=== PATIENT | female | born 1955 | race Caucasian/White ===

== ENCOUNTER 2017-04-25 19:20 | Inpatient (IN) | payer OTHER ==
[~2017-04-25] VITALS: Ht 167.6 cm; Wt 112.0 kg
[2017-04-25 19:22] VITALS: BP 136/95; PULSE 80; RESP 18; TEMP 98.3; O2SAT 100
[2017-04-25] MEDS ORDERED: TOPI1TAB36 PO (20:27)
[2017-04-25] MEDS ORDERED: SODIUM CHLOR 0.9% 1000 ML INJ 1,000 ML IV SCH (20:27)
[2017-04-25] MEDS ORDERED: ONDANSETRON HCL 4 MG/2 ML VIAL IVP ONE (20:30)
[2017-04-25] MEDS ORDERED: MORPHINE SULFATE 4 MG/ML INJ IV PUSH ONE ×2 (20:30→22:30)
[2017-04-25] MEDS ORDERED: SODIUM CHLORIDE 0.9% FLUSH 10 ML FLUSH IV FLUSH PRN ×2 (20:30→23:30)
--- NOTE | 2017-04-25 20:33 | PD ---
HPI Chief Complaint: Abdominal Pain Time Seen by Provider: 20:31 Travel History International Travel<30 days: No Contact w/Intl Traveler<30days: No Traveled to known affect area: No History of Present Illness HPI Patient comes emergency Department complaining of left lower quadrant abdominal pain that began suddenly proximally 3 hours ago. Patient describes pain as sharp stabbing like in nature. Pain is worse with certain movement. Patient denies anything making it better. Patient has tried just resting for this with no improvement of symptoms. Patient denies any loss or change in bowel or bladder. Patient reports associated nausea but denies any vomiting. Denies any chest pain, shortness of breath, fevers, previous episodes like this, or back pain. Patient states she is allergic to codeine but is able take morphine. PFSH Past Medical History COPD: Yes Respiratory: Yes Past Surgical History Abdominal Surgery: Yes (LAP BAND-REMOVED) Appendectomy: Yes Hysterectomy: Yes Tonsillectomy: Yes Social History Alcohol Use: No Tobacco Use: No Substance Use: No Allergies-Medications (Allergen,Severity, Reaction): Coded Allergies: acetaminophen (Verified Allergy, Severe, 04/26/17) amoxicillin (Verified Allergy, Severe, Rash, 04/25/17) azithromycin (Verified Allergy, Severe, 04/26/17) ciprofloxacin (Verified Allergy, Severe, Rash, 04/25/17) clavulanic acid (Verified Allergy, Severe, Rash, 04/25/17) levofloxacin (Verified Allergy, Severe, Rash, 04/25/17) tramadol (Verified Allergy, Severe, 04/26/17) valdecoxib (Verified Allergy, Severe, 04/26/17) cefadroxil (Verified Allergy, Unknown, 04/26/17) codeine (Verified Allergy, Unknown, 04/25/17) Reported Meds & Prescriptions Reported Meds & Active Scripts Active Reported Topiramate 50 Mg Tab 150 Mg PO DAILY NEB Review of Systems Except as stated in HPI: all other systems reviewed are Neg Physical Exam Narrative GENERAL: Well-developed, overly nourished, appears uncomfortable, and non-ill appearing. SKIN: Focused skin assessment warm and dry. HEAD: Atraumatic. Normocephalic. EYES: Pupils equal and round. EOMI. No scleral icterus. No injection or drainage. ENT: No nasal bleeding or discharge. Mucous membranes pink and moist. NECK: Trachea midline. Supple. No nuclear rigidity. CARDIOVASCULAR: Regular rate and rhythm. No murmur appreciated. RESPIRATORY: No accessory muscle use. No respiratory distress. Clear to auscultation. Breath sounds equal bilaterally. GASTROINTESTINAL: Abdomen soft, nondistended, and no guarding. Hepatic and splenic margins not palpable. Normal bowel sounds 4. No pulsatile mass. Tenderness left lower quadrant. No CVA tenderness. MUSCULOSKELETAL: No obvious deformities. No clubbing. No cyanosis. No edema. Full range of motion. NEUROLOGICAL: Awake and alert. No obvious cranial nerve deficits. Motor grossly within normal limits. Normal speech. PSYCHIATRIC: Appropriate mood and affect; insight and judgment normal. Data Data Last Documented VS Vital Signs Date Time Temp Pulse Resp B/P (MAP) Pulse Ox O2 Delivery O2 Flow Rate FiO2 04/25/17 20:47 18 04/25/17 19:22 98.3 80 136/95 (109) 100 Room Air Orders Orders Complete Blood Count With Diff (04/25/17 20:27) Comprehensive Metabolic Panel (04/25/17 20:27) Lipase (04/25/17 20:27) Prothrombin Time / Inr (Pt) (04/25/17 20:27) Act Partial Throm Time (Ptt) (04/25/17 20:27) Urinalysis - C+S If Indicated (04/25/17 20:27) Ct Abd/Pel W/O Iv Contrast (04/25/17 20:27) Iv Access Insert/Monitor (04/25/17 20:27) Ecg Monitoring (04/25/17 20:27) Oximetry (04/25/17 20:27) Morphine Inj (Morphine Inj) (04/25/17 20:30) Ondansetron Inj (Zofran Inj) (04/25/17 20:30) Sodium Chlor 0.9% 1000 Ml Inj (Ns 1000 M (04/25/17 20:27) Sodium Chloride 0.9% Flush (Ns Flush) (04/25/17 20:30) Metronidazole 500 Mg Inj (Flagyl 500 Mg (04/25/17 22:15) Aztreonam Inj (Azactam Inj) (04/25/17 22:15) Morphine Inj (Morphine Inj) (04/25/17 22:30) Hydromorphone Pf Inj (Dilaudid Pf Inj) (04/25/17 23:15) Admit Order (Ed Use Only) (04/25/17 23:15) Labs Laboratory Tests Test 04/25/17 20:35 White Blood Count 12.4 TH/MM3 Red Blood Count 4.71 MIL/MM3 Hemoglobin 13.2 GM/DL Hematocrit 41.1 % Mean Corpuscular Volume 87.4 FL Mean Corpuscular Hemoglobin 28.1 PG Mean Corpuscular Hemoglobin Concent 32.2 % Red Cell Distribution Width 15.4 % Platelet Count 281 TH/MM3 Mean Platelet Volume 10.3 FL Neutrophils (%) (Auto) 84.1 % Lymphocytes (%) (Auto) 11.7 % Monocytes (%) (Auto) 2.7 % Eosinophils (%) (Auto) 1.3 % Basophils (%) (Auto) 0.2 % Neutrophils # (Auto) 10.4 TH/MM3 Lymphocytes # (Auto) 1.5 TH/MM3 Monocytes # (Auto) 0.3 TH/MM3 Eosinophils # (Auto) 0.2 TH/MM3 Basophils # (Auto) 0.0 TH/MM3 CBC Comment DIFF FINAL Differential Comment Prothrombin Time 10.1 SEC Prothromb Time International Ratio 0.9 RATIO Activated Partial Thromboplast Time 26.8 SEC Blood Urea Nitrogen 20 MG/DL Creatinine 1.20 MG/DL Random Glucose 140 MG/DL Total Protein 6.8 GM/DL Albumin 3.5 GM/DL Calcium Level 8.7 MG/DL Alkaline Phosphatase 82 U/L Aspartate Amino Transf (AST/SGOT) 16 U/L Alanine Aminotransferase (ALT/SGPT) 19 U/L Total Bilirubin 0.3 MG/DL Sodium Level 139 MEQ/L Potassium Level 3.7 MEQ/L Chloride Level 108 MEQ/L Carbon Dioxide Level 20.9 MEQ/L Anion Gap 10 MEQ/L Estimat Glomerular Filtration Rate 46 ML/MIN Lipase 129 U/L MDM Medical Decision Making Medical Screen Exam Complete: Yes Emergency Medical Condition: Yes Interpretation(s) CT abdomen read by the radiologist shows: 1. Diverticula throughout the descending and sigmoid colon with suspected inflammatory change/diverticulitis at the descending colon. There is a small amount of extraluminal retroperitoneal air seen adjacent to the descending colon. 2. Small hernia just to the left of midline at the upper abdomen. This only contains mesenteric fat. Differential Diagnosis Diverticulitis, UTI, kidney stone, constipation, ileus, small bowel obstruction , electrolyte abnormality, other Narrative Course Patient was seen and examined. IV was established. Patient was placed on continuous cardiac monitoring. Initial laboratory radiological studies were ordered. Patient was given morphine for pain and Zofran for nausea. After reviewing CT scan patient was started on Azactam and Flagyl secondary to her list of antibiotic allergies. Discussed all findings and plan care of patient is agreeable for admission. All questions were answered. Call was placed to hospitalist for admission. Dr. Hernandez spoke with the hospitalist who is agreeable to admit the patient. Diagnosis Primary Impression: Diverticulitis Qualified Codes: K57.92 - Diverticulitis of intestine, part unspecified, without perforation or abscess without bleeding Admitting Information Admitting Physician Requests: Admit Condition: Stable Ady Oliva Apr 25, 2017 20:33
[2017-04-25 21:31] LABS: APTT (PATIENT) 26.8 SEC (24.3-30.1); INTERNATIONAL NORMALIZED RATIO 0.9 RATIO; PROTHROMBIN TIME - PATIENT 10.1 SEC (9.8-11.6)
[2017-04-25 21:32] LABS: ANION GAP 10 MEQ/L (5-15); AST (GOT) 16 U/L (15-37); AUTOMATED NEUTROPHIL # 10.4 TH/MM3 (1.8-7.7); BASOPHIL % 0.2 % (0.0-2.0); BICARBONATE 20.9 MEQ/L (21.0-32.0); BLOOD UREA NITROGEN 20 MG/DL (7-18); CHLORIDE 108 MEQ/L (98-107); EOSINOPHIL # 0.2 TH/MM3 (0-0.4); EOSINOPHIL % 1.3 % (0.0-4.0); GLOMERULAR FILTRATION RATE 46 ML/MIN (>89); HEMATOCRIT 41.1 % (35.0-46.0); HEMO FLAGS DIFF FINAL; LYMPH % 11.7 % (9.0-44.0); LYMPHOCYTE # 1.5 TH/MM3 (1.0-4.8); MEAN CELL VOLUME 87.4 FL (80.0-100.0); MEAN CORPUSCULAR HEMOGLOBIN 28.1 PG (27.0-34.0); MEAN CORPUSCULAR HGB CONC 32.2 % (32.0-36.0); MONO % 2.7 % (0.0-8.0); NEUT % 84.1 % (16.0-70.0); PLATELET COUNT 281 TH/MM3 (150-450); POTASSIUM 3.7 MEQ/L (3.5-5.1); RED BLOOD COUNT 4.71 MIL/MM3 (4.00-5.30); RED CELL DISTRIBUTION WIDTH 15.4 % (11.6-17.2); SODIUM (NA) 139 MEQ/L (136-145); WHITE BLOOD COUNT 12.4 TH/MM3 (4.0-11.0)
[2017-04-25 21:33] LABS: ALT (GPT) 19 U/L (10-53)
[2017-04-25 21:35] LABS: ALKALINE PHOSPHATASE 82 U/L (45-117); TOTAL BILIRUBIN ADULT 0.3 MG/DL (0.2-1.0)
--- NOTE | 2017-04-25 22:06 | RADRPT ---
EXAM DATE/TIME: 04/25/2017 20:39 [facility] COMPARISON: No previous studies available for comparison. INDICATIONS : Left sided abdominal pain. ORAL CONTRAST: No oral contrast ingested. RADIATION DOSE: 27.59 CTDIvol (mGy) ; Patient body habitus MEDICAL HISTORY : None SURGICAL HISTORY : Appendectomy. Hysterectomy.Lap band / removal ENCOUNTER: Initial ACUITY: 1 day PAIN SCALE: 6/10 LOCATION: Left abdomen TECHNIQUE: Volumetric scanning of the abdomen and pelvis was performed. Using automated exposure control and ad justment of the mA and/or kV according to patient size, radiation dose was kept as low as reasonably achievable to obtain optimal diagnostic quality images. DICOM format image data is available electro nically for review and comparison. FINDINGS: LOWER LUNGS: The visualized lower lungs are clear. LIVER: Homogeneous density without lesion. There is no dilation of the biliary tree. No calcified gallston es. SPLEEN: Normal size without lesion. PANCREAS: Within normal limits. KIDNEYS: Normal in size and shape. There is no mass, stone, or hydronephrosis. ADRENAL GLANDS: Within normal limits. VASCULAR: There is no aortic aneurysm. Scattered atherosclerotic calcifications are seen. BOWEL/MESENTERY: Colonic diverticula are seen in the descending and sigmoid portions of the colon. There is induration and inflammatory change along the descending colon. There some extraluminal air seen around this reg ion. The amount of extraluminal air is small and primarily within the retroperitoneum. There is incre ased density seen dependently within the stomach likely related to ingested material. ABDOMINAL WALL: There is a small hernia seen just to the left of midline at the upper abdomen with the defect measuri ng 2.5 cm containing a small amount of mesenteric fat. RETROPERITONEUM: There is no lymphadenopathy. BLADDER: No wall thickening or mass. REPRODUCTIVE: The patient is status post hysterectomy. A pelvic mass is not seen. There is mild free fluid. INGUINAL: There is no lymphadenopathy or hernia. MUSCULOSKELETAL: There is degenerative change in the lumbar spine. CONCLUSION: 1. Diverticula throughout the descending and sigmoid colon with suspected inflammatory change/diverti culitis at the descending colon. There is a small amount of extraluminal retroperitoneal air seen adj acent to the descending colon. 2. Small hernia just to the left of midline at the upper abdomen. This only contains mesenteric fat. Fred Hernandes MD on April 25, 2017 at 21:59 Board Certified Radiologist. This report was verified electronically.
[2017-04-25] MEDS ORDERED: metroNIDAZOLE 500 MG INJ 100 ML IV ONE (22:15)
[2017-04-25] MEDS ORDERED: AZTREONAM INJ 1,000 MG in SODIUM CHLORIDE 0.9% INJ 100 ML IV ONE (22:15)
[2017-04-25] MEDS ORDERED: HYDROmorphone HCL PF 1 MG/ML VIAL IV PUSH ONE (23:15)
[2017-04-25] MEDS ORDERED: MAGNESIUM HYDROXIDE SUSP 30 ML CUP PO PRN (23:30)
[2017-04-25] MEDS ORDERED: SENNOSIDES 8.6 MG TAB PO PRN (23:30)
[2017-04-25] MEDS ORDERED: NALOXONE HCL 0.4 MG/ML AMP IV PRN (23:30)
[2017-04-25] MEDS ORDERED: LACTULOSE SYRUP 20 GM/30 ML CUP PO PRN (23:30)
[2017-04-25] MEDS ORDERED: BISACODYL 10 MG SUPP RECTAL PRN (23:30)
[2017-04-26] VITALS (7 sets, daily range): BP systolic 104–165; BP diastolic 54–88; PULSE 74–90; RESP 18; TEMP 97.1–100.1; O2SAT 96–99
--- NOTE | 2017-04-26 00:06 | PD ---
Data Data Last Documented VS Vital Signs Date Time Temp Pulse Resp B/P (MAP) Pulse Ox O2 Delivery O2 Flow Rate FiO2 04/25/17 20:47 18 04/25/17 19:22 98.3 80 136/95 (109) 100 Room Air Orders Orders Complete Blood Count With Diff (04/25/17 20:27) Comprehensive Metabolic Panel (04/25/17 20:27) Lipase (04/25/17 20:27) Prothrombin Time / Inr (Pt) (04/25/17 20:27) Act Partial Throm Time (Ptt) (04/25/17 20:27) Urinalysis - C+S If Indicated (04/25/17 20:27) Ct Abd/Pel W/O Iv Contrast (04/25/17 20:27) Iv Access Insert/Monitor (04/25/17 20:27) Ecg Monitoring (04/25/17 20:27) Oximetry (04/25/17 20:27) Morphine Inj (Morphine Inj) (04/25/17 20:30) Ondansetron Inj (Zofran Inj) (04/25/17 20:30) Sodium Chlor 0.9% 1000 Ml Inj (Ns 1000 M (04/25/17 20:27) Sodium Chloride 0.9% Flush (Ns Flush) (04/25/17 20:30) Metronidazole 500 Mg Inj (Flagyl 500 Mg (04/25/17 22:15) Aztreonam Inj (Azactam Inj) (04/25/17 22:15) Morphine Inj (Morphine Inj) (04/25/17 22:30) Hydromorphone Pf Inj (Dilaudid Pf Inj) (04/25/17 23:15) Admit Order (Ed Use Only) (04/25/17 23:15) Labs Laboratory Tests Test 04/25/17 20:35 White Blood Count 12.4 TH/MM3 Red Blood Count 4.71 MIL/MM3 Hemoglobin 13.2 GM/DL Hematocrit 41.1 % Mean Corpuscular Volume 87.4 FL Mean Corpuscular Hemoglobin 28.1 PG Mean Corpuscular Hemoglobin Concent 32.2 % Red Cell Distribution Width 15.4 % Platelet Count 281 TH/MM3 Mean Platelet Volume 10.3 FL Neutrophils (%) (Auto) 84.1 % Lymphocytes (%) (Auto) 11.7 % Monocytes (%) (Auto) 2.7 % Eosinophils (%) (Auto) 1.3 % Basophils (%) (Auto) 0.2 % Neutrophils # (Auto) 10.4 TH/MM3 Lymphocytes # (Auto) 1.5 TH/MM3 Monocytes # (Auto) 0.3 TH/MM3 Eosinophils # (Auto) 0.2 TH/MM3 Basophils # (Auto) 0.0 TH/MM3 CBC Comment DIFF FINAL Differential Comment Prothrombin Time 10.1 SEC Prothromb Time International Ratio 0.9 RATIO Activated Partial Thromboplast Time 26.8 SEC Blood Urea Nitrogen 20 MG/DL Creatinine 1.20 MG/DL Random Glucose 140 MG/DL Total Protein 6.8 GM/DL Albumin 3.5 GM/DL Calcium Level 8.7 MG/DL Alkaline Phosphatase 82 U/L Aspartate Amino Transf (AST/SGOT) 16 U/L Alanine Aminotransferase (ALT/SGPT) 19 U/L Total Bilirubin 0.3 MG/DL Sodium Level 139 MEQ/L Potassium Level 3.7 MEQ/L Chloride Level 108 MEQ/L Carbon Dioxide Level 20.9 MEQ/L Anion Gap 10 MEQ/L Estimat Glomerular Filtration Rate 46 ML/MIN Lipase 129 U/L [facility] Medical Record Reviewed: Yes Supervised Visit with GOLDEN: Yes Narrative Course CBC & BMP Diagram 04/25/17 20:35 Total Protein 6.8, Albumin 3.5, Calcium Level 8.7, Alkaline Phosphatase 82, Aspartate Amino Transf (AST/SGOT) 16, Alanine Aminotransferase (ALT/SGPT) 19, Total Bilirubin 0.3 Lipase 129 INR 0.9 Last 24 hours Impressions Abdomen/Pelvis CT 04/25/172026 Signed Impressions: Service Date/Time: Tuesday, April 25, 2017 20:39 - CONCLUSION: 1. Diverticula throughout the descending and sigmoid colon with suspected inflammatory change/diverticulitis at the descending colon. There is a small amount of extraluminal retroperitoneal air seen adjacent to the descending colon. 2. Small hernia just to the left of midline at the upper abdomen. This only contains mesenteric fat. Fred Hernandes MD Pt to be due to diverticulitis. Flagyl and aztreonam started due to multiple allergies. Bactrim and Flagyl may be appropriate. Case d/w Jamar Nevarez [facility]. Diagnosis Primary Impression: Diverticulitis Qualified Codes: K57.92 - Diverticulitis of intestine, part unspecified, without perforation or abscess without bleeding Admitting Information Admitting Physician Requests: Admit Priyank Hernandez MD Apr 26, 2017 00:06
[2017-04-26] MEDS: HYDROmorphone HCL PF 1 MG/ML VIAL IV PRN ×7 (00:22→22:33)
[2017-04-26] MEDS: SODIUM CHLOR 0.9% 1000 ML INJ 1,000 ML IV SCH ×3 (00:28→21:11)
[2017-04-26] MEDS: HEPARIN SODIUM - SQ 10,000 UNITS/ML VIAL SQ SCH ×2 (00:29→12:26)
[2017-04-26] MEDS: FAMOTIDINE 20 MG/2 ML VIAL IV PUSH SCH ×2 (00:29→12:25)
[2017-04-26 00:42] LABS: BLOOD, URINE NEG (NEG); GLUCOSE,URINE NEG (NEG); KETONE, URINE NEG (NEG); NITRITE,URINE NEG (NEG); PH, URINE 6.5 (5.0-8.5); SQUAMOUS EPITHELIAL CELL URINE 2 /hpf (0-5); URINE COLOR YELLOW (YELLW/STRAW)
[2017-04-26 00:55] LABS: COMMENT (UR) CULT NOT INDICATED; CULTURE IF INDICATED CULT NOT INDICATED
[2017-04-26] MEDS ORDERED: TRIMETHOPRIM IV SCH ×2 (02:00)
[2017-04-26] MEDS ORDERED: WATE IV SCH ×2 (02:00)
[2017-04-26] MEDS ORDERED: DEXTROSE 5% IV SCH ×2 (02:00)
[2017-04-26] MEDS ORDERED: SULFAMETHOX IV SCH ×2 (02:00)
[2017-04-26 04:26] LABS: AUTOMATED NEUTROPHIL # 15.8 TH/MM3 (1.8-7.7); BASOPHIL % 0.1 % (0.0-2.0); HEMATOCRIT 36.8 % (35.0-46.0); HEMO FLAGS DIFF FINAL; LYMPHOCYTE # 0.3 TH/MM3 (1.0-4.8); MEAN CELL VOLUME 87.6 FL (80.0-100.0); MEAN CORPUSCULAR HEMOGLOBIN 27.8 PG (27.0-34.0); MEAN CORPUSCULAR HGB CONC 31.7 % (32.0-36.0); NEUT % 93.9 % (16.0-70.0); PLATELET COUNT 247 TH/MM3 (150-450); RED CELL DISTRIBUTION WIDTH 15.4 % (11.6-17.2); WHITE BLOOD COUNT 16.8 TH/MM3 (4.0-11.0)
[2017-04-26 04:48] LABS: BICARBONATE 23.1 MEQ/L (21.0-32.0); POTASSIUM 4.1 MEQ/L (3.5-5.1)
[2017-04-26] MEDS: metroNIDAZOLE 500 MG INJ 100 ML IV SCH ×3 (05:00→18:18)
[2017-04-26] MEDS: SODIUM CHLORIDE 0.9% FLUSH 10 ML FLUSH IV FLUSH SCH ×2 (09:00→21:11)
[2017-04-26] MEDS: DOCUSATE SODIUM 50 MG/SENNA 8.6 MG TAB PO SCH ×2 (09:10→21:09)
--- NOTE | 2017-04-26 11:34 | HHI.HP ---
[facility] Kali Harrington, DO Admission Diagnosis Diverticulitis Diagnoses: Chief Complaint: abd. pain Travel History International Travel<30 Days: No Contact w/Intl Traveler <30 Da: No Traveled to Known Affected Are: No History of Present Illness This is a pleasant 61 y.o. WF, generally in good health, PMHx of essential tremors, obesity, COPD. Presented to the ED complaining of left lower quadrant abdominal pain that began suddenly last night. States pain is sharp stabbing, worst with movement, located to LLQ. Nothing makes the pain better or worst. She had eaten pizza prior. Had associated nausea and dry heaves, chills, no fever. Bowel movements regular, no urinary symptoms. Pt. was evaluated in the ED, labs were completed. BMP remarkable for acute renal injury, CBC remarkable for leukocytosis. CT of abd and pelvis showed 1. Diverticula throughout the descending and sigmoid colon with suspected inflammatory change/diverticulitis at the descending colon. There is a small amount of extraluminal retroperitoneal air seen adjacent to the descending colon. 2. Small hernia just to the left of midline at the upper abdomen. This only contains mesenteric fat. Pt. was started on Bactrim IV and Flagyl due to multiple allergies. GI consult is pending. She remains extremely painful with minimal touch. Denies prior history of diverticulitis. Has had previous GI work up that have been normal. She is having nausea, and wants something to drink. Pt. is admitted for further evaluation and treatment. Review of Systems Constitutional: COMPLAINS OF: Chills, Change in appetite, DENIES: Diaphoretic episodes, Fatigue, Fever, Weight gain, Weight loss, Dizziness, Night Sweats Endocrine: DENIES: Abnorml menstrual pattern, Heat/cold intolerance, Polydipsia , Polyuria, Polyphagia Eyes: DENIES: Blurred vision, Diplopia, Eye inflammation, Eye pain, Vision loss , Photosensitivity, Double Vision Ears, nose, mouth, throat: DENIES: Tinnitus, Hearing loss, Vertigo, Nasal discharge, Oral lesions, Throat pain, Hoarseness, Ear Pain, Running Nose, Epistaxis, Sinus Pain, Toothache, Odynophagia Respiratory: DENIES: Apneas, Cough, Snoring, Wheezing, Hemoptysis, Sputum production, Shortness of breath Cardiovascular: DENIES: Chest pain, Palpitations, Syncope, Dyspnea on Exertion , PND, Lower Extremity Edema, Orthopnea, Claudication Gastrointestinal: COMPLAINS OF: Abdominal pain, Nausea, DENIES: Black stools, Bloody stools, Constipation, Diarrhea, Vomiting, Difficulty Swallowing, Anorexia Genitourinary: DENIES: Abnormal vaginal bleeding, Dysmenorrhea, Dyspareunia, Sexual dysfunction, Urinary frequency, Urinary incontinence, Urgency, Hematuria , Dysuria, Nocturia, Vaginal discharge Musculoskeletal: DENIES: Joint pain, Muscle aches, Stiffness, Joint Swelling, Back pain, Neck pain Integumentary: DENIES: Abnormal pigmentation, Pruritus, Rash, Nail changes, Breast masses, Breast skin changes, Nipple discharge Hematologic/lymphatic: DENIES: Bruising, Lymphadenopathy Immunologic/allergic: DENIES: Eczema, Urticaria Neurologic: DENIES: Abnormal gait, Headache, Localized weakness, Paresthesias, Seizures, Speech Problems, Tremor, Poor Balance Psychiatric: DENIES: Anxiety, Confusion, Mood changes, Depression, Hallucinations, Agitation, Suicidal Ideation, Homicidal Ideation, Delusions Past Family Social History Past Medical History obesity sepsis sec. to lap band complications essential tremors copd, stable. No oxygen at home Past Surgical History Left foot surgery lap band surgery and subsequent removal Tonsillectomy Hysterectomy Reported Medications Reported Meds & Active Scripts Active Reported Topiramate 50 Mg Tab 150 Mg PO DAILY NEB Allergies: Coded Allergies: acetaminophen (Verified Allergy, Severe, 04/26/17) azithromycin (Verified Allergy, Severe, 04/26/17) ciprofloxacin (Verified Allergy, Severe, Rash, 04/25/17) clavulanic acid (Verified Allergy, Severe, Rash, 04/25/17) levofloxacin (Verified Allergy, Severe, Rash, 04/25/17) tramadol (Verified Allergy, Severe, 04/26/17) valdecoxib (Verified Allergy, Severe, 04/26/17) cefadroxil (Verified Allergy, Unknown, 04/26/17) codeine (Verified Allergy, Unknown, 04/25/17) Active Ordered Medications Inpatient Medications Aztreonam 1000 mg/ Sodium Chloride 100 ml @ 200 mls/hr ONCE ONCE IV Last administered on 04/26/17t 01:41; Start 04/25/17 at 22:15; Stop 04/25/17 at 22:44; Status DC Bisacodyl (Dulcolax Supp) 10 mg DAILY PRN RECTAL SEVERE CONSITIPATION; Start at 23:30 Famotidine (Pepcid Inj) 20 mg Q12H IV PUSH Last administered on 04/26/17 00:29 ; Start 04/26/17 at 00:00 Heparin Sodium (Porcine) (Heparin Inj) 5,000 units Q12H SQ Last administered on 04/26/17 00:29; Start 04/26/17 at 00:00 Hydromorphone HCl (Dilaudid Pf Inj) 1 mg Q4H PRN IV PAIN 6-10 Last administered on 04/26/17 09:10; Start 04/26/17 at 00:15 Lactulose (Lactulose Liq) 30 ml DAILY PRN PO SEVERE CONSITIPATION; Start at 23:30 Magnesium Hydroxide (Milk Of Magnesia Liq) 30 ml Q12H PRN PO MILD - MODERATE CONSTIPATION; Start 04/25/17 at 23:30 Metronidazole 100 ml @ 100 mls/hr Q6H IV Last administered on 04/26/17 05:00; Start 04/26/17 at 06:00 Morphine Sulfate (Morphine Inj) 4 mg ONCE ONCE IV PUSH Last administered on 22:57; Start 04/25/17 at 22:30; Stop 04/25/17 at 22:31; Status DC Naloxone HCl (Narcan Inj) 0.4 mg UNSCH PRN IV SEE LABEL COMMENTS; Start at 23:30 Ondansetron HCl (Zofran Inj) 4 mg Q6H PRN IVP NAUSEA OR VOMITING; Start at 23:30 Senna/Docusate Sodium (Janette-Colace) 1 tab BID PO Last administered on 04/26/17 09:10; Start 04/26/17 at 09:00 Sennosides (Senokot) 17.2 mg Q12H PRN PO MODERATE - SEVERE CONSTIPATION; Start 04/25/17 at 23:30 Sodium Chloride (NS Flush) 2 ml BID IV FLUSH Last administered on 04/26/17 09: 00; Start 04/26/17 at 09:00 Trimethoprim/ Sulfamethoxazole 576 mg/Dextrose 536 ml @ 357.333 mls/hr Q12H IV Last administered on 04/26/17t 01:41; Start 04/26/17 at 02:00 Family History Reviewed, non contributory Social History , lives with . Works making jewelry. No ETOH, quit smoking 15 years ago, no substance abuse. Physical Exam Vital Signs Vital Signs Date Time Temp Pulse Resp B/P (MAP) Pulse Ox O2 Delivery O2 Flow Rate FiO2 04/26/17 09:50 16 04/26/17 08:00 97.9 88 18 116/72 (87) 99 04/26/17 04:09 98.4 77 18 117/65 (82) 98 04/26/17 00:50 85 132/64 (86) 04/26/17 00:47 97.1 90 18 165/88 (113) 96 04/26/17 00:03 04/25/17 20:47 18 04/25/17 19:22 98.3 80 18 136/95 (109) 100 Room Air Physical Exam GENERAL: This is a well-nourished, well-developed patient, in no apparent distress. SKIN: No rashes, ecchymoses or lesions. Cool and dry. HEAD: Atraumatic. Normocephalic. No temporal or scalp tenderness. EYES: Pupils equal round and reactive. Extraocular motions intact. No scleral icterus. No injection or drainage. ENT: Nose without bleeding, purulent drainage or septal hematoma. Throat without erythema, tonsillar hypertrophy or exudate. Uvula midline. Airway patent. NECK: Trachea midline. No JVD or lymphadenopathy. Supple, nontender, no meningeal signs. CARDIOVASCULAR: Regular rate and rhythm without murmurs, gallops, or rubs. RESPIRATORY: Clear to auscultation. Breath sounds equal bilaterally. No wheezes , rales, or rhonchi. GASTROINTESTINAL: Abdomen soft,exquisitely tender to LLQ with minimal palpation. Nondistended. No hepato-splenomegaly, or palpable masses. No guarding. MUSCULOSKELETAL: Extremities without clubbing, cyanosis, or edema. No joint tenderness, effusion, or edema noted. No calf tenderness. Negative Homans sign bilaterally. NEUROLOGICAL: Awake and alert. Cranial nerves II through XII intact. Motor and sensory grossly within normal limits. Five out of 5 muscle strength in all muscle groups. Normal speech. Laboratory Laboratory Tests Test 04/25/17 20:35 04/26/17 00:10 04/26/17 04:01 White Blood Count 12.4 16.8 Red Blood Count 4.71 4.20 Hemoglobin 13.2 11.7 Hematocrit 41.1 36.8 Mean Corpuscular Volume 87.4 87.6 Mean Corpuscular Hemoglobin 28.1 27.8 Mean Corpuscular Hemoglobin Concent 32.2 31.7 Red Cell Distribution Width 15.4 15.4 Platelet Count 281 247 Mean Platelet Volume 10.3 9.6 Neutrophils (%) (Auto) 84.1 93.9 Lymphocytes (%) (Auto) 11.7 2.0 Monocytes (%) (Auto) 2.7 4.0 Eosinophils (%) (Auto) 1.3 0.0 Basophils (%) (Auto) 0.2 0.1 Neutrophils # (Auto) 10.4 15.8 Lymphocytes # (Auto) 1.5 0.3 Monocytes # (Auto) 0.3 0.7 Eosinophils # (Auto) 0.2 0.0 Basophils # (Auto) 0.0 0.0 CBC Comment DIFF FINAL DIFF FINAL Differential Comment Prothrombin Time 10.1 Prothromb Time International Ratio 0.9 Activated Partial Thromboplast Time 26.8 Blood Urea Nitrogen 20 18 Creatinine 1.20 1.05 Random Glucose 140 126 Total Protein 6.8 Albumin 3.5 Calcium Level 8.7 8.0 Alkaline Phosphatase 82 Aspartate Amino Transf (AST/SGOT) 16 Alanine Aminotransferase (ALT/SGPT) 19 Total Bilirubin 0.3 Sodium Level 139 141 Potassium Level 3.7 4.1 Chloride Level 108 111 Carbon Dioxide Level 20.9 23.1 Anion Gap 10 7 Estimat Glomerular Filtration Rate 46 53 Lipase 129 Urine Color YELLOW Urine Turbidity CLEAR Urine pH 6.5 Urine Specific [place] 1.023 Urine Protein NEG Urine Glucose (UA) NEG Urine Ketones NEG Urine Occult Blood NEG Urine Nitrite NEG Urine Bilirubin NEG Urine Urobilinogen LESS THAN 2.0 Urine Leukocyte Esterase NEG Urine RBC 1 Urine WBC 3 Urine Squamous Epithelial Cells 2 Microscopic Urinalysis Comment CULT NOT INDICATED Date/Time Source Procedure Growth Status 04/26/17 04:06 Blood Peripheral Aerobic Blood Culture Pending Received 04/26/17 04:06 Blood Peripheral Anaerobic Blood Culture Pending Received Result Diagram: 04/26/17 0401 04/26/17 0401 Imaging Last Impressions Abdomen/Pelvis CT 04/25/172026 Signed Impressions: Service Date/Time: Tuesday, April 25, 2017 20:39 - CONCLUSION: 1. Diverticula throughout the descending and sigmoid colon with suspected inflammatory change/diverticulitis at the descending colon. There is a small amount of extraluminal retroperitoneal air seen adjacent to the descending colon. 2. Small hernia just to the left of midline at the upper abdomen. This only contains mesenteric fat. Fred Hernandes MD Septic Shock Reassessment Heart: Regular rate and rhythm Lungs: Clear Skin: Warm, Dry Peripheral Pulses: Bounding Right Radial Bounding Left Radial Bounding Right Popliteal Bounding Left Popliteal Bounding Right Dorsalis Pedis Bounding Left Dorsalis Pedis Bounding Right Posterior Tibial Bounding Left Posterior Tibial Caprini VTE Risk Assessment Caprini VTE Risk Assessment: Mod/High Risk (score >= 2) Caprini Risk Assessment Model Point Value = 1 Point Value = 2 Point Value = 3 Point Value = 5 Age 41-60 Minor surgery BMI > 25 kg/m2 Swollen legs Varicose veins or History of unexplained or recurrent spontaneous Oral contraceptives or hormone replacement Sepsis (< 1 month) Serious lung disease, including pneumonia (< 1 month) Abnormal pulmonary function Acute myocardial infarction Congestive heart failure (< 1 month) History of inflammatory bowel disease Medical patient at bed rest Age 61-74 Arthroscopic surgery Major open surgery (> 45 min) Laparoscopic surgery (> 45 min) Malignancy Confined to bed (> 72 hours) Immobilizing plaster cast Central venous access Age >= 75 History of VTE Family history of VTE Factor V Leiden Prothrombin [id number] Lupus anticoagulant Anticardiolipin antibodies Elevated serum homocysteine Heparin-induced thrombocytopenia Other congenital or acquired thrombophilia Stroke (< 1 month) Elective arthroplasty Hip, pelvis, or leg fracture Acute spinal cord injury (< 1 month) Prophylaxis Regimen Total Risk Factor Score Risk Level Prophylaxis Regimen 0-1 Low Early ambulation 2 Moderate Order ONE of the following: *Sequential Compression Device (SCD) *Heparin 5000 units SQ BID 3-4 Higher Order ONE of the following medications: *Heparin 5000 units SQ TID *Enoxaparin/Lovenox 40 mg SQ daily (WT < 150 kg, CrCl > 30 mL/min) *Enoxaparin/Lovenox 30 mg SQ daily (WT < 150 kg, CrCl > 10-29 mL/min) *Enoxaparin/Lovenox 30 mg SQ BID (WT < 150 kg, CrCl > 30 mL/min) AND/OR *Sequential Compression Device (SCD) 5 or more Highest Order ONE of the following medications: *Heparin 5000 units SQ TID (Preferred with Epidurals) *Enoxaparin/Lovenox 40 mg SQ daily (WT < 150 kg, CrCl > 30 mL/min) *Enoxaparin/Lovenox 30 mg SQ daily (WT < 150 kg, CrCl > 10-29 mL/min) *Enoxaparin/Lovenox 30 mg SQ BID (WT < 150 kg, CrCl > 30 mL/min) AND *Sequential Compression Device (SCD) Assessment and Plan Problem List: (1) Diverticulitis ICD Codes: K57.92 - Diverticulitis of intestine, part unspecified, without perforation or abscess without bleeding Status: Acute (2) Abdominal pain ICD Codes: R10.9 - Unspecified abdominal pain (3) possible microperformation from diverticulitis Status: Acute (4) Leukocytosis ICD Codes: D72.829 - Elevated white blood cell count, unspecified Status: Acute (5) COPD (chronic obstructive pulmonary disease) ICD Codes: J44.9 - Chronic obstructive pulmonary disease, unspecified Status: Chronic (6) Essential tremor ICD Codes: G25.0 - Essential tremor Status: Chronic (7) MIGUEL (acute kidney injury) ICD Codes: N17.9 - Acute kidney failure, unspecified Status: Acute Assessment and Plan Admit to Dr. Kulkarni 61 year old female with sudden onset of LLQ pain, CT findings of diverticulitis with possible microperforation. -continue with IVF -continue antibiotics, and follow cultures -continue with IV narcotics to control pain -Strict NPO -GI consult pending -will wait for GI input, may need surgery evaluation if symptoms worsened MIGUEL likely sec. dehydration -continue IVF -BMP in am COPD, stable -Duonebs PRN for wheezing Essential tremors, stable -hold Topamax at this time. Home medications reviewed, initiated as indicated. SCDs for DVT prophylaxis Plan of care discussed with attending, pt and , RN. Further management of the patient will be dependent on the hospital course. Pt. requires inpatient admission for > 2 days for diverticulitis with microperforation. Pt. at risk for sepsis, MOF, poss . Requires admission for IVF, IV antibiotics, GI evaluation, IV narcotic for pain control. Anticipated discharge back to home when stable. This patient was seen by myself and Dr. Kulkarni, this H/P is written on his behalf. Physician Certification 2 Midnight Certification Type: Admission for Inpatient Services Order for Inpatient Services The services are ordered in accordance with Medicare regulations or non- Medicare payer requirements, as applicable. In the case of services not specified as inpatient-only, they are appropriately provided as inpatient services in accordance with the 2-midnight benchmark. Estimated LOS (days): 2 2 days is the estimated time the patient will need to remain in the hospital, assuming treatment plan goals are met and no additional complications. Post-Hospital Plan: Home Problem Qualifiers (1) Diverticulitis: Qualified Codes: K57.92 - Diverticulitis of intestine, part unspecified, without perforation or abscess without bleeding (2) Abdominal pain: Qualified Codes: R10.32 - Left lower quadrant pain (3) Leukocytosis: Qualified Codes: D72.829 - Elevated white blood cell count, unspecified (4) COPD (chronic obstructive pulmonary disease): Qualified Codes: J44.9 - Chronic obstructive pulmonary disease, unspecified Juana David Apr 26, 2017 11:34
--- NOTE | 2017-04-26 12:35 | HHI.PR ---
Objective Objective Results - Vital Signs Date Time Temp Pulse Resp B/P (MAP) Pulse Ox O2 Delivery O2 Flow Rate FiO2 04/26/17 12:10 100.1 86 18 104/54 (71) 97 04/26/17 09:50 16 04/26/17 08:00 97.9 88 18 116/72 (87) 99 04/26/17 04:09 98.4 77 18 117/65 (82) 98 04/26/17 00:50 85 132/64 (86) 04/26/17 00:47 97.1 90 18 165/88 (113) 96 04/26/17 00:03 04/25/17 20:47 18 04/25/17 19:22 98.3 80 18 136/95 (109) 100 Room Air I/O 04/25/17 04/25/17 04/25/17 04/26/17 04/26/17 04/26/17 07:00 15:00 23:00 07:00 15:00 23:00 Intake Total 1000 ml 100 ml Balance 1000 ml 100 ml Intake Oral 0 ml IV Total 1000 ml 100 ml # Voids 4 # Bowel Movements 0 Result Diagram: 04/26/17 0401 04/26/17 0401 Imaging Last Impressions Abdomen/Pelvis CT 04/25/172026 Signed Impressions: Service Date/Time: Tuesday, April 25, 2017 20:39 - CONCLUSION: 1. Diverticula throughout the descending and sigmoid colon with suspected inflammatory change/diverticulitis at the descending colon. There is a small amount of extraluminal retroperitoneal air seen adjacent to the descending colon. 2. Small hernia just to the left of midline at the upper abdomen. This only contains mesenteric fat. Fred Hernandes MD Other Results Laboratory Tests Test 04/25/17 20:35 04/26/17 00:10 04/26/17 04:01 White Blood Count 12.4 16.8 Red Blood Count 4.71 4.20 Hemoglobin 13.2 11.7 Hematocrit 41.1 36.8 Mean Corpuscular Volume 87.4 87.6 Mean Corpuscular Hemoglobin 28.1 27.8 Mean Corpuscular Hemoglobin Concent 32.2 31.7 Red Cell Distribution Width 15.4 15.4 Platelet Count 281 247 Mean Platelet Volume 10.3 9.6 Neutrophils (%) (Auto) 84.1 93.9 Lymphocytes (%) (Auto) 11.7 2.0 Monocytes (%) (Auto) 2.7 4.0 Eosinophils (%) (Auto) 1.3 0.0 Basophils (%) (Auto) 0.2 0.1 Neutrophils # (Auto) 10.4 15.8 Lymphocytes # (Auto) 1.5 0.3 Monocytes # (Auto) 0.3 0.7 Eosinophils # (Auto) 0.2 0.0 Basophils # (Auto) 0.0 0.0 CBC Comment DIFF FINAL DIFF FINAL Differential Comment Prothrombin Time 10.1 Prothromb Time International Ratio 0.9 Activated Partial Thromboplast Time 26.8 Blood Urea Nitrogen 20 18 Creatinine 1.20 1.05 Random Glucose 140 126 Total Protein 6.8 Albumin 3.5 Calcium Level 8.7 8.0 Alkaline Phosphatase 82 Aspartate Amino Transf (AST/SGOT) 16 Alanine Aminotransferase (ALT/SGPT) 19 Total Bilirubin 0.3 Sodium Level 139 141 Potassium Level 3.7 4.1 Chloride Level 108 111 Carbon Dioxide Level 20.9 23.1 Anion Gap 10 7 Estimat Glomerular Filtration Rate 46 53 Lipase 129 Urine Color YELLOW Urine Turbidity CLEAR Urine pH 6.5 Urine Specific [place] 1.023 Urine Protein NEG Urine Glucose (UA) NEG Urine Ketones NEG Urine Occult Blood NEG Urine Nitrite NEG Urine Bilirubin NEG Urine Urobilinogen LESS THAN 2.0 Urine Leukocyte Esterase NEG Urine RBC 1 Urine WBC 3 Urine Squamous Epithelial Cells 2 Microscopic Urinalysis Comment CULT NOT INDICATED Date/Time Source Procedure Growth Status 04/26/17 04:06 Blood Peripheral Aerobic Blood Culture Pending Received 04/26/17 04:06 Blood Peripheral Anaerobic Blood Culture Pending Received Physical Exam Physical Exam pt is seen & Examined d/w PT & her at bedside acute Diverticulitis w possible micro perforation Pt is Not allergic to PCN / amoxicillin or ampicillin. will start IV zosyn IVF NPO IV analgesic/ Antiemetic GI consult cont supportive care Mercedes Kulkarni MD Apr 26, 2017 12:35
[2017-04-26] MEDS ORDERED: RESP: ALBUTEROL 2.5 MG/IPRATROPIUM 0.5 MG NEB (PRN) NEB (13:45)
[2017-04-26] MEDS: PIPERACIL-TAZO 3.375 GM PREMIX 50 ML IV SCH ×2 (14:50→21:10)
--- NOTE | 2017-04-26 17:20 | PD.CONS ---
HPI History of Present Illness This is a 61 year old female patient who had sudden onset of LLQ abdominal pain two - three days ago. She came to ED yesterday and CT showed diverticulitis with small spots of what appears to be retroperitoneal air. She is continuing to have severe constant sharp pain in the left side. Her has been riding her around in a wheelchair thinking it would help her to stay active. She is NPO. she denies vomiting. No bloody stools. ROS: no headache , chest pain, SOB. she has tremors for which she takes medication. Otherwise complete ros is negative. PFSH Past Medical History Diabetes, COPD Past Surgical History Has had negative colonoscopy in the past Had lap band placed and removed Coded Allergies: acetaminophen (Verified Allergy, Severe, 04/26/17) azithromycin (Verified Allergy, Severe, 04/26/17) ciprofloxacin (Verified Allergy, Severe, Rash, 04/25/17) clavulanic acid (Verified Allergy, Severe, Rash, 04/25/17) levofloxacin (Verified Allergy, Severe, Rash, 04/25/17) tramadol (Verified Allergy, Severe, 04/26/17) valdecoxib (Verified Allergy, Severe, 04/26/17) cefadroxil (Verified Allergy, Unknown, 04/26/17) codeine (Verified Allergy, Unknown, 04/25/17) Medications Current Medications Medications (Trade) Dose Ordered Sig/Mya Route Start Time Stop Time Status Last Admin (NS Flush) 2 ml UNSCH PRN IV FLUSH 04/25/17 20:30 Sodium Chloride 1,000 ml @ 100 mls/hr Q10H IV 04/25/17 23:20 04/26/17 00:28 (NS Flush) 2 ml UNSCH PRN IV FLUSH 04/25/17 23:30 (NS Flush) 2 ml BID IV FLUSH 04/26/17 09:00 04/26/17 09:00 (Zofran Inj) 4 mg Q6H PRN IVP 04/25/17 23:30 (Heparin Inj) 5,000 units Q12H SQ 04/26/17 00:00 04/26/17 12:26 (Narcan Inj) 0.4 mg UNSCH PRN IV 04/25/17 23:30 (Janette-Colace) 1 tab BID PO 04/26/17 09:00 04/26/17 09:10 (Milk Of Magnesia Liq) 30 ml Q12H PRN PO 04/25/17 23:30 (Senokot) 17.2 mg Q12H PRN PO 04/25/17 23:30 (Dulcolax Supp) 10 mg DAILY PRN RECTAL 04/25/17 23:30 (Lactulose Liq) 30 ml DAILY PRN PO 04/25/17 23:30 (Pepcid Inj) 20 mg Q12H IV PUSH 04/26/17 00:00 04/26/17 12:25 Metronidazole 100 ml @ 100 mls/hr Q6H IV 04/26/17 06:00 04/26/17 12:31 (Dilaudid Pf Inj) 1 mg Q4H PRN IV 04/26/17 00:15 04/26/17 13:03 Piperacillin Sod/ Tazobactam Sod 50 ml @ 100 mls/hr Q6H IV 04/26/17 13:00 04/26/17 14:50 (Duoneb Neb) 1 ampule Q8HR NEB PRN NEB 04/26/17 13:45 Family History Negative for colon or gastric cancer Social History Denies alcohol or drug abuse. GI Exam Vitals I&O Vital Signs Date Time Temp Pulse Resp B/P (MAP) Pulse Ox O2 Delivery O2 Flow Rate FiO2 04/26/17 13:35 16 04/26/17 12:10 100.1 86 18 104/54 (71) 97 04/26/17 08:00 97.9 88 18 116/72 (87) 99 04/26/17 04:09 98.4 77 18 117/65 (82) 98 04/26/17 00:50 85 132/64 (86) 04/26/17 00:47 97.1 90 18 165/88 (113) 96 04/26/17 00:03 04/25/17 20:47 18 04/25/17 19:22 98.3 80 18 136/95 (109) 100 Room Air I/O 04/25/17 04/25/17 04/25/17 04/26/17 04/26/17 04/26/17 07:00 15:00 23:00 07:00 15:00 23:00 Intake Total 1000 ml 100 ml Balance 1000 ml 100 ml Intake Oral 0 ml IV Total 1000 ml 100 ml # Voids 4 # Bowel Movements 0 Laboratory Test 04/25/17 20:35 04/26/17 00:10 04/26/17 04:01 White Blood Count 12.4 TH/MM3 16.8 TH/MM3 Red Blood Count 4.71 MIL/MM3 4.20 MIL/MM3 Hemoglobin 13.2 GM/DL 11.7 GM/DL Hematocrit 41.1 % 36.8 % Mean Corpuscular Volume 87.4 FL 87.6 FL Mean Corpuscular Hemoglobin 28.1 PG 27.8 PG Mean Corpuscular Hemoglobin Concent 32.2 % 31.7 % Red Cell Distribution Width 15.4 % 15.4 % Platelet Count 281 TH/MM3 247 TH/MM3 Mean Platelet Volume 10.3 FL 9.6 FL Neutrophils (%) (Auto) 84.1 % 93.9 % Lymphocytes (%) (Auto) 11.7 % 2.0 % Monocytes (%) (Auto) 2.7 % 4.0 % Eosinophils (%) (Auto) 1.3 % 0.0 % Basophils (%) (Auto) 0.2 % 0.1 % Neutrophils # (Auto) 10.4 TH/MM3 15.8 TH/MM3 Lymphocytes # (Auto) 1.5 TH/MM3 0.3 TH/MM3 Monocytes # (Auto) 0.3 TH/MM3 0.7 TH/MM3 Eosinophils # (Auto) 0.2 TH/MM3 0.0 TH/MM3 Basophils # (Auto) 0.0 TH/MM3 0.0 TH/MM3 CBC Comment DIFF FINAL DIFF FINAL Differential Comment Prothrombin Time 10.1 SEC Prothromb Time International Ratio 0.9 RATIO Activated Partial Thromboplast Time 26.8 SEC Blood Urea Nitrogen 20 MG/DL 18 MG/DL Creatinine 1.20 MG/DL 1.05 MG/DL Random Glucose 140 MG/DL 126 MG/DL Total Protein 6.8 GM/DL Albumin 3.5 GM/DL Calcium Level 8.7 MG/DL 8.0 MG/DL Alkaline Phosphatase 82 U/L Aspartate Amino Transf (AST/SGOT) 16 U/L Alanine Aminotransferase (ALT/SGPT) 19 U/L Total Bilirubin 0.3 MG/DL Sodium Level 139 MEQ/L 141 MEQ/L Potassium Level 3.7 MEQ/L 4.1 MEQ/L Chloride Level 108 MEQ/L 111 MEQ/L Carbon Dioxide Level 20.9 MEQ/L 23.1 MEQ/L Anion Gap 10 MEQ/L 7 MEQ/L Estimat Glomerular Filtration Rate 46 ML/MIN 53 ML/MIN Lipase 129 U/L Urine Color YELLOW Urine Turbidity CLEAR Urine pH 6.5 Urine Specific [place] 1.023 Urine Protein NEG mg/dL Urine Glucose (UA) NEG mg/dL Urine Ketones NEG mg/dL Urine Occult Blood NEG Urine Nitrite NEG Urine Bilirubin NEG Urine Urobilinogen LESS THAN 2.0 MG/DL Urine Leukocyte Esterase NEG Urine RBC 1 /hpf Urine WBC 3 /hpf Urine Squamous Epithelial Cells 2 /hpf Microscopic Urinalysis Comment CULT NOT INDICATED Date/Time Source Procedure Growth Status 04/26/17 04:06 Blood Peripheral Aerobic Blood Culture Pending Received 04/26/17 04:06 Blood Peripheral Anaerobic Blood Culture Pending Received Physical Examination HEENT: Pupils round and reactive to light; normocephalic; atraumatic; no jaundice. Throat is clear. NECK: Neck is supple, no JVD, no lymphadenopathy. CHEST: Chest is clear to auscultation and percussion. CARDIAC: Regular rate and rhythm with no murmur gallop or rubs. ABDOMEN: Abdomen is tender, bowel sounds very quiet hard to hear. EXTREMITIES: No clubbing, cyanosis, or edema. Marked tremor of left hand SKIN: Normal; no rash; no jaundice. 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 Assessment and Plan Plan Impression: Acute diverticulitis with small amount of retroperitoneal air. Possible contained perforation. Rec: Continue antibiotics. Clear liquid diet. Bedrest with reduced activity will minimize her pain Pain control with medications Additional recommendations as the case progresses. Frankie Edwards MD Apr 26, 2017 17:20
[2017-04-27 00:02] VITALS: BP 102/59; PULSE 74; RESP 18; TEMP 99.7; O2SAT 97
[2017-04-27] MEDS: FAMOTIDINE 20 MG/2 ML VIAL IV PUSH SCH ×3 (00:56→23:50)
[2017-04-27] MEDS: PIPERACIL-TAZO 3.375 GM PREMIX 50 ML IV SCH ×4 (00:56→20:11)
[2017-04-27] MEDS: metroNIDAZOLE 500 MG INJ 100 ML IV SCH ×5 (00:56→23:50)
[2017-04-27] MEDS: SODIUM CHLOR 0.9% 1000 ML INJ 1,000 ML IV SCH ×2 (00:57→15:20)
[2017-04-27] MEDS: HEPARIN SODIUM - SQ 10,000 UNITS/ML VIAL SQ SCH ×3 (00:57→23:49)
[2017-04-27] MEDS: HYDROmorphone HCL PF 1 MG/ML VIAL IV PRN ×6 (02:44→21:44)
[2017-04-27 04:05] VITALS: BP 111/53; PULSE 78; RESP 18; TEMP 98.9; O2SAT 97
[2017-04-27 07:05] LABS: HEMATOCRIT 32.1 % (35.0-46.0); MEAN CELL VOLUME 86.6 FL (80.0-100.0); MEAN CORPUSCULAR HEMOGLOBIN 28.5 PG (27.0-34.0); MEAN CORPUSCULAR HGB CONC 32.9 % (32.0-36.0); PLATELET COUNT 195 TH/MM3 (150-450); RED BLOOD COUNT 3.71 MIL/MM3 (4.00-5.30); RED CELL DISTRIBUTION WIDTH 15.6 % (11.6-17.2); REVIEW FLAG FINAL; WHITE BLOOD COUNT 14.1 TH/MM3 (4.0-11.0)
[2017-04-27 07:13] LABS: BICARBONATE 21.2 MEQ/L (21.0-32.0); POTASSIUM 3.7 MEQ/L (3.5-5.1)
[2017-04-27 08:00] VITALS: BP 114/55; PULSE 82; RESP 18; TEMP 99.5; O2SAT 97
[2017-04-27] MEDS: DOCUSATE SODIUM 50 MG/SENNA 8.6 MG TAB PO SCH ×2 (09:03→20:11)
[2017-04-27] MEDS: SODIUM CHLORIDE 0.9% FLUSH 10 ML FLUSH IV FLUSH SCH ×2 (09:04→20:11)
--- NOTE | 2017-04-27 10:18 | HHI.PR ---
Subjective Subjective Remarks Left lower quadrant pain with slight improvement No nausea Tolerating clear liquid diet well Low-grade fever 99.5 No chest pain Or shortness of breath Has been getting out of bed Review of Systems Constitutional Constitutional Remarks 12 point review of systems completed, negative except as noted above Vitals/Results Vital Signs Vital Signs Date Time Temp Pulse Resp B/P (MAP) Pulse Ox O2 Delivery O2 Flow Rate FiO2 04/27/17 08:00 99.5 82 18 114/55 (74) 97 04/27/17 07:45 16 04/27/17 04:05 98.9 78 18 111/53 (72) 97 04/27/17 00:02 99.7 74 18 102/59 (73) 97 04/26/17 20:05 98.5 74 18 115/60 (78) 97 04/26/17 16:00 99.0 84 18 107/62 (77) 99 04/26/17 12:10 100.1 86 18 104/54 (71) 97 CBC/BMP: 04/27/17 0618 04/27/17 0618 Lab Results Laboratory Tests Test 04/27/17 06:18 White Blood Count 14.1 TH/MM3 Red Blood Count 3.71 MIL/MM3 Hemoglobin 10.6 GM/DL Hematocrit 32.1 % Mean Corpuscular Volume 86.6 FL Mean Corpuscular Hemoglobin 28.5 PG Mean Corpuscular Hemoglobin Concent 32.9 % Red Cell Distribution Width 15.6 % Platelet Count 195 TH/MM3 Mean Platelet Volume 9.7 FL Blood Urea Nitrogen 18 MG/DL Creatinine 1.41 MG/DL Random Glucose 98 MG/DL Calcium Level 8.0 MG/DL Sodium Level 140 MEQ/L Potassium Level 3.7 MEQ/L Chloride Level 111 MEQ/L Carbon Dioxide Level 21.2 MEQ/L Anion Gap 8 MEQ/L Estimat Glomerular Filtration Rate 38 ML/MIN Physical Exam General General Appearance: Well Developed, No Acute Distress, Painful, Obese Eyes Eye Exam: Pupils Equal, Pupils Reactive Ears & Nose Ears & Nose Exam: Nasal Mucosa Spiro Throat Throat Exam: Oral Mucosa Spiro & Moist Neck Neck Exam: Neck Supple, Trachea Midline Pulmonary Resp Exam: Clear Bilaterally, No Distress Cardiology CV Exam: Regular, Good Perfusion Gastrointestinal/Abdomen GI Exam: Soft, Non-Distended, Bowel Sounds Hypoactive GI Remarks Tender to left lower quadrant Musculoskeletal MS Exam: Joints Intact Integumentary Skin Exam: Warm, Dry Extremeties Extremities Exam: Pedal Pulses Palpable, Trace Edema Neurologic Neuro Exam: Alert, Awake, Oriented, Speech Clear, Moving All Extremities, No Focal Deficits Psychiatric Psych Exam: Appropriate Responses VTE Prophylaxis VTE Prophylaxis Meds: Heparin Assessment/Plan Problem List: (1) Diverticulitis ICD Codes: K57.92 - Diverticulitis of intestine, part unspecified, without perforation or abscess without bleeding Status: Acute (2) Leukocytosis ICD Codes: D72.829 - Elevated white blood cell count, unspecified Status: Acute (3) Abdominal pain ICD Codes: R10.9 - Unspecified abdominal pain (4) possible microperformation from diverticulitis Status: Acute (5) COPD (chronic obstructive pulmonary disease) ICD Codes: J44.9 - Chronic obstructive pulmonary disease, unspecified Status: Chronic (6) Essential tremor ICD Codes: G25.0 - Essential tremor Status: Chronic (7) MIGUEL (acute kidney injury) ICD Codes: N17.9 - Acute kidney failure, unspecified Status: Acute Assessment/Plan 61 year old female with sudden onset of LLQ pain, CT findings of diverticulitis with possible microperforation. -continue with IVF -continue antibiotics, and follow cultures -continue with IV narcotics to control pain -Appreciate GI input, advanced to clear liquid diet -Remains very painful, minimal fever. WBC trending down. MIGUEL likely sec. dehydration -Continue to monitor renal function, creatinine same -BMP in the morning -Continue IV fluids COPD, stable -Duonebs PRN for wheezing Essential tremors, stable -Resume Topamax Heparin subcutaneous/SCDs for DVT prophylaxis Repeat labs in the morning Remains painful, continue with pain management and antibiotics IS q 2 Continue with medical management Discussed with RN Discussed with patient and Discussed with Dr. Kulkarni This patient was seen by myself and Dr. Kulkarni, this H/P is written on his behalf. Problem Qualifiers (1) Diverticulitis: Qualified Codes: K57.92 - Diverticulitis of intestine, part unspecified, without perforation or abscess without bleeding (2) Leukocytosis: Qualified Codes: D72.829 - Elevated white blood cell count, unspecified (3) Abdominal pain: Qualified Codes: R10.32 - Left lower quadrant pain (4) COPD (chronic obstructive pulmonary disease): Qualified Codes: J44.9 - Chronic obstructive pulmonary disease, unspecified Juana David Apr 27, 2017 10:18
--- NOTE | 2017-04-27 10:53 | HHI.GIFU ---
Subjective Remarks Patient continues to have severe sharp left sided abdominal pain when she moves. Pain medication relieves it temporarily. Moving around makes it worse. No nausea or vomiting. No flatus. WBC count is improving a little to 14K Objective Vitals I&O Vital Signs Date Time Temp Pulse Resp B/P (MAP) Pulse Ox O2 Delivery O2 Flow Rate FiO2 04/27/17 08:00 99.5 82 18 114/55 (74) 97 04/27/17 07:45 16 04/27/17 04:05 98.9 78 18 111/53 (72) 97 04/27/17 00:02 99.7 74 18 102/59 (73) 97 04/26/17 20:05 98.5 74 18 115/60 (78) 97 04/26/17 16:00 99.0 84 18 107/62 (77) 99 04/26/17 12:10 100.1 86 18 104/54 (71) 97 I/O 04/26/17 04/26/17 04/26/17 04/27/17 04/27/17 04/27/17 07:00 15:00 23:00 07:00 15:00 23:00 Intake Total 100 ml 240 ml 743 ml Balance 100 ml 240 ml 743 ml Intake Oral 0 ml 240 ml 120 ml IV Total 100 ml 623 ml # Voids 4 4 1 1 # Bowel Movements 0 1 0 0 Laboratory Laboratory Tests Test 04/27/17 06:18 White Blood Count 14.1 Red Blood Count 3.71 Hemoglobin 10.6 Hematocrit 32.1 Mean Corpuscular Volume 86.6 Mean Corpuscular Hemoglobin 28.5 Mean Corpuscular Hemoglobin Concent 32.9 Red Cell Distribution Width 15.6 Platelet Count 195 Mean Platelet Volume 9.7 Blood Urea Nitrogen 18 Creatinine 1.41 Random Glucose 98 Calcium Level 8.0 Sodium Level 140 Potassium Level 3.7 Chloride Level 111 Carbon Dioxide Level 21.2 Anion Gap 8 Estimat Glomerular Filtration Rate 38 Date/Time Source Procedure Growth Status 04/26/17 04:06 Blood Peripheral Aerobic Blood Culture Pending Received 04/26/17 04:06 Blood Peripheral Anaerobic Blood Culture Pending Received Physical Exam HEENT: Pupils round and reactive to light; normocephalic; atraumatic; no jaundice. Throat is clear. NECK: Neck is supple, no JVD, no lymphadenopathy. CHEST: Chest is clear to auscultation and percussion. CARDIAC: Regular rate and rhythm with no murmur gallop or rubs. ABDOMEN: Tender left abdomen with guarding. Bowel sounds are normal today. EXTREMITIES: No clubbing, cyanosis, or edema. SKIN: Normal; no rash; no jaundice. 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 Assessment and Plan Plan Impression: Acute diverticulitis with small amount of retroperitoneal air. Possible contained perforation. - improving on antibiotic therapy Rec: Continue antibiotics. Clear liquid diet. Bedrest with reduced activity will minimize her pain Pain control with medications Followup CT scan abdomen and pelvis on Friday Additional recommendations as the case progresses. Frankie Edwards MD Apr 27, 2017 10:53
[2017-04-27 12:00] VITALS: BP 127/73; PULSE 83; RESP 18; TEMP 98.8; O2SAT 97
[2017-04-27 16:00] VITALS: BP 110/65; PULSE 70; RESP 18; TEMP 98; O2SAT 97
[2017-04-27 20:16] VITALS: BP 117/64; PULSE 79; RESP 18; TEMP 96.9; O2SAT 100
[2017-04-28 00:13] VITALS: BP 107/63; PULSE 70; RESP 18; TEMP 97.9; O2SAT 99
[2017-04-28] MEDS: PIPERACIL-TAZO 3.375 GM PREMIX 50 ML IV SCH ×4 (01:11→20:45)
[2017-04-28] MEDS: SODIUM CHLOR 0.9% 1000 ML INJ 1,000 ML IV SCH ×3 (01:12→20:49)
[2017-04-28] MEDS: HYDROmorphone HCL PF 1 MG/ML VIAL IV PRN ×5 (03:34→23:32)
[2017-04-28] MEDS: metroNIDAZOLE 500 MG INJ 100 ML IV SCH ×4 (06:07→23:33)
[2017-04-28 08:00] VITALS: BP 114/49; PULSE 75; RESP 18; TEMP 97.9; O2SAT 100
[2017-04-28 08:07] LABS: BICARBONATE 21.6 MEQ/L (21.0-32.0); POTASSIUM 3.8 MEQ/L (3.5-5.1)
[2017-04-28] MEDS: DOCUSATE SODIUM 50 MG/SENNA 8.6 MG TAB PO SCH ×2 (08:36→20:46)
[2017-04-28] MEDS: SODIUM CHLORIDE 0.9% FLUSH 10 ML FLUSH IV FLUSH SCH ×2 (08:37→20:49)
--- NOTE | 2017-04-28 11:22 | HHI.PR ---
Subjective Subjective Remarks Left lower quadrant pain with slight improvement No nausea Tolerating clear liquid diet well No chest pain Or shortness of breath Has been getting out of bed, took shower Review of Systems Constitutional Constitutional Remarks 12 point review of systems completed, negative except as noted above Vitals/Results Intake & Output 04/28/17 04/28/17 04/29/17 15:00 23:00 07:00 Intake Total 50 ml Balance 50 ml IV Total 50 ml Vital Signs Vital Signs Date Time Temp Pulse Resp B/P (MAP) Pulse Ox O2 Delivery O2 Flow Rate FiO2 04/28/17 08:00 97.9 75 18 114/49 (70) 100 04/28/17 00:13 97.9 70 18 107/63 (78) 99 04/27/17 20:16 96.9 79 18 117/64 (81) 100 04/27/17 16:00 98.0 70 18 110/65 (80) 97 04/27/17 12:34 16 04/27/17 12:00 98.8 83 18 127/73 (91) 97 CBC/BMP: 04/27/17 0618 04/28/17 0728 Lab Results Laboratory Tests Test 04/28/17 07:28 Blood Urea Nitrogen 13 MG/DL Creatinine 1.10 MG/DL Random Glucose 99 MG/DL Calcium Level 8.2 MG/DL Sodium Level 140 MEQ/L Potassium Level 3.8 MEQ/L Chloride Level 110 MEQ/L Carbon Dioxide Level 21.6 MEQ/L Anion Gap 8 MEQ/L Estimat Glomerular Filtration Rate 50 ML/MIN Physical Exam General General Appearance: Well Developed, No Acute Distress, Painful, Obese Eyes Eye Exam: Pupils Equal, Pupils Reactive Ears & Nose Ears & Nose Exam: Nasal Mucosa Rufus Throat Throat Exam: Oral Mucosa Rufus & Moist Neck Neck Exam: Neck Supple, Trachea Midline Pulmonary Resp Exam: Clear Bilaterally, No Distress Cardiology CV Exam: Regular, Good Perfusion Gastrointestinal/Abdomen GI Exam: Soft, Non-Distended, Bowel Sounds Hypoactive GI Remarks Tender to left lower quadrant Musculoskeletal MS Exam: Joints Intact Integumentary Skin Exam: Warm, Dry Extremeties Extremities Exam: Pedal Pulses Palpable, Trace Edema Neurologic Neuro Exam: Alert, Awake, Oriented, Speech Clear, Moving All Extremities, No Focal Deficits Psychiatric Psych Exam: Appropriate Responses VTE Prophylaxis VTE Prophylaxis Meds: Heparin Assessment/Plan Problem List: (1) Diverticulitis ICD Codes: K57.92 - Diverticulitis of intestine, part unspecified, without perforation or abscess without bleeding Status: Acute (2) Leukocytosis ICD Codes: D72.829 - Elevated white blood cell count, unspecified Status: Acute (3) Abdominal pain ICD Codes: R10.9 - Unspecified abdominal pain (4) possible microperformation from diverticulitis Status: Acute (5) COPD (chronic obstructive pulmonary disease) ICD Codes: J44.9 - Chronic obstructive pulmonary disease, unspecified Status: Chronic (6) Essential tremor ICD Codes: G25.0 - Essential tremor Status: Chronic (7) MIGUEL (acute kidney injury) ICD Codes: N17.9 - Acute kidney failure, unspecified Status: Acute Assessment/Plan 61 year old female with sudden onset of LLQ pain, CT findings of diverticulitis with possible microperforation. -continue with IVF -continue antibiotics, and follow cultures -continue with IV narcotics to control pain -Appreciate GI input, advanced to clear liquid diet -Remains very painful, minimal fever. WBC trending down. -GI recommends f/u CT abd tomorrow MIGUEL likely sec. dehydration -Continue to monitor renal function, creatinine same -BMP in the morning -Continue IV fluids COPD, stable -Duonebs PRN for wheezing Essential tremors, stable -continue Topamax Heparin subcutaneous/SCDs for DVT prophylaxis Repeat labs in the morning Remains painful, continue with pain management and antibiotics IS q 2 Continue with medical management Discussed with RN Discussed with patient and Discussed with Dr. Lei This patient was seen by myself and Dr. Lei, this H/P is written on his behalf. Problem Qualifiers (1) Diverticulitis: Qualified Codes: K57.92 - Diverticulitis of intestine, part unspecified, without perforation or abscess without bleeding (2) Leukocytosis: Qualified Codes: D72.829 - Elevated white blood cell count, unspecified (3) Abdominal pain: Qualified Codes: R10.32 - Left lower quadrant pain (4) COPD (chronic obstructive pulmonary disease): Qualified Codes: J44.9 - Chronic obstructive pulmonary disease, unspecified Juana David Apr 28, 2017 11:21
[2017-04-28 12:00] VITALS: BP 103/60; PULSE 70; RESP 18; TEMP 96.4; O2SAT 99
[2017-04-28] MEDS: FAMOTIDINE 20 MG/2 ML VIAL IV PUSH SCH ×2 (12:36→23:33)
[2017-04-28] MEDS: HEPARIN SODIUM - SQ 10,000 UNITS/ML VIAL SQ SCH ×2 (12:37→23:32)
--- NOTE | 2017-04-28 14:54 | HHI.GIFU ---
Subjective Remarks Patient feels a little better today. Pain is still severe but not as bad as yesterday. No vomiting. Objective Vitals I&O Vital Signs Date Time Temp Pulse Resp B/P (MAP) Pulse Ox O2 Delivery O2 Flow Rate FiO2 04/28/17 12:00 96.4 70 18 103/60 (74) 99 04/28/17 08:00 97.9 75 18 114/49 (70) 100 04/28/17 00:13 97.9 70 18 107/63 (78) 99 04/27/17 20:16 96.9 79 18 117/64 (81) 100 04/27/17 16:00 98.0 70 18 110/65 (80) 97 I/O 04/27/17 04/27/17 04/27/17 04/28/17 04/28/17 04/28/17 06:59 14:59 22:59 06:59 14:59 22:59 Intake Total 743 ml 720 ml 777 ml 1217 ml 50 ml Balance 743 ml 720 ml 777 ml 1217 ml 50 ml Intake Oral 120 ml 720 ml 360 ml 120 ml IV Total 623 ml 417 ml 1097 ml 50 ml # Voids 1 1 2 2 # Bowel Movements 0 0 0 0 Laboratory Laboratory Tests Test 04/28/17 07:28 Blood Urea Nitrogen 13 Creatinine 1.10 Random Glucose 99 Calcium Level 8.2 Sodium Level 140 Potassium Level 3.8 Chloride Level 110 Carbon Dioxide Level 21.6 Anion Gap 8 Estimat Glomerular Filtration Rate 50 Date/Time Source Procedure Growth Status 04/26/17 04:06 Blood Peripheral Aerobic Blood Culture - Preliminary NO GROWTH IN 2 DAYS Resulted 04/26/17 04:06 Blood Peripheral Anaerobic Blood Culture - Preliminary NO GROWTH IN 2 DAYS Resulted Physical Exam HEENT: Pupils round and reactive to light; normocephalic; atraumatic; no jaundice. Throat is clear. NECK: Neck is supple, no JVD, no lymphadenopathy. CHEST: Chest is clear to auscultation and percussion. CARDIAC: Regular rate and rhythm with no murmur gallop or rubs. ABDOMEN: Tender left abdomen with guarding. Bowel sounds are present today. EXTREMITIES: No clubbing, cyanosis, or edema. SKIN: Normal; no rash; no jaundice. HAND SEWER SHOES: No focal deficits; alert and oriented times three. Assessment and Plan Plan Impression: Acute diverticulitis with small amount of retroperitoneal air. Possible contained perforation. - improving on antibiotic therapy Rec: Continue antibiotics. Clear liquid diet. Bedrest with reduced activity will minimize her pain Pain control with medications Followup CT scan abdomen and pelvis today with PO contrast Additional recommendations as the case progresses. Frankie Edwards MD Apr 28, 2017 14:54
[2017-04-28] MEDS ORDERED: DIATRIZOATE MEGLUM/DIATRIZOATE SOD 9 ML CUP PO ONE (15:30)
[2017-04-28 16:00] VITALS: BP 130/72; PULSE 70; RESP 18; TEMP 96; O2SAT 100
[2017-04-28] MEDS: ONDANSETRON HCL 4 MG/2 ML VIAL IVP PRN (18:40)
[2017-04-28 19:00] VITALS: BP 135/86; PULSE 77; RESP 16; TEMP 96.8; O2SAT 100
--- NOTE | 2017-04-28 20:27 | RADRPT ---
EXAM DATE/TIME: 04/28/2017 19:36 [facility] COMPARISON: CT ABDOMEN & PELVIS W/O CONTRAST, April 25, 2017, 20:39. INDICATIONS : Left lower quadrant pain. ORAL CONTRAST: Prescribed oral contrast ingested. RADIATION DOSE: 35.84 CTDIvol (mGy) ; Patient body habitus MEDICAL HISTORY : Chronic obstructive pulmonary disease. Hypertension. Diverticulitis. SURGICAL HISTORY : Hysterectomy. Appendectomy. ENCOUNTER: Subsequent ACUITY: 3 days PAIN SCALE: 10/10 LOCATION: Left lower quadrant TECHNIQUE: Volumetric scanning of the abdomen and pelvis was performed. Using automated exposure control and ad justment of the mA and/or kV according to patient size, radiation dose was kept as low as reasonably achievable to obtain optimal diagnostic quality images. DICOM format image data is available electro nically for review and comparison. FINDINGS: LOWER LUNGS: The visualized lower lungs are clear. LIVER: Homogeneous density without lesion. There is no dilation of the biliary tree. No calcified gallston es. SPLEEN: Normal size without lesion. PANCREAS: Within normal limits. KIDNEYS: Normal in size and shape. There is no mass, stone, or hydronephrosis. ADRENAL GLANDS: Within normal limits. VASCULAR: There is no aortic aneurysm. BOWEL/MESENTERY: Mild inflammatory changes again noted involving the descending colon. There are multiple diverticuli in this region. There is a small gas collection adjacent peritoneal cavity measuring 1.9 x 0.6 cm. Th ere is a second small adjacent gas collection which may be extraluminal as well. This measures approx imately 2.4 x 1.9 cm. There is no drainable fluid collection. There is an abnormal bowel gas pattern now noted with multiple loops of borderline dilated air-containing small bowel with multiple air-flui d levels. ABDOMINAL WALL: Within normal limits. RETROPERITONEUM: There is no lymphadenopathy. BLADDER: No wall thickening or mass. REPRODUCTIVE: Within normal limits. INGUINAL: There is no lymphadenopathy or hernia. MUSCULOSKELETAL: Within normal limits for patient age. CONCLUSION: 1. Inflammatory change and multiple diverticuli involving the descending colon most characteristic of acute diverticulitis. There are 2 apparent gas collections which appear extraluminal adjacent to the colon. 2. Abnormal bowel gas pattern with borderline dilated small bowel with air-fluid levels most characte ristic of an ileus. John Bradley MD on April 28, 2017 at 20:16 Board Certified Radiologist. This report was verified electronically.
[2017-04-28 23:32] VITALS: BP 126/65; PULSE 69; RESP 17; TEMP 97.6; O2SAT 99
[2017-04-29] MEDS: PIPERACIL-TAZO 3.375 GM PREMIX 50 ML IV SCH ×5 (01:16→23:27)
[2017-04-29] MEDS: SODIUM CHLOR 0.9% 1000 ML INJ 1,000 ML IV SCH ×3 (05:25→23:28)
[2017-04-29] MEDS: metroNIDAZOLE 500 MG INJ 100 ML IV SCH ×4 (05:26→23:27)
[2017-04-29] MEDS: ONDANSETRON HCL 4 MG/2 ML VIAL IVP PRN ×2 (05:29→13:16)
[2017-04-29 07:27] VITALS: BP 173/85; PULSE 79; RESP 18; TEMP 97.4; O2SAT 99
[2017-04-29] MEDS: SODIUM CHLORIDE 0.9% FLUSH 10 ML FLUSH IV FLUSH SCH ×2 (09:00→20:25)
[2017-04-29] MEDS: DOCUSATE SODIUM 50 MG/SENNA 8.6 MG TAB PO SCH ×2 (09:00→20:27)
[2017-04-29] MEDS: PROMETHAZINE INJ 25 MG/ML VIAL IM PRN ×2 (09:16→17:25)
[2017-04-29 09:41] LABS: HEMATOCRIT 35.1 % (35.0-46.0); MEAN CORPUSCULAR HEMOGLOBIN 27.9 PG (27.0-34.0); MEAN CORPUSCULAR HGB CONC 32.5 % (32.0-36.0); PLATELET COUNT 286 TH/MM3 (150-450); RED BLOOD COUNT 4.08 MIL/MM3 (4.00-5.30); RED CELL DISTRIBUTION WIDTH 15.6 % (11.6-17.2); REVIEW FLAG FINAL; WHITE BLOOD COUNT 12.6 TH/MM3 (4.0-11.0)
[2017-04-29 10:03] LABS: POTASSIUM 3.4 MEQ/L (3.5-5.1)
--- NOTE | 2017-04-29 11:35 | HHI.GIFU ---
Subjective Remarks Resting in bed. C/O nausea, no relief with zofran. Pain improved- states no pain at this time- more nausea. No fevers/chills. Objective Vitals I&O Vital Signs Date Time Temp Pulse Resp B/P (MAP) Pulse Ox O2 Delivery O2 Flow Rate FiO2 04/29/17 07:27 97.4 79 18 173/85 (114) 99 04/29/17 01:40 Room Air 04/29/17 00:05 18 04/28/17 23:32 97.6 69 17 126/65 (85) 99 04/28/17 19:00 96.8 77 16 135/86 (102) 100 04/28/17 16:00 96.0 70 18 130/72 (91) 100 04/28/17 12:00 96.4 70 18 103/60 (74) 99 I/O 04/28/17 04/28/17 04/28/17 04/29/17 04/29/17 04/29/17 06:59 14:59 22:59 06:59 14:59 22:59 Intake Total 1217 ml 770 ml 630 ml 630 ml Balance 1217 ml 770 ml 630 ml 630 ml Intake Oral 120 ml 720 ml 480 ml 480 ml IV Total 1097 ml 50 ml 150 ml 150 ml # Voids 2 2 3 3 # Bowel Movements 0 0 0 0 Laboratory Laboratory Tests Test 04/29/17 09:05 White Blood Count 12.6 Red Blood Count 4.08 Hemoglobin 11.4 Hematocrit 35.1 Mean Corpuscular Volume 86.0 Mean Corpuscular Hemoglobin 27.9 Mean Corpuscular Hemoglobin Concent 32.5 Red Cell Distribution Width 15.6 Platelet Count 286 Mean Platelet Volume 9.1 Blood Urea Nitrogen 9 Creatinine 0.80 Random Glucose 92 Calcium Level 7.7 Sodium Level 137 Potassium Level 3.4 Chloride Level 107 Carbon Dioxide Level 19.0 Anion Gap 11 Estimat Glomerular Filtration Rate 73 Date/Time Source Procedure Growth Status 04/26/17 04:06 Blood Peripheral Aerobic Blood Culture - Preliminary NO GROWTH IN 3 DAYS Resulted 04/26/17 04:06 Blood Peripheral Anaerobic Blood Culture - Preliminary NO GROWTH IN 3 DAYS Resulted Imaging Last Impressions Abdomen/Pelvis CT 04/28/17 0000 Signed Impressions: Service Date/Time: Friday, April 28, 2017 19:36 - CONCLUSION: 1. Inflammatory change and multiple diverticuli involving the descending colon most characteristic of acute diverticulitis. There are 2 apparent gas collections which appear extraluminal adjacent to the colon. 2. Abnormal bowel gas pattern with borderline dilated small bowel with air-fluid levels most characteristic of an ileus. John Bradley MD Physical Exam HEENT: Normocephalic; atraumatic; no jaundice. CHEST: CTA CARDIAC: RRR. ABDOMEN: Abdomen soft, nontender, no hepatomegaly, bowel sounds are present EXTREMITIES: No clubbing, cyanosis, or edema. SKIN: Normal; no rash; no jaundice. RETAIL OFFICE MANAGER: No focal deficits; alert and oriented times three. Assessment and Plan Plan Impression: - Acute diverticulitis with small amount of retroperitoneal air, possible contained perforation. CT Scan abdomen and pelvis without iv contrast (04/25/17)-- --> Diverticula throughout the descending and sigmoid colon with suspected inflammatory change/diverticulitis at the descending colon. There is a small amount of extraluminal retroperitoneal air seen adjacent to the descending colon. Small hiatal hernia just to the left of the midline of the upper abdomen. This only contains mesenteric fat. Rpt CT Scan abdomen and pelvis (04/28/17)-- -> Inflammatory change and multiple diverticuli involving the descending colon most characteristic of acute diverticulitis. there are 2 apparent gas collections which appear extraluminal adjacent to the colon. Abnormal bowel gas pattern with borderline dilated small bowel with air-fluid levels most characteristic of an ileus. WBC improving, 12.6 today. Zosyn, Flagyl. - Leukocytosis. Improving with abx. WBC 12.6. - Ileus. C/O nausea, no relief with zofran. Rec: - Clear liquids diet - Cont. Zosyn, Flagyl - Cont. Pepcid - Cont. Zofran prn - Add Phenergan prn for breakthrough n/v - Monitor labs - Supportive care - Further recommendations to follow based on results of above - Pt seen and examined by Dr. Edwards and myself and this note is written on his behalf Angela Fuentes Apr 29, 2017 11:35
[2017-04-29 11:44] VITALS: BP 163/80; PULSE 74; RESP 17; TEMP 96.1; O2SAT 100
--- NOTE | 2017-04-29 11:46 | HHI.PR ---
Subjective Subjective Remarks Up in chair in room Attempting to eat Jell-O, but states still has nausea and vomiting Encourage patient to be as active as possible (Judith Ojeda) Review of Systems Constitutional Constitutional: Fatigue, Weakness Constitutional Remarks 10 point ROS done positives noted (Judith Ojeda) GI/Abdomen GI/Abdominal Exam: Nausea, Vomiting GI/Abdomen Remarks Left lower quadrant pain, mild resolving (Judith Ojeda) Psychiatric Psychiatric: Normal Mood, Anxiety (Judith Ojeda) Vitals/Results Vital Signs Vital Signs Date Time Temp Pulse Resp B/P (MAP) Pulse Ox O2 Delivery O2 Flow Rate FiO2 04/29/17 07:27 97.4 79 18 173/85 (114) 99 04/29/17 01:40 Room Air 04/29/17 00:05 18 04/28/17 23:32 97.6 69 17 126/65 (85) 99 04/28/17 19:00 96.8 77 16 135/86 (102) 100 04/28/17 16:00 96.0 70 18 130/72 (91) 100 04/28/17 12:00 96.4 70 18 103/60 (74) 99 (Judith Ojeda) CBC/BMP: 04/29/17 0905 04/29/17 0905 Lab Results Laboratory Tests Test 04/29/17 09:05 White Blood Count 12.6 TH/MM3 Red Blood Count 4.08 MIL/MM3 Hemoglobin 11.4 GM/DL Hematocrit 35.1 % Mean Corpuscular Volume 86.0 FL Mean Corpuscular Hemoglobin 27.9 PG Mean Corpuscular Hemoglobin Concent 32.5 % Red Cell Distribution Width 15.6 % Platelet Count 286 TH/MM3 Mean Platelet Volume 9.1 FL Blood Urea Nitrogen 9 MG/DL Creatinine 0.80 MG/DL Random Glucose 92 MG/DL Calcium Level 7.7 MG/DL Sodium Level 137 MEQ/L Potassium Level 3.4 MEQ/L Chloride Level 107 MEQ/L Carbon Dioxide Level 19.0 MEQ/L Anion Gap 11 MEQ/L Estimat Glomerular Filtration Rate 73 ML/MIN Current Medications Administered Medications Medications (Trade) Dose Ordered Sig/Mya Route PRN Reason Start Time Stop Time Status Last Admin Dose Admin Sodium Chloride 1,000 ml @ 100 mls/hr Q10H IV 04/25/17 23:20 04/29/17 05:25 Sodium Chloride (NS Flush) 2 ml BID IV FLUSH 04/26/17 09:00 04/27/17 09:04 Ondansetron HCl (Zofran Inj) 4 mg Q6H PRN IVP NAUSEA OR VOMITING 04/25/17 23:30 04/29/17 05:29 Heparin Sodium (Porcine) (Heparin Inj) 5,000 units Q12H SQ 04/26/17 00:00 04/28/17 23:32 Senna/Docusate Sodium (Janette-Colace) 1 tab BID PO 04/26/17 09:00 04/28/17 20:46 Famotidine (Pepcid Inj) 20 mg Q12H IV PUSH 04/26/17 00:00 04/28/17 23:33 Metronidazole 100 ml @ 100 mls/hr Q6H IV 04/26/17 06:00 04/29/17 05:26 Hydromorphone HCl (Dilaudid Pf Inj) 1 mg Q4H PRN IV PAIN 6-10 04/26/17 00:15 04/28/17 23:32 Piperacillin Sod/ Tazobactam Sod 50 ml @ 100 mls/hr Q6H IV 04/26/17 13:00 04/29/17 06:37 Promethazine HCl (Phenergan Inj) 25 mg Q6H PRN IM N/V IF ZOFRAN NOT EFFECTIVE 04/29/17 09:15 04/29/17 09:16 (Judith Ojeda) Physical Exam General General Appearance: Well Developed, No Acute Distress, Pale, Anxious, Painful, Obese (Judith Ojeda) Eyes Eye Exam: Pupils Equal, Pupils Reactive (Judith Ojeda) Ears & Nose Ears & Nose Exam: Nasal Mucosa [place] (pale) (Judith Ojeda) Throat Throat Exam: Oral Mucosa [place] & Moist (Judith Ojeda) Neck Neck Exam: Neck Supple, Trachea Midline (Judith Ojeda) Pulmonary Resp Exam: Clear Bilaterally, No Distress (Judith Ojeda) Cardiology CV Exam: Regular, Good Perfusion (Judith Ojeda) Gastrointestinal/Abdomen GI Exam: Soft, Bowel Sounds Present (upper quadrants, minimal lower quadrants) , Non-Distended (Judith Ojeda) Musculoskeletal MS Exam: Joints Intact (Judith Ojeda) Integumentary Skin Exam: Warm, Dry (Judith Ojeda) Extremeties Extremities Exam: Pedal Pulses Palpable, Trace Edema (Judith Ojeda) Neurologic Neuro Exam: Alert, Awake, Oriented, Speech Clear, Moving All Extremities, No Focal Deficits (Judith Ojeda) Psychiatric Psych Exam: Appropriate Responses (Judith Ojeda) VTE Prophylaxis VTE Prophylaxis Meds: Heparin (Judith Ojeda) Assessment/Plan Problem List: (1) Diverticulitis ICD Codes: K57.92 - Diverticulitis of intestine, part unspecified, without perforation or abscess without bleeding Status: Acute (2) Leukocytosis ICD Codes: D72.829 - Elevated white blood cell count, unspecified Status: Acute (3) Abdominal pain ICD Codes: R10.9 - Unspecified abdominal pain (4) possible microperformation from diverticulitis Status: Acute (5) COPD (chronic obstructive pulmonary disease) ICD Codes: J44.9 - Chronic obstructive pulmonary disease, unspecified Status: Chronic (6) Essential tremor ICD Codes: G25.0 - Essential tremor Status: Chronic (7) MIGUEL (acute kidney injury) ICD Codes: N17.9 - Acute kidney failure, unspecified Status: Acute Assessment/Plan Vital signs reviewed, afebrile, normal transfer BP, 1 recent elevation we'll continue to monitor Labs reviewed, hypokalemia, IV potassium ordered 2, total 40 mEq, check labs in the morning Acute diverticulitis IVF or hydration, clear liquid diet Appreciate GI consult and plan a care, pain management Left lower quadrant pain resolving Encourage activity patient sitting up in chair, bowel rest, conservative nonsurgical management for now COPD, stable -Duonebs PRN for wheezing Heparin subcutaneous/SCDs for DVT prophylaxis PPI Discussed with RN Discussed with patient and Discussed with Dr. Lei, seen on his behalf (Judith Ojeda) Assessment/Plan pt seen and examined as above dw pt labs and rad data reviewed dw rn scott gi input cont current manamgent advised pt to inc activity (Joi Lei MD) Problem Qualifiers (1) Diverticulitis: Qualified Codes: K57.92 - Diverticulitis of intestine, part unspecified, without perforation or abscess without bleeding (2) Leukocytosis: Qualified Codes: D72.829 - Elevated white blood cell count, unspecified (3) Abdominal pain: Qualified Codes: R10.32 - Left lower quadrant pain (4) COPD (chronic obstructive pulmonary disease): Qualified Codes: J44.9 - Chronic obstructive pulmonary disease, unspecified Judith Ojeda Apr 29, 2017 11:46 Joi Lei MD Apr 29, 2017 13:11
[2017-04-29] MEDS: HEPARIN SODIUM - SQ 10,000 UNITS/ML VIAL SQ SCH ×2 (12:23→23:28)
[2017-04-29] MEDS: FAMOTIDINE 20 MG/2 ML VIAL IV PUSH SCH ×2 (12:23→23:28)
[2017-04-29] MEDS: POTASSIUM CHLOR 20 MEQ PREMIX 100 ML IV SCH ×2 (13:14→17:16)
[2017-04-29 15:48] VITALS: BP 116/76; PULSE 69; RESP 17; TEMP 97.1; O2SAT 100
[2017-04-29] MEDS: HYDROmorphone HCL PF 1 MG/ML VIAL IV PRN (17:18)
[2017-04-29 19:20] VITALS: BP 125/77; PULSE 60; RESP 18; TEMP 98; O2SAT 100
[2017-04-29 23:37] VITALS: BP 142/71; PULSE 65; RESP 17; TEMP 97.5; O2SAT 98
[2017-04-30 04:10] VITALS: BP 131/62; PULSE 65; RESP 18; TEMP 97.6; O2SAT 97
[2017-04-30] MEDS: metroNIDAZOLE 500 MG INJ 100 ML IV SCH ×3 (05:21→18:36)
[2017-04-30] MEDS: PIPERACIL-TAZO 3.375 GM PREMIX 50 ML IV SCH ×3 (05:21→18:36)
[2017-04-30] MEDS: HYDROmorphone HCL PF 1 MG/ML VIAL IV PRN (05:26)
[2017-04-30 07:38] VITALS: BP 116/57; PULSE 63; RESP 19; TEMP 97.7; O2SAT 96
[2017-04-30 08:13] LABS: BICARBONATE 20.7 MEQ/L (21.0-32.0); POTASSIUM 3.3 MEQ/L (3.5-5.1)
[2017-04-30] MEDS: PROMETHAZINE INJ 25 MG/ML VIAL IM PRN (08:42)
[2017-04-30] MEDS: SODIUM CHLORIDE 0.9% FLUSH 10 ML FLUSH IV FLUSH SCH ×2 (08:43→19:30)
[2017-04-30] MEDS: SODIUM CHLOR 0.9% 1000 ML INJ 1,000 ML IV SCH ×2 (08:44→23:20)
[2017-04-30] MEDS: DOCUSATE SODIUM 50 MG/SENNA 8.6 MG TAB PO SCH ×2 (08:44→19:30)
[2017-04-30 11:22] VITALS: BP 138/78; PULSE 60; RESP 19; TEMP 99.1; O2SAT 99
--- NOTE | 2017-04-30 11:33 | HHI.PR ---
Subjective Subjective Remarks Up in chair More alert and awake today States she is up walking in chaves with multiple times a day Temp 99.1 (Judith Ojeda) Review of Systems Constitutional Constitutional: Fatigue, Weakness Constitutional Remarks 10 point ROS done positives noted (Judith Ojeda) GI/Abdomen GI/Abdominal Exam: Nausea, Vomiting GI/Abdomen Remarks Left lower quadrant pain, resolving (Judith Ojeda) Psychiatric Psychiatric: Normal Mood, Anxiety (Judith Ojeda) Vitals/Results Vital Signs Vital Signs Date Time Temp Pulse Resp B/P (MAP) Pulse Ox O2 Delivery O2 Flow Rate FiO2 04/30/17 11:22 99.1 60 19 138/78 (98) 99 04/30/17 07:38 97.7 63 19 116/57 (76) 96 04/30/17 04:10 97.6 65 18 131/62 (85) 97 04/29/17 23:37 97.5 65 17 142/71 (94) 98 04/29/17 19:20 98.0 60 18 125/77 (93) 100 04/29/17 15:48 97.1 69 17 116/76 (89) 100 04/29/17 11:44 96.1 74 17 163/80 (107) 100 (Judith Ojeda) CBC/BMP: 04/29/17 0905 04/30/17 0420 Lab Results Laboratory Tests Test 04/30/17 04:20 Blood Urea Nitrogen 8 MG/DL Creatinine 0.80 MG/DL Random Glucose 99 MG/DL Calcium Level 7.8 MG/DL Sodium Level 143 MEQ/L Potassium Level 3.3 MEQ/L Chloride Level 115 MEQ/L Carbon Dioxide Level 20.7 MEQ/L Anion Gap 7 MEQ/L Estimat Glomerular Filtration Rate 73 ML/MIN Current Medications Administered Medications Medications (Trade) Dose Ordered Sig/Mya Route PRN Reason Start Time Stop Time Status Last Admin Dose Admin Sodium Chloride 1,000 ml @ 100 mls/hr Q10H IV 04/25/17 23:20 04/30/17 08:44 Sodium Chloride (NS Flush) 2 ml BID IV FLUSH 04/26/17 09:00 04/27/17 09:04 Ondansetron HCl (Zofran Inj) 4 mg Q6H PRN IVP NAUSEA OR VOMITING 04/25/17 23:30 04/29/17 13:16 Heparin Sodium (Porcine) (Heparin Inj) 5,000 units Q12H SQ 04/26/17 00:00 04/30/17 11:59 Senna/Docusate Sodium (Janette-Colace) 1 tab BID PO 04/26/17 09:00 04/29/17 20:27 Famotidine (Pepcid Inj) 20 mg Q12H IV PUSH 04/26/17 00:00 04/30/17 11:59 Metronidazole 100 ml @ 100 mls/hr Q6H IV 04/26/17 06:00 04/30/17 11:59 Hydromorphone HCl (Dilaudid Pf Inj) 1 mg Q4H PRN IV PAIN 6-10 04/26/17 00:15 04/30/17 05:26 Piperacillin Sod/ Tazobactam Sod 50 ml @ 100 mls/hr Q6H IV 04/26/17 13:00 04/30/17 12:07 Promethazine HCl (Phenergan Inj) 25 mg Q6H PRN IM N/V IF ZOFRAN NOT EFFECTIVE 04/29/17 09:15 04/30/17 08:42 (Judith Ojeda) Physical Exam General General Appearance: Well Developed, No Acute Distress, Pale, Anxious, Painful, Obese (Judith Ojeda) Eyes Eye Exam: Pupils Equal, Pupils Reactive (Judith Ojeda) Ears & Nose Ears & Nose Exam: Nasal Mucosa [place] (pale) (Judith Ojeda) Throat Throat Exam: Oral Mucosa [place] & Moist (Judith Ojeda) Neck Neck Exam: Neck Supple, Trachea Midline (Judith Ojeda) Pulmonary Resp Exam: Clear Bilaterally, No Distress (Judith Ojeda) Cardiology CV Exam: Regular, Good Perfusion (Judith Ojeda) Gastrointestinal/Abdomen GI Exam: Soft, Bowel Sounds Present (upper quadrants, minimal lower quadrants) , Non-Distended (Judith Ojeda) Musculoskeletal MS Exam: Joints Intact (Judith Ojeda) Integumentary Skin Exam: Warm, Dry (Judith OjedaP) Extremeties Extremities Exam: Pedal Pulses Palpable, Trace Edema (Judith Ojeda INFORMATION SYSTEMS COORDINATOR) Neurologic Neuro Exam: Alert, Awake, Oriented, Speech Clear, Moving All Extremities, No Focal Deficits (Judith Ojeda INFORMATION SYSTEMS COORDINATOR) Psychiatric Psych Exam: Appropriate Responses (Judith Ojeda) VTE Prophylaxis VTE Prophylaxis Meds: Heparin (Judith Ojeda) Assessment/Plan Problem List: (1) Diverticulitis ICD Codes: K57.92 - Diverticulitis of intestine, part unspecified, without perforation or abscess without bleeding Status: Acute (2) Leukocytosis ICD Codes: D72.829 - Elevated white blood cell count, unspecified Status: Acute (3) Abdominal pain ICD Codes: R10.9 - Unspecified abdominal pain (4) possible microperformation from diverticulitis Status: Acute (5) COPD (chronic obstructive pulmonary disease) ICD Codes: J44.9 - Chronic obstructive pulmonary disease, unspecified Status: Chronic (6) Essential tremor ICD Codes: G25.0 - Essential tremor Status: Chronic (7) MIGUEL (acute kidney injury) ICD Codes: N17.9 - Acute kidney failure, unspecified Status: Acute Assessment/Plan Vital signs reviewed, temp 99.1, other trends within normal ranges Labs reviewed, hypokalemia mild 3.3, potassium 40 mEq by mouth given 1 dose, recheck labs in the morning Bowel regimen, she had hard solid stool on 9-5, states 3 watery stools today, less nausea and vomiting symptoms Acute diverticulitis, improved bowel sounds today upper and lower watcher's IVF, clear liquid diet continues bowel rest, continue Zosyn Flagyl and Pepcid Appreciate GI consult and plan a care, pain management Left lower quadrant pain resolved , no acute nausea and vomiting today, Continue to encourage activity ambulating in chaves COPD, stable -Duonebs PRN for wheezing Heparin subcutaneous/SCDs for DVT prophylaxis PPI, Pepcid Discharge planning hopefully within the next day or 2 pending on patient's response to medication management Appreciate GI consultation and input Discussed with RN Discussed with patient, no other family present Discussed with Dr. Lei, seen on his behalf (Judith Ojeda) Assessment/Plan Patient seen and examined as above [id number] time spent with patient Labs reviewed Discussed with patient Plan of care discussed with INFORMATION SYSTEMS COORDINATOR Appreciate consultants help (Joi Lei MD) Problem Qualifiers (1) Diverticulitis: Qualified Codes: K57.92 - Diverticulitis of intestine, part unspecified, without perforation or abscess without bleeding (2) Leukocytosis: Qualified Codes: D72.829 - Elevated white blood cell count, unspecified (3) Abdominal pain: Qualified Codes: R10.32 - Left lower quadrant pain (4) COPD (chronic obstructive pulmonary disease): Qualified Codes: J44.9 - Chronic obstructive pulmonary disease, unspecified Judith Ojeda Apr 30, 2017 11:33 Joi Lei MD Apr 30, 2017 15:43
[2017-04-30] MEDS ORDERED: POTASSIUM CHLORIDE 10 MEQ CONTROLLED RELEASE TAB PO ONE (11:45)
[2017-04-30] MEDS: FAMOTIDINE 20 MG/2 ML VIAL IV PUSH SCH (11:59)
[2017-04-30] MEDS: HEPARIN SODIUM - SQ 10,000 UNITS/ML VIAL SQ SCH (11:59)
[2017-04-30 15:49] VITALS: BP 177/93; PULSE 61; RESP 19; TEMP 95.9; O2SAT 100
[2017-04-30] MEDS ORDERED: ENALAPRILAT 1.25 MG/ML VIAL IV PUSH ONE (19:15)
[2017-04-30 19:21] VITALS: BP 185/81; PULSE 75; RESP 18; TEMP 97.4; O2SAT 97
[2017-04-30 20:21] VITALS: BP 148/71
[2017-05-01] VITALS (7 sets, daily range): BP systolic 117–180; BP diastolic 58–98; PULSE 57–71; RESP 17–18; TEMP 95.4–97.4; O2SAT 92–100
[2017-05-01] MEDS: HEPARIN SODIUM - SQ 10,000 UNITS/ML VIAL SQ SCH ×2 (00:26→11:59)
[2017-05-01] MEDS: metroNIDAZOLE 500 MG INJ 100 ML IV SCH ×4 (00:26→18:05)
[2017-05-01] MEDS: FAMOTIDINE 20 MG/2 ML VIAL IV PUSH SCH ×2 (00:26→11:58)
[2017-05-01] MEDS: PIPERACIL-TAZO 3.375 GM PREMIX 50 ML IV SCH ×4 (00:26→18:43)
[2017-05-01] MEDS: ONDANSETRON HCL 4 MG/2 ML VIAL IVP PRN (00:26)
[2017-05-01] MEDS: HYDROmorphone HCL PF 1 MG/ML VIAL IV PRN (00:27)
[2017-05-01 06:25] LABS: MEAN CELL VOLUME 86.3 FL (80.0-100.0); MEAN CORPUSCULAR HEMOGLOBIN 28.1 PG (27.0-34.0); MEAN CORPUSCULAR HGB CONC 32.6 % (32.0-36.0); PLATELET COUNT 305 TH/MM3 (150-450); RED BLOOD COUNT 3.71 MIL/MM3 (4.00-5.30); RED CELL DISTRIBUTION WIDTH 15.2 % (11.6-17.2); REVIEW FLAG FINAL
[2017-05-01 06:42] LABS: BICARBONATE 20.8 MEQ/L (21.0-32.0); POTASSIUM 3.4 MEQ/L (3.5-5.1)
[2017-05-01] MEDS: SODIUM CHLORIDE 0.9% FLUSH 10 ML FLUSH IV FLUSH SCH ×2 (08:40→19:32)
[2017-05-01] MEDS: DOCUSATE SODIUM 50 MG/SENNA 8.6 MG TAB PO SCH ×2 (08:40→19:32)
[2017-05-01] MEDS: SODIUM CHLOR 0.9% 1000 ML INJ 1,000 ML IV SCH ×3 (08:41→19:31)
[2017-05-01] MEDS ORDERED: POTASSIUM CHLORIDE 25 MEQ EFFERVESCENT TAB PO ONE (11:00)
--- NOTE | 2017-05-01 13:36 | HHI.PR ---
Subjective Subjective Remarks LLQ improved, down to 6 wants to eat liquid stool, every 2 hours no fever no chills no n/v Review of Systems Constitutional Constitutional Remarks 12 point review of systems completed, negative except as noted above Vitals/Results Vital Signs Vital Signs Date Time Temp Pulse Resp B/P (MAP) Pulse Ox O2 Delivery O2 Flow Rate FiO2 05/01/17 12:00 96.5 57 18 151/91 (111) 92 05/01/17 08:00 95.4 61 17 137/69 (91) 100 05/01/17 04:14 97.3 58 18 117/58 (77) 98 05/01/17 00:55 65 18 131/60 (83) 96 05/01/17 00:21 96.8 70 18 180/84 (116) 98 04/30/17 20:21 148/71 (96) 04/30/17 19:21 97.4 75 18 185/81 (115) 97 04/30/17 15:49 95.9 61 19 177/93 (121) 100 CBC/BMP: 05/01/17 0523 05/01/17 0523 Lab Results Laboratory Tests Test 05/01/17 05:23 White Blood Count 9.0 TH/MM3 Red Blood Count 3.71 MIL/MM3 Hemoglobin 10.4 GM/DL Hematocrit 32.0 % Mean Corpuscular Volume 86.3 FL Mean Corpuscular Hemoglobin 28.1 PG Mean Corpuscular Hemoglobin Concent 32.6 % Red Cell Distribution Width 15.2 % Platelet Count 305 TH/MM3 Mean Platelet Volume 8.6 FL Blood Urea Nitrogen 6 MG/DL Creatinine 0.92 MG/DL Random Glucose 94 MG/DL Calcium Level 7.9 MG/DL Sodium Level 144 MEQ/L Potassium Level 3.4 MEQ/L Chloride Level 115 MEQ/L Carbon Dioxide Level 20.8 MEQ/L Anion Gap 8 MEQ/L Estimat Glomerular Filtration Rate 62 ML/MIN Physical Exam General General Appearance: Well Developed, No Acute Distress, Comfortable, Anxious, Obese Eyes Eye Exam: Pupils Equal, Pupils Reactive Ears & Nose Ears & Nose Exam: Nasal Mucosa [place] Throat Throat Exam: Oral Mucosa [place] & Moist Neck Neck Exam: Neck Supple, Trachea Midline Pulmonary Resp Exam: Clear Bilaterally, No Distress Cardiology CV Exam: Regular, Good Perfusion Gastrointestinal/Abdomen GI Exam: Soft, Bowel Sounds Present, Positive Bowel Movement, Non-Distended GI Remarks Tender to left lower quadrant-IIMPROVED Musculoskeletal MS Exam: Joints Intact Integumentary Skin Exam: Warm, Dry Extremeties Extremities Exam: Pedal Pulses Palpable, Trace Edema Neurologic Neuro Exam: Alert, Awake, Oriented, Speech Clear, Moving All Extremities, No Focal Deficits Psychiatric Psych Exam: Appropriate Responses VTE Prophylaxis VTE Prophylaxis Meds: Heparin Assessment/Plan Problem List: (1) Diverticulitis ICD Codes: K57.92 - Diverticulitis of intestine, part unspecified, without perforation or abscess without bleeding Status: Acute (2) Leukocytosis ICD Codes: D72.829 - Elevated white blood cell count, unspecified Status: Acute (3) Abdominal pain ICD Codes: R10.9 - Unspecified abdominal pain (4) possible microperformation from diverticulitis Status: Acute (5) COPD (chronic obstructive pulmonary disease) ICD Codes: J44.9 - Chronic obstructive pulmonary disease, unspecified Status: Chronic (6) Essential tremor ICD Codes: G25.0 - Essential tremor Status: Chronic (7) MIGUEL (acute kidney injury) ICD Codes: N17.9 - Acute kidney failure, unspecified Status: Acute Assessment/Plan 61 year old female with sudden onset of LLQ pain, CT findings of diverticulitis with possible microperforation. -continue with IVF-dec. KVO -continue antibiotics, and follow cultures -continue with IV narcotics to control pain -Appreciate GI input -clear liquid diet -Repeat CT abd. results noted -liquid stools, multiple episodes. Stool cdiff -improving, no fever, tolerating diet. Consider adv. diet, defer to GI MIGUEL likely sec. dehydration -Continue to monitor renal function, creatinine same -Continue IV fluids -renal function improved COPD, stable -Duonebs PRN for wheezing Essential tremors, stable -continue Topamax Elevated BP -continue Vasotec PRN Heparin subcutaneous/SCDs for DVT prophylaxis IS q 2 OOB as tolerated Poss discharge 1-2 days, continues to improve replace K Labs in am Discussed with RN Discussed with patient and Discussed with Dr. Lei This patient was seen by myself and Dr. Lei, this note is written on his behalf. Problem Qualifiers (1) Diverticulitis: Qualified Codes: K57.92 - Diverticulitis of intestine, part unspecified, without perforation or abscess without bleeding (2) Leukocytosis: Qualified Codes: D72.829 - Elevated white blood cell count, unspecified (3) Abdominal pain: Qualified Codes: R10.32 - Left lower quadrant pain (4) COPD (chronic obstructive pulmonary disease): Qualified Codes: J44.9 - Chronic obstructive pulmonary disease, unspecified Juana David May 01, 2017 13:36
--- NOTE | 2017-05-01 14:55 | HHI.GIFU ---
Subjective Remarks Resting in bed. Feeling better. Denies fevers or chills. One loose stool- no bleeding. (Angela Fuentes) Objective Vitals I&O Vital Signs Date Time Temp Pulse Resp B/P (MAP) Pulse Ox O2 Delivery O2 Flow Rate FiO2 05/01/17 12:00 96.5 57 18 151/91 (111) 92 05/01/17 08:00 95.4 61 17 137/69 (91) 100 05/01/17 04:14 97.3 58 18 117/58 (77) 98 05/01/17 00:55 65 18 131/60 (83) 96 05/01/17 00:21 96.8 70 18 180/84 (116) 98 04/30/17 20:21 148/71 (96) 04/30/17 19:21 97.4 75 18 185/81 (115) 97 04/30/17 15:49 95.9 61 19 177/93 (121) 100 I/O 04/30/17 04/30/17 04/30/17 05/01/17 05/01/17 05/01/17 07:00 15:00 23:00 07:00 15:00 23:00 Intake Total 1303 ml 950 ml 1882 ml 584 ml Balance 1303 ml 950 ml 1882 ml 584 ml Intake Oral 480 ml 800 ml 720 ml 120 ml IV Total 823 ml 150 ml 1162 ml 464 ml # Voids 4 2 16 5 # Bowel Movements 1 2 16 5 Laboratory Laboratory Tests Test 05/01/17 05:23 White Blood Count 9.0 Red Blood Count 3.71 Hemoglobin 10.4 Hematocrit 32.0 Mean Corpuscular Volume 86.3 Mean Corpuscular Hemoglobin 28.1 Mean Corpuscular Hemoglobin Concent 32.6 Red Cell Distribution Width 15.2 Platelet Count 305 Mean Platelet Volume 8.6 Blood Urea Nitrogen 6 Creatinine 0.92 Random Glucose 94 Calcium Level 7.9 Sodium Level 144 Potassium Level 3.4 Chloride Level 115 Carbon Dioxide Level 20.8 Anion Gap 8 Estimat Glomerular Filtration Rate 62 Date/Time Source Procedure Growth Status 04/26/17 04:06 Blood Peripheral Aerobic Blood Culture - Final NO GROWTH IN 5 DAYS Complete 04/26/17 04:06 Blood Peripheral Anaerobic Blood Culture - Final NO GROWTH IN 5 DAYS Complete Imaging Last Impressions Abdomen/Pelvis CT 04/28/17 0000 Signed Impressions: Service Date/Time: Friday, April 28, 2017 19:36 - CONCLUSION: 1. Inflammatory change and multiple diverticuli involving the descending colon most characteristic of acute diverticulitis. There are 2 apparent gas collections which appear extraluminal adjacent to the colon. 2. Abnormal bowel gas pattern with borderline dilated small bowel with air-fluid levels most characteristic of an ileus. John Bradley MD Physical Exam HEENT: Normocephalic; atraumatic; no jaundice. CHEST: CTA CARDIAC: RRR. ABDOMEN: Abdomen soft, nontender, no hepatomegaly, bowel sounds are present EXTREMITIES: No clubbing, cyanosis, or edema. SKIN: Normal; no rash; no jaundice. ONSITE CASE MANAGER: No focal deficits; alert and oriented times three. (Angela Fuentes) Assessment and Plan Plan Impression: - Acute diverticulitis with small amount of retroperitoneal air, possible contained perforation. CT Scan abdomen and pelvis without iv contrast (04/25/17)-- --> Diverticula throughout the descending and sigmoid colon with suspected inflammatory change/diverticulitis at the descending colon. There is a small amount of extraluminal retroperitoneal air seen adjacent to the descending colon. Small hiatal hernia just to the left of the midline of the upper abdomen. This only contains mesenteric fat. Rpt CT Scan abdomen and pelvis (04/28/17)-- -> Inflammatory change and multiple diverticuli involving the descending colon most characteristic of acute diverticulitis. there are 2 apparent gas collections which appear extraluminal adjacent to the colon. Abnormal bowel gas pattern with borderline dilated small bowel with air-fluid levels most characteristic of an ileus. Clinically doing well- no pain. Tolerating liquids. WBC improving, 9.0. Zosyn, Flagyl. - Leukocytosis. Improving with abx. WBC 12.6. - Ileus. C/O nausea, no relief with zofran. Rec: - Advance to full liquids - Cont. Zosyn, Flagyl - Cont. Pepcid - Cont. Zofran prn - Monitor labs - Supportive care - Further recommendations to follow based on results of above - Pt seen and examined by Dr. Patel and myself and this note is written on his behalf (Angela Fuentes) Plan Patient was seen and examined, agree with the above note, patient less painful she is still having very loose bowel movement with food. Diverticulitis seems to be better we will continue antibiotics and she will need colonoscopy as an outpatient in 4-5 weeks. If she is doing well and tolerated food and she can be discharged home tomorrow or after tomorrow (Justino Patel MD) Angela Fuentes May 01, 2017 14:55 Justino Patel MD May 01, 2017 22:05
[2017-05-01 16:38] LABS: C. DIFF EPI 027 PRESUMPTIVE NEGATIVE (NEGATIVE)
[2017-05-01] MEDS: ENALAPRILAT 1.25 MG/ML VIAL IV PUSH PRN (19:24)
[2017-05-02] VITALS: BP 133/60; PULSE 66; RESP 18; TEMP 97.8; O2SAT 99
[2017-05-02] MEDS: ONDANSETRON HCL 4 MG/2 ML VIAL IVP PRN (00:21)
[2017-05-02] MEDS: metroNIDAZOLE 500 MG INJ 100 ML IV SCH ×5 (00:21→23:05)
[2017-05-02] MEDS: HEPARIN SODIUM - SQ 10,000 UNITS/ML VIAL SQ SCH ×3 (00:21→23:07)
[2017-05-02] MEDS: FAMOTIDINE 20 MG/2 ML VIAL IV PUSH SCH ×3 (00:21→23:06)
[2017-05-02] MEDS: HYDROmorphone HCL PF 1 MG/ML VIAL IV PRN (00:22)
[2017-05-02] MEDS: PIPERACIL-TAZO 3.375 GM PREMIX 50 ML IV SCH ×4 (02:01→17:52)
[2017-05-02 04:30] VITALS: BP 128/63; PULSE 64; RESP 18; TEMP 98; O2SAT 99
[2017-05-02] MEDS: SODIUM CHLOR 0.9% 1000 ML INJ 1,000 ML IV SCH (05:23)
[2017-05-02 08:00] VITALS: BP 135/80; PULSE 56; RESP 17; TEMP 97.9; O2SAT 98
[2017-05-02] MEDS: SODIUM CHLORIDE 0.9% FLUSH 10 ML FLUSH IV FLUSH SCH ×2 (09:00→23:06)
[2017-05-02] MEDS: DOCUSATE SODIUM 50 MG/SENNA 8.6 MG TAB PO SCH ×2 (09:00→21:00)
--- NOTE | 2017-05-02 10:20 | HHI.PR ---
Subjective Subjective Remarks LLQ improved, down to 6 still with diarrhea, frequent episodes no fever no chills no n/v anxious to go home tomorrow Review of Systems Constitutional Constitutional Remarks 12 point review of systems completed, negative except as noted above Vitals/Results Vital Signs Vital Signs Date Time Temp Pulse Resp B/P (MAP) Pulse Ox O2 Delivery O2 Flow Rate FiO2 05/02/17 08:00 97.9 56 17 135/80 (98) 98 05/02/17 04:30 98.0 64 18 128/63 (84) 99 05/02/17 00:00 97.8 66 18 133/60 (84) 99 05/01/17 20:23 96.8 68 18 164/86 (112) 100 05/01/17 16:30 97.4 71 18 175/98 (123) 99 05/01/17 12:00 96.5 57 18 151/91 (111) 92 CBC/BMP: 05/01/17 0523 05/01/17 0523 Lab Results Laboratory Tests Test 05/01/17 15:18 Stool C. difficile Toxin (PCR) NEGATIVE Stl C. difficile Toxin Epiderm 027 PRESUMPTIVE NEGATIVE Physical Exam General General Appearance: Well Developed, No Acute Distress, Comfortable, Anxious, Obese Eyes Eye Exam: Pupils Equal, Pupils Reactive Ears & Nose Ears & Nose Exam: Nasal Mucosa [place] Throat Throat Exam: Oral Mucosa [place] & Moist Neck Neck Exam: Neck Supple, Trachea Midline Pulmonary Resp Exam: Clear Bilaterally, No Distress Cardiology CV Exam: Regular, Good Perfusion Gastrointestinal/Abdomen GI Exam: Soft, Bowel Sounds Present, Positive Bowel Movement, Non-Distended GI Remarks Tender to left lower quadrant-IIMPROVED Musculoskeletal MS Exam: Joints Intact Integumentary Skin Exam: Warm, Dry Extremeties Extremities Exam: Pedal Pulses Palpable, Trace Edema Neurologic Neuro Exam: Alert, Awake, Oriented, Speech Clear, Moving All Extremities, No Focal Deficits Psychiatric Psych Exam: Appropriate Responses VTE Prophylaxis VTE Prophylaxis Meds: Heparin Assessment/Plan Problem List: (1) Diverticulitis ICD Codes: K57.92 - Diverticulitis of intestine, part unspecified, without perforation or abscess without bleeding Status: Acute (2) Leukocytosis ICD Codes: D72.829 - Elevated white blood cell count, unspecified Status: Acute (3) Abdominal pain ICD Codes: R10.9 - Unspecified abdominal pain (4) possible microperformation from diverticulitis Status: Acute (5) COPD (chronic obstructive pulmonary disease) ICD Codes: J44.9 - Chronic obstructive pulmonary disease, unspecified Status: Chronic (6) Essential tremor ICD Codes: G25.0 - Essential tremor Status: Chronic (7) MIGUEL (acute kidney injury) ICD Codes: N17.9 - Acute kidney failure, unspecified Status: Acute (8) Diarrhea ICD Codes: R19.7 - Diarrhea, unspecified Status: Acute Assessment/Plan 61 year old female with sudden onset of LLQ pain, CT findings of diverticulitis with possible microperforation. -continue with IVF-jul. KVO -continue antibiotics, and follow cultures -continue with IV narcotics to control pain -Appreciate GI input -Repeat CT abd. results noted -tolerating full liquid diet well -still with diarrhea, neg for cdiff, ? Imodium, will d/w GI -if she continues to improve, poss dc am MIGUEL likely sec. dehydration -Continue to monitor renal function, creatinine same -Continue IV fluids -renal function improving COPD, stable -Duonebs PRN for wheezing Essential tremors, stable -continue Topamax Elevated BP -continue Vasotec PRN Heparin subcutaneous/SCDs for DVT prophylaxis IS q 2 OOB as tolerated Poss discharge tomorrow if she continues to improve Labs today pending Labs in am Discussed with RN Discussed with patient and Discussed with Dr. Lei This patient was seen by myself and Dr. Lei, this note is written on his behalf. Problem Qualifiers (1) Diverticulitis: Qualified Codes: K57.92 - Diverticulitis of intestine, part unspecified, without perforation or abscess without bleeding (2) Leukocytosis: Qualified Codes: D72.829 - Elevated white blood cell count, unspecified (3) Abdominal pain: Qualified Codes: R10.32 - Left lower quadrant pain (4) COPD (chronic obstructive pulmonary disease): Qualified Codes: J44.9 - Chronic obstructive pulmonary disease, unspecified (5) Diarrhea: Qualified Codes: R19.7 - Diarrhea, unspecified Juana David May 02, 2017 10:20
[2017-05-02 10:48] LABS: HEMATOCRIT 33.2 % (35.0-46.0); MEAN CELL VOLUME 86.1 FL (80.0-100.0); MEAN CORPUSCULAR HEMOGLOBIN 28.4 PG (27.0-34.0); PLATELET COUNT 314 TH/MM3 (150-450); RED BLOOD COUNT 3.86 MIL/MM3 (4.00-5.30); RED CELL DISTRIBUTION WIDTH 16.1 % (11.6-17.2); REVIEW FLAG FINAL; WHITE BLOOD COUNT 8.6 TH/MM3 (4.0-11.0)
[2017-05-02 10:53] LABS: BICARBONATE 20.2 MEQ/L (21.0-32.0); MAGNESIUM 1.8 MG/DL (1.5-2.5); POTASSIUM 3.6 MEQ/L (3.5-5.1)
--- NOTE | 2017-05-02 11:57 | HHI.GIFU ---
Subjective Remarks C/O nausea and ongoing diarrhea- although slight improved from last night. States last night, she was going to the bathroom with diarrhea every hour and she had > 10 loose stools yesterday. Today, this is down to every 2.5 hours and she has had 3 today. No bleeding. No abdominal pain. (Angela Fuentes) Objective Vitals I&O Vital Signs Date Time Temp Pulse Resp B/P (MAP) Pulse Ox O2 Delivery O2 Flow Rate FiO2 05/02/17 08:00 97.9 56 17 135/80 (98) 98 05/02/17 04:30 98.0 64 18 128/63 (84) 99 05/02/17 00:00 97.8 66 18 133/60 (84) 99 05/01/17 20:23 96.8 68 18 164/86 (112) 100 05/01/17 16:30 97.4 71 18 175/98 (123) 99 05/01/17 12:00 96.5 57 18 151/91 (111) 92 I/O 05/01/17 05/01/17 05/01/17 05/02/17 05/02/17 05/02/17 07:00 15:00 23:00 07:00 15:00 23:00 Intake Total 584 ml 680 ml 1120 ml 1540 ml Balance 584 ml 680 ml 1120 ml 1540 ml Intake Oral 120 ml 680 ml 420 ml 240 ml IV Total 464 ml 700 ml 1300 ml # Voids 5 6 7 4 # Bowel Movements 5 6 7 4 Laboratory Laboratory Tests Test 05/01/17 15:18 05/02/17 09:58 Stool C. difficile Toxin (PCR) NEGATIVE Stl C. difficile Toxin Epiderm 027 PRESUMPTIVE NEGATIVE White Blood Count 8.6 Red Blood Count 3.86 Hemoglobin 11.0 Hematocrit 33.2 Mean Corpuscular Volume 86.1 Mean Corpuscular Hemoglobin 28.4 Mean Corpuscular Hemoglobin Concent 33.0 Red Cell Distribution Width 16.1 Platelet Count 314 Mean Platelet Volume 8.6 Blood Urea Nitrogen 3 Creatinine 1.02 Random Glucose 109 Calcium Level 7.9 Magnesium Level 1.8 Sodium Level 141 Potassium Level 3.6 Chloride Level 111 Carbon Dioxide Level 20.2 Anion Gap 10 Estimat Glomerular Filtration Rate 55 Date/Time Source Procedure Growth Status 04/26/17 04:06 Blood Peripheral Aerobic Blood Culture - Final NO GROWTH IN 5 DAYS Complete 04/26/17 04:06 Blood Peripheral Anaerobic Blood Culture - Final NO GROWTH IN 5 DAYS Complete Imaging Last Impressions Abdomen/Pelvis CT 04/28/17 0000 Signed Impressions: Service Date/Time: Friday, April 28, 2017 19:36 - CONCLUSION: 1. Inflammatory change and multiple diverticuli involving the descending colon most characteristic of acute diverticulitis. There are 2 apparent gas collections which appear extraluminal adjacent to the colon. 2. Abnormal bowel gas pattern with borderline dilated small bowel with air-fluid levels most characteristic of an ileus. John Bradley MD Physical Exam HEENT: Normocephalic; atraumatic; no jaundice. CHEST: CTA CARDIAC: RRR. ABDOMEN: Abdomen soft, nontender, no hepatomegaly, bowel sounds are present EXTREMITIES: No clubbing, cyanosis, or edema. SKIN: Normal; no rash; no jaundice. DEICER KIT ASSEMBLER: No focal deficits; alert and oriented times three. (Angela FuentesP) Assessment and Plan Plan Impression: - Acute diverticulitis with small amount of retroperitoneal air, possible contained perforation. CT Scan abdomen and pelvis without iv contrast (04/25/17)-- --> Diverticula throughout the descending and sigmoid colon with suspected inflammatory change/diverticulitis at the descending colon. There is a small amount of extraluminal retroperitoneal air seen adjacent to the descending colon. Small hiatal hernia just to the left of the midline of the upper abdomen. This only contains mesenteric fat. Rpt CT Scan abdomen and pelvis (04/28/17)-- -> Inflammatory change and multiple diverticuli involving the descending colon most characteristic of acute diverticulitis. there are 2 apparent gas collections which appear extraluminal adjacent to the colon. Abnormal bowel gas pattern with borderline dilated small bowel with air-fluid levels most characteristic of an ileus. Tolerating full liquids. Afebrile. WBC improved, 8.6 today. She is not having abdominal pain, but continues to have nausea and significant diarrhea. - Diarrhea. CDiff negative. She reports that she had a bowel movement every hour last night with > 10 loose stools yesterday. Today, it is slightly improved, but she states she is still having loose stool every 2.5 hours. She has had 3 stools today. Will d/w Dr. Patel. - Leukocytosis. Improving with abx. WBC 8.6. - Ileus. C/O nausea, no relief with zofran. Rec: - Full liquids - Cont. Zosyn, Flagyl - Cont. Pepcid - Cont. Zofran prn - Monitor labs - Supportive care - Will d/w Dr. Patel ongoing diarrhea and further recommendations for this. - Will need colonoscopy in 4-5 weeks as outpatient (Angela Fuentes) Physician Comments Patient was seen and examined, feeling better less pain, diarrhea improved tonight. Continue to do better tomorrow with food to oral antibiotic and may be discharged from GI standpoint (Justino Patel MD) Angela Fuentes May 02, 2017 11:57 Justino Patel MD May 02, 2017 21:30
[2017-05-02 12:00] VITALS: BP 142/80; PULSE 72; RESP 17; TEMP 97.3; O2SAT 98
[2017-05-02] MEDS ORDERED: LOPERAMIDE HCL 2 MG CAP PO ONE (13:00)
[2017-05-02 16:00] VITALS: BP 159/88; PULSE 63; RESP 17; TEMP 96.6; O2SAT 99
[2017-05-02 20:27] VITALS: BP 153/78; PULSE 73; RESP 18; TEMP 97.2; O2SAT 98
[2017-05-03 00:21] VITALS: BP 169/76; PULSE 60; RESP 18; TEMP 97; O2SAT 97
[2017-05-03] MEDS: PIPERACIL-TAZO 3.375 GM PREMIX 50 ML IV SCH ×3 (01:08→12:56)
[2017-05-03 04:31] VITALS: BP 154/84; PULSE 63; RESP 18; TEMP 96.8; O2SAT 99
[2017-05-03] MEDS: metroNIDAZOLE 500 MG INJ 100 ML IV SCH ×2 (07:43→12:56)
[2017-05-03 08:16] VITALS: BP 156/77; PULSE 61; RESP 18; TEMP 96.6; O2SAT 100
[2017-05-03] MEDS: SODIUM CHLORIDE 0.9% FLUSH 10 ML FLUSH IV FLUSH SCH (09:00)
[2017-05-03] MEDS: DOCUSATE SODIUM 50 MG/SENNA 8.6 MG TAB PO SCH (09:00)
[2017-05-03 10:13] LABS: HEMATOCRIT 34.7 % (35.0-46.0); MEAN CELL VOLUME 86.3 FL (80.0-100.0); MEAN CORPUSCULAR HEMOGLOBIN 28.4 PG (27.0-34.0); MEAN CORPUSCULAR HGB CONC 32.9 % (32.0-36.0); PLATELET COUNT 361 TH/MM3 (150-450); RED BLOOD COUNT 4.02 MIL/MM3 (4.00-5.30); RED CELL DISTRIBUTION WIDTH 15.9 % (11.6-17.2); REVIEW FLAG FINAL; WHITE BLOOD COUNT 8.3 TH/MM3 (4.0-11.0)
[2017-05-03 10:39] LABS: BICARBONATE 21.3 MEQ/L (21.0-32.0); MAGNESIUM 1.9 MG/DL (1.5-2.5); POTASSIUM 3.7 MEQ/L (3.5-5.1)
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
[2017-05-03 12:00] VITALS: BP 161/89; PULSE 70; RESP 18; TEMP 97.9; O2SAT 98
[2017-05-03] MEDS: HEPARIN SODIUM - SQ 10,000 UNITS/ML VIAL SQ SCH (12:00)
[2017-05-03] MEDS: ENALAPRILAT 1.25 MG/ML VIAL IV PUSH PRN (12:55)
[2017-05-03] MEDS: FAMOTIDINE 20 MG/2 ML VIAL IV PUSH SCH (12:55)
[2017-05-03] MEDS ORDERED: METR-1 PO (14:30)
[2017-05-03] MEDS ORDERED: MSIR15 PO (14:31)
--- NOTE | 2017-05-03 18:00 | HHI.DS ---
Discharge Summary Admission Date Apr 25, 2017 at 23:17 Discharge Date: May 03, 2017 Admitting Diagnosis Diverticulitis (1) Diverticulitis ICD Codes: K57.92 - Diverticulitis of intestine, part unspecified, without perforation or abscess without bleeding Status: Acute (2) Abdominal pain ICD Codes: R10.9 - Unspecified abdominal pain (3) possible microperformation from diverticulitis Status: Acute (4) Leukocytosis ICD Codes: D72.829 - Elevated white blood cell count, unspecified Status: Acute (5) COPD (chronic obstructive pulmonary disease) ICD Codes: J44.9 - Chronic obstructive pulmonary disease, unspecified Status: Chronic (6) Essential tremor ICD Codes: G25.0 - Essential tremor Status: Chronic (7) MIGUEL (acute kidney injury) ICD Codes: N17.9 - Acute kidney failure, unspecified Status: Acute Brief History Pleasant 61 y.o. WF, generally in good health, PMHx of essential tremors, obesity, COPD. Presented to the ED complaining of left lower quadrant abdominal pain that began suddenly last night. Stated pain was sharp stabbing, worst with movement, located to LLQ. Nothing made the pain better or worst. She had eaten pizza prior. Had associated nausea and dry heaves, chills, no fever. Bowel movements regular, no urinary symptoms. CBC/BMP: 05/03/17 0931 05/03/17 0931 Significant Findings Laboratory Tests Test 05/01/17 05:23 05/01/17 15:18 05/02/17 09:58 05/03/17 09:31 Red Blood Count 3.71 MIL/MM3 (4.00-5.30) 3.86 MIL/MM3 (4.00-5.30) Hemoglobin 10.4 GM/DL (11.6-15.3) 11.0 GM/DL (11.6-15.3) 11.4 GM/DL (11.6-15.3) Hematocrit 32.0 % (35.0-46.0) 33.2 % (35.0-46.0) 34.7 % (35.0-46.0) Blood Urea Nitrogen 6 MG/DL (7-18) 3 MG/DL (7-18) 3 MG/DL (7-18) Calcium Level 7.9 MG/DL (8.5-10.1) 7.9 MG/DL (8.5-10.1) 7.7 MG/DL (8.5-10.1) Potassium Level 3.4 MEQ/L (3.5-5.1) Chloride Level 115 MEQ/L (98-107) 111 MEQ/L (98-107) 113 MEQ/L (98-107) Carbon Dioxide Level 20.8 MEQ/L (21.0-32.0) 20.2 MEQ/L (21.0-32.0) Estimat Glomerular Filtration Rate 62 ML/MIN (>89) 55 ML/MIN (>89) 62 ML/MIN (>89) Creatinine 1.02 MG/DL (0.50-1.00) Random Glucose 109 MG/DL (74-106) 132 MG/DL (74-106) Imaging Last Impressions Abdomen/Pelvis CT 04/28/17 0000 Signed Impressions: Service Date/Time: Friday, April 28, 2017 19:36 - CONCLUSION: 1. Inflammatory change and multiple diverticuli involving the descending colon most characteristic of acute diverticulitis. There are 2 apparent gas collections which appear extraluminal adjacent to the colon. 2. Abnormal bowel gas pattern with borderline dilated small bowel with air-fluid levels most characteristic of an ileus. John Bradley MD PE at Discharge General Appearance: Well Developed, No Acute Distress, Comfortable, Anxious, Obese Eyes Eye Exam: Pupils Equal, Pupils Reactive Ears & Nose Ears & Nose Exam: Nasal Mucosa Frank Throat Throat Exam: Oral Mucosa Frank & Moist Neck Neck Exam: Neck Supple, Trachea Midline Pulmonary Resp Exam: Clear Bilaterally, No Distress Cardiology CV Exam: Regular, Good Perfusion Gastrointestinal/Abdomen GI Exam: Soft, Bowel Sounds Present, Positive Bowel Movement, Non-Distended GI Remarks Tender to left lower quadrant-IIMPROVED Musculoskeletal MS Exam: Joints Intact Integumentary Skin Exam: Warm, Dry Extremeties Extremities Exam: Pedal Pulses Palpable, Trace Edema Neurologic Neuro Exam: Alert, Awake, Oriented, Speech Clear, Moving All Extremities, No Focal Deficits Psychiatric Psych Exam: Appropriate Responses VTE Prophylaxis VTE Prophylaxis Meds: Heparin Hospital Course Pt. was evaluated in the ED, labs were completed. BMP remarkable for acute renal injury, CBC remarkable for leukocytosis. CT of abd and pelvis showed 1. Diverticula throughout the descending and sigmoid colon with suspected inflammatory change/diverticulitis at the descending colon. There was a small amount of extraluminal retroperitoneal air seen adjacent to the descending colon. 2. Small hernia just to the left of midline at the upper abdomen. This only contained mesenteric fat. Pt. was started on Bactrim IV and Flagyl due to multiple allergies. GI consult pending. She remained extremely painful with minimal touch. Denies prior history of diverticulitis. Had previous GI work up that have been normal. She was having nausea, and wants something to drink. Pt. was admitted for further evaluation and treatment. Brief history includes a 61 year old female with sudden onset of LLQ pain, CT findings of diverticulitis with possible microperforation. Listed are the diagnoses that were used to treat this patient for this plan of care during the hospital stay Consultation includes gastroenterology for their expert opinion and plan of care Acute diverticulitis -continue with IVF-during most of hospital stay for hydration -continue antibiotics, and follow cultures -continue with IV narcotics to control pain -Appreciate GI input -Repeat CT abd. for follow-up results and to evaluate with the patient was bonding to treatment regimen -tolerating full liquid diet well -still with diarrhea, checked for C. difficile results negative Imodium, will d /w GI She is generalized symptoms continue to have gradual improvement, if diarrhea is controlled within the next 24 hours we will look at discharge planning MIGUEL likely sec. dehydration -Continue to monitor renal function, creatinine same -Continue IV fluids -renal function improving , labs monitored throughout hospital stay COPD, stable -Duonebs PRN for wheezing, no obvious exacerbation symptoms seen during this hospital stay Essential tremors, stable -continue Topamax Elevated BP -continue Vasotec PRN Heparin subcutaneous/SCDs for DVT prophylaxis IS q 2 OOB as tolerated Multiple vital signs monitored every 4 hours and as warranted, with special attention to any fevers Multiple labs drawn as well as CAT scans to monitor patient's response to aggressive treatment. After patient was stabilized activity was encouraged as well as out of bed and ambulating in room Patient was evaluated per Dr. Lei on 05-03, and felt that she was medically stable for discharge Patient's education and information and prescriptions/ medications were given to her. We'll follow up with GI and her PCP as outpatient Pt Condition on Discharge: Good Discharge Disposition: Discharge Home Discharge Instructions DIET: Follow Instructions for: Heart Healthy Diet Activities you can perform: Weight Bearing as Geoffrey Follow up Referrals: Appointment for Follow Up with Frankie Edwards MD Gastroenterology - 1 Week PCP Follow-up - 1 Week New Medications: Metronidazole (Flagyl) 500 Mg Tab 500 MG PO TID for Infection for 7 Days, TAB 0 Refills Morphine IR (Morphine IR) 15 Mg Tab 7.5 MG PO Q4H PRN for PAIN, #28 TAB 0 Refills Continued Medications: Topiramate (Topiramate) 50 Mg Tab 150 MG PO DAILY NEB for TREMORS, #60 TAB 0 Refills Judith Ojeda May 03, 2017 18:00
== END 2017-05-03 16:00 | disposition home or self-care (01) | DRG 392 ==
LOC: NEPE 19:20 → NEDA 23:17 → N06B 04-26 00:04
PROVIDERS: ADMIT Specialist; ATTEND Specialist
DX: K57.20 Diverticulitis of large intestine with perforation and abscess without bleeding (principal); N17.9 Acute kidney failure, unspecified; K56.7 Ileus, unspecified; G25.0 Essential tremor; E86.0 Dehydration; J44.9 Chronic obstructive pulmonary disease, unspecified; R19.7 Diarrhea, unspecified; E66.9 Obesity, unspecified; Z68.39 Body mass index [BMI] 39.0-39.9, adult; E87.6 Hypokalemia; K44.9 Diaphragmatic hernia without obstruction or gangrene; Z87.891 Personal history of nicotine dependence; Z88.6 Allergy status to analgesic agent; Z88.1 Allergy status to other antibiotic agents; Z88.5 Allergy status to narcotic agent
CPT/HCPCS: 74176; 76937; 80048; 80053; 81001; 83690; 83735; 85025; 85027; 85610; 85730; 87040; 87205; 87493; 94150; 96361; 96374; 96375; 96376; J1170; J1644; J2270; J2405; J2543; J2550; J3480; J7030; J7060; Q9963

== ENCOUNTER 2017-12-01 02:53 | Inpatient (IN) | payer OTHER ==
[2017-12-01] VITALS (7 sets, daily range): BP systolic 119–184; BP diastolic 53–81; PULSE 80–119; RESP 16–20; TEMP 98.7–100.9; O2SAT 96–100
[~2017-12-01] VITALS: Ht 167.6 cm; Wt 132.0 kg
[~2017-12-01 02:53] MED LIST: METR-1 PO; MSIR15 PO; TOPI50TA7 PO
[2017-12-01] MEDS ORDERED: IOHEXOL 350 MG/ML 10 ML VIAL (for RAD DIAG) IVCONTRAST ONE (02:54)
--- NOTE | 2017-12-01 03:12 | PD ---
HPI Chief Complaint: Neuro Symptoms/ Deficits Time Seen by Provider: 03:03 Travel History International Travel<30 days: No Contact w/Intl Traveler<30days: No Traveled to known affect area: No History of Present Illness HPI The patient is a 62 year old female who presents to the [facility] emergency department with a history of not feeling well since midnight. She reports that her symptoms began with a dry cough, nausea with dry heaving, tremulousness, except sensation that she cannot get warm, however no fever. She denies having any congestion, cough, or sore throat prior to the onset of symptoms at midnight. She reports having a headache without neck pain or neck stiffness. She denies having any diarrhea, abdominal pain, or urinary symptoms. She reports that she last moved her bowels earlier today. She denies having any chest pain or chest pressure, however she does report having some shortness of breath since this began. The patient reports having a history of benign essential tremor, however she reports that it is much worse over the last few hours. Otherwise on review of systems, she denies having any one-sided weakness, slurred speech, facial droop, difficulty with word finding ability, or vertigo. [facility] Past Medical History Narrative Medical The patient's past medical history is significant for essential tremors, obesity , COPD, history of diverticulitis. Depression: Yes (HISTORY) Cardiovascular Problems: No COPD: Yes Diminished Hearing: No Genitourinary: No Hypertension: Yes (HX OF PT STATES IT WENT AWAY) Musculoskeletal: No Neurologic: No Reproductive: No Respiratory: Yes Immunizations Current: Yes Past Surgical History Narrative Surgical The patient's past surgical history is significant for left foot surgery, lap band surgery with subsequent removal, tonsillectomy, hysterectomy. Abdominal Surgery: Yes (LAP BAND-REMOVED) Appendectomy: Yes Gynecologic Surgery: Yes (HYSTERECTOMY) Hysterectomy: Yes Oral Surgery: Yes (PARTIAL PLATE IN MOUTH, TONSILLECTOMY) Tonsillectomy: Yes Social History Alcohol Use: No Tobacco Use: No Substance Use: No Allergies-Medications (Allergen,Severity, Reaction): Coded Allergies: acetaminophen (Verified Allergy, Severe, 12/01/17) azithromycin (Verified Allergy, Severe, 12/01/17) ciprofloxacin (Verified Allergy, Severe, Rash, 12/01/17) clavulanic acid (Verified Allergy, Severe, Rash, 12/01/17) levofloxacin (Verified Allergy, Severe, Rash, 12/01/17) tramadol (Verified Allergy, Severe, 12/01/17) valdecoxib (Verified Allergy, Severe, 12/01/17) cefadroxil (Verified Allergy, Unknown, 12/01/17) codeine (Verified Allergy, Unknown, 12/01/17) monosodium glutamate (Verified Adverse Reaction, Severe, 12/01/17) Reported Meds & Prescriptions Reported Meds & Active Scripts Active Reported Topiramate 50 Mg Tab 125 Mg PO BID Review of Systems Except as stated in HPI: all other systems reviewed are Neg General / Constitutional: No: Fever Eyes: No: Visual changes HENT: No: Headaches Cardiovascular: No: Chest Pain or Discomfort Respiratory: No: Shortness of Breath Gastrointestinal: No: Abdominal Pain Genitourinary: No: Dysuria Musculoskeletal: No: Pain Skin: No Rash Neurologic: No: Weakness Psychiatric: No: Depression Endocrine: No: Polydipsia Hematologic/Lymphatic: No: Easy Bruising Physical Exam Narrative General: The patient is a well developed well-nourished female, tremulous on arrival, otherwise in no acute distress Head and Neck exam: Head is normocephalic atraumatic. Eyes: EOMI, pupils are equal round and reactive to light. Nose: Midline septum with pink mucous membranes Mouth: Dentition unremarkable. Moist mucus membranes. Posterior oropharynx is not erythematous. No tonsillar hypertrophy. Uvula midline. Airway patent. Neck: No palpable lymphadenopathy. No nuchal rigidity. No thyromegaly. Cardiovascular: Sinus tachycardia in the 1 teens without murmurs, gallops, or rubs. No pulse deficit to the extremities on simultaneous auscultation and palpation of her radial artery. Lungs: Clear to auscultation bilaterally. No wheezes, rhonchi, or rales. Abdomen: Soft, without tenderness to palpation in all 4 quadrants of the abdomen. No guarding, rebound, or rigidity. Normal bowel sounds are audible. No tenderness on palpation of McBurney's point. Negative Melendez sign. Extremities: No clubbing or cyanosis. The patient has trace pedal edema. 2+ pulses in all 4 extremities. No calf tenderness on palpation. Back: No spinous process tenderness to palpation. No costovertebral angle tenderness to palpation. Neurologic Exam: Grossly nonfocal. The patient has tremulousness noted bilateral upper extremities. No asterixis. Skin Exam: No rash noted. Intact skin that is warm and dry. Data Data Last Documented VS Vital Signs Date Time Temp Pulse Resp B/P (MAP) Pulse Ox O2 Delivery O2 Flow Rate FiO2 12/01/17 02:54 98.7 119 18 184/81 (115) 97 Orders Orders Electrocardiogram (12/01/17 03:18) Complete Blood Count With Diff (12/01/17 03:18) Comprehensive Metabolic Panel (12/01/17 03:18) Creatine Kinase (Cpk) (12/01/17 03:18) Ckmb (Isoenzyme) Profile (12/01/17 03:18) Troponin I (12/01/17 03:18) B-Type Natriuretic Peptide (12/01/17 03:18) Prothrombin Time / Inr (Pt) (12/01/17 03:18) Act Partial Throm Time (Ptt) (12/01/17 03:18) Lipase (12/01/17 03:18) Urinalysis - C+S If Indicated (12/01/17 03:18) Magnesium (Mg) (12/01/17 03:18) Thyroid Stimulating Hormone (12/01/17 03:18) Chest, Single Ap (12/01/17 03:18) Iv Access Insert/Monitor (12/01/17 03:18) Ecg Monitoring (12/01/17 03:18) Oximetry (12/01/17 03:18) Lactic Acid Sepsis Protocol (12/01/17 03:18) Blood Culture (12/01/17 03:18) Influenzae A/B Antigen (12/01/17 03:18) Ct Brain W/O Iv Contrast(Rout) (12/01/17 03:21) Ct Abd/Pel W Iv Contrast(Rout) (12/01/17 04:28) Sodium Chlor 0.9% 1000 Ml Inj (Ns 1000 M (12/01/17 04:30) Ondansetron Inj (Zofran Inj) (12/01/17 04:30) Virus Culture Respiratory (12/01/17 04:57) Oseltamivir (Tamiflu) (12/01/17 05:45) Aztreonam Inj (Azactam Inj) (12/01/17 05:35) Metronidazole 500 Mg Inj (Flagyl 500 Mg (12/01/17 05:35) Iohexol 350 Inj (Omnipaque 350 Inj) (12/01/17 02:54) Admit Order (Ed Use Only) (12/01/17 05:51) Labs Laboratory Tests Test 12/01/17 03:23 12/01/17 03:24 12/01/17 05:45 Urine Color LIGHT-YELLOW Urine Turbidity CLEAR Urine pH 5.5 Urine Specific [place] 1.016 Urine Protein NEG mg/dL Urine Glucose (UA) NEG mg/dL Urine Ketones NEG mg/dL Urine Occult Blood NEG Urine Nitrite NEG Urine Bilirubin NEG Urine Urobilinogen LESS THAN 2.0 MG/DL Urine Leukocyte Esterase NEG Urine RBC LESS THAN 1 /hpf Urine WBC 1 /hpf Urine Squamous Epithelial Cells 1 /hpf Urine Hyaline Casts 2 /lpf Urine Mucus FEW /lpf Microscopic Urinalysis Comment CULT NOT INDICATED White Blood Count 17.4 TH/MM3 Red Blood Count 4.59 MIL/MM3 Hemoglobin 12.9 GM/DL Hematocrit 39.1 % Mean Corpuscular Volume 85.3 FL Mean Corpuscular Hemoglobin 28.1 PG Mean Corpuscular Hemoglobin Concent 33.0 % Red Cell Distribution Width 14.3 % Platelet Count 270 TH/MM3 Mean Platelet Volume 9.0 FL Neutrophils (%) (Auto) 88.0 % Lymphocytes (%) (Auto) 6.0 % Monocytes (%) (Auto) 4.3 % Eosinophils (%) (Auto) 1.3 % Basophils (%) (Auto) 0.4 % Neutrophils # (Auto) 15.3 TH/MM3 Lymphocytes # (Auto) 1.0 TH/MM3 Monocytes # (Auto) 0.8 TH/MM3 Eosinophils # (Auto) 0.2 TH/MM3 Basophils # (Auto) 0.1 TH/MM3 CBC Comment DIFF FINAL Differential Comment Prothrombin Time 9.8 SEC Prothromb Time International Ratio 1.0 RATIO Activated Partial Thromboplast Time 23.7 SEC Blood Urea Nitrogen 20 MG/DL Creatinine 0.94 MG/DL Random Glucose 113 MG/DL Total Protein 6.9 GM/DL Albumin 3.5 GM/DL Calcium Level 8.7 MG/DL Magnesium Level 1.7 MG/DL Alkaline Phosphatase 84 U/L Aspartate Amino Transf (AST/SGOT) 9 U/L Alanine Aminotransferase (ALT/SGPT) 16 U/L Total Bilirubin 0.3 MG/DL Sodium Level 143 MEQ/L Potassium Level 4.3 MEQ/L Chloride Level 110 MEQ/L Carbon Dioxide Level 21.8 MEQ/L Anion Gap 11 MEQ/L Estimat Glomerular Filtration Rate 60 ML/MIN Lactic Acid Level 2.1 mmol/L 1.9 mmol/L Total Creatine Kinase 67 U/L Troponin I LESS THAN 0.02 NG/ML B-Type Natriuretic Peptide 21 PG/ML Lipase 135 U/L Thyroid Stimulating Hormone 3rd Gen 5.390 uIU/ML MDM Medical Decision Making Medical Screen Exam Complete: Yes Emergency Medical Condition: Yes Medical Record Reviewed: Yes Interpretation(s) Last Impressions Abdomen/Pelvis CT 12/01/17427 Signed Impressions: Service Date/Time: Friday, December 01, 2017 05:25 - CONCLUSION: 1. Diverticulosis without diverticulitis. 2. Small hiatal hernia. 3. Stable mildly dilated gallbladder. Helder Rodriguez MD Head CT 12/01/17 0321 Signed Impressions: Service Date/Time: Friday, December 01, 2017 04:23 - CONCLUSION: No acute disease. Helder Rodriguez MD Chest X-Ray 12/01/178 Signed Impressions: Service Date/Time: Friday, December 01, 2017 03:41 - CONCLUSION: No acute disease. Helder Rodriguez MD Differential Diagnosis Influenza, versus pneumonia, versus diverticulitis, versus other viral syndrome Narrative Course During the course of the patient's emergency department visit, the patient's history, examination, and differential diagnosis were reviewed with the patient. The patient was placed on a personnel monitor with oximetry and frequent blood pressure monitoring. The patient had IV access obtained and blood work sent for analysis. The patient had an EKG done on arrival. The patient's EKG shows a sinus tachycardia rate of 109, no acute ST segment elevation. Left anterior fascicular block is noted. QRS duration is 88 ms, QTC 362 ms. This is a tremulous baseline which could be affecting interpretation of the EKG. The patient was initially provided normal saline 1 L IV fluid bolus, Zofran 4 mg IV. Influenza testing was ordered in the patient. The sample was sent to lab. The laboratory animal facility supervisor called me regarding the patient's results stating that all of the panel was positive including A, B, and another line was showing up in the result which does not correlate with the type of flu, therefore they recommended repeat testing. A repeat test came back with the same abnormality. Viral cultures were ordered. The patient was started on Tamiflu. The patient's laboratory studies were reviewed and remarkable for a white count of 17.4, hemoglobin 12.9, platelets 270 with 88 neutrophils, CMP is remarkable for chloride of 110, BUN 20, glucose 113, AST 9, cardiac enzymes within normal limits, lipase 135, TSH elevated at 5.39, BNP 21, lactic acid 2.1. PT 9.8, PTT 23.7, urinalysis is unremarkable. Given the patient's leukocytosis, tachycardia, elevated lactic acid, sepsis of undetermined origin is in the differential. The patient was started on broad- spectrum antibiotic. CT scan of the abdomen and pelvis was also ordered to further evaluate for underlying occult intra-abdominal cause. The patient was given another dose of Zofran for nausea. Radiology studies were reviewed and remarkable for a chest x-ray that shows no acute abnormality. CT scan of the brain shows no acute abnormality. CT scan of the abdomen and pelvis shows diverticulosis without diverticulitis, small hiatal hernia, stable mildly dilated gallbladder. The patient's results were discussed with the patient, including the plan of care. I explained that further testing and/ or monitoring is indicated based on the patient's history, examination, and/ or laboratory findings. Therefore, I recommended admission for additional evaluation. The patient expressed understanding and was agreeable with this plan. The patient was admitted to the hospital in stable condition and sent to a bed under the care of the [facility] service. Sepsis Criteria SIRS Criteria (2 or more): Heart rate over 90, WBC > 00771, < 4000 or > 10% bands Severe Sepsis (+one): Lactate >2 Physician Communication Physician Communication The patient's case including history, pertinent physical examination findings, and laboratory studies were discussed with Dr. Villa. It was agreed that the patient would be admitted to the [facility] service. Diagnosis Primary Impression: SIRS (systemic inflammatory response syndrome) Additional Impression: Leukocytosis Qualified Codes: D72.829 - Elevated white blood cell count, unspecified Admitting Information Admitting Physician Requests: Admit Mai Ogden MD Dec 01, 2017 03:12
[2017-12-01] MEDS ORDERED: TOPI50TA7 PO (03:31)
[2017-12-01 03:46] LABS: BILIRUBIN, URINE NEG (NEG); BLOOD, URINE NEG (NEG); GLUCOSE,URINE NEG (NEG); HYALINE CAST, URINE 2 /lpf (RARE); KETONE, URINE NEG (NEG); MUCUS URINE FEW /lpf (OCC); NITRITE,URINE NEG (NEG); PH, URINE 5.5 (5.0-8.5); SQUAMOUS EPITHELIAL CELL URINE 1 /hpf (0-5); URINE COLOR LIGHT-YELLOW (YELLW/STRAW); URINE LEUKOCYTE ESTERASE NEG (NEG)
[2017-12-01 03:48] LABS: AUTOMATED NEUTROPHIL # 15.3 TH/MM3 (1.8-7.7); BASOPHIL # 0.1 TH/MM3 (0-0.2); BASOPHIL % 0.4 % (0.0-2.0); EOSINOPHIL # 0.2 TH/MM3 (0-0.4); EOSINOPHIL % 1.3 % (0.0-4.0); HEMATOCRIT 39.1 % (35.0-46.0); HEMOGLOBIN 12.9 GM/DL (11.6-15.3); MEAN CELL VOLUME 85.3 FL (80.0-100.0); MEAN CORPUSCULAR HEMOGLOBIN 28.1 PG (27.0-34.0); MONO % 4.3 % (0.0-8.0); MONOCYTE # 0.8 TH/MM3 (0-0.9); PLATELET COUNT 270 TH/MM3 (150-450); RED BLOOD COUNT 4.59 MIL/MM3 (4.00-5.30); RED CELL DISTRIBUTION WIDTH 14.3 % (11.6-17.2); WHITE BLOOD COUNT 17.4 TH/MM3 (4.0-11.0)
[2017-12-01 03:56] LABS: PROTHROMBIN TIME - PATIENT 9.8 SEC (9.8-11.6)
[2017-12-01 03:58] LABS: ALBUMIN 3.5 GM/DL (3.4-5.0); ALT (GPT) 16 U/L (10-53); AST (GOT) 9 U/L (15-37); BICARBONATE 21.8 MEQ/L (21.0-32.0); BLOOD UREA NITROGEN 20 MG/DL (7-18); CALCIUM 8.7 MG/DL (8.5-10.1); CHLORIDE 110 MEQ/L (98-107); CREATININE 0.94 MG/DL (0.50-1.00); GLOMERULAR FILTRATION RATE 60 ML/MIN (>89); GLUCOSE,RANDOM 113 MG/DL (74-106); MAGNESIUM 1.7 MG/DL (1.5-2.5); SODIUM (NA) 143 MEQ/L (136-145)
[2017-12-01 04:02] LABS: LACTIC ACID SEPSIS PROTOCOL 2.1 mmol/L (0.4-2.0)
--- NOTE | 2017-12-01 04:06 | RADRPT ---
EXAM DATE/TIME: 12/01/2017 03:41 [facility] COMPARISON: No previous studies available for comparison. INDICATIONS : Short of breath. MEDICAL HISTORY : None. SURGICAL HISTORY : None. ENCOUNTER: Initial ACUITY: 1 day PAIN SCORE: 0/10 LOCATION: Bilateral chest FINDINGS: A single view of the chest demonstrates the lungs to be symmetrically aerated without evidence of mas s, infiltrate or effusion. The cardiomediastinal contours are unremarkable. Osseous structures are intact. CONCLUSION: No acute disease. Helder Rodriguez MD on December 01, 2017 at 4:05 Board Certified Radiologist. This report was verified electronically.
[2017-12-01 04:08] LABS: ALKALINE PHOSPHATASE 84 U/L (45-117); TOTAL BILIRUBIN ADULT 0.3 MG/DL (0.2-1.0); TOTAL PROTEIN 6.9 GM/DL (6.4-8.2); TROPONIN I LESS THAN 0.02 NG/ML (0.02-0.05)
[2017-12-01] MEDS ORDERED: SODIUM CHLOR 0.9% 1000 ML INJ 1,000 ML IV ONE (04:30)
[2017-12-01] MEDS ORDERED: ONDANSETRON HCL 4 MG/2 ML VIAL IV ONE ×2 (04:30→06:00)
--- NOTE | 2017-12-01 04:34 | RADRPT ---
EXAM DATE/TIME: 12/01/2017 04:23 [facility] COMPARISON: No previous studies available for comparison. INDICATIONS : Cephalgia and tremors. RADIATION DOSE: 48.40 CTDIvol (mGy) MEDICAL HISTORY : Hypertension. Chronic obstructive pulmonary disease. SURGICAL HISTORY : Appendectomy. Hysterectomy. ENCOUNTER: Initial ACUITY: 1 day PAIN SCALE: 5/10 LOCATION: cranial TECHNIQUE: Multiple contiguous axial images were obtained of the head. Using automated exposure control and adj ustment of the mA and/or kV according to patient size, radiation dose was kept as low as reasonably a chievable to obtain optimal diagnostic quality images. DICOM format image data is available electro nically for review and comparison. FINDINGS: CEREBRUM: The ventricles are normal for age. No evidence of midline shift, mass lesion, hemorrhage or acute in farction. No extra-axial fluid collections are seen. POSTERIOR FOSSA: The cerebellum and brainstem are intact. The 4th ventricle is midline. The cerebellopontine angle i s unremarkable. EXTRACRANIAL: The visualized portion of the orbits is intact. SKULL: The calvaria is intact. No evidence of skull fracture. CONCLUSION: No acute disease. Helder Rodriguez MD on December 01, 2017 at 4:32 Board Certified Radiologist. This report was verified electronically.
[2017-12-01] MEDS ORDERED: metroNIDAZOLE 500 MG INJ 100 ML IV STA (05:35)
[2017-12-01] MEDS ORDERED: AZTREONAM INJ 2,000 MG in SODIUM CHLORIDE 0.9% INJ 100 ML IV STA (05:35)
[2017-12-01] MEDS ORDERED: VANCOMYCIN INJ 1,000 MG in SODIUM CHLOR 0.9% 250 ML INJ 250 ML IV STA (05:35)
[2017-12-01] MEDS ORDERED: OSELTAMIVIR PHOSPHATE 75 MG CAP PO ONE (05:45)
--- NOTE | 2017-12-01 05:47 | RADRPT ---
EXAM DATE/TIME: 12/01/2017 05:25 [facility] COMPARISON: CT ABDOMEN & PELVIS W/O CONTRAST, April 28, 2017, 19:36. INDICATIONS : Fever. IV CONTRAST: 95 cc Omnipaque 350 (iohexol) IV ORAL CONTRAST: No oral contrast ingested. RADIATION DOSE: 24.78 CTDIvol (mGy) ; Patient body habitus MEDICAL HISTORY : Hypertension. Chronic obstructive pulmonary disease. Diverticulitis. SURGICAL HISTORY : Appendectomy. Hysterectomy. ENCOUNTER: Initial ACUITY: 1 day PAIN SCALE: 0/10 LOCATION: abdomen TECHNIQUE: Volumetric scanning of the abdomen and pelvis was performed. Using automated exposure control and ad justment of the mA and/or kV according to patient size, radiation dose was kept as low as reasonably achievable to obtain optimal diagnostic quality images. DICOM format image data is available electro nically for review and comparison. FINDINGS: LOWER LUNGS: The visualized lower lungs are clear. LIVER: Homogeneous density without lesion. There is no dilation of the biliary tree. No calcified gallston es. Gallbladder mildly dilated . SPLEEN: Normal size without lesion. PANCREAS: Within normal limits. KIDNEYS: Normal in size and shape. There is no mass, stone or hydronephrosis. ADRENAL GLANDS: Within normal limits. VASCULAR: There is no aortic aneurysm. BOWEL/MESENTERY: Diverticulosis of the descending and sigmoid colon without diverticulitis. Small hiatal hernia. Ther e is no free intraperitoneal air or fluid. ABDOMINAL WALL: Small fat containing abdominal wall hernia along the upper abdomen. RETROPERITONEUM: There is no lymphadenopathy. BLADDER: No wall thickening or mass. REPRODUCTIVE: Uterus is absent. INGUINAL: There is no lymphadenopathy or hernia. MUSCULOSKELETAL: Degenerative changes thoracolumbar spine. CONCLUSION: 1. Diverticulosis without diverticulitis. 2. Small hiatal hernia. 3. Stable mildly dilated gallbladder. Helder Rodriguez MD on December 01, 2017 at 5:42 Board Certified Radiologist. This report was verified electronically.
[2017-12-01] MEDS ORDERED: SODIUM CHLORIDE 0.9% FLUSH 10 ML FLUSH IV FLUSH PRN (06:00)
[2017-12-01] MEDS ORDERED: BISACODYL 10 MG SUPP RECTAL PRN (06:00)
[2017-12-01] MEDS ORDERED: MAGNESIUM HYDROXIDE SUSP 30 ML CUP PO PRN (06:00)
[2017-12-01] MEDS ORDERED: SENNOSIDES 8.6 MG TAB PO PRN (06:00)
[2017-12-01] MEDS ORDERED: LACTULOSE SYRUP 20 GM/30 ML CUP PO PRN (06:00)
[2017-12-01] MEDS ORDERED: Vancomycin Consult Pharmacy 1 EA OTHER SCH (06:00)
[2017-12-01] MEDS ORDERED: VANCOMYCIN INJ 2,000 MG in SODIUM CHLORID 0.9% 500 ML INJ 500 ML IV ONE (07:00)
[2017-12-01] MEDS: AZTREONAM INJ 2,000 MG in SODIUM CHLORIDE 0.9% INJ 100 ML IV SCH ×3 (08:14→22:11)
[2017-12-01] MEDS: SODIUM CHLORIDE 0.9% FLUSH 10 ML FLUSH IV FLUSH SCH ×2 (09:00→20:29)
[2017-12-01] MEDS: DOCUSATE SODIUM 50 MG/SENNA 8.6 MG TAB PO SCH ×2 (09:24→20:30)
[2017-12-01] MEDS: ONDANSETRON HCL 4 MG/2 ML VIAL IVP PRN ×2 (09:30→17:39)
[2017-12-01] MEDS: SODIUM CHLOR 0.9% 1000 ML INJ 1,000 ML IV SCH (11:37)
--- NOTE | 2017-12-01 12:40 | MB ---
cc: Jeyson Torres MD DATE: 12/01/2017 REQUESTING PHYSICIAN: Hortensia Villa MD REASON FOR VISIT: SIRS, abnormal flu test. HISTORY OF PRESENT ILLNESS: This is a 62-year-old white female who presented to the emergency department after experiencing chills and general ill feeling with dry heaving and tremulousness and also dry cough. The patient states that these symptoms began suddenly late last night. She states that she was well yesterday. She was brought to the emergency department by her and upon initial evaluation was found to have heart rate of 119 and white blood cell count elevation of 17.4 and elevated lactic acid level of 2.1. Temperature was normal initially and then the temperatures increased slightly to 99.7 this morning. The patient is continuing to have spells of coughing. She now has a headache and nausea and continues to have dry heaving. She is not producing any sputum. An influenza test was taken early this morning and came back indeterminate. The repeated influenza test is negative. Blood cultures have been taken. The patient has received antibiotics in the form of vancomycin and aztreonam. She now feels distressed by the coughing and headache. Chest x-ray showed no acute infiltrates. Urinalysis was unremarkable. CT scan of the abdomen showed diverticulosis without evidence of diverticulitis. CT scan of the head shows no acute disease. The patient denies dysuria. PAST MEDICAL HISTORY: Essential tremor, COPD, history of diverticulitis. History of abdominal surgery in the form of lap band. This was removed 5 years ago because of episode of sepsis. PAST SURGICAL HISTORY: Appendectomy, hysterectomy, tonsillectomy. The patient has a partial plate in the mouth. ALLERGIES: CIPROFLOXACIN, LEVAQUIN, CEFADROXIL, AZITHROMYCIN, ACETAMINOPHEN, CLAVULANIC ACID, CODEINE, MONOSODIUM GLUTAMATE, TRAMADOL. MEDICATIONS: 1. Vancomycin. 2. Aztreonam. 3. Tamiflu. 4. Janette-Colace. 5. Zofran. SOCIAL HISTORY: The patient is . She moved to [place] from [place] approximately 1 year ago. No tobacco. No alcohol. No illicit drugs. FAMILY HISTORY: Noncontributory. REVIEW OF SYSTEMS: CONSTITUTIONAL: Significant for chills. HEAD, EARS, EYES, NOSE, AND THROAT: No visual blurring or diplopia. No nasal bleeding. No difficulty swallowing or soreness of the throat. RESPIRATORY: Significant for cough. CARDIOVASCULAR: Denies chest pain or palpitation. GASTROINTESTINAL: Positive for nausea. Denies abdominal pain. Denies diarrhea. Denies constipation. GENITOURINARY: Denies urgency, frequency, or dysuria. HEMATOPOIETIC: Denies easy bruising or bleeding. INTEGUMENTARY: Denies skin rash or itching. MUSCULOSKELETAL: Denies muscle aches or pains. ENDOCRINE: Denies polyuria or polydipsia. NEUROLOGIC: Significant for headache. Positive tremors. Denies mood changes. PHYSICAL EXAMINATION: GENERAL: She is a moderately obese female who is in moderate distress because of headache and coughing. She is awake and alert and oriented. VITAL SIGNS: Include temperature 99.7, BP 119/53, respirations 16, heart rate 95. HEENT: Her head is atraumatic. Extraocular movements grossly intact. Pupils reactive to light. No icterus. No conjunctival erythema. Oropharynx, moist mucosa. No thrush. No lesions. NECK: Supple. Tender adenopathy at the left anterior cervical area. No visible neck swelling. LUNGS: Clear to auscultation. HEART: Regular S1 and S2 without audible murmurs, rubs, or gallops. ABDOMEN: Bowel sounds present. Soft, obese, nontender. No palpable masses. RECTAL: Not performed. EXTREMITIES: Mild erythema at the left tibia and both lower extremities are very warm to touch. Distal pulses are intact. Surgical scars from surgery located at the dorsum of left toes 2 and 3. No edema. No clubbing or cyanosis. SKIN: No diffuse rash. NEUROLOGIC: No gross focal findings. PSYCHIATRIC: Patient is calm and cooperative. LABORATORY DATA: WBC 17.4, platelets 270, 88% neutrophils. Creatinine 0.94, BUN 20. Estimated GFR 60. Liver function tests normal. ASSESSMENT AND PLAN: 1. Systemic inflammatory response syndrome. The patient probably has sepsis. Presented with tachycardia along with leukocytosis, elevated lactic acid level, and also noted symptoms of chills. Questionable source. 2. Leukocytosis, likely secondary to sepsis. 3. Erythema of the left lower extremity which may be early cellulitis and potentially could be the origin of the sepsis. 4. Cough, which is nonproductive. Negative influenza test. Unlikely this is due to influenza. The patient has no joint or muscle aches or pains and flu is probably low on the differential. 5. Multiple antibiotic allergies. RECOMMENDATIONS: 1. Continue vancomycin. 2. Continue aztreonam. 3. Monitor blood cultures. 4. Follow the left leg erythema. 5. Discontinue Tamiflu since she has negative influenza test. Thank you for this consultation. I will follow the patient's progress with you and make further recommendations upon followup. Jeyson Torres MD FFD/TI , 11:49 AM , 12:40 PM IDANIA
--- NOTE | 2017-12-01 14:55 | HHI.HP ---
[facility] Primary Care Physician Kali Harrington, DO Admission Diagnosis Sepsis of undetermined origin Diagnoses: (1) Sepsis (2) Cellulitis (3) Essential tremor Chief Complaint: I am not feeling well Travel History International Travel<30 Days: No Contact w/Intl Traveler <30 Da: No Traveled to Known Affected Are: No Sepsis Criteria SIRS Criteria (2 or more): Heart rate over 90, WBC > 87724, < 4000 or > 10% bands Sepsis Criteria (SIRS+source): Infect source susp/known History of Present Illness 62-year-old female with a history of essential trouble came to the hospital yesterday for evaluation with acute onset of not feeling well including chills as well as a dry cough. Patient also reported nausea with dry heaving. She noted a left lower extremity erythema however denies any trauma. WBC was initially elevated. She denies any bladder or bowel dysfunction. She will reported decreased appetite since admission. When patient was seen she has consistently elevated temperatures Review of Systems Except as stated in HPI: all other systems reviewed are Neg Past Family Social History Past Medical History Depression: Yes (HISTORY) COPD: Yes Hypertension: Yes (HX OF PT STATES IT WENT AWAY) Past Surgical History Abdominal Surgery: Yes (LAP BAND-REMOVED) Appendectomy: Yes Gynecologic Surgery: Yes (HYSTERECTOMY) Hysterectomy: Yes Oral Surgery: Yes (PARTIAL PLATE IN MOUTH, TONSILLECTOMY) Tonsillectomy: Yes Reported Medications Topiramate 50 Mg Tab 125 Mg PO BID Allergies: Coded Allergies: acetaminophen (Verified Allergy, Severe, 12/01/17) azithromycin (Verified Allergy, Severe, 12/01/17) ciprofloxacin (Verified Allergy, Severe, Rash, 12/01/17) clavulanic acid (Verified Allergy, Severe, Rash, 12/01/17) levofloxacin (Verified Allergy, Severe, Rash, 12/01/17) tramadol (Verified Allergy, Severe, 12/01/17) valdecoxib (Verified Allergy, Severe, 12/01/17) cefadroxil (Verified Allergy, Unknown, 12/01/17) codeine (Verified Allergy, Unknown, 12/01/17) monosodium glutamate (Verified Adverse Reaction, Severe, 12/01/17) Family History Denies any family history of CAD, diabetes or hypertension Social History Alcohol Use: No Tobacco Use: No Substance Use: No Physical Exam Vital Signs Vital Signs Date Time Temp Pulse Resp B/P (MAP) Pulse Ox O2 Delivery O2 Flow Rate FiO2 12/01/17 13:39 100.9 93 17 130/65 (86) 97 Room Air 12/01/17 08:16 99.7 95 16 119/53 (75) 96 Room Air 12/01/17 02:54 98.7 119 18 184/81 (115) 97 Physical Exam GENERAL: This is a well-nourished, well-developed patient, in no apparent distress. SKIN: No rashes, ecchymoses or lesions. Cool and dry. HEAD: Atraumatic. Normocephalic. No temporal or scalp tenderness. EYES: Pupils equal round and reactive. Extraocular motions intact. No scleral icterus. No injection or drainage. ENT: Nose without bleeding, purulent drainage or septal hematoma. Throat without erythema, tonsillar hypertrophy or exudate. Uvula midline. Airway patent. NECK: Trachea midline. No JVD or lymphadenopathy. Supple, nontender, no meningeal signs. CARDIOVASCULAR: Regular rate and rhythm without murmurs, gallops, or rubs. RESPIRATORY: Clear to auscultation. Breath sounds equal bilaterally. No wheezes , rales, or rhonchi. GASTROINTESTINAL: Abdomen soft, non-tender, nondistended. No hepato-splenomegaly , or palpable masses. No guarding. MUSCULOSKELETAL: Extremities without clubbing, cyanosis, or edema. No joint tenderness, effusion, or edema noted. No calf tenderness. Negative Homans sign bilaterally. NEUROLOGICAL: Awake and alert. Cranial nerves II through XII intact. Motor and sensory grossly within normal limits. Five out of 5 muscle strength in all muscle groups. Normal speech. Laboratory Laboratory Tests Test 12/01/17 03:23 12/01/17 03:24 12/01/17 05:45 Urine Color LIGHT-YELLOW Urine Turbidity CLEAR Urine pH 5.5 Urine Specific [place] 1.016 Urine Protein NEG Urine Glucose (UA) NEG Urine Ketones NEG Urine Occult Blood NEG Urine Nitrite NEG Urine Bilirubin NEG Urine Urobilinogen LESS THAN 2.0 Urine Leukocyte Esterase NEG Urine RBC LESS THAN 1 Urine WBC 1 Urine Squamous Epithelial Cells 1 Urine Hyaline Casts 2 Urine Mucus FEW Microscopic Urinalysis Comment CULT NOT INDICATED White Blood Count 17.4 Red Blood Count 4.59 Hemoglobin 12.9 Hematocrit 39.1 Mean Corpuscular Volume 85.3 Mean Corpuscular Hemoglobin 28.1 Mean Corpuscular Hemoglobin Concent 33.0 Red Cell Distribution Width 14.3 Platelet Count 270 Mean Platelet Volume 9.0 Neutrophils (%) (Auto) 88.0 Lymphocytes (%) (Auto) 6.0 Monocytes (%) (Auto) 4.3 Eosinophils (%) (Auto) 1.3 Basophils (%) (Auto) 0.4 Neutrophils # (Auto) 15.3 Lymphocytes # (Auto) 1.0 Monocytes # (Auto) 0.8 Eosinophils # (Auto) 0.2 Basophils # (Auto) 0.1 CBC Comment DIFF FINAL Differential Comment Prothrombin Time 9.8 Prothromb Time International Ratio 1.0 Activated Partial Thromboplast Time 23.7 Blood Urea Nitrogen 20 Creatinine 0.94 Random Glucose 113 Total Protein 6.9 Albumin 3.5 Calcium Level 8.7 Magnesium Level 1.7 Alkaline Phosphatase 84 Aspartate Amino Transf (AST/SGOT) 9 Alanine Aminotransferase (ALT/SGPT) 16 Total Bilirubin 0.3 Sodium Level 143 Potassium Level 4.3 Chloride Level 110 Carbon Dioxide Level 21.8 Anion Gap 11 Estimat Glomerular Filtration Rate 60 Lactic Acid Level 2.1 1.9 Total Creatine Kinase 67 Troponin I LESS THAN 0.02 B-Type Natriuretic Peptide 21 Lipase 135 Thyroid Stimulating Hormone 3rd Gen 5.390 Date/Time Source Procedure Growth Status 12/01/17 03:30 Blood Peripheral Aerobic Blood Culture Pending Received 12/01/17 03:30 Blood Peripheral Anaerobic Blood Culture Pending Received 12/01/17 08:15 Nasal Washing Influenza Types A,B Antigen (CRISTI) - Final NEGATIVE FOR FLU A AND B ANTIGEN.... Complete Result Diagram: 12/01/174 12/01/17323 Septic Shock Reassessment Septic shock perfusion: reassessment completed Caprini VTE Risk Assessment Caprini VTE Risk Assessment: Mod/High Risk (score >= 2) Caprini Risk Assessment Model Point Value = 1 Point Value = 2 Point Value = 3 Point Value = 5 Age 41-60 Minor surgery BMI > 25 kg/m2 Swollen legs Varicose veins or History of unexplained or recurrent spontaneous Oral contraceptives or hormone replacement Sepsis (< 1 month) Serious lung disease, including pneumonia (< 1 month) Abnormal pulmonary function Acute myocardial infarction Congestive heart failure (< 1 month) History of inflammatory bowel disease Medical patient at bed rest Age 61-74 Arthroscopic surgery Major open surgery (> 45 min) Laparoscopic surgery (> 45 min) Malignancy Confined to bed (> 72 hours) Immobilizing plaster cast Central venous access Age >= 75 History of VTE Family history of VTE Factor V Leiden Prothrombin 02400L Lupus anticoagulant Anticardiolipin antibodies Elevated serum homocysteine Heparin-induced thrombocytopenia Other congenital or acquired thrombophilia Stroke (< 1 month) Elective arthroplasty Hip, pelvis, or leg fracture Acute spinal cord injury (< 1 month) Prophylaxis Regimen Total Risk Factor Score Risk Level Prophylaxis Regimen 0-1 Low Early ambulation 2 Moderate Order ONE of the following: *Sequential Compression Device (SCD) *Heparin 5000 units SQ BID 3-4 Higher Order ONE of the following medications: *Heparin 5000 units SQ TID *Enoxaparin/Lovenox 40 mg SQ daily (WT < 150 kg, CrCl > 30 mL/min) *Enoxaparin/Lovenox 30 mg SQ daily (WT < 150 kg, CrCl > 10-29 mL/min) *Enoxaparin/Lovenox 30 mg SQ BID (WT < 150 kg, CrCl > 30 mL/min) AND/OR *Sequential Compression Device (SCD) 5 or more Highest Order ONE of the following medications: *Heparin 5000 units SQ TID (Preferred with Epidurals) *Enoxaparin/Lovenox 40 mg SQ daily (WT < 150 kg, CrCl > 30 mL/min) *Enoxaparin/Lovenox 30 mg SQ daily (WT < 150 kg, CrCl > 10-29 mL/min) *Enoxaparin/Lovenox 30 mg SQ BID (WT < 150 kg, CrCl > 30 mL/min) AND *Sequential Compression Device (SCD) Assessment and Plan Problem List: (1) Cellulitis ICD Code: L03.90 - Cellulitis, unspecified (2) SIRS (systemic inflammatory response syndrome) ICD Code: R65.10 - Systemic inflammatory response syndrome (SIRS) of non- infectious origin without acute organ dysfunction Status: Acute Assessment and Plan 62-year-old female with SIRS Possible early sepsis: Heart rate over 90, WBC > 94348, < 4000 or > 10% bands; Infect source susp/known Early cellulitis left lower extremity Currently on vancomycin, aztreonam and monitor culture report Appreciate input from infectious disease specialist Essential tremor Resume outpatient medication DVT prophylaxis: Heparin Code Status Full code Discussed Condition With Patient Physician Certification 2 Midnight Certification Type: Admission for Inpatient Services Order for Inpatient Services The services are ordered in accordance with Medicare regulations or non- Medicare payer requirements, as applicable. In the case of services not specified as inpatient-only, they are appropriately provided as inpatient services in accordance with the 2-midnight benchmark. Estimated LOS (days): 2 days is the estimated time the patient will need to remain in the hospital, assuming treatment plan goals are met and no additional complications. Post-Hospital Plan: Not yet determined Helder Rogers MD Dec 01, 2017 14:54
--- NOTE | 2017-12-01 15:14 | EKG ---
Date Performed: 12/01/2017 Time Performed: 03:34:31 PTAGE: 62 years EKG: SINUS TACHYCARDIA PATTERN CONSISTENT WITH PULMONARY DISEASE POSSIBLE RIGHT VENTRICULAR COND UCTION DELAY LEFT ANTERIOR FASCICULAR BLOCK ABNORMAL ECG NO PREVIOUS TRACING DOCTOR: Sandra Sterling Interpretating Date/Time 12/01/2017 15:10:57
[2017-12-01] MEDS: TOPIRAMATE 25 MG TAB PO SCH (20:30)
[2017-12-01] MEDS ORDERED: OSELTAMIVIR PHOSPHATE 75 MG CAP PO SCH (21:00)
[2017-12-02] VITALS (8 sets, daily range): BP systolic 104–137; BP diastolic 53–80; PULSE 76–94; RESP 14–20; TEMP 98.1–102.8; O2SAT 96–99
[2017-12-02] MEDS ORDERED: IBUPROFEN 400 MG TAB PO ONE (00:45)
[2017-12-02] MEDS: AZTREONAM INJ 2,000 MG in SODIUM CHLORIDE 0.9% INJ 100 ML IV SCH ×2 (05:02→13:38)
[2017-12-02] MEDS: SODIUM CHLOR 0.9% 1000 ML INJ 1,000 ML IV SCH ×2 (05:02→21:05)
[2017-12-02 07:22] LABS: BASOPHIL % 0.3 % (0.0-2.0); HEMATOCRIT 35.4 % (35.0-46.0); HEMOGLOBIN 11.6 GM/DL (11.6-15.3); LYMPH % 7.1 % (9.0-44.0); MEAN CELL VOLUME 87.2 FL (80.0-100.0); MEAN CORPUSCULAR HEMOGLOBIN 28.6 PG (27.0-34.0); MEAN CORPUSCULAR HGB CONC 32.8 % (32.0-36.0); MEAN PLATELET VOLUME 8.8 FL (7.0-11.0); MONO % 2.9 % (0.0-8.0); MONOCYTE # 0.4 TH/MM3 (0-0.9); NEUT % 89.7 % (16.0-70.0); PLATELET COUNT 173 TH/MM3 (150-450); RED BLOOD COUNT 4.06 MIL/MM3 (4.00-5.30); RED CELL DISTRIBUTION WIDTH 15.1 % (11.6-17.2); WHITE BLOOD COUNT 14.5 TH/MM3 (4.0-11.0)
[2017-12-02 07:27] LABS: ALBUMIN 2.2 GM/DL (3.4-5.0); ALKALINE PHOSPHATASE 63 U/L (45-117); ALT (GPT) 20 U/L (10-53); AST (GOT) 19 U/L (15-37); BLOOD UREA NITROGEN 18 MG/DL (7-18); CALCIUM 7.7 MG/DL (8.5-10.1); CHLORIDE 112 MEQ/L (98-107); CREATININE 0.99 MG/DL (0.50-1.00); GLOMERULAR FILTRATION RATE 57 ML/MIN (>89); GLUCOSE,RANDOM 85 MG/DL (74-106); SODIUM (NA) 140 MEQ/L (136-145); TOTAL BILIRUBIN ADULT 0.3 MG/DL (0.2-1.0); TOTAL PROTEIN 5.5 GM/DL (6.4-8.2)
[2017-12-02] MEDS: TOPIRAMATE 25 MG TAB PO SCH ×2 (08:13→21:00)
[2017-12-02] MEDS: VANCOMYCIN INJ 2,000 MG in SODIUM CHLORID 0.9% 500 ML INJ 500 ML IV SCH (08:13)
[2017-12-02] MEDS: SODIUM CHLORIDE 0.9% FLUSH 10 ML FLUSH IV FLUSH SCH ×2 (08:13→21:00)
[2017-12-02] MEDS: DOCUSATE SODIUM 50 MG/SENNA 8.6 MG TAB PO SCH ×2 (08:13→21:00)
[2017-12-02] MEDS: ONDANSETRON HCL 4 MG/2 ML VIAL IVP PRN ×2 (08:14→15:32)
[2017-12-02] MEDS: POTASSIUM CHLORIDE 10 MEQ CONTROLLED RELEASE TAB PO SCH ×2 (11:33→13:38)
[2017-12-02] MEDS: ACETAMINOPHEN 325 MG TAB PO PRN ×2 (15:33→22:40)
--- NOTE | 2017-12-02 15:49 | HHI.PR ---
Subjective Remarks Resting on the chair, feeling heaviness in her left leg No chills or fever She is on antibiotics Zosyn and Vanco Objective Vitals Vital Signs Date Time Temp Pulse Resp B/P (MAP) Pulse Ox O2 Delivery O2 Flow Rate FiO2 12/02/17 12:00 98.3 91 20 137/76 (96) 97 12/02/17 12:00 88 12/02/17 08:00 81 12/02/17 08:00 Room Air 12/02/17 08:00 98.6 76 20 104/53 (70) 97 12/02/17 04:40 98.8 77 16 107/57 (74) 97 12/02/17 03:45 76 12/02/17 00:39 102.8 89 16 110/69 (83) 98 12/01/17 23:46 90 12/01/17 21:32 98.8 87 19 146/70 (95) 97 12/01/17 20:09 90 12/01/17 20:00 Room Air 12/01/17 18:00 98.8 80 20 130/60 (83) 100 12/01/17 17:13 I/O 12/01/17 12/01/17 12/01/17 12/02/17 12/02/17 12/02/17 07:00 15:00 23:00 07:00 15:00 23:00 Intake Total 1000 ml 720 ml 100 ml Balance 1000 ml 720 ml 100 ml Intake IV Total 1000 ml 720 ml 100 ml # Voids 1 4 Result Diagram: 12/02/17 0600 12/02/17 0600 Objective Remarks GENERAL: This is a well-nourished, well-developed patient, in no apparent distress. SKIN: No rashes, warm and dry HEAD: Atraumatic. Normocephalic. EYES: Pupils equal round and reactive. Extraocular motions intact. No scleral icterus. ENT: Nose without bleeding, or drainage, Airway patent. NECK: Trachea midline. Supple CARDIOVASCULAR: Regular rate and rhythm without murmurs, gallops, or rubs. RESPIRATORY: Fair air entry bilaterally. No wheezes, rales, or rhonchi. GASTROINTESTINAL: Abdomen soft, non-tender, nondistended. Positive bowel sounds MUSCULOSKELETAL: Left lower leg swelling warmth and tenderness NEUROLOGICAL: Awake and alert. Moves all extremity. Normal speech.no focal neurological deficit A/P Problem List: (1) Sepsis ICD Code: A41.9 - Sepsis, unspecified organism (2) Cellulitis ICD Code: L03.90 - Cellulitis, unspecified (3) Essential tremor ICD Code: G25.0 - Essential tremor Status: Chronic Assessment and Plan 62-year-old female with SIRS Possible early sepsis: Heart rate over 90, WBC > 94015, < 4000 or > 10% bands; Infect source susp/known Early cellulitis left lower extremity Continue on vancomycin, aztreonam and monitor culture report ID consultation [place] ptosis WBC dropped to 14 K, monitor CBC Essential tremor Resume outpatient medication DVT prophylaxis: Heparin Cameron Benedict MD Dec 02, 2017 15:49
--- NOTE | 2017-12-02 20:15 | HHI.IDPN ---
Note Infectious Disease Note Patient notes that she is a little better. She notes watery stools. No fevers. Denies chills. Denies denies new symptoms. No fever. White blood cell count is lower. Presented to the emergency department after experiencing chills and general ill feeling with dry heaving and tremulousness and also dry cough. The patient states that the symptoms began suddenly late last night. She states that she was well the previous day. She was brought to the emergency department by her and upon initial evaluation was found to have heart rate of 119 and white blood cell count elevation of 17.4 and elevated lactic acid level of 2.1. Temperature was normal initially and then the temperatures increased slightly to 99.7 this morning. An influenza test was taken early this morning and came back indeterminate. The repeated influenza test is negative. Blood cultures have been taken. The patient has received antibiotics in the form of vancomycin and aztreonam. PAST MEDICAL HISTORY: Essential tremor, COPD, history of diverticulitis. History of abdominal surgery in the form of lap band. This was removed 5 years ago because of episode of sepsis. PAST SURGICAL HISTORY: Appendectomy, hysterectomy, tonsillectomy. Partial plate in the mouth. ALLERGIES: CIPROFLOXACIN, LEVAQUIN, CEFADROXIL, AZITHROMYCIN, ACETAMINOPHEN, CLAVULANIC ACID, CODEINE, MONOSODIUM GLUTAMATE, TRAMADOL, VALDECOXIB. MEDICATIONS: Current Medications Medications (Trade) Dose Ordered Sig/Mya Route PRN Reason Start Time Stop Time Status Last Admin Dose Admin Pharmacy Profile Note 0 ml @ 0 mls/hr UNSCH OTHER 12/01/17 06:00 Aztreonam 2000 mg/ Sodium Chloride 100 ml @ 200 mls/hr Q8H IV 12/01/17 14:00 12/02/17 13:38 Sodium Chloride 1,000 ml @ 70 mls/hr [id number] IV 12/01/17 05:54 12/02/17 05:02 Sodium Chloride (NS Flush) 2 ml UNSCH PRN IV FLUSH FLUSH AFTER USING IV ACCESS 12/01/17 06:00 Sodium Chloride (NS Flush) 2 ml BID IV FLUSH 12/01/17 09:00 Ondansetron HCl (Zofran Inj) 4 mg Q6H PRN IVP NAUSEA OR VOMITING 12/01/17 06:00 12/02/17 15:32 Senna/Docusate Sodium (Janette-Colace) 1 tab BID PO 12/01/17 09:00 12/01/17 09:24 Magnesium Hydroxide (Milk Of Magnesia Liq) 30 ml Q12H PRN PO Mild constipation 12/01/17 06:00 Sennosides (Senokot) 17.2 mg Q12H PRN PO Moderate constipation 12/01/17 06:00 Bisacodyl (Dulcolax Supp) 10 mg DAILY PRN RECTAL SEVERE CONSITIPATION 12/01/17 06:00 Lactulose (Lactulose Liq) 30 ml DAILY PRN PO SEVERE CONSITIPATION 12/01/17 06:00 Vancomycin HCl 2000 mg/Sodium Chloride 520 ml @ 260 mls/hr Q24H IV 12/02/17 09:00 12/02/17 08:13 Miscellaneous Information SPECIFIC LAB TO BE EMILIA... ONCE ONCE .XX 12/04/17 08:45 12/04/17 08:46 Topiramate (Topamax) 125 mg BID PO 12/01/17 21:00 12/02/17 08:13 Acetaminophen (Tylenol) 650 mg Q6H PRN PO HEADACHE/FEVER 12/02/17 15:00 12/02/17 15:33 PHYSICAL EXAMINATION: GENERAL: Patient is in no acute distress. She appears mildly short of breath. HEENT: Her head is atraumatic. Extraocular movements grossly intact. Pupils reactive to light. No icterus. No conjunctival erythema. Oropharynx, moist mucosa. No thrush. No lesions. NECK: Supple. Tender adenopathy at the left anterior cervical area. No visible neck swelling. LUNGS: Clear to auscultation. HEART: Regular S1 and S2 without audible murmurs, rubs, or gallops. ABDOMEN: Bowel sounds present. Soft, obese, nontender. No palpable masses. EXTREMITIES: Mild erythema at the left tibia and both lower extremities are very warm to touch. Distal pulses are intact. Surgical scars from surgery located at the dorsum of left toes 2 and 3. No edema. No clubbing or cyanosis. SKIN: No diffuse rash. NEUROLOGIC: No gross focal findings. PSYCHIATRIC: Patient is calm and cooperative. ASSESSMENT AND PLAN: 1. SIRS. The patient probably has sepsis. Presented with tachycardia along with leukocytosis, elevated lactic acid level, and also noted symptoms of chills. Questionable source. 2. Leukocytosis, likely secondary to sepsis. 3. Erythema of the left lower extremity which may be early cellulitis and potentially could be the origin of the sepsis. 4. Cough, which is nonproductive. Negative influenza test. 5. Multiple antibiotic allergies. RECOMMENDATIONS: 1. Continue vancomycin. 2. Stop Aztreonam. 3. Send stools for C. difficile toxin. 4. Monitor blood cultures. 5. Follow the left leg erythema. 6. Monitor clinical status. Jeyson Torres MD Dec 02, 2017 20:15
[2017-12-03] VITALS (9 sets, daily range): BP systolic 109–133; BP diastolic 60–86; PULSE 70–93; RESP 14–20; TEMP 97–98.5; O2SAT 97–100
[2017-12-03] MEDS: LOPERAMIDE HCL 2 MG CAP PO PRN ×4 (03:38→13:50)
[2017-12-03] MEDS ORDERED: ACETAMIN 325 MG/BUTALBITAL 50 MG/CAFFEINE 40 MG TAB PO ONE (05:15)
[2017-12-03] MEDS: DOCUSATE SODIUM 50 MG/SENNA 8.6 MG TAB PO SCH ×2 (08:12→21:00)
[2017-12-03] MEDS: TOPIRAMATE 25 MG TAB PO SCH ×2 (08:12→21:00)
[2017-12-03] MEDS: SODIUM CHLORIDE 0.9% FLUSH 10 ML FLUSH IV FLUSH SCH ×2 (08:13→21:22)
[2017-12-03] MEDS: VANCOMYCIN INJ 2,000 MG in SODIUM CHLORID 0.9% 500 ML INJ 500 ML IV SCH (08:13)
[2017-12-03] MEDS: SODIUM CHLOR 0.9% 1000 ML INJ 1,000 ML IV SCH (11:30)
--- NOTE | 2017-12-03 12:29 | HHI.IDPN ---
Note Infectious Disease Note Patient notes that she is a little better. Sitting up in a chair. Denies shortness of breath. No fevers. Denies chills. Stool C. difficile toxin PCR negative. Presented to the emergency department after experiencing chills and general ill feeling with dry heaving and tremulousness and also dry cough. The patient states that the symptoms began suddenly late last night. She states that she was well the previous day. She was brought to the emergency department by her and upon initial evaluation was found to have heart rate of 119 and white blood cell count elevation of 17.4 and elevated lactic acid level of 2.1. Temperature was normal initially and then the temperatures increased slightly to 99.7 this morning. An influenza test was taken early this morning and came back indeterminate. The repeated influenza test is negative. Blood cultures have been taken. The patient has received antibiotics in the form of vancomycin and aztreonam. PAST MEDICAL HISTORY: Essential tremor, COPD, history of diverticulitis. History of abdominal surgery in the form of lap band. This was removed 5 years ago because of episode of sepsis. PAST SURGICAL HISTORY: Appendectomy, hysterectomy, tonsillectomy. Partial plate in the mouth. ALLERGIES: CIPROFLOXACIN, LEVAQUIN, CEFADROXIL, AZITHROMYCIN, ACETAMINOPHEN, CLAVULANIC ACID, CODEINE, MONOSODIUM GLUTAMATE, TRAMADOL, VALDECOXIB. MEDICATIONS: Current Medications Medications (Trade) Dose Ordered Sig/Mya Route PRN Reason Start Time Stop Time Status Last Admin Dose Admin Pharmacy Profile Note 0 ml @ 0 mls/hr UNSCH OTHER 12/01/17 06:00 Sodium Chloride 1,000 ml @ 70 mls/hr [id number] IV 12/01/17 05:54 12/03/17 11:30 Sodium Chloride (NS Flush) 2 ml UNSCH PRN IV FLUSH FLUSH AFTER USING IV ACCESS 12/01/17 06:00 Sodium Chloride (NS Flush) 2 ml BID IV FLUSH 12/01/17 09:00 Ondansetron HCl (Zofran Inj) 4 mg Q6H PRN IVP NAUSEA OR VOMITING 12/01/17 06:00 12/02/17 15:32 Senna/Docusate Sodium (Janette-Colace) 1 tab BID PO 12/01/17 09:00 12/01/17 09:24 Magnesium Hydroxide (Milk Of Magnesia Liq) 30 ml Q12H PRN PO Mild constipation 12/01/17 06:00 Sennosides (Senokot) 17.2 mg Q12H PRN PO Moderate constipation 12/01/17 06:00 Bisacodyl (Dulcolax Supp) 10 mg DAILY PRN RECTAL SEVERE CONSITIPATION 12/01/17 06:00 Lactulose (Lactulose Liq) 30 ml DAILY PRN PO SEVERE CONSITIPATION 12/01/17 06:00 Vancomycin HCl 2000 mg/Sodium Chloride 520 ml @ 260 mls/hr Q24H IV 12/02/17 09:00 12/03/17 08:13 Miscellaneous Information SPECIFIC LAB TO BE EMILIA... ONCE ONCE .XX 12/04/17 08:45 12/04/17 08:46 Topiramate (Topamax) 125 mg BID PO 12/01/17 21:00 12/03/17 08:12 Acetaminophen (Tylenol) 650 mg Q6H PRN PO HEADACHE/FEVER 12/02/17 15:00 12/02/17 22:40 Loperamide HCl (Imodium) 2 mg UNSCH PRN PO DIARRHEA 12/03/17 02:45 12/03/17 08:12 PHYSICAL EXAMINATION: GENERAL: No acute distress. She appears mildly short of breath. HEENT: Extraocular movements grossly intact. Pupils reactive to light. No icterus. No conjunctival erythema. Oropharynx, moist mucosa. No thrush. No lesions. NECK: Supple. Tender adenopathy at the left anterior cervical area. No visible neck swelling. LUNGS: Clear to auscultation. HEART: Regular S1 and S2 without audible murmurs, rubs, or gallops. ABDOMEN: Bowel sounds present. Soft, obese, nontender. No palpable masses. EXTREMITIES: Less erythema and warmth at the left tibia. Distal pulses are intact. Surgical scars from surgery located at the dorsum of left toes 2 and 3. 1+ edema at the left tibia. No clubbing or cyanosis. SKIN: No diffuse rash. NEUROLOGIC: No gross focal findings. PSYCHIATRIC: Patient is calm and cooperative. ASSESSMENT AND PLAN: 1. SIRS. The patient probably has sepsis. Presented with tachycardia along with leukocytosis, elevated lactic acid level, and also noted symptoms of chills. Questionable source. 2. Leukocytosis, likely secondary to sepsis. 3. Erythema of the left lower extremity which may be early cellulitis and potentially could be the origin of the sepsis. 4. Cough, which is nonproductive. Negative influenza test. Probable viral upper respiratory infection 5. Multiple antibiotic allergies. RECOMMENDATIONS: 1. Continue vancomycin. 2. Monitor blood cultures. 3. Follow the left leg erythema. 4. Monitor clinical status. 5. Follow the white blood cell count. I anticipate she will need another couple of days of IV antibiotics and after that a decision can be made about switching to oral if continued improvement. Jeyson Torres MD Dec 03, 2017 12:29
--- NOTE | 2017-12-03 16:31 | HHI.PR ---
Subjective Remarks Follow-up on sepsis cellulitis Patient sitting on the chair stated she is feeling okay, CT abdomen showed diverticulosis without diverticulitis Her leg swelling and erythema looks slightly better than yesterday continue IV antibiotic Objective Vitals Vital Signs Date Time Temp Pulse Resp B/P (MAP) Pulse Ox O2 Delivery O2 Flow Rate FiO2 12/03/17 12:00 98.5 73 18 133/77 (95) 100 12/03/17 12:00 87 12/03/17 08:00 Room Air 12/03/17 08:00 73 12/03/17 08:00 97.8 71 18 118/72 (87) 97 12/03/17 04:07 93 12/03/17 03:40 97.8 72 16 118/79 (92) 99 12/03/17 00:20 77 12/03/17 00:10 97.8 83 14 123/60 (81) 97 12/02/17 21:00 98.1 82 14 124/80 (95) 99 12/02/17 20:16 93 12/02/17 20:00 Room Air I/O 12/02/17 12/02/17 12/02/17 12/03/17 12/03/17 12/03/17 06:59 14:59 22:59 06:59 14:59 22:59 Intake Total 105 ml 1050 ml 360 ml Balance 105 ml 1050 ml 360 ml Intake Oral 360 ml IV Total 105 ml 1050 ml # Voids 4 6 # Bowel Movements 8 Result Diagram: 12/02/17 0600 12/02/17 0600 Objective Remarks GENERAL: This is a well-nourished, well-developed patient, in no apparent distress. SKIN: No rashes, warm and dry HEAD: Atraumatic. Normocephalic. EYES: Pupils equal round and reactive. Extraocular motions intact. No scleral icterus. ENT: Nose without bleeding, or drainage, Airway patent. NECK: Trachea midline. Supple CARDIOVASCULAR: Regular rate and rhythm without murmurs, gallops, or rubs. RESPIRATORY: Fair air entry bilaterally. No wheezes, rales, or rhonchi. GASTROINTESTINAL: Abdomen soft, non-tender, nondistended. Positive bowel sounds MUSCULOSKELETAL: Left lower leg swelling warmth and tenderness looks less than yesterday NEUROLOGICAL: Awake and alert. Moves all extremity. Normal speech.no focal neurological deficit A/P Problem List: (1) Sepsis ICD Code: A41.9 - Sepsis, unspecified organism (2) Cellulitis ICD Code: L03.90 - Cellulitis, unspecified (3) Essential tremor ICD Code: G25.0 - Essential tremor Status: Chronic Assessment and Plan 62-year-old female with SIRS Possible early sepsis: Heart rate over 90, WBC > 79606, < 4000 or > 10% bands; Infect source susp/known Early cellulitis left lower extremity Continue on vancomycin, aztreonam stopped by ID, monitor culture report Appreciate ID consultation Kasai ptosis WBC dropped to 14 K, monitor CBC Essential tremor Resume outpatient medication DVT prophylaxis: Heparin Cameron Benedict MD Dec 03, 2017 16:31
[2017-12-03] MEDS ORDERED: MORPHINE SULFATE 4 MG/ML INJ IV ONE (18:45)
[2017-12-04] VITALS (9 sets, daily range): BP systolic 109–149; BP diastolic 55–82; PULSE 77–91; RESP 17–20; TEMP 97.7–99.4; O2SAT 97–100
--- NOTE | 2017-12-04 08:23 | HHI.PR ---
Subjective Remarks The patient is in the chair she complains of more pain in her left leg. Erythema and edema is worsening today. No fever or chills. No nausea or vomiting no diarrhea or constipation. Patient feels sad is crying at times however refusing any medications for anxiety or to see her psychiatrist. Objective Vitals Vital Signs Date Time Temp Pulse Resp B/P (MAP) Pulse Ox O2 Delivery O2 Flow Rate FiO2 12/04/17 08:00 97.7 88 17 149/82 (104) 100 12/04/17 04:00 98.7 88 20 125/56 (79) 99 12/04/17 03:54 77 12/04/17 00:00 Room Air 12/04/17 00:00 99.4 79 18 121/60 (80) 97 12/03/17 23:48 70 12/03/17 20:00 Room Air 12/03/17 20:00 82 12/03/17 20:00 97.0 91 20 126/73 (90) 98 12/03/17 16:00 97.8 77 18 109/86 (94) 100 12/03/17 16:00 77 12/03/17 12:00 98.5 73 18 133/77 (95) 100 12/03/17 12:00 87 I/O 12/03/17 12/03/17 12/03/17 12/04/17 12/04/17 12/04/17 07:00 15:00 23:00 07:00 15:00 23:00 Intake Total 360 ml 1520 ml 0 ml Output Total 0 ml Balance 360 ml 1520 ml 0 ml Intake Oral 360 ml 0 ml IV Total 1520 ml Output Urine Total 0 ml # Voids 6 3 # Bowel Movements 8 4 0 Result Diagram: 12/02/17 0600 12/02/17 0600 Imaging Last Impressions Abdomen/Pelvis CT 12/01/17 3798 Signed Impressions: Service Date/Time: Friday, December 01, 2017 05:25 - CONCLUSION: 1. Diverticulosis without diverticulitis. 2. Small hiatal hernia. 3. Stable mildly dilated gallbladder. Helder Rodriguez MD Head CT 12/01/17 0321 Signed Impressions: Service Date/Time: Friday, December 01, 2017 04:23 - CONCLUSION: No acute disease. Helder Rodriguez MD Chest X-Ray 12/01/17 0318 Signed Impressions: Service Date/Time: Friday, December 01, 2017 03:41 - CONCLUSION: No acute disease. Helder Rodriguez MD Objective Remarks GENERAL: This is a well-nourished, well-developed patient, in no apparent distress. CARDIOVASCULAR: Regular rate and rhythm without murmurs, gallops, or rubs. RESPIRATORY: Fair air entry bilaterally. No wheezes, rales, or rhonchi. GASTROINTESTINAL: Abdomen soft, non-tender, nondistended. Positive bowel sounds MUSCULOSKELETAL: Left lower leg swelling warmth and tenderness getting worse NEUROLOGICAL: Awake and alert. Moves all extremity. Normal speech.no focal neurological deficit A/P Problem List: (1) Sepsis ICD Code: A41.9 - Sepsis, unspecified organism (2) Cellulitis ICD Code: L03.90 - Cellulitis, unspecified (3) Essential tremor ICD Code: G25.0 - Essential tremor Status: Chronic Assessment and Plan 62-year-old female with Sepsis: Heart rate over 90, WBC > 28188, < 4000 or > 10% bands Cellulitis left lower extremity, worsening Continue on vancomycin, aztreonam stopped by ID, monitor culture report. Patient erythema and edema is worsening , ID will reeval ID consultation appreciate recommendations Monitor CBC Essential tremor. Resume outpatient medication DVT prophylaxis: Heparin Discussed with the patient, nurse Della Zheng MD Dec 04, 2017 08:23
[2017-12-04] MEDS ORDERED: PHARMACY ORDERED LAB ONE (08:45)
[2017-12-04] MEDS: TOPIRAMATE 25 MG TAB PO SCH ×2 (08:59→21:00)
[2017-12-04] MEDS: VANCOMYCIN INJ 2,000 MG in SODIUM CHLORID 0.9% 500 ML INJ 500 ML IV SCH (08:59)
[2017-12-04] MEDS: SODIUM CHLORIDE 0.9% FLUSH 10 ML FLUSH IV FLUSH SCH ×2 (09:00→21:00)
[2017-12-04] MEDS: DOCUSATE SODIUM 50 MG/SENNA 8.6 MG TAB PO SCH ×2 (09:00→21:00)
[2017-12-04] MEDS: SODIUM CHLOR 0.9% 1000 ML INJ 1,000 ML IV SCH ×2 (09:05→15:23)
[2017-12-04 09:53] LABS: CREATININE 0.87 MG/DL (0.50-1.00)
[2017-12-04] MEDS: ACETAMINOPHEN/HYDROcodone 325 MG/5 MG TAB PO PRN ×4 (13:17→23:13)
[2017-12-04] MEDS: MORPHINE SULFATE 2 MG/ML SYRINGE IV PUSH PRN (21:48)
[2017-12-05] VITALS (9 sets, daily range): BP systolic 97–138; BP diastolic 52–87; PULSE 62–100; RESP 14–20; TEMP 97.1–99.5; O2SAT 97–100
[2017-12-05] MEDS: MORPHINE SULFATE 2 MG/ML SYRINGE IV PUSH PRN (01:30)
[2017-12-05] MEDS ORDERED: VANCOMYCIN INJ 2,000 MG in SODIUM CHLORID 0.9% 500 ML INJ 500 ML IV SCH (03:00)
[2017-12-05] MEDS: ACETAMINOPHEN/HYDROcodone 325 MG/5 MG TAB PO PRN ×4 (03:19→20:09)
[2017-12-05] MEDS: TOPIRAMATE 25 MG TAB PO SCH (08:49)
[2017-12-05] MEDS: SODIUM CHLORIDE 0.9% FLUSH 10 ML FLUSH IV FLUSH SCH ×2 (08:50→20:10)
[2017-12-05] MEDS: SODIUM CHLOR 0.9% 1000 ML INJ 1,000 ML IV SCH (08:50)
[2017-12-05] MEDS: DOCUSATE SODIUM 50 MG/SENNA 8.6 MG TAB PO SCH ×2 (08:50→20:10)
--- NOTE | 2017-12-05 10:25 | HHI.PR ---
Subjective Remarks In the chair. Says he was able to ambulate with help today. Pain in her left leg is controlled by meds. Erythema and edema without much improvement. No fever or chills overnight. No n/v/d/c. Appetite is coming back. Objective Vitals Vital Signs Date Time Temp Pulse Resp B/P (MAP) Pulse Ox O2 Delivery O2 Flow Rate FiO2 12/05/17 08:00 97.6 68 14 123/87 (99) 98 12/05/17 04:03 67 12/05/17 04:00 Room Air 12/05/17 04:00 97.5 67 17 97/54 (68) 97 12/05/17 00:00 Room Air 12/05/17 00:00 99.5 84 18 116/52 (73) 100 12/04/17 23:46 82 12/04/17 21:53 Room Air 12/04/17 20:00 98.5 81 18 109/55 (73) 99 12/04/17 20:00 Room Air 12/04/17 19:42 91 12/04/17 16:00 81 12/04/17 16:00 98.2 86 18 125/69 (87) 100 12/04/17 12:00 98.5 81 18 141/70 (93) 97 12/04/17 12:00 85 I/O 12/04/17 12/04/17 12/04/17 12/05/17 12/05/17 12/05/17 07:00 15:00 23:00 07:00 15:00 23:00 Intake Total 0 ml 1520 ml 0 ml Output Total 0 ml 0 ml Balance 0 ml 1520 ml 0 ml Intake Oral 0 ml 0 ml IV Total 1520 ml Output Urine Total 0 ml 0 ml # Bowel Movements 0 0 Result Diagram: 12/02/17 0600 12/04/17 0616 Imaging Last Impressions Abdomen/Pelvis CT 12/01/17 2802 Signed Impressions: Service Date/Time: Friday, December 01, 2017 05:25 - CONCLUSION: 1. Diverticulosis without diverticulitis. 2. Small hiatal hernia. 3. Stable mildly dilated gallbladder. Helder Rodriguez MD Head CT 12/01/17 0321 Signed Impressions: Service Date/Time: Friday, December 01, 2017 04:23 - CONCLUSION: No acute disease. Helder Rodriguez MD Chest X-Ray 12/01/17 0318 Signed Impressions: Service Date/Time: Friday, December 01, 2017 03:41 - CONCLUSION: No acute disease. Helder Rodriguez MD Objective Remarks GENERAL: This is a well-nourished, well-developed patient, in no apparent distress. CARDIOVASCULAR: Regular rate and rhythm without murmurs, gallops, or rubs. RESPIRATORY: Fair air entry bilaterally. No wheezes, rales, or rhonchi. GASTROINTESTINAL: Abdomen soft, non-tender, nondistended. Positive bowel sounds MUSCULOSKELETAL: Left lower leg swelling warmth and tenderness some improvement NEUROLOGICAL: Awake and alert. Moves all extremity. Normal speech.no focal neurological deficit A/P Problem List: (1) Sepsis ICD Code: A41.9 - Sepsis, unspecified organism (2) Cellulitis ICD Code: L03.90 - Cellulitis, unspecified (3) Essential tremor ICD Code: G25.0 - Essential tremor Status: Chronic Assessment and Plan 62-year-old female with Sepsis: Heart rate over 90, WBC > 82184, < 4000 or > 10% bands on admission. Improving Cellulitis left lower extremity Pain in left leg Wound cx Blood cultures NTD , monitor Continue on vancomycin, aztreonam stopped by ID, monitor culture report. ID consultation appreciate recommendations Pain meds norco PO prn and morphyne IV for breakthrough pain .Monitor VS Monitor kidney function while on abx Monitor CBC Consult PT Essential tremor. Resume outpatient medication DVT prophylaxis: Heparin Discussed with the patient, nurse, family at bedside Della Zheng MD Dec 05, 2017 10:25
[2017-12-05 12:17] LABS: AUTOMATED NEUTROPHIL # 6.6 TH/MM3 (1.8-7.7); BASOPHIL % 0.4 % (0.0-2.0); EOSINOPHIL # 0.1 TH/MM3 (0-0.4); EOSINOPHIL % 1.5 % (0.0-4.0); HEMOGLOBIN 10.8 GM/DL (11.6-15.3); LYMPH % 16.2 % (9.0-44.0); LYMPHOCYTE # 1.5 TH/MM3 (1.0-4.8); MEAN CELL VOLUME 84.1 FL (80.0-100.0); MEAN CORPUSCULAR HEMOGLOBIN 28.4 PG (27.0-34.0); MEAN CORPUSCULAR HGB CONC 33.8 % (32.0-36.0); MEAN PLATELET VOLUME 8.6 FL (7.0-11.0); MONO % 10.8 % (0.0-8.0); NEUT % 71.1 % (16.0-70.0); PLATELET COUNT 217 TH/MM3 (150-450); RED CELL DISTRIBUTION WIDTH 15.2 % (11.6-17.2); WHITE BLOOD COUNT 9.3 TH/MM3 (4.0-11.0)
[2017-12-05 12:41] LABS: BICARBONATE 20.6 MEQ/L (21.0-32.0); CALCIUM 7.9 MG/DL (8.5-10.1); CREATININE 0.8 MG/DL (0.50-1.00)
[2017-12-05] MEDS ORDERED: HYDR-3516 PO (14:12)
[2017-12-05] MEDS ORDERED: PERI PO (14:12)
[2017-12-05] MEDS ORDERED: LACT PO (14:12)
--- NOTE | 2017-12-05 14:12 | HHI.DS ---
Discharge Summary Admission Date Dec 01, 2017 at 05:55 Discharge Date: Dec 13, 2017 Admitting Diagnosis Sepsis of undetermined origin (1) Sepsis ICD Code: A41.9 - Sepsis, unspecified organism (2) Cellulitis ICD Code: L03.90 - Cellulitis, unspecified (3) Essential tremor ICD Code: G25.0 - Essential tremor Status: Chronic Procedures none Brief History - From Admission 62-year-old female with a history of essential trouble came to the hospital yesterday for evaluation with acute onset of not feeling well including chills as well as a dry cough. Patient also reported nausea with dry heaving. She noted a left lower extremity erythema however denies any trauma. WBC was initially elevated. She denies any bladder or bowel dysfunction. She will reported decreased appetite since admission. When patient was seen she has consistently elevated temperatures CBC/BMP: 12/05/17 1131 12/05/17 1131 Significant Findings Laboratory Tests Test 12/02/17 22:42 12/04/17 06:16 12/04/17 07:50 12/05/17 11:31 Estimat Glomerular Filtration Rate 66 ML/MIN (>89) 72 ML/MIN (>89) Vancomycin Level Trough 11.4 MCG/ML (5.0-10.0) Red Blood Count 3.80 MIL/MM3 (4.00-5.30) Hemoglobin 10.8 GM/DL (11.6-15.3) Hematocrit 32.0 % (35.0-46.0) Neutrophils (%) (Auto) 71.1 % (16.0-70.0) Monocytes (%) (Auto) 10.8 % (0.0-8.0) Monocytes # (Auto) 1.0 TH/MM3 (0-0.9) Random Glucose 112 MG/DL (74-106) Calcium Level 7.9 MG/DL (8.5-10.1) Chloride Level 114 MEQ/L (98-107) Carbon Dioxide Level 20.6 MEQ/L (21.0-32.0) Imaging Last Impressions Abdomen/Pelvis CT 12/01/17 5831 Signed Impressions: Service Date/Time: Friday, December 01, 2017 05:25 - CONCLUSION: 1. Diverticulosis without diverticulitis. 2. Small hiatal hernia. 3. Stable mildly dilated gallbladder. Helder Rodriguez MD Head CT 12/01/17 0321 Signed Impressions: Service Date/Time: Friday, December 01, 2017 04:23 - CONCLUSION: No acute disease. Helder Rodriguez MD Chest X-Ray 12/01/17 0318 Signed Impressions: Service Date/Time: Friday, December 01, 2017 03:41 - CONCLUSION: No acute disease. Helder Rodriguez MD PE at Discharge GENERAL: This is a well-nourished, well-developed patient, in no apparent distress. CARDIOVASCULAR: Regular rate and rhythm without murmurs, gallops, or rubs. RESPIRATORY: Fair air entry bilaterally. No wheezes, rales, or rhonchi. GASTROINTESTINAL: Abdomen soft, non-tender, nondistended. Positive bowel sounds MUSCULOSKELETAL: Left lower leg swelling warmth and tenderness some improvement NEUROLOGICAL: Awake and alert. Moves all extremity. Normal speech.no focal neurological deficit Hospital Course 62-year-old female with Sepsis: Heart rate over 90, WBC > 66760, < 4000 or > 10% bands on admission. Improving Cellulitis left lower extremity worsening Pain in left leg Wound cx negative however were obtained days after she received abx Blood cultures NTD , monitor DC vancomycin and start zosyn IV discussed with Dr Torres ID, continue abx for a few days and monitor response, monitor culture report. Keep leg elevated. ID consultation appreciate recommendations Pain meds norco PO prn and morphine IV for breakthrough pain. Monitor VS Monitor kidney function while on abx Monitor CBC Consult PT Consult wound care Anxiety/depression. Start ativan 0.5 mg po q8hrs prn anxiety. Psych consult Essential tremor. Resume outpatient medication DVT prophylaxis: Heparin Discussed with the patient, nurse DC plan: Discussed with ID specialist Dr Torres plan to DC patient with IV abx infusion penicillin. The patient is refusing PICC line or midline. Since she does not want to go home with any IVs. Discussed with infectious disease specialist. Discussed with Dr Torres switched to by mouth antibiotics tomorrow patient to have IV abx. However very challenging case because patient with multiple antibiotic allergies. Discussed with the patient plan. Switch to penicillin VK 500 mg 4 times at DC . Continue the treatment for 10 days. Arrange follow-up with infectious disease outpatient in 1 week. Patient cautioned to avoid any abrasion of the skin. She has pet birds at home which her mentioned. He states that the birds like to fly onto them. Patient should make every effort to avoid the birds getting onto her infected leg. Pt Condition on Discharge: Stable Discharge Disposition: Disch w/ Home Health Serv Discharge Time: > 30 minutes Discharge Instructions DIET: Follow Instructions for: Heart Healthy Diet Activities you can perform: Regular-No Restrictions Follow up Referrals: Appointment for Follow Up - [address] Deborah Meyers PCP Follow-up - 2-3 Days New Medications: Penicillin V Potassium (Penicillin V Potassium) 500 Mg Tab 500 MG PO Q6H for Infection for 10 Days, #40 TAB 0 Refills Hydrocodone/Acetaminophen (Hydrocodone-Acetamin 5-325 mg) 5 Mg-325 Mg Tablet 1 TAB PO Q4H PRN for PAIN 2-10 for 20 Days, MG Lactobacillus Acidophilus (Acidophilus/l-Sporogenes) 35 Million Cell-25 Million Cell Tab 1 TAB PO Q12HR for probiotic , #60 TAB Sennosides-Docusate Sodium (Gnp Senna Plus 8.6-50 mg) 8.6 Mg-50 Mg Tab 1 TAB PO BID for Constipation, #60 TAB Continued Medications: Topiramate (Topiramate) 50 Mg Tab 125 MG PO DAILY for Control Seizures, #60 TAB 0 Refills Della Zheng MD Dec 05, 2017 14:12
--- NOTE | 2017-12-05 14:14 | HHI.FF ---
Face to Face Verification Diagnosis: (1) Cellulitis (2) Diarrhea (3) Sepsis (4) MIGUEL (acute kidney injury) Physical Therapy Order: Evaluate and Treat Home Health Nursing Order: Medical education Signs/symptoms of disease process Medication education-adverse effect Nursing assessment with vital signs I have seen patient Arelis Sanders on 12/05/17. My clinical findings support the need for the requested home health care services because: Ltd mobility - disease progression Patient has SOB I certify that my clinical findings support that this patient is homebound because: Post-op weakness Della Zheng MD Dec 05, 2017 14:14
--- NOTE | 2017-12-05 14:31 | HHI.IDPN ---
Note Infectious Disease Note Patient notes pain in the left leg. Sitting up in a chair. The erythema of the left leg is increased. Denies shortness of breath. No fevers. States she gets occasional chills. Presented to the emergency department after experiencing chills and general ill feeling with dry heaving and tremulousness and also dry cough. The patient states that the symptoms began suddenly late last night. She states that she was well the previous day. She was brought to the emergency department by her and upon initial evaluation was found to have heart rate of 119 and white blood cell count elevation of 17.4 and elevated lactic acid level of 2.1. Temperature was normal initially and then the temperatures increased slightly to 99.7 this morning. An influenza test was taken early this morning and came back indeterminate. The repeated influenza test is negative. Blood cultures have been taken. The patient has received antibiotics in the form of vancomycin and aztreonam. PAST MEDICAL HISTORY: Essential tremor, COPD, history of diverticulitis. History of abdominal surgery in the form of lap band. This was removed 5 years ago because of episode of sepsis. PAST SURGICAL HISTORY: Appendectomy, hysterectomy, tonsillectomy. Partial plate in the mouth. ALLERGIES: CIPROFLOXACIN, LEVAQUIN, CEFADROXIL, AZITHROMYCIN, ACETAMINOPHEN, CLAVULANIC ACID, CODEINE, MONOSODIUM GLUTAMATE, TRAMADOL, VALDECOXIB. MEDICATIONS: Current Medications Medications (Trade) Dose Ordered Sig/Mya Route PRN Reason Start Time Stop Time Status Last Admin Dose Admin Sodium Chloride 1,000 ml @ 70 mls/hr [id number] IV 12/01/17 05:54 12/05/17 08:50 Sodium Chloride (NS Flush) 2 ml UNSCH PRN IV FLUSH FLUSH AFTER USING IV ACCESS 12/01/17 06:00 12/05/17 01:30 Sodium Chloride (NS Flush) 2 ml BID IV FLUSH 12/01/17 09:00 12/04/17 21:00 Ondansetron HCl (Zofran Inj) 4 mg Q6H PRN IVP NAUSEA OR VOMITING 12/01/17 06:00 12/02/17 15:32 Senna/Docusate Sodium (Janette-Colace) 1 tab BID PO 12/01/17 09:00 12/01/17 09:24 Magnesium Hydroxide (Milk Of Magnesia Liq) 30 ml Q12H PRN PO Mild constipation 12/01/17 06:00 Sennosides (Senokot) 17.2 mg Q12H PRN PO Moderate constipation 12/01/17 06:00 Bisacodyl (Dulcolax Supp) 10 mg DAILY PRN RECTAL SEVERE CONSITIPATION 12/01/17 06:00 Lactulose (Lactulose Liq) 30 ml DAILY PRN PO SEVERE CONSITIPATION 12/01/17 06:00 Acetaminophen (Tylenol) 650 mg Q6H PRN PO HEADACHE/FEVER 12/02/17 15:00 12/02/17 22:40 Loperamide HCl (Imodium) 2 mg UNSCH PRN PO DIARRHEA 12/03/17 02:45 12/03/17 13:50 Acetaminophen/ Hydrocodone Bitart ([place] 5-325 Mg) 1 tab Q4H PRN PO PAIN 2-10 12/04/17 13:00 12/05/17 08:50 Morphine Sulfate (Morphine Inj) 2 mg Q4H PRN IV PUSH BREAKTHROUGH PAIN 12/04/17 19:45 12/05/17 01:30 Topiramate (Topamax) 125 mg DAILY PO 12/06/17 09:00 Lactobacillus Acidophilus (Lactinex) 1 tab Q12HR PO 12/05/17 11:00 Piperacillin Sod/ Tazobactam Sod 50 ml @ 100 mls/hr Q6H IV 12/05/17 14:15 UNV Objective: Vital Signs Date Time Temp Pulse Resp B/P (MAP) Pulse Ox O2 Delivery O2 Flow Rate FiO2 12/05/17 10:57 98 Room Air 12/05/17 10:53 18 12/05/17 08:00 98.6 68 14 123/87 (99) 98 12/05/17 08:00 97.6 68 14 123/87 (99) 98 12/05/17 04:03 67 12/05/17 04:00 Room Air 12/05/17 04:00 97.5 67 17 97/54 (68) 97 12/05/17 00:00 Room Air 12/05/17 00:00 99.5 84 18 116/52 (73) 100 12/04/17 23:46 82 12/04/17 21:53 Room Air 12/04/17 20:00 98.5 81 18 109/55 (73) 99 4/12/18 20:00 Room Air 12/04/17 19:42 91 12/04/17 16:00 81 12/04/17 16:00 98.2 86 18 125/69 (87) 100 Laboratory Tests Test 12/05/17 11:31 White Blood Count 9.3 TH/MM3 Red Blood Count 3.80 MIL/MM3 Hemoglobin 10.8 GM/DL Hematocrit 32.0 % Mean Corpuscular Volume 84.1 FL Mean Corpuscular Hemoglobin 28.4 PG Mean Corpuscular Hemoglobin Concent 33.8 % Red Cell Distribution Width 15.2 % Platelet Count 217 TH/MM3 Mean Platelet Volume 8.6 FL Neutrophils (%) (Auto) 71.1 % Lymphocytes (%) (Auto) 16.2 % Monocytes (%) (Auto) 10.8 % Eosinophils (%) (Auto) 1.5 % Basophils (%) (Auto) 0.4 % Neutrophils # (Auto) 6.6 TH/MM3 Lymphocytes # (Auto) 1.5 TH/MM3 Monocytes # (Auto) 1.0 TH/MM3 Eosinophils # (Auto) 0.1 TH/MM3 Basophils # (Auto) 0.0 TH/MM3 CBC Comment DIFF FINAL Differential Comment Laboratory Tests Test 12/04/17 06:16 12/05/17 11:31 Creatinine 0.87 MG/DL 0.80 MG/DL Estimat Glomerular Filtration Rate 66 ML/MIN 72 ML/MIN Blood Urea Nitrogen 11 MG/DL Random Glucose 112 MG/DL Calcium Level 7.9 MG/DL Sodium Level 141 MEQ/L Potassium Level 3.8 MEQ/L Chloride Level 114 MEQ/L Carbon Dioxide Level 20.6 MEQ/L Anion Gap 6 MEQ/L Imaging: Abdomen/Pelvis CT 12/01/17 0428 Signed Impressions: Service Date/Time: Friday, December 01, 2017 05:25 - CONCLUSION: 1. Diverticulosis without diverticulitis. 2. Small hiatal hernia. 3. Stable mildly dilated gallbladder. Helder Rodriguez MD Head CT 12/01/17 0321 Signed Impressions: Service Date/Time: Friday, December 01, 2017 04:23 - CONCLUSION: No acute disease. Helder Rodriguez MD Chest X-Ray 12/01/17 6335 Signed Impressions: Service Date/Time: Friday, December 01, 2017 03:41 - CONCLUSION: No acute disease. Helder Rodriguez MD PHYSICAL EXAMINATION: GENERAL: No acute distress. No icterus. No conjunctival erythema. Oropharynx, moist mucosa. No thrush. No lesions. NECK: Supple. LUNGS: Clear to auscultation. HEART: Regular S1 and S2 without audible murmurs, rubs, or gallops. ABDOMEN: Bowel sounds present. Soft, obese, nontender. No palpable masses. EXTREMITIES: Erythema at the left leg is pronounced. Patient has bright beefy red erythema at the posterior aspect of the left leg. The erythema at the anterior aspect of the tibia is slightly increased. Entire left leg below the knee is warm to touch. Left leg has 2+ edema. Tenderness on palpation of the left leg over the erythema. SKIN: No diffuse rash. NEUROLOGIC: No gross focal findings. PSYCHIATRIC: Patient is calm and cooperative. ASSESSMENT AND PLAN: 1. SIRS. The patient probably has sepsis. Presented with tachycardia along with leukocytosis, elevated lactic acid level, and also noted symptoms of chills. Source is most likely Cellulitis of the left leg. 2. Leukocytosis, likely secondary to sepsis. White blood cell count has improved. 3. Cellulitis of the left lower extremity now appears worse. 4. Cough, which is nonproductive. Negative influenza test. Probable viral upper respiratory infection 5. Multiple antibiotic allergies. Patient reports that she can tolerate penicillins. RECOMMENDATIONS: 1. Stop vancomycin. 2. Begin piperacillin/tazobactam. 3. Follow the left leg erythema. 4. Monitor clinical status. 5. Elevate the legs on 2 pillows. Continue IV antibiotics over the next couple of days and monitor response. Jeyson Torres MD Dec 05, 2017 14:31
[2017-12-05] MEDS: LACTOBACILLUS ACIDOPHILUS TAB PO SCH ×2 (15:57→20:09)
[2017-12-05 16:01] LABS: HEMOGLOBIN A1C 5.4 % (4.3-6.0)
[2017-12-05] MEDS: PIPERACIL-TAZO 3.375 GM PREMIX 50 ML IV SCH ×2 (16:27→22:49)
[2017-12-06] VITALS (8 sets, daily range): BP systolic 103–189; BP diastolic 52–105; PULSE 66–80; RESP 18–20; TEMP 97.4–98.1; O2SAT 94–100
[2017-12-06] MEDS: ACETAMINOPHEN/HYDROcodone 325 MG/5 MG TAB PO PRN ×5 (01:56→20:15)
[2017-12-06] MEDS: SODIUM CHLOR 0.9% 1000 ML INJ 1,000 ML IV SCH (04:55)
[2017-12-06] MEDS: PIPERACIL-TAZO 3.375 GM PREMIX 50 ML IV SCH ×4 (04:56→22:14)
[2017-12-06 06:45] LABS: AUTOMATED NEUTROPHIL # 6.5 TH/MM3 (1.8-7.7); BASOPHIL # 0.1 TH/MM3 (0-0.2); BASOPHIL % 0.7 % (0.0-2.0); EOSINOPHIL # 0.3 TH/MM3 (0-0.4); EOSINOPHIL % 3.3 % (0.0-4.0); HEMATOCRIT 27.9 % (35.0-46.0); HEMOGLOBIN 9.5 GM/DL (11.6-15.3); LYMPH % 19.7 % (9.0-44.0); MEAN CELL VOLUME 84.6 FL (80.0-100.0); MEAN CORPUSCULAR HEMOGLOBIN 28.8 PG (27.0-34.0); MONO % 10.8 % (0.0-8.0); MONOCYTE # 1.1 TH/MM3 (0-0.9); NEUT % 65.5 % (16.0-70.0); PLATELET COUNT 217 TH/MM3 (150-450); RED BLOOD COUNT 3.29 MIL/MM3 (4.00-5.30); RED CELL DISTRIBUTION WIDTH 14.9 % (11.6-17.2); WHITE BLOOD COUNT 9.9 TH/MM3 (4.0-11.0)
[2017-12-06 06:55] LABS: BICARBONATE 17.9 MEQ/L (21.0-32.0); CALCIUM 7.7 MG/DL (8.5-10.1); CREATININE 0.87 MG/DL (0.50-1.00)
[2017-12-06] MEDS: SODIUM CHLORIDE 0.9% FLUSH 10 ML FLUSH IV FLUSH SCH ×2 (07:55→20:16)
[2017-12-06 08:49] LABS: ACANTHOCYTES OCC (NORMAL); BURR CELLS 1+ (NORMAL)
--- NOTE | 2017-12-06 09:13 | HHI.PR ---
Subjective Remarks In the chair she appears anxious and she is crying at times. Appears depressed. Says she still has pain in her leg fairly controlled by medications. No fever or chills. No nausea or vomiting no diarrhea or constipation. Erythema is more pronounced however not extending more. There are also blisters developing. No fever or chills. Objective Vitals Vital Signs Date Time Temp Pulse Resp B/P (MAP) Pulse Ox O2 Delivery O2 Flow Rate FiO2 12/06/17 04:00 98.1 66 18 103/52 (69) 97 12/06/17 03:58 71 12/06/17 00:00 97.8 80 18 189/105 (133) 97 12/05/17 23:39 75 12/05/17 20:00 Room Air 12/05/17 20:00 97.6 80 20 116/66 (83) 98 12/05/17 19:44 100 12/05/17 17:27 18 12/05/17 16:00 80 12/05/17 16:00 98.0 79 17 138/64 (88) 100 12/05/17 12:00 71 12/05/17 12:00 97.1 72 18 128/60 (82) 100 12/05/17 10:57 98 Room Air I/O 12/05/17 12/05/17 12/05/17 12/06/17 12/06/17 12/06/17 07:00 15:00 23:00 07:00 15:00 23:00 Intake Total 0 ml 1270 ml 1780 ml Output Total 0 ml Balance 0 ml 1270 ml 1780 ml Intake Oral 0 ml 720 ml 680 ml IV Total 550 ml 1100 ml Output Urine Total 0 ml # Voids 5 2 # Bowel Movements 0 Result Diagram: 12/06/17 0430 12/06/17 0430 Imaging Last Impressions Abdomen/Pelvis CT 12/01/17 0428 Signed Impressions: Service Date/Time: Friday, December 01, 2017 05:25 - CONCLUSION: 1. Diverticulosis without diverticulitis. 2. Small hiatal hernia. 3. Stable mildly dilated gallbladder. Helder Rodriguez MD Head CT 12/01/17 0321 Signed Impressions: Service Date/Time: Friday, December 01, 2017 04:23 - CONCLUSION: No acute disease. Helder Rodriguez MD Chest X-Ray 12/01/17 0318 Signed Impressions: Service Date/Time: Friday, December 01, 2017 03:41 - CONCLUSION: No acute disease. Helder Rodriguez MD Objective Remarks GENERAL: This is a well-nourished, well-developed patient, anxious, crying at times. CARDIOVASCULAR: Regular rate and rhythm without murmurs, gallops, or rubs. RESPIRATORY: Fair air entry bilaterally. No wheezes, rales, or rhonchi. GASTROINTESTINAL: Abdomen soft, non-tender, nondistended. Positive bowel sounds MUSCULOSKELETAL: Left lower leg swelling warmth and tenderness. Erythema worsening but not extending, blisters noted developing as well. NEUROLOGICAL: Awake and alert. Moves all extremity. Normal speech.no focal neurological deficit PSYCHIATRIC: Appears anxious and depressed. A/P Problem List: (1) Sepsis ICD Code: A41.9 - Sepsis, unspecified organism (2) Cellulitis ICD Code: L03.90 - Cellulitis, unspecified (3) Essential tremor ICD Code: G25.0 - Essential tremor Status: Chronic Assessment and Plan 62-year-old female with Sepsis: Heart rate over 90, WBC > 03495, < 4000 or > 10% bands on admission. Improving Cellulitis left lower extremity Pain in left leg Wound cx Blood cultures NTD , monitor DC vancomycin and start zosyn IV discussed with Dr Torres ID, continue abx for a few days and monitor response, monitor culture report. Keep leg elevated. ID consultation appreciate recommendations Pain meds norco PO prn and morphine IV for breakthrough pain .Monitor VS Monitor kidney function while on abx Monitor CBC Consult PT Anxiety/depression. Start ativan 0.5 mg po q8hrs prn anxiety. Might consider psych consult Essential tremor. Resume outpatient medication DVT prophylaxis: Heparin Discussed with the patient, nurse DC plan"worsening cellulitis, IV abx changed to Zosyn monitor clinical response while on Zosyn, monitor blood/wound cx Della Zheng MD Dec 06, 2017 09:13
[2017-12-06] MEDS: DOCUSATE SODIUM 50 MG/SENNA 8.6 MG TAB PO SCH ×2 (09:42→20:17)
[2017-12-06] MEDS: LACTOBACILLUS ACIDOPHILUS TAB PO SCH ×2 (09:42→20:15)
[2017-12-06] MEDS: TOPIRAMATE 25 MG TAB PO SCH (09:43)
[2017-12-06] MEDS ORDERED: PHARMACY ORDERED LAB ONE (14:45)
[2017-12-06] MEDS: LORazepam 0.5 MG TAB PO PRN (22:14)
[2017-12-07] VITALS (10 sets, daily range): BP systolic 115–140; BP diastolic 56–79; PULSE 67–86; RESP 17–20; TEMP 97.4–98; O2SAT 94–100
[2017-12-07] MEDS: ACETAMINOPHEN/HYDROcodone 325 MG/5 MG TAB PO PRN ×6 (00:01→22:44)
[2017-12-07] MEDS: PIPERACIL-TAZO 3.375 GM PREMIX 50 ML IV SCH ×4 (04:03→21:25)
[2017-12-07 05:13] LABS: AUTOMATED NEUTROPHIL # 6.1 TH/MM3 (1.8-7.7); BASOPHIL # 0.1 TH/MM3 (0-0.2); BASOPHIL % 0.7 % (0.0-2.0); EOSINOPHIL # 0.5 TH/MM3 (0-0.4); EOSINOPHIL % 5.2 % (0.0-4.0); HEMOGLOBIN 10.4 GM/DL (11.6-15.3); LYMPH % 23.8 % (9.0-44.0); LYMPHOCYTE # 2.4 TH/MM3 (1.0-4.8); MEAN CELL VOLUME 84.5 FL (80.0-100.0); MEAN CORPUSCULAR HEMOGLOBIN 28.4 PG (27.0-34.0); MEAN CORPUSCULAR HGB CONC 33.6 % (32.0-36.0); MEAN PLATELET VOLUME 8.6 FL (7.0-11.0); MONOCYTE # 0.9 TH/MM3 (0-0.9); NEUT % 61.3 % (16.0-70.0); PLATELET COUNT 293 TH/MM3 (150-450); RED BLOOD COUNT 3.67 MIL/MM3 (4.00-5.30); RED CELL DISTRIBUTION WIDTH 15.3 % (11.6-17.2)
[2017-12-07 05:21] LABS: BICARBONATE 21.4 MEQ/L (21.0-32.0); CALCIUM 8.1 MG/DL (8.5-10.1); CREATININE 0.94 MG/DL (0.50-1.00); MAGNESIUM 2.2 MG/DL (1.5-2.5)
[2017-12-07 07:21] LABS: ACANTHOCYTES OCC (NORMAL); OVALOCYTES 1+ (NORMAL)
[2017-12-07] MEDS: LACTOBACILLUS ACIDOPHILUS TAB PO SCH ×2 (08:05→21:26)
[2017-12-07] MEDS: TOPIRAMATE 25 MG TAB PO SCH (08:06)
[2017-12-07] MEDS: DOCUSATE SODIUM 50 MG/SENNA 8.6 MG TAB PO SCH ×2 (08:08→21:00)
[2017-12-07] MEDS: SODIUM CHLORIDE 0.9% FLUSH 10 ML FLUSH IV FLUSH SCH ×2 (08:08→21:00)
--- NOTE | 2017-12-07 08:21 | HHI.PR ---
Subjective Remarks Denies worsening more blisters and weeping wounds. No fever or chills overnight. Encouraged to keep the leg elevated. She is less anxious today. Received Ativan last night. Decreased appetite however able to eat no nausea or vomiting no diarrhea or constipation. Objective Vitals Vital Signs Date Time Temp Pulse Resp B/P (MAP) Pulse Ox O2 Delivery O2 Flow Rate FiO2 12/07/17 04:06 67 12/07/17 04:00 97.6 75 17 115/56 (75) 98 12/07/17 04:00 Room Air 12/07/17 00:05 76 12/07/17 00:00 Room Air 12/07/17 00:00 97.8 77 18 126/56 (79) 97 12/06/17 20:13 75 12/06/17 20:00 97.4 77 20 123/79 (94) 94 12/06/17 16:00 97.4 74 20 160/82 (108) 98 12/06/17 12:00 98.1 80 20 120/62 (81) 98 I/O 12/06/17 12/06/17 12/06/17 12/07/17 12/07/17 12/07/17 07:00 15:00 23:00 07:00 15:00 23:00 Intake Total 1780 ml 530 ml 290 ml Balance 1780 ml 530 ml 290 ml Intake Oral 680 ml 480 ml 240 ml IV Total 1100 ml 50 ml 50 ml # Voids 2 4 3 Result Diagram: 12/07/17 0330 12/07/17 0335 Imaging Last Impressions Abdomen/Pelvis CT 12/01/17 0428 Signed Impressions: Service Date/Time: Friday, December 01, 2017 05:25 - CONCLUSION: 1. Diverticulosis without diverticulitis. 2. Small hiatal hernia. 3. Stable mildly dilated gallbladder. Helder Rodriguez MD Head CT 12/01/17 0321 Signed Impressions: Service Date/Time: Friday, December 01, 2017 04:23 - CONCLUSION: No acute disease. Helder Rodriguez MD Chest X-Ray 12/01/177 Signed Impressions: Service Date/Time: Friday, December 01, 2017 03:41 - CONCLUSION: No acute disease. Helder Rodriguez MD Objective Remarks GENERAL: This is a well-nourished, well-developed patient, anxious, crying at times. CARDIOVASCULAR: Regular rate and rhythm without murmurs, gallops, or rubs. RESPIRATORY: Fair air entry bilaterally. No wheezes, rales, or rhonchi. GASTROINTESTINAL: Abdomen soft, non-tender, nondistended. Positive bowel sounds MUSCULOSKELETAL: Left lower leg swelling warmth and tenderness. Erythema worsening but not extending, blisters and drainage from wound noted as well. NEUROLOGICAL: Awake and alert. Moves all extremity. Normal speech.no focal neurological deficit PSYCHIATRIC: Appears anxious and depressed. A/P Problem List: (1) Sepsis ICD Code: A41.9 - Sepsis, unspecified organism (2) Cellulitis ICD Code: L03.90 - Cellulitis, unspecified (3) Essential tremor ICD Code: G25.0 - Essential tremor Status: Chronic Assessment and Plan When cleared by them the discharge this week tonight with 62-year-old female with Sepsis: Heart rate over 90, WBC > 84808, < 4000 or > 10% bands on admission. Improving Cellulitis left lower extremity worsening Pain in left leg Wound cx negative however were obtained days after she received abx Blood cultures NTD , monitor DC vancomycin and start zosyn IV discussed with Dr Torres ID, continue abx for a few days and monitor response, monitor culture report. Keep leg elevated. ID consultation appreciate recommendations Pain meds norco PO prn and morphine IV for breakthrough pain. Monitor VS Monitor kidney function while on abx Monitor CBC Consult PT Consult wound care Anxiety/depression. Start ativan 0.5 mg po q8hrs prn anxiety. Psych consult Essential tremor. Resume outpatient medication DVT prophylaxis: Heparin Discussed with the patient, nurse DC plan: worsening cellulitis, IV abx changed to Zosyn monitor clinical response while on Zosyn, monitor blood/wound cx. Della Zheng MD Dec 07, 2017 08:21
--- NOTE | 2017-12-07 11:00 | PD.PSY.CON ---
Provisional Diagnosis Admission Date Dec 01, 2017 at 05:55 History of Present Illness Service Psychiatry Consult Requested By Medical team Reason for Consult Depression Primary Care Physician Kali Harrington, DO Past Family Social History Coded Allergies: azithromycin (Verified Allergy, Severe, 12/01/17) ciprofloxacin (Verified Allergy, Severe, Rash, 12/01/17) clavulanic acid (Verified Allergy, Severe, Rash, 12/01/17) levofloxacin (Verified Allergy, Severe, Rash, 12/01/17) tramadol (Verified Allergy, Severe, 12/01/17) valdecoxib (Verified Allergy, Severe, 12/01/17) cefadroxil (Verified Allergy, Unknown, 12/01/17) codeine (Verified Allergy, Unknown, 12/01/17) monosodium glutamate (Verified Adverse Reaction, Severe, 12/01/17) Active Scripts Lactobacillus Acidophilus (Acidophilus/l-Sporogenes) 35 Million Cell-25 Million Cell Tab, 1 TAB PO Q12HR for probiotic , #60 TAB Prov:Della Zheng MD 12/05/17 Sennosides-Docusate Sodium (Gnp Senna Plus 8.6-50 mg) 8.6 Mg-50 Mg Tab, 1 TAB PO BID for Constipation, #60 TAB Prov:Della Zheng MD 12/05/17 Hydrocodone/Acetaminophen (Hydrocodone-Acetamin 5-325 mg) 5 Mg-325 Mg Tablet, 1 TAB PO Q4H Y for PAIN 2-10 for 20 Days, MG Prov:Della Zheng MD 12/05/17 Reported Medications Topiramate (Topiramate) 50 Mg Tab, 125 MG PO DAILY for Control Seizures, #60 TAB 0 Refills 12/01/17 Discontinued Reported Medications Topiramate (Topiramate) 50 Mg Tab, 150 MG PO DAILY NEB for TREMORS, #60 TAB 0 Refills 04/25/17 Discontinued Scripts Morphine IR (Morphine IR) 15 Mg Tab, 7.5 MG PO Q4H Y for PAIN, #28 TAB 0 Refills Prov:Joi Lei MD 05/03/17 Metronidazole (Flagyl) 500 Mg Tab, 500 MG PO TID for Infection for 7 Days, TAB 0 Refills Prov:Joi Lei MD 05/03/17 Current Medications Medications (Trade) Dose Ordered Sig/Mya Route Start Time Stop Time Status Last Admin Sodium Chloride 1,000 ml @ 70 mls/hr [id number] IV 12/01/17 05:54 12/06/17 04:55 (NS Flush) 2 ml UNSCH PRN IV FLUSH 12/01/17 06:00 12/05/17 01:30 (NS Flush) 2 ml BID IV FLUSH 12/01/17 09:00 12/07/17 08:08 (Zofran Inj) 4 mg Q6H PRN IVP 12/01/17 06:00 12/02/17 15:32 (Janette-Colace) 1 tab BID PO 12/01/17 09:00 12/06/17 09:42 (Milk Of Magnesia Liq) 30 ml Q12H PRN PO 12/01/17 06:00 (Senokot) 17.2 mg Q12H PRN PO 12/01/17 06:00 (Dulcolax Supp) 10 mg DAILY PRN RECTAL 12/01/17 06:00 (Lactulose Liq) 30 ml DAILY PRN PO 12/01/17 06:00 (Tylenol) 650 mg Q6H PRN PO 12/02/17 15:00 12/02/17 22:40 (Imodium) 2 mg UNSCH PRN PO 12/03/17 02:45 12/03/17 13:50 ([place] 5-325 Mg) 1 tab Q4H PRN PO 12/04/17 13:00 12/07/17 08:06 (Morphine Inj) 2 mg Q4H PRN IV PUSH 12/04/17 19:45 12/05/17 01:30 (Topamax) 125 mg DAILY PO 12/06/17 09:00 12/07/17 08:06 (Lactinex) 1 tab Q12HR PO 12/05/17 11:00 12/07/17 08:05 Piperacillin Sod/ Tazobactam Sod 50 ml @ 100 mls/hr Q6H IV 12/05/17 16:00 12/07/17 10:43 (Ativan) 0.5 mg Q8H PRN PO 12/06/17 17:15 12/06/17 22:14 Physical Exam Vital Signs Vital Signs Date Time Temp Pulse Resp B/P (MAP) Pulse Ox O2 Delivery O2 Flow Rate FiO2 12/07/17 08:00 97.5 86 20 126/68 (87) 97 12/07/17 04:00 Room Air I/O 12/07/17 12/07/17 12/08/17 08:00 16:00 00:00 Intake Total 290 ml Balance 290 ml Lab Results Test 12/07/17 03:30 12/07/17 03:35 White Blood Count 10.0 TH/MM3 Red Blood Count 3.67 MIL/MM3 Hemoglobin 10.4 GM/DL Hematocrit 31.0 % Mean Corpuscular Volume 84.5 FL Mean Corpuscular Hemoglobin 28.4 PG Mean Corpuscular Hemoglobin Concent 33.6 % Red Cell Distribution Width 15.3 % Platelet Count 293 TH/MM3 Mean Platelet Volume 8.6 FL Neutrophils (%) (Auto) 61.3 % Lymphocytes (%) (Auto) 23.8 % Monocytes (%) (Auto) 9.0 % Eosinophils (%) (Auto) 5.2 % Basophils (%) (Auto) 0.7 % Neutrophils # (Auto) 6.1 TH/MM3 Lymphocytes # (Auto) 2.4 TH/MM3 Monocytes # (Auto) 0.9 TH/MM3 Eosinophils # (Auto) 0.5 TH/MM3 Basophils # (Auto) 0.1 TH/MM3 CBC Comment AUTO DIFF Differential Comment AUTO DIFF CONFIRMED Platelet Estimate NORMAL Platelet Morphology Comment NORMAL Ovalocytes 1+ Acanthocytes OCC Blood Urea Nitrogen 8 MG/DL Creatinine 0.94 MG/DL Random Glucose 88 MG/DL Calcium Level 8.1 MG/DL Magnesium Level 2.2 MG/DL Sodium Level 143 MEQ/L Potassium Level 3.6 MEQ/L Chloride Level 114 MEQ/L Carbon Dioxide Level 21.4 MEQ/L Anion Gap 8 MEQ/L Estimat Glomerular Filtration Rate 60 ML/MIN Date/Time Source Procedure Growth Status 12/01/17 03:30 Blood Peripheral Aerobic Blood Culture - Final NO GROWTH IN 5 DAYS Complete 12/01/17 03:30 Blood Peripheral Anaerobic Blood Culture - Final NO GROWTH IN 5 DAYS Complete 12/01/17 08:15 Nasal Washing Influenza Types A,B Antigen (CRISTI) - Final NEGATIVE FOR FLU A AND B ANTIGEN.... Complete 12/05/17 14:15 Wound Leg Gram Stain - Final Resulted 12/05/17 14:15 Wound Leg Wound Culture - Preliminary NO GROWTH IN 48 HOURS. Resulted Assessment & Plan Problem List: (1) Abdominal pain ICD Codes: R10.9 - Unspecified abdominal pain Assessment & Plan: When I arrived in the room to perform my psychiatric evaluation, but the patient on her became quite upset stating that they have no ask to see a psychiatrist and the patient does not have any psychiatric problem at this moment. My recommendation will be to address with the patient the need of psychiatric intervention and if psychiatric intervention is really needed please reconsult or contact me by phone and I will be very happy to help. Assessment & Plan Estimated LOS: Isaac Reddy MD Dec 07, 2017 11:00
[2017-12-07] MEDS: SODIUM CHLOR 0.9% 1000 ML INJ 1,000 ML IV SCH (15:12)
[2017-12-07] MEDS: LORazepam 0.5 MG TAB PO PRN (22:43)
[2017-12-08] VITALS (12 sets, daily range): BP systolic 113–160; BP diastolic 55–82; PULSE 67–90; RESP 18–21; TEMP 97.4–98.4; O2SAT 97–100
[2017-12-08] MEDS: SODIUM CHLOR 0.9% 1000 ML INJ 1,000 ML IV SCH ×3 (02:04→19:05)
[2017-12-08] MEDS: PIPERACIL-TAZO 3.375 GM PREMIX 50 ML IV SCH ×4 (03:08→21:03)
[2017-12-08] MEDS: ACETAMINOPHEN/HYDROcodone 325 MG/5 MG TAB PO PRN ×5 (03:09→21:03)
[2017-12-08] MEDS: SODIUM CHLORIDE 0.9% FLUSH 10 ML FLUSH IV FLUSH SCH ×2 (08:26→21:00)
[2017-12-08] MEDS: LACTOBACILLUS ACIDOPHILUS TAB PO SCH ×2 (08:29→21:02)
[2017-12-08] MEDS: DOCUSATE SODIUM 50 MG/SENNA 8.6 MG TAB PO SCH ×2 (08:31→21:02)
[2017-12-08] MEDS: TOPIRAMATE 25 MG TAB PO SCH (09:02)
--- NOTE | 2017-12-08 11:10 | HHI.IDPN ---
Note Infectious Disease Note Patient notes burning pain in the left leg. Sitting up in a chair. Ambulated the hallways with her . Still has significant erythema of the left leg. Clear slightly yellow drainage also coming from the left leg. Afebrile. Left leg remains edematous. Tolerating piperacillin/tazobactam. Presented to the emergency department after experiencing chills and general ill feeling with dry heaving and tremulousness and also dry cough. The patient states that the symptoms began suddenly late last night. She states that she was well the previous day. She was brought to the emergency department by her and upon initial evaluation was found to have heart rate of 119 and white blood cell count elevation of 17.4 and elevated lactic acid level of 2.1. Temperature was normal initially and then the temperatures increased slightly to 99.7 this morning. An influenza test was taken early this morning and came back indeterminate. The repeated influenza test is negative. Blood cultures have been taken. The patient has received antibiotics in the form of vancomycin and aztreonam. PAST MEDICAL HISTORY: Essential tremor, COPD, history of diverticulitis. History of abdominal surgery in the form of lap band. This was removed 5 years ago because of episode of sepsis. PAST SURGICAL HISTORY: Appendectomy, hysterectomy, tonsillectomy. Partial plate in the mouth. ALLERGIES: CIPROFLOXACIN, LEVAQUIN, CEFADROXIL, AZITHROMYCIN, ACETAMINOPHEN, CLAVULANIC ACID, CODEINE, MONOSODIUM GLUTAMATE, TRAMADOL, VALDECOXIB. MEDICATIONS: Current Medications Medications (Trade) Dose Ordered Sig/Mya Route PRN Reason Start Time Stop Time Status Last Admin Dose Admin Sodium Chloride 1,000 ml @ 70 mls/hr [id number] IV 12/01/17 05:54 12/08/17 02:04 Sodium Chloride (NS Flush) 2 ml UNSCH PRN IV FLUSH FLUSH AFTER USING IV ACCESS 12/01/17 06:00 12/05/17 01:30 Sodium Chloride (NS Flush) 2 ml BID IV FLUSH 12/01/17 09:00 12/07/17 08:08 Ondansetron HCl (Zofran Inj) 4 mg Q6H PRN IVP NAUSEA OR VOMITING 12/01/17 06:00 12/02/17 15:32 Senna/Docusate Sodium (Janette-Colace) 1 tab BID PO 12/01/17 09:00 12/06/17 09:42 Magnesium Hydroxide (Milk Of Magnesia Liq) 30 ml Q12H PRN PO Mild constipation 12/01/17 06:00 Sennosides (Senokot) 17.2 mg Q12H PRN PO Moderate constipation 12/01/17 06:00 Bisacodyl (Dulcolax Supp) 10 mg DAILY PRN RECTAL SEVERE CONSITIPATION 12/01/17 06:00 Lactulose (Lactulose Liq) 30 ml DAILY PRN PO SEVERE CONSITIPATION 12/01/17 06:00 Acetaminophen (Tylenol) 650 mg Q6H PRN PO HEADACHE/FEVER 12/02/17 15:00 12/02/17 22:40 Loperamide HCl (Imodium) 2 mg UNSCH PRN PO DIARRHEA 12/03/17 02:45 12/03/17 13:50 Acetaminophen/ Hydrocodone Bitart ([place] 5-325 Mg) 1 tab Q4H PRN PO PAIN 2-10 12/04/17 13:00 12/08/17 08:29 Morphine Sulfate (Morphine Inj) 2 mg Q4H PRN IV PUSH BREAKTHROUGH PAIN 12/04/17 19:45 12/05/17 01:30 Topiramate (Topamax) 125 mg DAILY PO 12/06/17 09:00 12/08/17 09:02 Lactobacillus Acidophilus (Lactinex) 1 tab Q12HR PO 12/05/17 11:00 12/08/17 08:29 Piperacillin Sod/ Tazobactam Sod 50 ml @ 100 mls/hr Q6H IV 12/05/17 16:00 12/08/17 09:02 Lorazepam (Ativan) 0.5 mg Q8H PRN PO anxiety/depression 12/06/17 17:15 12/07/17 22:43 Objective: Vital Signs Date Time Temp Pulse Resp B/P (MAP) Pulse Ox O2 Delivery O2 Flow Rate FiO2 12/08/17 08:00 80 12/08/17 08:00 97.9 67 18 113/74 (87) 100 12/08/17 08:00 100 Room Air 12/08/17 04:00 Room Air 12/08/17 04:00 97.4 67 20 118/55 (76) 97 12/08/17 03:57 69 12/08/17 00:00 98.4 76 19 133/59 (83) 97 12/08/17 00:00 Room Air 12/07/17 23:49 72 12/07/17 20:03 75 12/07/17 20:00 Room Air 12/07/17 20:00 97.9 80 18 140/66 (90) 94 12/07/17 16:00 98.0 76 18 120/75 (90) 100 12/07/17 12:00 97.4 73 18 117/79 (92) 100 Laboratory Tests Test 12/07/17 03:30 White Blood Count 10.0 TH/MM3 Red Blood Count 3.67 MIL/MM3 Hemoglobin 10.4 GM/DL Hematocrit 31.0 % Mean Corpuscular Volume 84.5 FL Mean Corpuscular Hemoglobin 28.4 PG Mean Corpuscular Hemoglobin Concent 33.6 % Red Cell Distribution Width 15.3 % Platelet Count 293 TH/MM3 Mean Platelet Volume 8.6 FL Neutrophils (%) (Auto) 61.3 % Lymphocytes (%) (Auto) 23.8 % Monocytes (%) (Auto) 9.0 % Eosinophils (%) (Auto) 5.2 % Basophils (%) (Auto) 0.7 % Neutrophils # (Auto) 6.1 TH/MM3 Lymphocytes # (Auto) 2.4 TH/MM3 Monocytes # (Auto) 0.9 TH/MM3 Eosinophils # (Auto) 0.5 TH/MM3 Basophils # (Auto) 0.1 TH/MM3 CBC Comment AUTO DIFF Differential Comment AUTO DIFF CONFIRMED Platelet Estimate NORMAL Platelet Morphology Comment NORMAL Ovalocytes 1+ Acanthocytes OCC Laboratory Tests Test 12/07/17 03:35 Blood Urea Nitrogen 8 MG/DL Creatinine 0.94 MG/DL Random Glucose 88 MG/DL Calcium Level 8.1 MG/DL Magnesium Level 2.2 MG/DL Sodium Level 143 MEQ/L Potassium Level 3.6 MEQ/L Chloride Level 114 MEQ/L Carbon Dioxide Level 21.4 MEQ/L Anion Gap 8 MEQ/L Estimat Glomerular Filtration Rate 60 ML/MIN Microbiology Date/Time Source Procedure Growth Status 12/05/17 14:15 Wound Leg Gram Stain - Final Resulted 12/05/17 14:15 Wound Leg Wound Culture - Preliminary NO GROWTH IN 48 HOURS. Resulted Imaging: Abdomen/Pelvis CT 12/01/17 0428 Signed Impressions: Service Date/Time: Friday, December 01, 2017 05:25 - CONCLUSION: 1. Diverticulosis without diverticulitis. 2. Small hiatal hernia. 3. Stable mildly dilated gallbladder. Helder Rodriguez MD Head CT 12/01/17 0321 Signed Impressions: Service Date/Time: Friday, December 01, 2017 04:23 - CONCLUSION: No acute disease. Helder Rodriguez MD Chest X-Ray 12/01/178 Signed Impressions: Service Date/Time: Friday, December 01, 2017 03:41 - CONCLUSION: No acute disease. Helder Rodriguez MD PHYSICAL EXAMINATION: GENERAL: No acute distress. No icterus. No conjunctival erythema. Oropharynx, moist mucosa. No thrush. No lesions. NECK: Supple. LUNGS: Clear to auscultation. HEART: Regular S1 and S2 without audible murmurs, rubs, or gallops. ABDOMEN: Bowel sounds present. Soft, obese, nontender. No palpable masses. EXTREMITIES: Bright beefy red erythema at the posterior aspect of the left leg. The erythema at the anterior aspect of the tibia is slightly decreased. Entire left leg below the knee is warm to touch. Left leg has 3 + edema. Light clear yellow drainage. Tenderness on palpation of the left leg over the erythema. SKIN: No diffuse rash. NEUROLOGIC: No gross focal findings. PSYCHIATRIC: Patient is calm and cooperative. ASSESSMENT AND PLAN: 3. Cellulitis of the left lower extremity now appears worse. 2. SIRS. The patient probably has sepsis. Presented with tachycardia along with leukocytosis, elevated lactic acid level, and also noted symptoms of chills. Source is most likely Cellulitis of the left leg. 3. Leukocytosis, likely secondary to sepsis. White blood cell count has improved. 4. Cough, which is nonproductive. Negative influenza test. Coughing resolved. Probable viral upper respiratory infection 5. Multiple antibiotic allergies. Patient reports that she can tolerate penicillins. Tolerating piperacillin/tazobactam. RECOMMENDATIONS: 1. Continue piperacillin/tazobactam. 2. Cover the tibia with nonstick dressing and wrap over with Nikita bandage. 3. Follow the left leg erythema. 4. Monitor clinical status. 5. Elevate the legs. Monitor clinical response until satisfactory improvement. Because of the patient's multiple allergies Antibiotic choices limited. Discussed with at bedside. Jeyson Torres MD Dec 08, 2017 11:10
--- NOTE | 2017-12-08 15:51 | HHI.PR ---
Subjective Remarks Patient in the chair. Says has pain in her leg and can't keep it much elevated. She is however able to walk. No fever or chills overnight. No n/v/d/c. Objective Vitals Vital Signs Date Time Temp Pulse Resp B/P (MAP) Pulse Ox O2 Delivery O2 Flow Rate FiO2 12/08/17 12:04 97.8 73 18 156/72 (100) 100 12/08/17 12:00 100 Room Air 12/08/17 12:00 90 12/08/17 10:00 74 21 160/80 (106) 100 12/08/17 08:00 80 12/08/17 08:00 97.9 67 18 113/74 (87) 100 12/08/17 08:00 100 Room Air 12/08/17 04:00 Room Air 12/08/17 04:00 97.4 67 20 118/55 (76) 97 12/08/17 03:57 69 12/08/17 00:00 98.4 76 19 133/59 (83) 97 12/08/17 00:00 Room Air 12/07/17 23:49 72 12/07/17 20:03 75 12/07/17 20:00 Room Air 12/07/17 20:00 97.9 80 18 140/66 (90) 94 12/07/17 16:00 98.0 76 18 120/75 (90) 100 I/O 12/07/17 12/07/17 12/07/17 12/08/17 12/08/17 12/08/17 07:00 15:00 23:00 07:00 15:00 23:00 Intake Total 290 ml 530 ml 1290 ml Balance 290 ml 530 ml 1290 ml Intake Oral 240 ml 480 ml 240 ml IV Total 50 ml 50 ml 1050 ml # Voids 3 10 3 # Bowel Movements 0 0 Result Diagram: 12/07/1732912/07/17334 Imaging Last Impressions Abdomen/Pelvis CT 12/01/17427 Signed Impressions: Service Date/Time: Friday, December 01, 2017 05:25 - CONCLUSION: 1. Diverticulosis without diverticulitis. 2. Small hiatal hernia. 3. Stable mildly dilated gallbladder. Helder Rodriguez MD Head CT 12/01/17 032 Signed Impressions: Service Date/Time: Friday, December 01, 2017 04:23 - CONCLUSION: No acute disease. Helder Rodriguez MD Chest X-Ray 12/01/17 0318 Signed Impressions: Service Date/Time: Friday, December 01, 2017 03:41 - CONCLUSION: No acute disease. Helder Rodriguez MD Objective Remarks GENERAL: This is a well-nourished, well-developed patient, anxious, crying at times. CARDIOVASCULAR: Regular rate and rhythm without murmurs, gallops, or rubs. RESPIRATORY: Fair air entry bilaterally. No wheezes, rales, or rhonchi. GASTROINTESTINAL: Abdomen soft, non-tender, nondistended. Positive bowel sounds MUSCULOSKELETAL: Left lower leg swelling warmth and tenderness. Erythema worsening but not extending, blisters and drainage from wound noted as well. NEUROLOGICAL: Awake and alert. Moves all extremity. Normal speech.no focal neurological deficit PSYCHIATRIC: Appears anxious and depressed. A/P Problem List: (1) Sepsis ICD Code: A41.9 - Sepsis, unspecified organism (2) Cellulitis ICD Code: L03.90 - Cellulitis, unspecified (3) Essential tremor ICD Code: G25.0 - Essential tremor Status: Chronic Assessment and Plan 62-year-old female with Sepsis: Heart rate over 90, WBC > 42298, < 4000 or > 10% bands on admission. Improving Cellulitis left lower extremity worsening Pain in left leg Wound cx negative however were obtained days after she received abx Blood cultures NTD , monitor DC vancomycin and start zosyn IV discussed with Dr Torres ID, continue abx for a few days and monitor response, monitor culture report. Keep leg elevated. ID consultation appreciate recommendations Pain meds norco PO prn and morphine IV for breakthrough pain. Monitor VS Monitor kidney function while on abx Monitor CBC Consult PT Consult wound care Anxiety/depression. Start ativan 0.5 mg po q8hrs prn anxiety. Psych consult Essential tremor. Resume outpatient medication DVT prophylaxis: Heparin Discussed with the patient, nurse DC plan: worsening cellulitis, IV abx changed to Zosyn monitor clinical response while on Zosyn, monitor blood/wound cx. Della Zheng MD Dec 08, 2017 15:51
[2017-12-09] VITALS (8 sets, daily range): BP systolic 126–161; BP diastolic 60–78; PULSE 64–81; RESP 16–20; TEMP 97.2–98.6; O2SAT 97–99
[2017-12-09] MEDS: ACETAMINOPHEN/HYDROcodone 325 MG/5 MG TAB PO PRN ×4 (00:52→20:02)
[2017-12-09] MEDS: PIPERACIL-TAZO 3.375 GM PREMIX 50 ML IV SCH ×2 (05:01→10:28)
[2017-12-09] MEDS: LACTOBACILLUS ACIDOPHILUS TAB PO SCH ×2 (07:58→20:02)
[2017-12-09] MEDS: DOCUSATE SODIUM 50 MG/SENNA 8.6 MG TAB PO SCH ×3 (07:59→21:00)
[2017-12-09] MEDS: TOPIRAMATE 25 MG TAB PO SCH (08:00)
[2017-12-09] MEDS: SODIUM CHLOR 0.9% 1000 ML INJ 1,000 ML IV SCH (10:06)
[2017-12-09] MEDS: SODIUM CHLORIDE 0.9% FLUSH 10 ML FLUSH IV FLUSH SCH ×2 (10:28→20:02)
--- NOTE | 2017-12-09 11:06 | HHI.PR ---
Subjective Remarks In the chair. Since she has had pain in her left leg now anymore. No fever chills. Erythema and edema not getting better. Denies chest pain. Has some shortness of breath when ambulating. Not eating much decreased appetite. Objective Vitals Vital Signs Date Time Temp Pulse Resp B/P (MAP) Pulse Ox O2 Delivery O2 Flow Rate FiO2 12/09/17 08:00 97.3 66 20 156/70 (98) 97 12/09/17 04:00 97.9 66 16 135/78 (97) 99 12/09/17 04:00 Room Air 12/09/17 03:43 68 12/09/17 00:00 97.6 64 16 126/60 (82) 99 12/09/17 00:00 Room Air 12/08/17 23:46 67 12/08/17 20:00 Room Air 12/08/17 20:00 97.9 76 20 142/82 (102) 97 12/08/17 19:41 75 12/08/17 18:40 99 Room Air 12/08/17 18:39 70 12/08/17 16:00 98.2 78 18 134/59 (84) 99 12/08/17 12:04 97.8 73 18 156/72 (100) 100 12/08/17 12:00 100 Room Air 12/08/17 12:00 90 I/O 12/08/17 12/08/17 12/08/17 12/09/17 12/09/17 12/09/17 07:00 15:00 23:00 07:00 15:00 23:00 Intake Total 1290 ml 290 ml 360 ml Balance 1290 ml 290 ml 360 ml Intake Oral 240 ml 240 ml 360 ml IV Total 1050 ml 50 ml # Voids 3 3 3 # Bowel Movements 0 0 Result Diagram: 12/07/17 0330 12/07/17 0335 Imaging Last Impressions Abdomen/Pelvis CT 12/01/17 0428 Signed Impressions: Service Date/Time: Friday, December 01, 2017 05:25 - CONCLUSION: 1. Diverticulosis without diverticulitis. 2. Small hiatal hernia. 3. Stable mildly dilated gallbladder. Helder Rodriguez MD Head CT 12/01/17 0321 Signed Impressions: Service Date/Time: Friday, December 01, 2017 04:23 - CONCLUSION: No acute disease. Helder Rodriguez MD Chest X-Ray 12/01/17 0318 Signed Impressions: Service Date/Time: Friday, December 01, 2017 03:41 - CONCLUSION: No acute disease. Helder Rodriguez MD Objective Remarks GENERAL: This is a well-nourished, well-developed patient, anxious, crying at times. CARDIOVASCULAR: Regular rate and rhythm without murmurs, gallops, or rubs. RESPIRATORY: Fair air entry bilaterally. No wheezes, rales, or rhonchi. GASTROINTESTINAL: Abdomen soft, non-tender, nondistended. Positive bowel sounds MUSCULOSKELETAL: Left lower leg swelling warmth and tenderness. Erythema worsening but not extending, blisters and drainage from wound noted as well. NEUROLOGICAL: Awake and alert. Moves all extremity. Normal speech.no focal neurological deficit PSYCHIATRIC: Appears anxious and depressed. A/P Problem List: (1) Sepsis ICD Code: A41.9 - Sepsis, unspecified organism (2) Cellulitis ICD Code: L03.90 - Cellulitis, unspecified (3) Essential tremor ICD Code: G25.0 - Essential tremor Status: Chronic Assessment and Plan 62-year-old female with Sepsis: Heart rate over 90, WBC > 33662, < 4000 or > 10% bands on admission. Improving Cellulitis left lower extremity worsening Pain in left leg Wound cx negative however were obtained days after she received abx Blood cultures NTD , monitor DC vancomycin and start zosyn IV discussed with Dr Torres ID, continue abx for a few days and monitor response, monitor culture report. Keep leg elevated. ID consultation appreciate recommendations Pain meds norco PO prn and morphine IV for breakthrough pain. Monitor VS Monitor kidney function while on abx Monitor CBC Consult PT Consult wound care Anxiety/depression. Start ativan 0.5 mg po q8hrs prn anxiety. Psych consult Essential tremor. Resume outpatient medication DVT prophylaxis: Heparin Discussed with the patient, nurse DC plan: worsening cellulitis, IV abx changed to Zosyn monitor clinical response while on Zosyn, monitor blood/wound cx. Della Zheng MD Dec 09, 2017 11:05
--- NOTE | 2017-12-09 11:20 | HHI.IDPN ---
Note Infectious Disease Note Patient reports that she has less pain in the left leg. Sitting up in a chair. Afebrile Denies shortness of breath. Denies chills Erythema at the anterior tibialis decreased. Still has significant erythema at the posterior tibia. Left leg continues to be markedly edematous. Presented to the emergency department after experiencing chills and general ill feeling with dry heaving and tremulousness and also dry cough. The patient states that the symptoms began suddenly late last night. She states that she was well the previous day. She was brought to the emergency department by her and upon initial evaluation was found to have heart rate of 119 and white blood cell count elevation of 17.4 and elevated lactic acid level of 2.1. Temperature was normal initially and then the temperatures increased slightly to 99.7 this morning. An influenza test was taken early this morning and came back indeterminate. The repeated influenza test is negative. Blood cultures have been taken. The patient has received antibiotics in the form of vancomycin and aztreonam. PAST MEDICAL HISTORY: Essential tremor, COPD, history of diverticulitis. History of abdominal surgery in the form of lap band. This was removed 5 years ago because of episode of sepsis. PAST SURGICAL HISTORY: Appendectomy, hysterectomy, tonsillectomy. Partial plate in the mouth. ALLERGIES: CIPROFLOXACIN, LEVAQUIN, CEFADROXIL, AZITHROMYCIN, ACETAMINOPHEN, CLAVULANIC ACID, CODEINE, MONOSODIUM GLUTAMATE, TRAMADOL, VALDECOXIB. MEDICATIONS: Objective: Vital Signs Date Time Temp Pulse Resp B/P (MAP) Pulse Ox O2 Delivery O2 Flow Rate FiO2 12/09/17 08:00 97.3 66 20 156/70 (98) 97 12/09/17 04:00 97.9 66 16 135/78 (97) 99 12/09/17 04:00 Room Air 12/09/17 03:43 68 12/09/17 00:00 97.6 64 16 126/60 (82) 99 12/09/17 00:00 Room Air 12/08/17 23:46 67 12/08/17 20:00 Room Air 12/08/17 20:00 97.9 76 20 142/82 (102) 97 12/08/17 19:41 75 12/08/17 18:40 99 Room Air 12/08/17 18:39 70 12/08/17 16:00 98.2 78 18 134/59 (84) 99 12/08/17 12:04 97.8 73 18 156/72 (100) 100 12/08/17 12:00 100 Room Air 12/08/17 12:00 90 Laboratory Tests Test 12/05/17 11:31 White Blood Count 9.3 TH/MM3 Red Blood Count 3.80 MIL/MM3 Hemoglobin 10.8 GM/DL Hematocrit 32.0 % Mean Corpuscular Volume 84.1 FL Mean Corpuscular Hemoglobin 28.4 PG Mean Corpuscular Hemoglobin Concent 33.8 % Red Cell Distribution Width 15.2 % Platelet Count 217 TH/MM3 Mean Platelet Volume 8.6 FL Neutrophils (%) (Auto) 71.1 % Lymphocytes (%) (Auto) 16.2 % Monocytes (%) (Auto) 10.8 % Eosinophils (%) (Auto) 1.5 % Basophils (%) (Auto) 0.4 % Neutrophils # (Auto) 6.6 TH/MM3 Lymphocytes # (Auto) 1.5 TH/MM3 Monocytes # (Auto) 1.0 TH/MM3 Eosinophils # (Auto) 0.1 TH/MM3 Basophils # (Auto) 0.0 TH/MM3 CBC Comment DIFF FINAL Differential Comment Laboratory Tests Test 12/04/17 06:16 12/05/17 11:31 Creatinine 0.87 MG/DL 0.80 MG/DL Estimat Glomerular Filtration Rate 66 ML/MIN 72 ML/MIN Blood Urea Nitrogen 11 MG/DL Random Glucose 112 MG/DL Calcium Level 7.9 MG/DL Sodium Level 141 MEQ/L Potassium Level 3.8 MEQ/L Chloride Level 114 MEQ/L Carbon Dioxide Level 20.6 MEQ/L Anion Gap 6 MEQ/L Imaging: Abdomen/Pelvis CT 12/01/17 0428 Signed Impressions: Service Date/Time: Friday, December 01, 2017 05:25 - CONCLUSION: 1. Diverticulosis without diverticulitis. 2. Small hiatal hernia. 3. Stable mildly dilated gallbladder. Helder Rodriguez MD Head CT 12/01/17 0321 Signed Impressions: Service Date/Time: Friday, December 01, 2017 04:23 - CONCLUSION: No acute disease. Helder Rodriguez MD Chest X-Ray 12/01/17 1859 Signed Impressions: Service Date/Time: Friday, December 01, 2017 03:41 - CONCLUSION: No acute disease. Helder Rodriguez MD PHYSICAL EXAMINATION: GENERAL: No acute distress. HEENT: No icterus. No conjunctival erythema. Oropharynx, moist mucosa. No thrush. No lesions. NECK: Supple. LUNGS: Clear to auscultation. HEART: Regular S1 and S2 without audible murmurs, rubs, or gallops. ABDOMEN: Bowel sounds present. Soft, obese, nontender. No palpable masses. EXTREMITIES: Erythema is decreased at the anterior left tibia.. Patient still has significant erythema at the posterior aspect of the left leg. However there is no increase over yesterday. The left leg is less warm to touch. Left leg has 2+ edema. Tenderness on palpation of the left leg over the erythema mostly at the posterior aspect. SKIN: No diffuse rash. NEUROLOGIC: No gross focal findings. PSYCHIATRIC: Calm and cooperative. ASSESSMENT AND PLAN: 1. SIRS/sepsis. Presented with tachycardia along with leukocytosis, elevated lactic acid level, and also noted symptoms of chills. Source is most likely Cellulitis of the left leg. 2. Leukocytosis, likely secondary to sepsis. White blood cell count has improved. 3. Severe cellulitis of the left lower extremity slow to improve. However it appears to be gradually improving. I suspect it is more likely due to streptococcal infection.(Erysipelas). Patient probably has lymphangitis which may be retarding improvement. 4. Cough, which is nonproductive. Negative influenza test. Improved. Probable viral upper respiratory infection. 5. Multiple antibiotic allergies. Patient reports that she can tolerate penicillins. She has been tolerating piperacillin/tazobactam without any reaction. RECOMMENDATIONS: 1. Change piperacillin/tazobactam to penicillin G IV. 2. Follow the left leg erythema. 3. Monitor clinical status. 4. Continue to elevate the left leg. 5. The dressing change has been done with nonstick dressing wrapped over with Nikita bandage. Monitor the response to antibiotics. Further disposition will depend on the patient's improvement. If no further significant improvement she may have to be sent home on intravenous antibiotics And follow-up with outpatient infectious disease. Jeyson Torres MD Dec 09, 2017 11:20
[2017-12-09] MEDS: PENICILLIN G SODIUM INJ 2,000,000 UNITS in SODIUM CHLORIDE 0.9% INJ 100 ML IV SCH ×3 (13:00→20:03)
[2017-12-10] VITALS (10 sets, daily range): BP systolic 131–180; BP diastolic 60–88; PULSE 64–88; RESP 16–22; TEMP 97.2–98.5; O2SAT 96–100
[2017-12-10] MEDS: PENICILLIN G SODIUM INJ 2,000,000 UNITS in SODIUM CHLORIDE 0.9% INJ 100 ML IV SCH ×6 (00:27→20:30)
[2017-12-10] MEDS: SODIUM CHLOR 0.9% 1000 ML INJ 1,000 ML IV SCH ×3 (00:27→22:50)
[2017-12-10] MEDS: ACETAMINOPHEN/HYDROcodone 325 MG/5 MG TAB PO PRN ×5 (01:07→18:23)
[2017-12-10] MEDS: SODIUM CHLORIDE 0.9% FLUSH 10 ML FLUSH IV FLUSH SCH ×2 (09:00→20:30)
[2017-12-10] MEDS: DOCUSATE SODIUM 50 MG/SENNA 8.6 MG TAB PO SCH ×2 (09:00→20:30)
[2017-12-10] MEDS: LACTOBACILLUS ACIDOPHILUS TAB PO SCH ×2 (09:27→20:29)
[2017-12-10] MEDS: TOPIRAMATE 25 MG TAB PO SCH (09:27)
--- NOTE | 2017-12-10 11:14 | HHI.PR ---
Subjective Remarks The patient is in the chair. Cellulitis not much improvement. Continue IV antibiotics. Discussed with Dr. Torres infectious disease, plan for continuous infusion with the penicillin outpatient. Discussed with the patient plan. Pt however does not feel comfortable to go home and says she cannot walk the stairs and cannot go home. Discussed with physical therapy. Patient however is walking for 240 feet and they recommend she at home. Will reevaluate the patient. Objective Vitals Vital Signs Date Time Temp Pulse Resp B/P (MAP) Pulse Ox O2 Delivery O2 Flow Rate FiO2 12/10/17 08:03 97.5 69 22 174/86 (115) 100 12/10/17 08:00 88 12/10/17 07:00 Room Air 12/10/17 04:06 64 12/10/17 04:00 97.8 72 20 131/60 (83) 96 12/10/17 00:00 80 12/10/17 00:00 97.9 70 20 138/62 (87) 98 12/09/17 20:00 79 12/09/17 20:00 98.6 81 20 148/63 (91) 98 12/09/17 20:00 Room Air 12/09/17 18:39 70 12/09/17 18:39 98 Room Air 12/09/17 16:00 97.2 77 20 161/64 (96) 98 12/09/17 14:41 97 Room Air 12/09/17 12:00 97.6 78 20 139/67 (91) 97 I/O 12/09/17 12/09/17 12/09/17 12/10/17 12/10/17 12/10/17 07:00 15:00 23:00 07:00 15:00 23:00 Intake Total 360 ml 720 ml 160 ml 1520 ml Output Total 2 ml Balance 360 ml 720 ml 160 ml 1518 ml Intake Oral 360 ml 720 ml 60 ml 320 ml IV Total 100 ml 1200 ml Output Urine Total 2 ml # Voids 3 2 1 # Bowel Movements 1 0 Result Diagram: 12/07/17 0330 12/07/17 033 Imaging Last Impressions Abdomen/Pelvis CT 12/01/17 0428 Signed Impressions: Service Date/Time: Friday, December 01, 2017 05:25 - CONCLUSION: 1. Diverticulosis without diverticulitis. 2. Small hiatal hernia. 3. Stable mildly dilated gallbladder. Helder Rodriguez MD Head CT 12/01/17 0321 Signed Impressions: Service Date/Time: Friday, December 01, 2017 04:23 - CONCLUSION: No acute disease. Helder Rodriguez MD Chest X-Ray 12/01/178 Signed Impressions: Service Date/Time: Friday, December 01, 2017 03:41 - CONCLUSION: No acute disease. Helder Rodriguez MD Objective Remarks GENERAL: This is a well-nourished, well-developed patient, anxious, crying at times. CARDIOVASCULAR: Regular rate and rhythm without murmurs, gallops, or rubs. RESPIRATORY: Fair air entry bilaterally. No wheezes, rales, or rhonchi. GASTROINTESTINAL: Abdomen soft, non-tender, nondistended. Positive bowel sounds MUSCULOSKELETAL: Left lower leg swelling warmth and tenderness. Erythema worsening but not extending, blisters and drainage from wound noted as well. NEUROLOGICAL: Awake and alert. Moves all extremity. Normal speech.no focal neurological deficit PSYCHIATRIC: Appears anxious and depressed. A/P Problem List: (1) Sepsis ICD Code: A41.9 - Sepsis, unspecified organism (2) Cellulitis ICD Code: L03.90 - Cellulitis, unspecified (3) Essential tremor ICD Code: G25.0 - Essential tremor Status: Chronic Assessment and Plan 62-year-old female with Sepsis: Heart rate over 90, WBC > 33231, < 4000 or > 10% bands on admission. Improving Cellulitis left lower extremity worsening Pain in left leg Wound cx negative however were obtained days after she received abx Blood cultures NTD , monitor DC vancomycin and start zosyn IV discussed with Dr Torres ID, continue abx for a few days and monitor response, monitor culture report. Keep leg elevated. ID consultation appreciate recommendations Pain meds norco PO prn and morphine IV for breakthrough pain. Monitor VS Monitor kidney function while on abx Monitor CBC Consult PT Consult wound care Anxiety/depression. Start ativan 0.5 mg po q8hrs prn anxiety. Psych consult Essential tremor. Resume outpatient medication DVT prophylaxis: Heparin Discussed with the patient, nurse DC plan: Discussed with ID specialist Dr Torres plan to DC patient with IV abx infusion penicillin. Discussed with the patient plan. Pt however does not feel comfortable to go home and says she cannot walk the stairs and cannot go home. Discussed with physical therapy. Patient however is walking for 240 feet and they recommend she at home. Will reevaluate the patient. DC when arrangements are done. Problem Qualifiers (1) Cellulitis: Qualified Codes: L03.116 - Cellulitis of left lower limb Della Zheng MD Dec 10, 2017 11:14
--- NOTE | 2017-12-10 11:23 | HHI.FF ---
Infusion Therapy Location of Infusion Therapy: Home [facility] IV Infusion Order Patient Information Patient Weight 134.7 kg Diagnosis: (1) SIRS (systemic inflammatory response syndrome) (2) Cellulitis Coded Allergies: azithromycin (Verified Allergy, Severe, 12/01/17) ciprofloxacin (Verified Allergy, Severe, Rash, 12/01/17) clavulanic acid (Verified Allergy, Severe, Rash, 12/01/17) levofloxacin (Verified Allergy, Severe, Rash, 12/01/17) tramadol (Verified Allergy, Severe, 12/01/17) valdecoxib (Verified Allergy, Severe, 12/01/17) cefadroxil (Verified Allergy, Unknown, 12/01/17) codeine (Verified Allergy, Unknown, 12/01/17) monosodium glutamate (Verified Adverse Reaction, Severe, 12/01/17) Administer Medication Penicillin G Sodium Continuous 12 milllion units IV / day Stop Treatment: Dec 19, 2017 Additional Information Venous access: PICC Line Additional Instructions [x] Peripheral flush and dressing changes per protocol [x] Implanted port and central lines tender: * Implanted port: 10 ml Normal Saline followed by 5 ml Heparin 100 units/ml Heparin flush after each use and monthly to maintain. [] May leave port accessed during therapy. [] May leave peripheral site accessed for duration of therapy. [x] If patient has SOB or respiratory distress, check oxygen saturation. If less than 90% or clinical signs of respiratory distress, administer oxygen at 2 L/min. via nasal cannula and notify physician. [x] Anaphylaxis/Reaction orders: * Stop infusion. * Keep IV line open with saline flush. * Notify physician. * Monitor vital signs every 15 minutes until symptoms resolve. * Check Oxygen saturation; Oxygen at 2 L/min. via nasal cannula if less than 90% or clinical signs of respiratory distress. * Administer diphenhydramine (Benadryl) 25 mg IV STAT, (unless patient has received as pre-med). May repeat once, if necessary. * Solu-Cortef 250 mg IVP over 30-60 seconds, use 100 mg vials for each dissolution. * Epinephrine (1mg/1 ml) 0.3 mg subcutaneously or IVP now with any signs of respiratory distress. * Check with physician for new additional pre-med orders if patient is re- challenged or re-treated. [x] May remove PICC line when treatment complete, after confirming with Physician. [x] If the patient is admitted to the hospital, the ED, or transferred via [facility] , complete transfer form including medication reconciliation order sheet. Laboratory Tests Additional Information BMP Q 3 days while on IV antibiotic. Follow up with Dr. Meyers in 1 week. Jeyson Torres MD Dec 10, 2017 11:23
--- NOTE | 2017-12-10 11:34 | HHI.IDPN ---
Note Infectious Disease Note Patient notes that she has significant pain at the back of the left leg. Sitting up in a chair. Afebrile Notes mild shortness of breath but says she is able to control it and there is no different from usual. Denies chills Erythema at the anterior tibia decreased. Still has significant erythema at the posterior tibia. Mild decrease in edema of the left leg. Presented to the emergency department after experiencing chills and general ill feeling with dry heaving and tremulousness and also dry cough. The patient states that the symptoms began suddenly late last night. She states that she was well the previous day. She was brought to the emergency department by her and upon initial evaluation was found to have heart rate of 119 and white blood cell count elevation of 17.4 and elevated lactic acid level of 2.1. Temperature was normal initially and then the temperatures increased slightly to 99.7 this morning. An influenza test was taken early this morning and came back indeterminate. The repeated influenza test is negative. Blood cultures have been taken. The patient has received antibiotics in the form of vancomycin and aztreonam. PAST MEDICAL HISTORY: Essential tremor, COPD, history of diverticulitis. History of abdominal surgery in the form of lap band. This was removed 5 years ago because of episode of sepsis. PAST SURGICAL HISTORY: Appendectomy, hysterectomy, tonsillectomy. Partial plate in the mouth. ALLERGIES: CIPROFLOXACIN, LEVAQUIN, CEFADROXIL, AZITHROMYCIN, ACETAMINOPHEN, CLAVULANIC ACID, CODEINE, MONOSODIUM GLUTAMATE, TRAMADOL, VALDECOXIB. MEDICATIONS: Current Medications Medications (Trade) Dose Ordered Sig/Mya Route PRN Reason Start Time Stop Time Status Last Admin Dose Admin Sodium Chloride 1,000 ml @ 70 mls/hr [id number] IV 12/01/17 05:54 12/10/17 00:27 Sodium Chloride (NS Flush) 2 ml UNSCH PRN IV FLUSH FLUSH AFTER USING IV ACCESS 12/01/17 06:00 12/05/17 01:30 Sodium Chloride (NS Flush) 2 ml BID IV FLUSH 12/01/17 09:00 12/09/17 10:28 Ondansetron HCl (Zofran Inj) 4 mg Q6H PRN IVP NAUSEA OR VOMITING 12/01/17 06:00 12/02/17 15:32 Senna/Docusate Sodium (Janette-Colace) 1 tab BID PO 12/01/17 09:00 12/08/17 21:02 Magnesium Hydroxide (Milk Of Magnesia Liq) 30 ml Q12H PRN PO Mild constipation 12/01/17 06:00 Sennosides (Senokot) 17.2 mg Q12H PRN PO Moderate constipation 12/01/17 06:00 Bisacodyl (Dulcolax Supp) 10 mg DAILY PRN RECTAL SEVERE CONSITIPATION 12/01/17 06:00 Lactulose (Lactulose Liq) 30 ml DAILY PRN PO SEVERE CONSITIPATION 12/01/17 06:00 Acetaminophen (Tylenol) 650 mg Q6H PRN PO HEADACHE/FEVER 12/02/17 15:00 12/02/17 22:40 Loperamide HCl (Imodium) 2 mg UNSCH PRN PO DIARRHEA 12/03/17 02:45 12/03/17 13:50 Acetaminophen/ Hydrocodone Bitart ([place] 5-325 Mg) 1 tab Q4H PRN PO PAIN 2-10 12/04/17 13:00 12/10/17 09:31 Morphine Sulfate (Morphine Inj) 2 mg Q4H PRN IV PUSH BREAKTHROUGH PAIN 12/04/17 19:45 12/05/17 01:30 Topiramate (Topamax) 125 mg DAILY PO 12/06/17 09:00 12/10/17 09:27 Lactobacillus Acidophilus (Lactinex) 1 tab Q12HR PO 12/05/17 11:00 12/10/17 09:27 Lorazepam (Ativan) 0.5 mg Q8H PRN PO anxiety/depression 12/06/17 17:15 12/07/17 22:43 Penicillin G Sodium 7004452 units/Sodium Chloride 100 ml @ 200 mls/hr Q4H IV 12/09/17 13:00 12/10/17 09:27 Objective: Vital Signs Date Time Temp Pulse Resp B/P (MAP) Pulse Ox O2 Delivery O2 Flow Rate FiO2 12/10/17 08:03 97.5 69 22 174/86 (115) 100 12/10/17 08:00 88 12/10/17 07:00 Room Air 12/10/17 04:06 64 12/10/17 04:00 97.8 72 20 131/60 (83) 96 12/10/17 00:00 80 12/10/17 00:00 97.9 70 20 138/62 (87) 98 12/09/17 20:00 79 12/09/17 20:00 98.6 81 20 148/63 (91) 98 12/09/17 20:00 Room Air 12/09/17 18:39 70 12/09/17 18:39 98 Room Air 12/09/17 16:00 97.2 77 20 161/64 (96) 98 12/09/17 14:41 97 Room Air 12/09/17 12:00 97.6 78 20 139/67 (91) 97 Vital Signs Date Time Temp Pulse Resp B/P (MAP) Pulse Ox O2 Delivery O2 Flow Rate FiO2 12/10/17 08:03 97.5 69 22 174/86 (115) 100 12/10/17 08:00 88 12/10/17 07:00 Room Air 12/10/17 04:06 64 12/10/17 04:00 97.8 72 20 131/60 (83) 96 12/10/17 00:00 80 12/10/17 00:00 97.9 70 20 138/62 (87) 98 12/09/17 20:00 79 12/09/17 20:00 98.6 81 20 148/63 (91) 98 12/09/17 20:00 Room Air 12/09/17 18:39 70 12/09/17 18:39 98 Room Air 12/09/17 16:00 97.2 77 20 161/64 (96) 98 12/09/17 14:41 97 Room Air 12/09/17 12:00 97.6 78 20 139/67 (91) 97 Imaging: Abdomen/Pelvis CT 12/01/17 0428 Signed Impressions: Service Date/Time: Friday, December 01, 2017 05:25 - CONCLUSION: 1. Diverticulosis without diverticulitis. 2. Small hiatal hernia. 3. Stable mildly dilated gallbladder. Helder Rodriguez MD Head CT 12/01/17 0321 Signed Impressions: Service Date/Time: Friday, December 01, 2017 04:23 - CONCLUSION: No acute disease. Helder Rodriguez MD Chest X-Ray 12/01/17 2327 Signed Impressions: Service Date/Time: Friday, December 01, 2017 03:41 - CONCLUSION: No acute disease. Helder Rodriguez MD PHYSICAL EXAMINATION: GENERAL: No acute distress. HEENT: No icterus. No conjunctival erythema. Oropharynx, moist mucosa. No thrush. No lesions. NECK: Supple. LUNGS: Clear to auscultation. HEART: Regular S1 and S2 without audible murmurs, rubs, or gallops. ABDOMEN: Bowel sounds present. Soft, obese, nontender. No palpable masses. EXTREMITIES: Erythema is decreased at the anterior left tibia. Significant erythema is still present at the posterior aspect of the left leg. The skin at the posterior aspect is no developing a pedal light yellow superficial change. Left leg has 2+ edema. Tenderness on palpation of the left leg over the erythema mostly at the posterior aspect. SKIN: No diffuse rash. NEUROLOGIC: No gross focal findings. PSYCHIATRIC: Calm and cooperative. ASSESSMENT AND PLAN: 1. SIRS/sepsis. Presented with tachycardia along with leukocytosis, elevated lactic acid level, and also noted symptoms of chills. Source is most likely Cellulitis of the left leg. 2. Leukocytosis, likely secondary to sepsis. White blood cell count has improved. 3. Severe cellulitis of the left lower extremity slow to improve. Slow gradual improvement. I suspect it is more likely due to streptococcal infection.(Erysipelas). Patient probably has lymphangitis which may be retarding improvement. 4. Cough, which is nonproductive. Negative influenza test. Improved. Probable viral upper respiratory infection. 5. Multiple antibiotic allergies. Patient reports that she can tolerate penicillins. Tolerating penicillin without reaction. RECOMMENDATIONS: Patient appears clinically stable. Since she appears to be improving gradually, she can be given outpatient intravenous penicillin for 10 days and follow-up with ID in 1 week. The left leg can now be exposed to air. The patient should continue to elevate the left leg. A midline has been ordered for the IV antibiotics. Case management consulted to arrange the antibiotics. She can be discharged after the arrangements for IV outpatient antibiotics are made. Jeyson Torres MD Dec 10, 2017 11:34
[2017-12-11] VITALS (8 sets, daily range): BP systolic 142–170; BP diastolic 58–77; PULSE 68–97; RESP 16–19; TEMP 97.7–99; O2SAT 94–99
[2017-12-11] MEDS: PENICILLIN G SODIUM INJ 2,000,000 UNITS in SODIUM CHLORIDE 0.9% INJ 100 ML IV SCH ×6 (00:01→21:38)
[2017-12-11] MEDS: ACETAMINOPHEN/HYDROcodone 325 MG/5 MG TAB PO PRN ×6 (00:01→22:53)
--- NOTE | 2017-12-11 08:50 | HHI.PR ---
Subjective Remarks Patient refused PICC line placement yesterday Patient still refusing any IV lines to have at home./ Discussed with Dr Thrasher will reevaluate tomorrow and see if we can change to PO abx Patient denies fever or chills. Denies nausea vomiting no diarrhea constipation. Eating better. Edema on the left lower extremity is getting better. Erythema with less discharge, drying up. Objective Vitals Vital Signs Date Time Temp Pulse Resp B/P (MAP) Pulse Ox O2 Delivery O2 Flow Rate FiO2 12/11/17 07:53 97.8 70 18 146/66 (92) 98 12/11/17 04:00 Room Air 12/11/17 04:00 97.9 68 18 153/58 (89) 97 12/11/17 04:00 97 12/11/17 00:25 74 12/11/17 00:00 Room Air 12/11/17 00:00 98.1 74 19 142/63 (89) 97 12/10/17 20:00 79 12/10/17 20:00 Room Air 12/10/17 20:00 98.5 75 16 154/67 (96) 98 12/10/17 16:03 97.2 70 20 180/88 (118) 98 12/10/17 16:00 75 12/10/17 12:03 97.4 70 22 170/82 (111) 99 12/10/17 12:00 79 I/O 12/10/17 12/10/17 12/10/17 12/11/17 12/11/17 12/11/17 07:00 15:00 23:00 07:00 15:00 23:00 Intake Total 1520 ml 580 ml 1080 ml Output Total 2 ml Balance 1518 ml 580 ml 1080 ml Intake Oral 320 ml 480 ml 980 ml IV Total 1200 ml 100 ml 100 ml Output Urine Total 2 ml # Voids 5 6 # Bowel Movements 0 1 0 Result Diagram: 12/07/1732912/07/17334 Imaging Last Impressions Abdomen/Pelvis CT 12/01/17427 Signed Impressions: Service Date/Time: Friday, December 01, 2017 05:25 - CONCLUSION: 1. Diverticulosis without diverticulitis. 2. Small hiatal hernia. 3. Stable mildly dilated gallbladder. Helder Rodriguez MD Head CT 4/05/12 321 Signed Impressions: Service Date/Time: Friday, December 01, 2017 04:23 - CONCLUSION: No acute disease. Helder Rodriguez MD Chest X-Ray 12/01/17317 Signed Impressions: Service Date/Time: Friday, December 01, 2017 03:41 - CONCLUSION: No acute disease. Helder Rodriguez MD Objective Remarks GENERAL: This is a well-nourished, well-developed patient, anxious, crying at times. CARDIOVASCULAR: Regular rate and rhythm without murmurs, gallops, or rubs. RESPIRATORY: Fair air entry bilaterally. No wheezes, rales, or rhonchi. GASTROINTESTINAL: Abdomen soft, non-tender, nondistended. Positive bowel sounds MUSCULOSKELETAL: Left lower leg swelling warmth and tenderness. Edema on the left lower extremity is getting better. Erythema with less discharge, drying up. NEUROLOGICAL: Awake and alert. Moves all extremity. Normal speech.no focal neurological deficit PSYCHIATRIC: Appears anxious and depressed. A/P Problem List: (1) Sepsis ICD Code: A41.9 - Sepsis, unspecified organism (2) Cellulitis ICD Code: L03.90 - Cellulitis, unspecified (3) Essential tremor ICD Code: G25.0 - Essential tremor Status: Chronic Assessment and Plan 62-year-old female with Sepsis: Heart rate over 90, WBC > 47760, < 4000 or > 10% bands on admission. Improving Cellulitis left lower extremity worsening Pain in left leg Wound cx negative however were obtained days after she received abx Blood cultures NTD , monitor DC vancomycin and start zosyn IV discussed with Dr Torres ID, continue abx for a few days and monitor response, monitor culture report. Keep leg elevated. ID consultation appreciate recommendations Pain meds norco PO prn and morphine IV for breakthrough pain. Monitor VS Monitor kidney function while on abx Monitor CBC Consult PT Consult wound care Anxiety/depression. Start ativan 0.5 mg po q8hrs prn anxiety. Psych consult Essential tremor. Resume outpatient medication DVT prophylaxis: Heparin Discussed with the patient, nurse DC plan: Discussed with ID specialist Dr Torres plan to DC patient with IV abx infusion penicillin. The patient is refusing PICC line or midline. Since she does not want to go home with any IVs. Discussed with infectious disease specialist. Will reevaluate tomorrowDontfraid and decide if patient can be switched to by mouth antibiotics. However very challenging case because patient with multiple antibiotic allergies. Discussed with the patient plan. Pt however does not feel comfortable to go home and says she cannot walk the stairs and cannot go home. Discussed with physical therapy. Patient however is walking for 240 feet and they recommend she at home. Will reevaluate the patient. DC when arrangements are done. Problem Qualifiers (1) Cellulitis: Qualified Codes: L03.116 - Cellulitis of left lower limb Della Zheng MD Dec 11, 2017 08:50
[2017-12-11] MEDS: DOCUSATE SODIUM 50 MG/SENNA 8.6 MG TAB PO SCH ×2 (09:00→21:00)
[2017-12-11] MEDS: SODIUM CHLORIDE 0.9% FLUSH 10 ML FLUSH IV FLUSH SCH ×2 (09:08→21:38)
[2017-12-11] MEDS: TOPIRAMATE 25 MG TAB PO SCH (09:17)
[2017-12-11] MEDS: LACTOBACILLUS ACIDOPHILUS TAB PO SCH ×2 (09:17→21:38)
--- NOTE | 2017-12-11 14:19 | HHI.IDPN ---
Note Infectious Disease Note Patient is terrified about having a PICC line placed. She absolutely does not want a PICC line. She is concerned about potential complications The left leg still has significant erythema particularly at the posterior aspect. Left leg still swollen. She notes slight itching at the skin of her neck. No visible skin rash. Afebrile. Presented to the emergency department after experiencing chills and general ill feeling with dry heaving and tremulousness and also dry cough. The patient states that the symptoms began suddenly late last night. She states that she was well the previous day. She was brought to the emergency department by her and upon initial evaluation was found to have heart rate of 119 and white blood cell count elevation of 17.4 and elevated lactic acid level of 2.1. Temperature was normal initially and then the temperatures increased slightly to 99.7 this morning. An influenza test was taken early this morning and came back indeterminate. The repeated influenza test is negative. Blood cultures have been taken. The patient has received antibiotics in the form of vancomycin and aztreonam. PAST MEDICAL HISTORY: Essential tremor, COPD, history of diverticulitis. History of abdominal surgery in the form of lap band. This was removed 5 years ago because of episode of sepsis. PAST SURGICAL HISTORY: Appendectomy, hysterectomy, tonsillectomy. Partial plate in the mouth. ALLERGIES: CIPROFLOXACIN, LEVAQUIN, CEFADROXIL, AZITHROMYCIN, ACETAMINOPHEN, CLAVULANIC ACID, CODEINE, MONOSODIUM GLUTAMATE, TRAMADOL, VALDECOXIB. MEDICATIONS: Current Medications Medications (Trade) Dose Ordered Sig/Mya Route PRN Reason Start Time Stop Time Status Last Admin Dose Admin Sodium Chloride 1,000 ml @ 70 mls/hr [id number] IV 12/01/17 05:54 12/10/17 22:50 Sodium Chloride (NS Flush) 2 ml UNSCH PRN IV FLUSH FLUSH AFTER USING IV ACCESS 12/01/17 06:00 12/05/17 01:30 Sodium Chloride (NS Flush) 2 ml BID IV FLUSH 12/01/17 09:00 12/11/17 09:08 Ondansetron HCl (Zofran Inj) 4 mg Q6H PRN IVP NAUSEA OR VOMITING 12/01/17 06:00 12/02/17 15:32 Senna/Docusate Sodium (Janette-Colace) 1 tab BID PO 12/01/17 09:00 12/08/17 21:02 Magnesium Hydroxide (Milk Of Magnesia Liq) 30 ml Q12H PRN PO Mild constipation 12/01/17 06:00 Sennosides (Senokot) 17.2 mg Q12H PRN PO Moderate constipation 12/01/17 06:00 Bisacodyl (Dulcolax Supp) 10 mg DAILY PRN RECTAL SEVERE CONSITIPATION 12/01/17 06:00 Lactulose (Lactulose Liq) 30 ml DAILY PRN PO SEVERE CONSITIPATION 12/01/17 06:00 Acetaminophen (Tylenol) 650 mg Q6H PRN PO HEADACHE/FEVER 12/02/17 15:00 12/02/17 22:40 Loperamide HCl (Imodium) 2 mg UNSCH PRN PO DIARRHEA 12/03/17 02:45 12/03/17 13:50 Acetaminophen/ Hydrocodone Bitart ([place] 5-325 Mg) 1 tab Q4H PRN PO PAIN 2-10 12/04/17 13:00 12/11/17 10:00 Morphine Sulfate (Morphine Inj) 2 mg Q4H PRN IV PUSH BREAKTHROUGH PAIN 12/04/17 19:45 12/05/17 01:30 Topiramate (Topamax) 125 mg DAILY PO 12/06/17 09:00 12/11/17 09:17 Lactobacillus Acidophilus (Lactinex) 1 tab Q12HR PO 12/05/17 11:00 12/11/17 09:17 Lorazepam (Ativan) 0.5 mg Q8H PRN PO anxiety/depression 12/06/17 17:15 12/07/17 22:43 Penicillin G Sodium 3063199 units/Sodium Chloride 100 ml @ 200 mls/hr Q4H IV 12/09/17 13:00 12/11/17 12:49 Objective: Vital Signs Date Time Temp Pulse Resp B/P (MAP) Pulse Ox O2 Delivery O2 Flow Rate FiO2 12/11/17 12:00 98.2 78 18 158/74 (102) 99 12/11/17 07:53 97.8 70 18 146/66 (92) 98 12/11/17 04:00 Room Air 12/11/17 04:00 97.9 68 18 153/58 (89) 97 12/11/17 04:00 97 12/11/17 00:25 74 12/11/17 00:00 Room Air 12/11/17 00:00 98.1 74 19 142/63 (89) 97 12/10/17 20:00 79 12/10/17 20:00 Room Air 12/10/17 20:00 98.5 75 16 154/67 (96) 98 12/10/17 16:03 97.2 70 20 180/88 (118) 98 12/10/17 16:00 75 Imaging: Abdomen/Pelvis CT 12/01/178 Signed Impressions: Service Date/Time: Friday, December 01, 2017 05:25 - CONCLUSION: 1. Diverticulosis without diverticulitis. 2. Small hiatal hernia. 3. Stable mildly dilated gallbladder. Helder Rodriguez MD Head CT 12/01/17 0321 Signed Impressions: Service Date/Time: Friday, December 01, 2017 04:23 - CONCLUSION: No acute disease. Helder Rodriguez MD Chest X-Ray 12/01/17 0318 Signed Impressions: Service Date/Time: Friday, December 01, 2017 03:41 - CONCLUSION: No acute disease. Helder Rodriguez MD PHYSICAL EXAMINATION: GENERAL: No acute distress. HEENT: No icterus. No conjunctival erythema. Oropharynx, moist mucosa. No thrush. No lesions. NECK: Supple. LUNGS: Clear breath sounds. HEART: Regular S1 and S2 without audible murmurs, rubs, or gallops. ABDOMEN: Bowel sounds present. Soft, obese, nontender. EXTREMITIES: Erythema is decreased at the anterior left tibia. The skin at that location is dry And some exfoliation is present. The erythema blanches. Significant erythema is still present at the posterior aspect of the left leg. The skin at the posterior aspect is now developing thin light yellow superficial membranous change. No drainage. Left leg has 2+ edema. Tenderness on palpation of the left leg over the erythema mostly at the posterior aspect. SKIN: No diffuse rash. NEUROLOGIC: No gross focal findings. PSYCHIATRIC: Calm and cooperative. ASSESSMENT AND PLAN: 1. SIRS/sepsis. Presented with tachycardia along with leukocytosis, elevated lactic acid level, and also noted symptoms of chills. Source is most likely Cellulitis of the left leg. 2. Leukocytosis, likely secondary to sepsis. White blood cell count has improved. 3. Severe cellulitis of the left lower extremity slow to improve. Slow gradual improvement. I suspect it is more likely due to streptococcal infection. Patient probably has lymphangitis which may be retarding improvement. 4. Cough, which is nonproductive. Negative influenza test. Improved. Probable viral upper respiratory infection. 5. Multiple antibiotic allergies. Patient reports that she can tolerate penicillins. Tolerating penicillin without reaction. RECOMMENDATIONS: Because we are not able to place a PICC catheter or central line in this patient who requires multiple daily doses of the penicillin is difficult to establish out of hospital placement for IV antibiotics. I recommend continue to give the intravenous penicillin in the hospital and monitor her from day to day and if in a couple of days the leg shows satisfactory improvement she can probably be switched to oral. She does exhibit some itching of the skin at the neck and we will have to watch her closely to make sure it is not a reaction to the penicillin since she has multiple antibiotic allergies. I will follow her progress and make a decision on potential oral antibiotics depending on her response. Jeyson Torres MD Dec 11, 2017 14:19
[2017-12-12] VITALS (9 sets, daily range): BP systolic 128–153; BP diastolic 56–86; PULSE 62–92; RESP 16–18; TEMP 97.1–98.3; O2SAT 94–100
[2017-12-12] MEDS: PENICILLIN G SODIUM INJ 2,000,000 UNITS in SODIUM CHLORIDE 0.9% INJ 100 ML IV SCH ×6 (01:24→21:45)
[2017-12-12] MEDS: ACETAMINOPHEN/HYDROcodone 325 MG/5 MG TAB PO PRN ×5 (03:00→21:43)
[2017-12-12] MEDS: LACTOBACILLUS ACIDOPHILUS TAB PO SCH ×2 (08:55→21:43)
[2017-12-12] MEDS: SODIUM CHLORIDE 0.9% FLUSH 10 ML FLUSH IV FLUSH SCH ×2 (08:56→21:55)
[2017-12-12] MEDS: DOCUSATE SODIUM 50 MG/SENNA 8.6 MG TAB PO SCH ×2 (08:56→21:00)
[2017-12-12] MEDS: TOPIRAMATE 25 MG TAB PO SCH (08:56)
--- NOTE | 2017-12-12 11:23 | HHI.IDPN ---
Note Infectious Disease Note Patient states that she feels okay. Left leg erythema is continuing to improve. She notes slight itching adjacent to the area of the redness where the skin appears normal. The posterior tibia area of erythema is beginning to dry up. No new blisters. No further itching at the neck. No visible skin rash. Afebrile. Presented to the emergency department after experiencing chills and general ill feeling with dry heaving and tremulousness and also dry cough. The patient states that the symptoms began suddenly late last night. She states that she was well the previous day. She was brought to the emergency department by her and upon initial evaluation was found to have heart rate of 119 and white blood cell count elevation of 17.4 and elevated lactic acid level of 2.1. Temperature was normal initially and then the temperatures increased slightly to 99.7 this morning. An influenza test was taken early this morning and came back indeterminate. The repeated influenza test is negative. Blood cultures have been taken. The patient has received antibiotics in the form of vancomycin and aztreonam. PAST MEDICAL HISTORY: Essential tremor, COPD, history of diverticulitis. History of abdominal surgery in the form of lap band. This was removed 5 years ago because of episode of sepsis. PAST SURGICAL HISTORY: Appendectomy, hysterectomy, tonsillectomy. Partial plate in the mouth. ALLERGIES: CIPROFLOXACIN, LEVAQUIN, CEFADROXIL, AZITHROMYCIN, ACETAMINOPHEN, CLAVULANIC ACID, CODEINE, MONOSODIUM GLUTAMATE, TRAMADOL, VALDECOXIB. MEDICATIONS: Current Medications Medications (Trade) Dose Ordered Sig/Mya Route PRN Reason Start Time Stop Time Status Last Admin Dose Admin Sodium Chloride (NS Flush) 2 ml UNSCH PRN IV FLUSH FLUSH AFTER USING IV ACCESS 12/01/17 06:00 12/05/17 01:30 Sodium Chloride (NS Flush) 2 ml BID IV FLUSH 12/01/17 09:00 12/12/17 08:56 Ondansetron HCl (Zofran Inj) 4 mg Q6H PRN IVP NAUSEA OR VOMITING 12/01/17 06:00 12/02/17 15:32 Senna/Docusate Sodium (Janette-Colace) 1 tab BID PO 12/01/17 09:00 12/12/17 08:56 Magnesium Hydroxide (Milk Of Magnesia Liq) 30 ml Q12H PRN PO Mild constipation 12/01/17 06:00 Sennosides (Senokot) 17.2 mg Q12H PRN PO Moderate constipation 12/01/17 06:00 Bisacodyl (Dulcolax Supp) 10 mg DAILY PRN RECTAL SEVERE CONSITIPATION 12/01/17 06:00 Lactulose (Lactulose Liq) 30 ml DAILY PRN PO SEVERE CONSITIPATION 12/01/17 06:00 Acetaminophen (Tylenol) 650 mg Q6H PRN PO HEADACHE/FEVER 12/02/17 15:00 12/02/17 22:40 Loperamide HCl (Imodium) 2 mg UNSCH PRN PO DIARRHEA 12/03/17 02:45 12/03/17 13:50 Acetaminophen/ Hydrocodone Bitart ([place] 5-325 Mg) 1 tab Q4H PRN PO PAIN 2-10 12/04/17 13:00 12/12/17 09:03 Morphine Sulfate (Morphine Inj) 2 mg Q4H PRN IV PUSH BREAKTHROUGH PAIN 12/04/17 19:45 12/05/17 01:30 Topiramate (Topamax) 125 mg DAILY PO 12/06/17 09:00 12/12/17 08:56 Lactobacillus Acidophilus (Lactinex) 1 tab Q12HR PO 12/05/17 11:00 12/12/17 08:55 Lorazepam (Ativan) 0.5 mg Q8H PRN PO anxiety/depression 12/06/17 17:15 12/07/17 22:43 Penicillin G Sodium [id number] units/Sodium Chloride 100 ml @ 200 mls/hr Q4H IV 12/09/17 13:00 12/12/17 08:55 Objective: Vital Signs Date Time Temp Pulse Resp B/P (MAP) Pulse Ox O2 Delivery O2 Flow Rate FiO2 12/12/17 08:03 97.4 73 18 152/86 (108) 100 12/12/17 07:00 Room Air 12/12/17 04:00 97.1 62 18 141/64 (89) 97 12/12/17 04:00 68 12/12/17 00:00 70 12/12/17 00:00 98.0 72 18 128/56 (80) 94 12/11/17 20:00 79 12/11/17 20:00 Room Air 12/11/17 20:00 99.0 75 17 147/70 (95) 94 12/11/17 16:00 97.7 78 16 170/77 (108) 98 12/11/17 16:00 73 12/11/17 12:00 79 12/11/17 12:00 98.2 78 18 158/74 (102) 99 Imaging: Abdomen/Pelvis CT 12/01/17 0424 Signed Impressions: Service Date/Time: Friday, December 01, 2017 05:25 - CONCLUSION: 1. Diverticulosis without diverticulitis. 2. Small hiatal hernia. 3. Stable mildly dilated gallbladder. Helder Rodriguez MD Head CT 12/01/17 0321 Signed Impressions: Service Date/Time: Friday, December 01, 2017 04:23 - CONCLUSION: No acute disease. Helder Rodriguez MD Chest X-Ray 12/01/178 Signed Impressions: Service Date/Time: Friday, December 01, 2017 03:41 - CONCLUSION: No acute disease. Helder Rodriguez MD PHYSICAL EXAMINATION: GENERAL: No acute distress. HEENT: No icterus. No conjunctival erythema. Oropharynx, moist mucosa. NECK: Supple. LUNGS: Clear breath sounds. HEART: Regular S1 and S2 without audible murmurs, rubs, or gallops. ABDOMEN: Bowel sounds present. Soft. EXTREMITIES: Erythema is decreased at the anterior left tibia. The skin at that location is dry And some exfoliation is present. The erythema blanches. Decreasing erythema at the posterior aspect of the left leg. No drainage. Left leg has 2+ edema. Tenderness on palpation of the left leg over the erythema mostly at the posterior aspect. The area overlying the erythema is less warm. SKIN: No diffuse rash. NEUROLOGIC: No gross focal findings. PSYCHIATRIC: Calm and cooperative. ASSESSMENT AND PLAN: 1. SIRS/sepsis. Presented with tachycardia along with leukocytosis, elevated lactic acid level, and also noted symptoms of chills. Source is most likely Cellulitis of the left leg. 2. Leukocytosis, likely secondary to sepsis. White blood cell count has improved. 3. Severe cellulitis of the left lower extremity slow to improve. Slow gradual improvement. I suspect it is more likely due to streptococcal infection. Patient probably has lymphangitis which may be retarding improvement. 4. Cough, which is nonproductive. Negative influenza test. Improved. Probable viral upper respiratory infection. 5. Multiple antibiotic allergies. Patient reports that she can tolerate penicillins. Tolerating penicillin without reaction. RECOMMENDATIONS: Continue the IV penicillin through today. Switch to penicillin VK 500 mg 4 times a day tomorrow. Continue the treatment for 10 days. Arrange follow-up with infectious disease outpatient in 1 week. Patient cautioned to avoid any abrasion of the skin. She has pet birds at home which her mentioned. He states that the birds like to fly onto them. Patient should make every effort to avoid the birds getting onto her infected leg. Jeyson Torres MD Dec 12, 2017 11:23
--- NOTE | 2017-12-12 17:53 | HHI.PR ---
Subjective Remarks The patient is in the chair says she has more itching in her legs. Wounds are healing. No fever or chills no nausea or vomiting no diarrhea or constipation. Objective Vitals Vital Signs Date Time Temp Pulse Resp B/P (MAP) Pulse Ox O2 Delivery O2 Flow Rate FiO2 12/12/17 16:03 98.0 80 18 153/70 (97) 99 12/12/17 16:00 77 12/12/17 12:03 98.0 77 18 146/76 (99) 98 12/12/17 12:00 78 12/12/17 08:03 97.4 73 18 152/86 (108) 100 12/12/17 08:00 92 12/12/17 07:00 Room Air 12/12/17 04:00 97.1 62 18 141/64 (89) 97 12/12/17 04:00 68 12/12/17 00:00 70 12/12/17 00:00 98.0 72 18 128/56 (80) 94 12/11/17 20:00 79 12/11/17 20:00 Room Air 12/11/17 20:00 99.0 75 17 147/70 (95) 94 I/O 12/11/17 12/11/17 12/11/17 12/12/17 12/12/17 12/12/17 07:00 15:00 23:00 07:00 15:00 23:00 Intake Total 1080 ml 1060 ml 321 ml Output Total 1500 ml Balance 1080 ml -440 ml 321 ml Intake Oral 980 ml 960 ml 222 ml IV Total 100 ml 100 ml 99 ml Output Urine Total 1500 ml # Voids 6 3 # Bowel Movements 0 1 0 Imaging Last Impressions Abdomen/Pelvis CT 12/01/17 3908 Signed Impressions: Service Date/Time: Friday, December 01, 2017 05:25 - CONCLUSION: 1. Diverticulosis without diverticulitis. 2. Small hiatal hernia. 3. Stable mildly dilated gallbladder. Helder Rdoriguez MD Head CT 12/01/17 0321 Signed Impressions: Service Date/Time: Friday, December 01, 2017 04:23 - CONCLUSION: No acute disease. Helder Rodriguez MD Chest X-Ray 12/01/17 3916 Signed Impressions: Service Date/Time: [place], December 01, 2017 03:41 - CONCLUSION: No acute disease. Helder Rodriguez MD Objective Remarks GENERAL: This is a well-nourished, well-developed patient, anxious, crying at times. CARDIOVASCULAR: Regular rate and rhythm without murmurs, gallops, or rubs. RESPIRATORY: Fair air entry bilaterally. No wheezes, rales, or rhonchi. GASTROINTESTINAL: Abdomen soft, non-tender, nondistended. Positive bowel sounds MUSCULOSKELETAL: Left lower leg swelling warmth and tenderness. Edema on the left lower extremity is getting better. Erythema with less discharge, drying up. NEUROLOGICAL: Awake and alert. Moves all extremity. Normal speech.no focal neurological deficit PSYCHIATRIC: Appears anxious and depressed. A/P Problem List: (1) Sepsis ICD Code: A41.9 - Sepsis, unspecified organism (2) Cellulitis ICD Code: L03.90 - Cellulitis, unspecified (3) Essential tremor ICD Code: G25.0 - Essential tremor Status: Chronic Assessment and Plan 62-year-old female with Sepsis: Heart rate over 90, WBC > 71128, < 4000 or > 10% bands on admission. Improving Cellulitis left lower extremity worsening Pain in left leg Wound cx negative however were obtained days after she received abx Blood cultures NTD , monitor DC vancomycin and start zosyn IV discussed with Dr Torres ID, continue abx for a few days and monitor response, monitor culture report. Keep leg elevated. ID consultation appreciate recommendations Pain meds norco PO prn and morphine IV for breakthrough pain. Monitor VS Monitor kidney function while on abx Monitor CBC Consult PT Consult wound care Anxiety/depression. Start ativan 0.5 mg po q8hrs prn anxiety. Psych consult Essential tremor. Resume outpatient medication DVT prophylaxis: Heparin Discussed with the patient, nurse DC plan: Discussed with ID specialist Dr Torres plan to DC patient with IV abx infusion penicillin. The patient is refusing PICC line or midline. Since she does not want to go home with any IVs. Discussed with infectious disease specialist. Discussed with Dr Torres switched to by mouth antibiotics tomorrow patient to have IV abx. However very challenging case because patient with multiple antibiotic allergies. Discussed with the patient plan. Switch to penicillin VK 500 mg 4 times a day tomorrow. Continue the treatment for 10 days. Arrange follow-up with infectious disease outpatient in 1 week. Patient cautioned to avoid any abrasion of the skin. She has pet birds at home which her mentioned. He states that the birds like to fly onto them. Patient should make every effort to avoid the birds getting onto her infected leg. Problem Qualifiers (1) Cellulitis: Qualified Codes: L03.116 - Cellulitis of left lower limb Della Zheng MD Dec 12, 2017 17:53
[2017-12-12] MEDS ORDERED: PENI500T PO (17:58)
[2017-12-13] VITALS: BP 112/57; PULSE 70; PULSE 73; RESP 16; TEMP 98.4; O2SAT 96
[2017-12-13] MEDS: PENICILLIN G SODIUM INJ 2,000,000 UNITS in SODIUM CHLORIDE 0.9% INJ 100 ML IV SCH ×3 (01:00→08:25)
[2017-12-13] MEDS: ACETAMINOPHEN/HYDROcodone 325 MG/5 MG TAB PO PRN ×3 (02:35→10:14)
[2017-12-13 04:00] VITALS: BP 146/71; PULSE 62; PULSE 67; RESP 16; TEMP 97.9; O2SAT 100
[2017-12-13 08:00] VITALS: BP 122/58; PULSE 66; RESP 19; TEMP 97.6; O2SAT 97
[2017-12-13] MEDS: SODIUM CHLORIDE 0.9% FLUSH 10 ML FLUSH IV FLUSH SCH (08:25)
[2017-12-13] MEDS: DOCUSATE SODIUM 50 MG/SENNA 8.6 MG TAB PO SCH (08:25)
[2017-12-13] MEDS: TOPIRAMATE 25 MG TAB PO SCH (08:25)
[2017-12-13] MEDS: LACTOBACILLUS ACIDOPHILUS TAB PO SCH (08:25)
--- NOTE | 2017-12-13 08:52 | HHI.PR ---
Subjective Remarks Pt seen and examined w/ at the bedside. AFVSS. Pt up in chair in good spirits. Reports she is feeling well and ready to go home. Pain controlled with Craig. She tolerates NSAIDs and has had no issues of GI bleed or renal problems. She feels her LLE is drastically improved from the time she came into the hospital. The patient and her decline [facility] and states they live in a small apartment with two loud birds. The patient has been ambulating the hallways and has gone up the stairs with PT. Her states he feels comfortable assisting her with her needs around the house. She is tolerating PO and voiding without issues. She denies CP, SOB, abdominal pain, N/V. Objective Vital Signs Date Time Temp Pulse Resp B/P (MAP) Pulse Ox O2 Delivery O2 Flow Rate FiO2 12/13/17 04:00 62 12/13/17 04:00 97.9 67 16 146/71 (96) 100 12/13/17 00:00 70 12/13/17 00:00 98.4 73 16 112/57 (75) 96 12/12/17 20:00 90 12/12/17 20:00 Room Air 12/12/17 20:00 98.3 77 16 144/69 (94) 96 12/12/17 16:03 98.0 80 18 153/70 (97) 99 12/12/17 16:00 77 12/12/17 12:03 98.0 77 18 146/76 (99) 98 12/12/17 12:00 78 I/O 12/12/17 12/12/17 12/12/17 12/13/17 12/13/17 12/13/17 07:00 15:00 23:00 07:00 15:00 23:00 Intake Total 321 ml 960 ml 990 ml Balance 321 ml 960 ml 990 ml Intake Oral 222 ml 960 ml 990 ml IV Total 99 ml # Voids 3 4 3 # Bowel Movements 0 0 Objective Remarks GENERAL: WN, WD female sitting up in chair with legs elevated. SKIN: Warm and dry. HEENT: AT/NC. Pupils equal and round. MMM. NECK: Supple no tender LAD or JVD. HEART: RRR no m/r/g. LUNGS: CTAB without wheezes or crackles. ABDOMEN: +BS, soft, NT, ND. EXTREMITIES: 2+ edema LLE with erythema and scaling of the left tibia. No drainage. NEURO: Awake and alert. Nonfocal. PSYCH: Appropriate mood and affect. A/P Assessment and Plan 62 YOWF admitted on 12/01 for sepsis and cellulitis of LLE. 1. Sepsis - On admission, HR>90, WBC 17.4 and source of infection was early cellulitis of LLE - Blood cultures negative at 5 days - U/A negative on admission - CXR with no acute disease on admission - Sepsis has resolved. See plans below for treatment of LLE cellulitis 2. LLE cellulitis - ID consulted, suspected strep - Originally was on vanc and Zosyn and then transitioned to penicillin IV from to 12/13 - Switch to PO PCN today (500 mg QID x 10 days), counseled to take probiotics while on abx - F/U with ID in 1 week - Craig PRN - Motrin - Advised to keep leg elevated and use antibacterial soap 3. Anxiety/depression - Ativan 0.5 mg PO Q8H PRN (hasn't required since 12/07) 4. Essential tremor - Continue home Topamax Discharge Planning D/C home today Mai Thornton MD Dec 13, 2017 08:52
--- NOTE | 2017-12-13 09:47 | HHI.DCPOC ---
Discharge Care Plan Diagnosis: (1) Cellulitis Goals to Promote Your Health * To prevent worsening of your condition and complications * To maintain your health at the optimal level Directions to Meet Your Goals Take your medications as prescribed Follow your dietary instruction Follow activity as directed Keep your appointments as scheduled Take your immunizations and boosters as scheduled If your symptoms worsen call your PCP, if no PCP go to Urgent Care Center or Emergency Room Smoking is Dangerous to Your Health. Avoid second hand smoke Call the 24-hour hour crisis hotline for domestic abuse at Mai Thornton MD Dec 13, 2017 09:47
[2017-12-13] MEDS ORDERED: PENI500T PO (09:49)
[2017-12-13] MEDS ORDERED: IBUP-232 PO (09:49)
--- NOTE | 2017-12-13 09:58 | HHI.DS ---
Discharge Summary Admission Date Dec 01, 2017 at 05:55 Discharge Date: Dec 13, 2017 Admitting Diagnosis Sepsis of undetermined origin (1) Sepsis ICD Code: A41.9 - Sepsis, unspecified organism (2) Cellulitis ICD Code: L03.90 - Cellulitis, unspecified (3) Essential tremor ICD Code: G25.0 - Essential tremor Status: Chronic Procedures none Brief History - From Admission 62-year-old female with a history of essential trouble came to the hospital yesterday for evaluation with acute onset of not feeling well including chills as well as a dry cough. Patient also reported nausea with dry heaving. She noted a left lower extremity erythema however denies any trauma. WBC was initially elevated. She denies any bladder or bowel dysfunction. She will reported decreased appetite since admission. When patient was seen she has consistently elevated temperatures PE at Discharge GENERAL: This is a well-nourished, well-developed patient, anxious, crying at times. CARDIOVASCULAR: Regular rate and rhythm without murmurs, gallops, or rubs. RESPIRATORY: Fair air entry bilaterally. No wheezes, rales, or rhonchi. GASTROINTESTINAL: Abdomen soft, non-tender, nondistended. Positive bowel sounds MUSCULOSKELETAL: Left lower leg swelling warmth and tenderness. Edema on the left lower extremity is getting better. Erythema with less discharge, drying up. NEUROLOGICAL: Awake and alert. Moves all extremity. Normal speech.no focal neurological deficit PSYCHIATRIC: Appears anxious and depressed. Hospital Course 62 YOWF admitted on 12/01 for sepsis and cellulitis of LLE. On admission she met sepsis criteria with HR>90, WBC 17.4 and source of infection was early cellulitis of LLE. ID was consulted. Patient was originally on vancomycin and Zosyn and then switched to penicillin IV from 12/09 to 12/13. Blood and wound cultures remained negative. She was switched to PCN V 500 mg QID on 12/13 with recommendation of ID to take it for 10 days. She was discharged in stable condition on 12/13 with ID follow-up in a week. Pt Condition on Discharge: Stable Discharge Disposition: Discharge Home Discharge Time: <= 30 minutes Discharge Instructions DIET: Follow Instructions for: Heart Healthy Diet Activities you can perform: Regular-No Restrictions Other Activity Instructions: Keep left leg elevated Follow up Referrals: Appointment for Follow Up - [address] Deborah Meyers PCP Follow-up - 2-3 Days New Medications: Ibuprofen (Ibuprofen) 600 Mg Tab 600 MG PO Q8H PRN for PAIN, #30 TAB 0 Refills Penicillin V Potassium (Penicillin V Potassium) 500 Mg Tab 500 MG PO Q6H for Infection for 10 Days, #40 TAB 0 Refills Hydrocodone/Acetaminophen (Hydrocodone-Acetamin 5-325 mg) 5 Mg-325 Mg Tablet 1 TAB PO Q4H PRN for PAIN 2-10 for 20 Days, MG Lactobacillus Acidophilus (Acidophilus/l-Sporogenes) 35 Million Cell-25 Million Cell Tab 1 TAB PO Q12HR for probiotic , #60 TAB Sennosides-Docusate Sodium (Gnp Senna Plus 8.6-50 mg) 8.6 Mg-50 Mg Tab 1 TAB PO BID for Constipation, #60 TAB Continued Medications: Topiramate (Topiramate) 50 Mg Tab 125 MG PO DAILY for Control Seizures, #60 TAB 0 Refills Mai Thornton MD Dec 13, 2017 09:58
[2017-12-13 10:00] VITALS: PULSE 82
[2017-12-13] MEDS ORDERED: PENICILLIN V POTASSIUM 500 MG TAB PO SCH (12:00)
== END 2017-12-13 11:00 | disposition home or self-care (01) | DRG 872 ==
LOC: NEPE 02:53 → NEDA 05:55 → NEDH 10:20 → N04A 17:32
PROVIDERS: ADMIT Family Medicine; ATTEND Family Medicine
DX: A41.9 Sepsis, unspecified organism (principal); L03.116 Cellulitis of left lower limb; J44.9 Chronic obstructive pulmonary disease, unspecified; G25.0 Essential tremor; F41.9 Anxiety disorder, unspecified; F32.9 Major depressive disorder, single episode, unspecified; Z88.5 Allergy status to narcotic agent; Z88.1 Allergy status to other antibiotic agents; Z88.8 Allergy status to other drugs, medicaments and biological substances
CPT/HCPCS: 70450; 71045; 74177; 76937; 80048; 80053; 80202; 81001; 82550; 82565; 83036; 83605; 83690; 83735; 83880; 84443; 84484; 85025; 85610; 85730; 87040; 87070; 87205; 87493; 87804; 93005; 96361; 96374; J2270; J2405; J2543; J3370; J7030; J7040; Q9967

== ENCOUNTER 2018-08-07 09:06 | Inpatient (IN) ==
[2018-08-07] MEDS ORDERED: LORazepam 0.5 MG Tablet PO ONE (09:23)
[2018-08-07] MEDS ORDERED: Acetaminophen 325 MG Tablet PO ONE (09:26)
[2018-08-07] MEDS ORDERED: Sod Chloride 0.9% Inj 1,000 ML IV.SIG SCH (09:30)
--- NOTE | 2018-08-07 09:35 | ED ---
HPI General Chief complaint: Respiratory Symptoms Stated complaint: GI//Headache/SOB Complaint Time Seen by Provider: 08/07/18 09:16 Source: patient Mode of arrival: wheelchair Limitations: no limitations History of Present Illness HPI narrative: Patient is a 62 year old female who comes in complaining of shakes, shortness of breath, diarrhea. She says all of her symptoms started this morning. She is very anxious and says "I can't breath." She has history of COPD and says she used her inhaler this morning without relief. She denies abdominal pain. She has been coughing and says every time she coughs, she has a bowel movement. Severity is moderate. Related Data Home Medications Medication Instructions Recorded Confirmed topiramate 150 mg PO DAILY 08/07/18 08/07/18 Allergies Allergy/AdvReac Type Severity Reaction Status Date / Time azithromycin Allergy Severe Rash Verified 08/07/18 09:14 ciprofloxacin Allergy Severe Rash Verified 12/01/17 02:59 clavulanic acid Allergy Severe Rash Verified 12/01/17 02:59 levofloxacin Allergy Severe Rash Verified 12/01/17 02:59 tramadol Allergy Severe Rash Verified 08/07/18 09:14 valdecoxib Allergy Severe Rash Verified 08/07/18 09:14 cefadroxil Allergy Unknown Rash Verified 08/07/18 09:14 codeine Allergy Unknown Rash Verified 08/07/18 09:14 monosodium glutamate AdvReac Severe Nausea/Vomi Verified 08/07/18 09:14 ting Review of Systems ROS: all other systems reviewed are negative Constitutional Reports chills and Reports fever(s) ENT Denies dizziness and Reports headache(s) Cardiovascular Denies chest pain Respiratory Reports cough and Reports dyspnea Gastrointestinal Denies abdominal pain and Reports diarrhea Musculoskeletal Denies myalgias and Denies arthralgias Integumentary/Breasts Denies sores and Denies wounds Neurologic Reports tremor(s) [facility] Medical History Medical History Anxiety (Acute) COPD (chronic obstructive pulmonary disease) (Acute) Continuous tremor (Acute) Occasional tremors (Acute) Social History Social History Substance History: No History of Abuse Second Hand Smoke Exposure: No Smoking Status: Never smoker How Often Do You Have a Drink Containing Alcohol: Never Recent Travel in [facility] within the Last 8 Weeks: No Recent Out of Country Travel within the Last 8 Weeks: No Exam Narrative Exam Narrative: GENERAL: Awake and alert, very anxious appearing. SKIN: Focused skin assessment warm/dry. Erythema and warmth of the left lower extremity. HEAD: Atraumatic. Normocephalic. EYES: Pupils equal and round. No scleral icterus. No injection or drainage. ENT: Mucous membranes pink and moist. NECK: Trachea midline. No JVD. CARDIOVASCULAR: Tachycardia. No murmur appreciated. RESPIRATORY: No accessory muscle use. Clear to auscultation. Breath sounds equal bilaterally. GASTROINTESTINAL: Abdomen soft, non-tender, nondistended. MUSCULOSKELETAL: No obvious deformities. No clubbing. No cyanosis. No edema. NEUROLOGICAL: Awake and alert. No obvious cranial nerve deficits. Motor grossly within normal limits. Normal speech. Essential tremor. Course Initial Documented Vital Signs Temperature 100.0 F H 08/07/18 09:08 Pulse Rate 131 H 08/07/18 09:08 Respiratory Rate 24 08/07/18 09:08 Blood Pressure 167/102 H 08/07/18 09:08 Pulse Oximetry 98 08/07/18 09:08 Last Documented Vital Signs Temperature 100.7 F H 08/07/18 10:25 Pulse Rate 104 H 08/07/18 11:50 Respiratory Rate 18 08/07/18 11:50 Blood Pressure 122/55 L 08/07/18 11:50 Pulse Oximetry 95 08/07/18 11:50 Medical Decision Making [facility] Narrative Medical decision making narrative: Patient is a 62 year old female who comes in complaining of shaking chills, shortness of breath and diarrhea. Exam shows erythema of the left lower extremity. IV established, labs sent. Labs concerning for a WBC count of 15.6, Lactic acid is 2.5. Patient is febrile and tachycardic on arrival. Given IVF, tylenol. Given 1 duoneb and a dose of Ativan to help with anxiety, tremor. Given Zosyn and Vancomycin. CTA chest performed shows no acute abnormalities. Patient will require admission for sepsis, likely due to cellulitis. Medical Screen Exam Complete: Yes Emergency Medical Condition: Yes Differential Diagnosis Differential Diagnosis: sepsis vs pneumonia vs UTI vs cellulitis Medical Records Medical records reviewed: Yes I reviewed the patient's medical records. Lab Data Lab results reviewed: Yes I reviewed the patient's lab results. Result diagrams: 08/07/18 09:25 08/07/18 09:25 Lab Results 08/07/18 08/07/18 08/07/18 Range/Units 09:25 09:25 09:25 WBC 15.6 H (4.0-11.0) th/mm3 RBC 4.57 (4.00-5.30) mil/mm3 Hgb 13.1 (11.6-15.3) gm/dL Hct 40.1 (35.0-46.0) % MCV 87.7 (80.0-100.0) fL MCH 28.7 (27.0-34.0) pg MCHC 32.7 (32.0-36.0) % RDW 15.3 (11.6-17.2) % Plt Count 256 (150-450) th/mm3 MPV 8.6 (7.0-11.0) fL Neut % (Auto) 90.5 H (16.0-70.0) % Lymph % (Auto) 3.8 L (9.0-44.0) % [place] % (Auto) 4.7 (0.0-8.0) % Eos % (Auto) 0.7 (0.0-4.0) % Baso % (Auto) 0.3 (0.0-2.0) % Neut # (Auto) 14.1 H (1.8-7.7) th/mm3 Lymph # (Auto) 0.6 L (1.0-4.8) th/mm3 [place] # (Auto) 0.7 (0.0-0.9) th/mm3 Eos # (Auto) 0.1 (0.0-0.4) th/mm3 Baso # (Auto) 0.1 (0.0-0.2) th/mm3 WBC Differential . Differential Comment Auto diff final PT 9.9 (9.8-11.6) sec INR 1.0 Ratio APTT 28.7 (23.4-31.7) sec Sodium 140 (136-145) meq/L Potassium 4.7 (3.5-5.1) meq/L Chloride 110 H (98-107) meq/L Carbon Dioxide 22.7 (21.0-32.0) meq/L Anion Gap 7 (5-15) meq/L BUN 20 H (7-18) mg/dL Creatinine 1.16 H (0.50-1.00) mg/dL Estimated GFR 47 L (>89) mL/min Random Glucose 106 (74-106) mg/dL Lactic Acid (0.4-2.0) mmol/L Calcium 8.1 L (8.5-10.1) mg/dL Total Bilirubin 0.5 (0.2-1.0) mg/dL AST 21 (15-37) U/L ALT 24 (10-53) U/L Alkaline Phosphatase 85 (45-117) U/L Troponin I Less than 0.02 L (0.02-0.05) ng/mL Total Protein 7.4 (6.4-8.2) g/dL Albumin 3.5 (3.4-5.0) g/dL Urine Color (Yellw/Straw) Urine Clarity (Clear) Urine pH (5.0-8.5) Ur Specific [place] (1.002-1.035) Urine Protein (Neg-Trace) mg/dL Urine Glucose (UA) (Negative) mg/dL Urine Ketones (Negative) mg/dL Urine Occult Blood (Negative) Urine Nitrate (Negative) Urine Bilirubin (Negative) Urine Urobilinogen (Less than 2) mg/dL Ur Leukocyte Esterase (Negative) Urine RBC (0-3) /hpf Urine WBC (0-5) /hpf Ur Squamous Epith Cells (0-5) /hpf Urine Mucus (Occasional) /lpf Micro UA Comment Ur Microscopic Review Urine Culture Comments 08/07/18 08/07/18 Range/Units 09:25 09:46 WBC (4.0-11.0) th/mm3 RBC (4.00-5.30) mil/mm3 Hgb (11.6-15.3) gm/dL Hct (35.0-46.0) % MCV (80.0-100.0) fL MCH (27.0-34.0) pg MCHC (32.0-36.0) % RDW (11.6-17.2) % Plt Count (150-450) th/mm3 MPV (7.0-11.0) fL Neut % (Auto) (16.0-70.0) % Lymph % (Auto) (9.0-44.0) % [place] % (Auto) (0.0-8.0) % Eos % (Auto) (0.0-4.0) % Baso % (Auto) (0.0-2.0) % Neut # (Auto) (1.8-7.7) th/mm3 Lymph # (Auto) (1.0-4.8) th/mm3 [place] # (Auto) (0.0-0.9) th/mm3 Eos # (Auto) (0.0-0.4) th/mm3 Baso # (Auto) (0.0-0.2) th/mm3 WBC Differential Differential Comment PT (9.8-11.6) sec INR Ratio APTT (23.4-31.7) sec Sodium (136-145) meq/L Potassium (3.5-5.1) meq/L Chloride (98-107) meq/L Carbon Dioxide (21.0-32.0) meq/L Anion Gap (5-15) meq/L BUN (7-18) mg/dL Creatinine (0.50-1.00) mg/dL Estimated GFR (>89) mL/min Random Glucose (74-106) mg/dL Lactic Acid 2.5 H (0.4-2.0) mmol/L Calcium (8.5-10.1) mg/dL Total Bilirubin (0.2-1.0) mg/dL AST (15-37) U/L ALT (10-53) U/L Alkaline Phosphatase (45-117) U/L Troponin I (0.02-0.05) ng/mL Total Protein (6.4-8.2) g/dL Albumin (3.4-5.0) g/dL Urine Color Yellow (Yellw/Straw) Urine Clarity Hazy H (Clear) Urine pH 7.0 (5.0-8.5) Ur Specific [place] 1.020 (1.002-1.035) Urine Protein Negative (Neg-Trace) mg/dL Urine Glucose (UA) Negative (Negative) mg/dL Urine Ketones Negative (Negative) mg/dL Urine Occult Blood Negative (Negative) Urine Nitrate Negative (Negative) Urine Bilirubin Negative (Negative) Urine Urobilinogen Less than 2 (Less than 2) mg/dL Ur Leukocyte Esterase Negative (Negative) Urine RBC 1 (0-3) /hpf Urine WBC Less than 1 (0-5) /hpf Ur Squamous Epith Cells 4 (0-5) /hpf Urine Mucus Few H (Occasional) /lpf Micro UA Comment Culture not ind Ur Microscopic Review Not Reportable Urine Culture Comments Culture not ind Imaging Data Radiologist's impression: Chest X-Ray 08/07/18 09:23 CONCLUSION: Minimal increase in interstitial changes. Chest CTA 08/07/18 10:43 CONCLUSION: 1. No evidence of pulmonary embolism. 2. The lungs are clear with no evidence of pneumonia. 3. Coronary artery calcifications are present. Discharge Plan Discharge Disposition Patient Disposition: ED Admit(ED Internal Use Only) Discharge Condition Condition: Stable Discharge Order Discharge Orders: ED Use Only Admit Order (Routine); Ordered 08/07/18 Ordered By: Shauna Johnson Discharge Details Diagnosis: Sepsis, Cellulitis Physicians Team ED Provider: Shauna Johnson Primary Care Provider: Kali Harrington Attending Provider: Helder Rogers Discharge Interventions Interventions: Vital Signs Last Done: 08/07/18 11:50 Status ED Status: Admitted Patient
[2018-08-07 09:53] LABS: Baso # (Auto) 0.1 th/mm3 (0.0-0.2); Baso % (Auto) 0.3 % (0.0-2.0); Eos # (Auto) 0.1 th/mm3 (0.0-0.4); Eos % (Auto) 0.7 % (0.0-4.0); Hematocrit 40.1 % (35.0-46.0); Hemoglobin 13.1 gm/dL (11.6-15.3); Lymph # (Auto) 0.6 th/mm3 (1.0-4.8); Lymph % (Auto) 3.8 % (9.0-44.0); Mean Corpuscular HGB Conc 32.7 % (32.0-36.0); Mean Corpuscular Hemoglobin 28.7 pg (27.0-34.0); Mean Corpuscular Volume 87.7 fL (80.0-100.0); Mean Platelet Volume 8.6 fL (7.0-11.0); Mono # (Auto) 0.7 th/mm3 (0.0-0.9); Mono % (Auto) 4.7 % (0.0-8.0); Neut # (Auto) 14.1 th/mm3 (1.8-7.7); Neut % (Auto) 90.5 % (16.0-70.0); Platelet Count 256 th/mm3 (150-450); Red Blood Count 4.57 mil/mm3 (4.00-5.30); Red Cell Distribution Width 15.3 % (11.6-17.2); White Blood Count 15.6 th/mm3 (4.0-11.0)
[2018-08-07 10:05] LABS: Activated Partial Thrombo Time 28.7 sec (23.4-31.7); Prothrombin Time 9.9 sec (9.8-11.6)
--- NOTE | 2018-08-07 10:07 | XR ---
EXAM DATE: 08/07/2018 10:01 AM EST AGE/SEX: 62 years / Female INDICATIONS: Shortness of breath. CLINICAL DATA: This is the patient's initial encounter. Patient reports that signs and symptoms have been present for 1 day and indicates a pain score of 0/10. MEDICAL/SURGICAL HISTORY: Hypertension. Chronic obstructive pulmonary disease. Diverticulitis . Appendectomy. Hysterectomy. COMPARISON: [facility] [place], CHEST SINGLE AP, 12/01/2017. . FINDINGS: Minimal increase in interstitial changes. Normal heart size. No evidence consolidation, pleural effus ion or pneumothorax. The portion of the bony skeleton visualized is unremarkable. CONCLUSION: Minimal increase in interstitial changes. Electronically signed by: Kali Lamb MD Board Certified Radiologist 08/07/2018 10:06 AM EST
[2018-08-07 10:08] LABS: Alanine Aminotransferase 24 U/L (10-53); Albumin 3.5 g/dL (3.4-5.0); Anion Gap 7 meq/L (5-15); Aspartate Aminotransferase 21 U/L (15-37); Blood Urea Nitrogen 20 mg/dL (7-18); Calcium 8.1 mg/dL (8.5-10.1); Carbon Dioxide 22.7 meq/L (21.0-32.0); Chloride 110 meq/L (98-107); Glomerular Filtration Rate 47 mL/min (>89); Glucose,Random 106 mg/dL (74-106); Potassium 4.7 meq/L (3.5-5.1); Sodium 140 meq/L (136-145)
[2018-08-07 10:11] LABS: Alkaline Phosphatase 85 U/L (45-117); Total Protein 7.4 g/dL (6.4-8.2)
[2018-08-07] MEDS ORDERED: Piperacil/Tazo 3.375 GM Premix 3.375 GM/50 ML PIGGYBACK IV.SIG ONE (10:13)
[2018-08-07 10:16] LABS: Bilirubin,Urine Negative (Negative); Clarity,Urine Hazy (Clear); Color,Urine Yellow (Yellw/Straw); Glucose,Urine (UA) Negative (Negative); Leukocyte Esterase,Urine Negative (Negative); Mucus,Urine Few /lpf (Occasional); Nitrite,Urine Negative (Negative); Squamous Epithelial Cell,Urine 4 /hpf (0-5)
[2018-08-07] MEDS ORDERED: Vancomycin Inj 1,000 MG in Sodium Chlor 0.9% Inj 250 ML IV.SIG ONE ×2 (10:43→16:00)
--- NOTE | 2018-08-07 11:49 | CT ---
EXAM DATE: 08/07/2018 11:45 AM EST AGE/SEX: 62 years / Female INDICATIONS: Shortness of breath. Cough, chills, and nausea. CLINICAL DATA: This is the patient's initial encounter. Patient reports that signs and symptoms have been present for 1 day and indicates a pain score of 0/10. MEDICAL/SURGICAL HISTORY: Chronic obstructive pulmonary disease. Anxiety. Tremors. None. RADIATION DOSE: 9.42 CTDI (mGy) COMPARISON: [facility], CHEST 1V SINGLE AP, 08/07/2018. . TECHNIQUE: Volumetric scanning was performed using a multi-row detector CT scanner during bolus infu tim of 72 ml Omnipaque 350 (iohexol) nonionic water-soluble contrast as a single exam dose. The cristobal a was post processed with a variety of visualization algorithms including full volume maximum intensi ty projection and sliding thin slab reformation. Using automated exposure control and adjustment of t he mA and/or kV according to patient size, radiation dose was kept as low as reasonably achievable to obtain optimal diagnostic quality images. DICOM format image data is available electronically for r eview and comparison. FINDINGS: Pulmonary Arteries: No filling defects are seen in the pulmonary arteries out to the subsegmental ve ssels. The left and right pulmonary arteries are normal in diameter. Lung: No infiltrates seen. Effusion: None. Mediastinum: No evidence of mediastinal or hilar adenopathy. Coronary artery calcifications are pres ent. Other: The axilla is unremarkable. CONCLUSION: 1. No evidence of pulmonary embolism. 2. The lungs are clear with no evidence of pneumonia. 3. Coronary artery calcifications are present. Electronically signed by: John Bradley MD Board Certified Radiologist 08/07/2018 11:48 AM LENNIE Chicas
--- NOTE | 2018-08-07 12:50 | P.HP ---
History of Present Illness Primary Care Physician: Kali Harrington DO Chief Complaint: Chills History of Present Illness: 62-year-old female with a past medical history of essential tremors, treated previously for left lower extremity cellulitis November 2017 presented to the ED today for evaluation of an acute onset of chills, shortness of breath overnight and a sensation of ill feeling. In the ED, patient was found to have a temp. She also reported swelling with presence of erythema on the left lower extremity. Denies any recent treatment for left lower extremity cellulitis. She denies any cough production. Abnormal lab includes leukocytosis, elevated BUN and creatinine. She has no other issues. Review of Systems All other systems reviewed negative except as stated in HPI PMFSH - History History Provided By: Patient - Medical History Medical History: Medical History (Last Reviewed 08/07/18 @ 09:38 by Shauna Johnson MD) Anxiety COPD (chronic obstructive pulmonary disease) Continuous tremor Occasional tremors - Family History Family History: Family History (Last Updated 08/07/18 @ 15:05 by Helder Rogers MD) Other Family history unremarkable - Tobacco History Second Hand Smoke Exposure: No Tobacco Use In Past 30 Days: No Smoking Status: Never smoker - Alcohol History How Often Do You Have a Drink Containing Alcohol: Never - Substance Use History Substance History: No History of Abuse - Travel History Recent Travel in the [place] Within the Last 8 Weeks: No Recent Travel Out of the Country Within the Last 8 Weeks: No - Immunization History Tetanus Immunization: Unsure Medications and Allergies Active Medications: Active Medications Acetaminophen (Tylenol) 650 mg PO Q4H PRN PRN Reason: Temp > 100.4 Al Hydroxide/Mg Hydroxide (Milk Of Namita Lijosee) 30 ml PO Q12H PRN PRN Reason: Mild Constipation Albuterol (Duoneb Neb (Prn)) 1 ampul NEB Q2HR NEB PRN PRN Reason: SHORTNESS OF BREATH Enoxaparin Sodium (Lovenox Inj) 30 mg SQ Q24H KORIN Sodium Chloride (Ns Inj) 1,000 mls @ 70 mls/hr IV.CONT .[id number] KORIN Non-Formulary Medication (Topiramate [Topiramate]) 150 mg PO DAILY KORIN Ondansetron HCl (Zofran Inj) 4 mg IV.PUSH Q6H PRN PRN Reason: NAUSEA OR VOMITING Sodium Chloride (Ns Flush) 2 ml IV.FLUSH BID KORIN Sodium Chloride (Ns Flush) 2 ml IV.FLUSH PRN PRN PRN Reason: FLUSH AFTER USING IV ACCESS Allergies Allergy/AdvReac Type Severity Reaction Status Date / Time azithromycin Allergy Severe Rash Verified 08/07/18 09:14 ciprofloxacin Allergy Severe Rash Verified 12/01/17 02:59 clavulanic acid Allergy Severe Rash Verified 12/01/17 02:59 levofloxacin Allergy Severe Rash Verified 12/01/17 02:59 tramadol Allergy Severe Rash Verified 08/07/18 09:14 valdecoxib Allergy Severe Rash Verified 08/07/18 09:14 cefadroxil Allergy Unknown Rash Verified 08/07/18 09:14 codeine Allergy Unknown Rash Verified 08/07/18 09:14 monosodium glutamate AdvReac Severe Nausea/Vomi Verified 08/07/18 09:14 ting Home Medications Medication Instructions Recorded Confirmed Type topiramate 150 mg PO DAILY 08/07/18 08/07/18 History Exam Vital signs: Vital Signs 08/07/18 09:08 08/07/18 09:21 08/07/18 09:27 Temperature 100.0 F H 103.2 F H Pulse Rate 131 H 98 H Respiratory Rate 24 18 Blood Pressure 167/102 H 134/72 Pulse Oximetry 98 100 99 08/07/18 09:32 08/07/18 10:25 08/07/18 11:50 Temperature 100.7 F H Pulse Rate 108 H 97 H 104 H Respiratory Rate 24 22 18 Blood Pressure 139/74 122/55 L Pulse Oximetry 100 98 95 Intake & Output 08/06/18 08/07/18 08/07/18 18:59 06:59 18:59 Intake Total 1050 / 1050 Balance 1050 / 1050 Weight 117.934 kg Intake: IV 1050 / 1050 Zosyn 3.375 GM Premix 3.375 gm 50 / 50 In 50 ml @ 100 mls/hr IV.SIG ONCE ONE Rx#:[id number] NS Inj 1,000 ML @ 1000 mls/hr 1000 / 1000 IV.SIG BOLUS KORIN Rx#:[id number] Narrative: GENERAL: NAD SKIN: Warm and dry. HEAD: Atraumatic. Normocephalic. EYES: Pupils equal and round. No scleral icterus. No injection or drainage. ENT: No nasal bleeding or discharge. Mucous membranes pink and moist. NECK: Trachea midline. No JVD. CARDIOVASCULAR: Regular rate and rhythm. RESPIRATORY: No accessory muscle use. Clear to auscultation. Breath sounds equal bilaterally. GASTROINTESTINAL: Abdomen soft, non-tender, nondistended. Hepatic and splenic margins not palpable. MUSCULOSKELETAL: Extremities without clubbing, cyanosis, or edema. No obvious deformities. NEUROLOGICAL: Awake and alert. No obvious cranial nerve deficits. Motor grossly within normal limits. Five out of 5 muscle strength in the arms and legs. Normal speech. PSYCHIATRIC: Appropriate mood and affect; insight and judgment normal. Results - Labs CBC & Chem 7: 08/07/18 09:25 08/07/18 09:25 Labs: Laboratory Results - last 24 hr 08/07/18 08/07/18 08/07/18 09:25 09:25 09:25 WBC 15.6 H RBC 4.57 Hgb 13.1 Hct 40.1 MCV 87.7 MCH 28.7 MCHC 32.7 RDW 15.3 Plt Count 256 MPV 8.6 Neut % (Auto) 90.5 H Lymph % (Auto) 3.8 L [place] % (Auto) 4.7 Eos % (Auto) 0.7 Baso % (Auto) 0.3 Neut # (Auto) 14.1 H Lymph # (Auto) 0.6 L [place] # (Auto) 0.7 Eos # (Auto) 0.1 Baso # (Auto) 0.1 WBC Differential . Differential Comment Auto diff final PT 9.9 INR 1.0 APTT 28.7 Sodium 140 Potassium 4.7 Chloride 110 H Carbon Dioxide 22.7 Anion Gap 7 BUN 20 H Creatinine 1.16 H Estimated GFR 47 L Random Glucose 106 Lactic Acid Calcium 8.1 L Total Bilirubin 0.5 AST 21 ALT 24 Alkaline Phosphatase 85 Troponin I Less than 0.02 L Total Protein 7.4 Albumin 3.5 Urine Color Urine Clarity Urine pH Ur Specific [place] Urine Protein Urine Glucose (UA) Urine Ketones Urine Occult Blood Urine Nitrate Urine Bilirubin Urine Urobilinogen Ur Leukocyte Esterase Urine RBC Urine WBC Ur Squamous Epith Cells Urine Mucus Micro UA Comment Ur Microscopic Review Urine Culture Comments 08/07/18 08/07/18 09:25 09:46 WBC RBC Hgb Hct MCV MCH MCHC RDW Plt Count MPV Neut % (Auto) Lymph % (Auto) [place] % (Auto) Eos % (Auto) Baso % (Auto) Neut # (Auto) Lymph # (Auto) [place] # (Auto) Eos # (Auto) Baso # (Auto) WBC Differential Differential Comment PT INR APTT Sodium Potassium Chloride Carbon Dioxide Anion Gap BUN Creatinine Estimated GFR Random Glucose Lactic Acid 2.5 H Calcium Total Bilirubin AST ALT Alkaline Phosphatase Troponin I Total Protein Albumin Urine Color Yellow Urine Clarity Hazy H Urine pH 7.0 Ur Specific [place] 1.020 Urine Protein Negative Urine Glucose (UA) Negative Urine Ketones Negative Urine Occult Blood Negative Urine Nitrate Negative Urine Bilirubin Negative Urine Urobilinogen Less than 2 Ur Leukocyte Esterase Negative Urine RBC 1 Urine WBC Less than 1 Ur Squamous Epith Cells 4 Urine Mucus Few H Micro UA Comment Culture not ind Ur Microscopic Review Not Reportable Urine Culture Comments Culture not ind - Imaging Impressions Chest X-Ray 08/07/18 09:23 CONCLUSION: Minimal increase in interstitial changes. Chest CTA 08/07/18 10:43 CONCLUSION: 1. No evidence of pulmonary embolism. 2. The lungs are clear with no evidence of pneumonia. 3. Coronary artery calcifications are present. Caprini VTE Risk Assessment Caprini VTE Risk Assessment: Moderate/High Risk (score >= 2) Caprini Risk Assessment Model: Point Value = 1 Point Value = 2 Point Value = 3 Point Value = 5 Age 41-60 Minor surgery BMI > 25 kg/m2 Swollen legs Varicose veins or History of unexplained or recurrent spontaneous Oral contraceptives or hormone replacement Sepsis (< 1 month) Serious lung disease, including pneumonia (< 1 month) Abnormal pulmonary function Acute myocardial infarction Congestive heart failure (< 1 month) History of inflammatory bowel disease Medical patient at bed rest Age 61-74 Arthroscopic surgery Major open surgery (> 45 min) Laparoscopic surgery (> 45 min) Malignancy Confined to bed (> 72 hours) Immobilizing plaster cast Central venous access Age >= 75 History of VTE Family history of VTE Factor V Leiden Prothrombin [id number] Lupus anticoagulant Anticardiolipin antibodies Elevated serum homocysteine Heparin-induced thrombocytopenia Other congenital or acquired thrombophilia Stroke (< 1 month) Elective arthroplasty Hip, pelvis, or leg fracture Acute spinal cord injury (< 1 month) Prophylaxis Regimen: Total Risk Factor Score Risk Level Prophylaxis Regimen 0-1 Low Early ambulation 2 Moderate Order ONE of the following: *Sequential Compression Device (SCD) *Heparin 5000 units SQ BID 3-4 Higher Order ONE of the following medications: *Heparin 5000 units SQ TID *Enoxaparin/Lovenox 40 mg SQ daily (WT < 150 kg, CrCl > 30 mL/min) *Enoxaparin/Lovenox 30 mg SQ daily (WT < 150 kg, CrCl > 10-29 mL/min) *Enoxaparin/Lovenox 30 mg SQ BID (WT < 150 kg, CrCl > 30 mL/min) AND/OR *Sequential Compression Device (SCD) 5 or more Highest Order ONE of the following medications: *Heparin 5000 units SQ TID (Preferred with Epidurals) *Enoxaparin/Lovenox 40 mg SQ daily (WT < 150 kg, CrCl > 30 mL/min) *Enoxaparin/Lovenox 30 mg SQ daily (WT < 150 kg, CrCl > 10-29 mL/min) *Enoxaparin/Lovenox 30 mg SQ BID (WT < 150 kg, CrCl > 30 mL/min) AND *Sequential Compression Device (SCD) Assessment and Plan - Plan 62-year-old female with Severe sepsis:WBC>11,000 and HR>90 as well as Lactic acid of2.5; source known ( left lower extremity cellulitis) Status post vancomycin and Zosyn IV x1 in ED, will aztreonam and continue vancomycin pending culture report Chest CTA noted in review by me with no evidence of pulmonary infiltrate, and negative for PE Left lower extremity cellulitis Continue IV antibiotics including vancomycin and aztreonam pending culture report Infectious disease specialist consult PRN Acute renal injury Start gentle IV fluid hydration and monitor BUN and creatinine Avoid all nephrotoxic drug History of essential tremor Resume outpatient medications DVT prophylaxis: Lovenox 30 mg subcu daily Discussed Condition With: ED Physician, patient
[2018-08-07] MEDS ORDERED: Vancomycin Consult Pharmacy OTHER PRN (15:09)
--- NOTE | 2018-08-07 16:12 | ECG ---
Date Performed: 08/07/2018 Time Performed: 10:33:40 PTAGE: 62 years EKG: SINUS TACHYCARDIA LEFT AXIS DEVIATION ABNORMAL ECG PREVIOUS TRACING : 12/01/2017 03.34 No significant change from previous tracing noted. DOCTOR: Abel Worrell Interpretating Date/Time 08/07/2018 16:11:18
[2018-08-07] MEDS: Sod Chloride 0.9% Inj 1,000 ML IV.CONT SCH (16:28)
[2018-08-07] MEDS: Acetaminophen 325 MG Tablet PO PRN (20:10)
[2018-08-07] MEDS: Lactobacillus Acidophilus/L. Spores Tablet PO SCH (21:42)
[2018-08-07] MEDS: AZTREONAM IV.SIG SCH (21:57)
[2018-08-07] MEDS: SODIUM CHLORIDE 0.9% IV.SIG SCH (21:57)
[2018-08-08] MEDS: SODIUM CHLORIDE 0.9% IV.SIG SCH ×2 (04:00→09:21)
[2018-08-08] MEDS: AZTREONAM IV.SIG SCH ×2 (04:00→09:21)
[2018-08-08] MEDS: Sod Chloride 0.9% Inj 1,000 ML IV.CONT SCH ×2 (06:02→18:37)
[2018-08-08 06:34] LABS: Baso # (Auto) 0.1 th/mm3 (0.0-0.2); Baso % (Auto) 0.4 % (0.0-2.0); Hematocrit 35.4 % (35.0-46.0); Hemoglobin 11.8 gm/dL (11.6-15.3); Lymph # (Auto) 0.8 th/mm3 (1.0-4.8); Lymph % (Auto) 4.9 % (9.0-44.0); Mean Corpuscular HGB Conc 33.4 % (32.0-36.0); Mean Corpuscular Hemoglobin 28.3 pg (27.0-34.0); Mean Corpuscular Volume 84.5 fL (80.0-100.0); Mean Platelet Volume 8.8 fL (7.0-11.0); Mono # (Auto) 0.5 th/mm3 (0.0-0.9); Mono % (Auto) 2.9 % (0.0-8.0); Neut # (Auto) 14.9 th/mm3 (1.8-7.7); Neut % (Auto) 91.8 % (16.0-70.0); Platelet Count 214 th/mm3 (150-450); Red Blood Count 4.19 mil/mm3 (4.00-5.30); Red Cell Distribution Width 15.5 % (11.6-17.2); White Blood Count 16.2 th/mm3 (4.0-11.0)
[2018-08-08 07:25] LABS: Albumin 2.6 g/dL (3.4-5.0); Calcium 7.3 mg/dL (8.5-10.1); Carbon Dioxide 17.3 meq/L (21.0-32.0); Potassium 3.3 meq/L (3.5-5.1); Total Protein 5.9 g/dL (6.4-8.2)
[2018-08-08] MEDS ORDERED: Vancomycin Inj 1,250 MG in Sodium Chlor 0.9% Inj 250 ML IV.SIG SCH (09:00)
[2018-08-08] MEDS: Topiramate 100 MG Tablet PO SCH (09:20)
[2018-08-08] MEDS: Enoxaparin Inj 30 MG/0.3 ML Syringe SQ SCH (09:20)
[2018-08-08] MEDS: Topiramate 25 MG Tablet PO SCH (09:20)
[2018-08-08] MEDS: Lactobacillus Acidophilus/L. Spores Tablet PO SCH ×2 (09:20→21:23)
--- NOTE | 2018-08-08 09:23 | P.PNIM ---
Subjective Interval history: Patient seen and examined this morning. Temperature 100.5, pulse 92, blood pressure 159/69. Reports that she is in pain. Denies any vomiting, but admits to feeling nauseous. Denies any chest pain shortness of breath. Understands the current plan of care is to continue the IV antibiotics for the cellulitis. Physical Exam Vital signs: Vital Signs 08/07/18 09:21 08/07/18 09:27 08/07/18 09:32 Temperature 103.2 F H Pulse Rate 98 H 108 H Respiratory Rate 18 24 Blood Pressure 134/72 Pulse Oximetry 100 99 100 08/07/18 10:25 08/07/18 11:50 08/07/18 16:00 Temperature 100.7 F H 100.2 F H Pulse Rate 97 H 104 H 88 Respiratory Rate 22 18 18 Blood Pressure 139/74 122/55 L 115/54 L Pulse Oximetry 98 95 98 08/07/18 20:00 08/08/18 00:00 08/08/18 04:00 Temperature 102.8 F H 99.6 F 100.5 F H Pulse Rate 101 H 86 92 H Respiratory Rate 20 20 20 Blood Pressure 130/67 126/55 L 159/69 H Pulse Oximetry 96 97 98 Intake & Output 08/07/18 08/08/18 08/08/18 18:59 06:59 18:59 Intake Total 1050 / 1050 2420 / 2420 Output Total 600 / 600 Balance 1050 / 1050 1820 / 1820 Weight 117.934 kg 136.5 kg Intake: IV 1050 / 1050 1700 / 1700 NS Inj 1,000 ML @ 70 mls/hr IV. 1000 / 1000 CONT .[id number] [facility] Rx#:[id number] Azactam Inj 2,000 GM In NS Inj 200 / 200 100 ML @ 200 mls/hr IV.SIG Q6H [facility] Rx#:[id number] Zosyn 3.375 GM Premix 3.375 gm 50 / 50 In 50 ml @ 100 mls/hr IV.SIG ONCE ONE Rx#:[id number] NS Inj 1,000 ML @ 1000 mls/hr 1000 / 1000 IV.SIG BOLUS [facility] Rx#:[id number] Vancomycin Inj 1,000 MG In NS 500 / 500 Inj 250 ML @ 250 mls/hr IV.SIG ONCE ONE Rx#:[id number] Oral 720 / 720 Output: Urine 600 / 600 Other: # Voids 4 Narrative: GENERAL: NAD SKIN: Warm and dry. Erythema of the left lower extremity up to mid singleton HEAD: Atraumatic. Normocephalic. EYES: Pupils equal and round. No scleral icterus. No injection or drainage. ENT: No nasal bleeding or discharge. Mucous membranes pink and moist. NECK: Trachea midline. No JVD. CARDIOVASCULAR: Regular rate and rhythm. RESPIRATORY: No accessory muscle use. Clear to auscultation. Breath sounds equal bilaterally. GASTROINTESTINAL: Abdomen soft, non-tender, nondistended. Hepatic and splenic margins not palpable. MUSCULOSKELETAL: Extremities without clubbing, cyanosis, or edema. No obvious deformities. NEUROLOGICAL: Awake and alert. No obvious cranial nerve deficits. Motor grossly within normal limits. Five out of 5 muscle strength in the arms and legs. Normal speech. PSYCHIATRIC: Appropriate mood and affect; insight and judgment normal. Results - Labs CBC & Chem 7: 08/08/18 06:10 08/08/18 06:20 Laboratory Results - last 24 hr 08/07/18 08/07/18 08/07/18 09:25 09:25 09:25 WBC 15.6 H RBC 4.57 Hgb 13.1 Hct 40.1 MCV 87.7 MCH 28.7 MCHC 32.7 RDW 15.3 Plt Count 256 MPV 8.6 Neut % (Auto) 90.5 H Lymph % (Auto) 3.8 L [place] % (Auto) 4.7 Eos % (Auto) 0.7 Baso % (Auto) 0.3 Neut # (Auto) 14.1 H Lymph # (Auto) 0.6 L [place] # (Auto) 0.7 Eos # (Auto) 0.1 Baso # (Auto) 0.1 WBC Differential . Differential Comment Auto diff final PT 9.9 INR 1.0 APTT 28.7 Sodium 140 Potassium 4.7 Chloride 110 H Carbon Dioxide 22.7 Anion Gap 7 BUN 20 H Creatinine 1.16 H Estimated GFR 47 L Random Glucose 106 Lactic Acid Calcium 8.1 L Calcium Adj for Albumin Total Bilirubin 0.5 AST 21 ALT 24 Alkaline Phosphatase 85 Troponin I Less than 0.02 L Total Protein 7.4 Albumin 3.5 Urine Color Urine Clarity Urine pH Ur Specific [place] Urine Protein Urine Glucose (UA) Urine Ketones Urine Occult Blood Urine Nitrate Urine Bilirubin Urine Urobilinogen Ur Leukocyte Esterase Urine RBC Urine WBC Ur Squamous Epith Cells Urine Mucus Micro UA Comment Ur Microscopic Review Urine Culture Comments 08/07/18 08/07/18 08/07/18 09:25 09:46 20:17 WBC RBC Hgb Hct MCV MCH MCHC RDW Plt Count MPV Neut % (Auto) Lymph % (Auto) [place] % (Auto) Eos % (Auto) Baso % (Auto) Neut # (Auto) Lymph # (Auto) [place] # (Auto) Eos # (Auto) Baso # (Auto) WBC Differential Differential Comment PT INR APTT Sodium Potassium Chloride Carbon Dioxide Anion Gap BUN Creatinine Estimated GFR Random Glucose Lactic Acid 2.5 H 0.8 Calcium Calcium Adj for Albumin Total Bilirubin AST ALT Alkaline Phosphatase Troponin I Total Protein Albumin Urine Color Yellow Urine Clarity Hazy H Urine pH 7.0 Ur Specific [place] 1.020 Urine Protein Negative Urine Glucose (UA) Negative Urine Ketones Negative Urine Occult Blood Negative Urine Nitrate Negative Urine Bilirubin Negative Urine Urobilinogen Less than 2 Ur Leukocyte Esterase Negative Urine RBC 1 Urine WBC Less than 1 Ur Squamous Epith Cells 4 Urine Mucus Few H Micro UA Comment Culture not ind Ur Microscopic Review Not Reportable Urine Culture Comments Culture not ind 08/08/18 08/08/18 06:10 06:20 WBC 16.2 H RBC 4.19 Hgb 11.8 Hct 35.4 MCV 84.5 MCH 28.3 MCHC 33.4 RDW 15.5 Plt Count 214 MPV 8.8 Neut % (Auto) 91.8 H Lymph % (Auto) 4.9 L [place] % (Auto) 2.9 Eos % (Auto) 0.0 Baso % (Auto) 0.4 Neut # (Auto) 14.9 H Lymph # (Auto) 0.8 L [place] # (Auto) 0.5 Eos # (Auto) 0.0 Baso # (Auto) 0.1 WBC Differential . Differential Comment Auto diff final PT INR APTT Sodium 140 Potassium 3.3 L D Chloride 111 H Carbon Dioxide 17.3 L Anion Gap 12 BUN 16 Creatinine 1.07 H Estimated GFR 52 L Random Glucose 86 Lactic Acid Calcium 7.3 L* D Calcium Adj for Albumin 8.4 L Total Bilirubin 0.4 AST 18 ALT 21 Alkaline Phosphatase 64 Troponin I Total Protein 5.9 L D Albumin 2.6 L D Urine Color Urine Clarity Urine pH Ur Specific [place] Urine Protein Urine Glucose (UA) Urine Ketones Urine Occult Blood Urine Nitrate Urine Bilirubin Urine Urobilinogen Ur Leukocyte Esterase Urine RBC Urine WBC Ur Squamous Epith Cells Urine Mucus Micro UA Comment Ur Microscopic Review Urine Culture Comments Microbiology 08/07/18 09:31 Nasal Wash Influenza Types A,B Antigen - Final Negative for FLU A and B antigen Infection due to influenza A or B cannot be ruled out since the antigen present in the sample may be below the detection limit of the test. - Imaging Impressions Chest X-Ray 08/07/18 09:23 CONCLUSION: Minimal increase in interstitial changes. Chest CTA 08/07/18 10:43 CONCLUSION: 1. No evidence of pulmonary embolism. 2. The lungs are clear with no evidence of pneumonia. 3. Coronary artery calcifications are present. Assessment and Plan - Assessment (1) Cellulitis Code(s): L03.90 - Cellulitis, unspecified Status: Acute (2) Sepsis Code(s): A41.9 - Sepsis, unspecified organism Status: Acute - Plan 62-year-old female with Severe sepsis:WBC>11,000 and HR>90 as well as Lactic acid of2.5; source known ( left lower extremity cellulitis) Status post vancomycin and Zosyn IV x1 in ED, will aztreonam and continue vancomycin pending culture report Left lower extremity cellulitis Continue IV antibiotics including vancomycin and aztreonam pending culture report Infectious disease specialist consult PRN Acute renal injury Start gentle IV fluid hydration and monitor BUN and creatinine Avoid all nephrotoxic drug History of essential tremor Resume outpatient medications DVT prophylaxis: Lovenox 30 mg subcu daily Code Status: Full code Discharge Planning: Pending further workup and improvement (1) Cellulitis Qualifiers: Site of cellulitis: extremity Site of cellulitis of extremity: lower extremity Laterality: left Qualified Code(s): L03.116 - Cellulitis of left lower limb (2) Sepsis Qualifiers: Sepsis type: sepsis due to unspecified organism Qualified Code(s): A41.9 - Sepsis, unspecified organism
--- NOTE | 2018-08-08 10:17 | P.CONID ---
History of Present Illness Service: Infectious disease Consult date: 08/08/18 Requesting Physician: Satya Nayak Reason for Consult: Evaluate patient with sepsis, left lower extremity cellulitis Primary Care Provider: Kali Harrington DO Chief Complaint: Chills History of Present Illness: Patient seen and examined. Records reviewed. Patient is a 62-year-old female, presented to the hospital with an acute onset of fever and chills and not feeling well. Patient has had prior sepsis from the left lower extremity cellulitis, and she was hospitalized back in November 2017. She eventually improved, and followed up with infectious disease specialist after that hospitalization. She was doing well, but she has chronic left lower extremity swelling as well as some discoloration. She was feeling well up until the day of admission when she woke up and she had some chills and fevers and just generalized malaise. She had noted increased swelling in her left lower extremity several days prior, and on the day of admission she had noted some pink discoloration. She has not had any sore throat or any respiratory complaint. No nausea or vomiting, , or other GI problems. She has not had any recent trauma. She gets some wounds but mostly in her upper extremity due to her birds. On presentation her WBC is elevated. Patient has been febrile up to 103. Infectious disease consultation has been requested to assist with evaluation and treatment. Patient has tolerated Zosyn and penicillin in the past. Review of Systems Constitutional: Reports chills, Reports fever(s), Reports lack of energy, Reports malaise Eyes: Denies discharge, Denies dry eyes Ears, Nose, Mouth, and Throat: Denies difficulty swallowing, Denies facial pain , Denies headache(s), Denies nasal discharge, Denies pain with swallowing, Denies sore throat Cardiovascular: Reports leg swelling, Denies chest pain, Denies shortness of breath Respiratory: Denies chest congestion, Denies cough, Denies shortness of breath Gastrointestinal: Denies abdominal pain, Denies loose stools, Denies nausea, Denies pain with swallowing, Denies vomiting Genitourinary: Denies difficulty starting urination, Denies difficulty urinating , Denies painful urination Musculoskeletal: Denies joint pain, Denies neck pain Skin/Breast: Denies sores, Denies wounds Neurologic: Denies headache(s) PMFSH - History History Provided By: Patient - Medical History Medical History: Medical History (Last Updated 08/08/18 @ 10:18 by Evi Norton MD) Anxiety COPD (chronic obstructive pulmonary disease) Continuous tremor Diverticulitis H/O: hysterectomy Occasional tremors - Surgical History Surgical History: Surgical History (Last Updated 08/08/18 @ 10:18 by Evi oNrton MD) History of appendectomy History of tonsillectomy Hx of foot surgery - Family History Family History: Family History (Last Reviewed 08/08/18 @ 10:15 by Evi Norton MD) Other Family history unremarkable - Tobacco History Second Hand Smoke Exposure: No Tobacco Use In Past 30 Days: No Smoking Status: Never smoker - Alcohol History How Often Do You Have a Drink Containing Alcohol: Never - Substance Use History Substance History: No History of Abuse - Travel History Recent Travel in the [facility] Within the Last 8 Weeks: No Recent Travel Out of the Country Within the Last 8 Weeks: No - Immunization History Tetanus Immunization: Unsure Medications and Allergies Active Medications: Active Medications Acetaminophen (Tylenol) 650 mg PO Q4H PRN PRN Reason: Temp > 100.4 Last Admin: 08/07/18 20:10 Dose: 650 mg Al Hydroxide/Mg Hydroxide (Milk Of Namita Correa) 30 ml PO Q12H PRN PRN Reason: Mild Constipation Albuterol (Duoneb Neb (Prn)) 1 ampul NEB Q2HR NEB PRN PRN Reason: SHORTNESS OF BREATH Enoxaparin Sodium (Lovenox Inj) 30 mg SQ Q24H [facility] Last Admin: 08/08/18 09:20 Dose: 30 mg Sodium Chloride (Ns Inj) 1,000 mls @ 70 mls/hr IV.CONT .[id number] [facility] Last Admin: 08/08/18 06:02 Dose: 70 mls/hr Lactobacillus Acidophilus (Lactinex) 1 tab PO BID [facility] Last Admin: 08/08/18 09:20 Dose: 1 tab Miscellaneous Information ([facility] Ordered Lab Info) 0 each OTHER ONCE ONE Stop: 08/11/18 10:46 Ondansetron HCl (Zofran Inj) 4 mg IV.PUSH Q6H PRN PRN Reason: NAUSEA OR VOMITING Sodium Chloride (Ns Flush) 2 ml IV.FLUSH BID [facility] Last Admin: 08/08/18 09:21 Dose: 2 ml Sodium Chloride (Ns Flush) 2 ml IV.FLUSH PRN PRN PRN Reason: FLUSH AFTER USING IV ACCESS Topiramate (Topamax) 100 mg PO DAILY [facility] Last Admin: 08/08/18 09:20 Dose: 100 mg Topiramate (Topamax) 50 mg PO DAILY [facility] Last Admin: 08/08/18 09:20 Dose: 50 mg Allergies Allergy/AdvReac Type Severity Reaction Status Date / Time azithromycin Allergy Severe Rash Verified 08/07/18 09:14 ciprofloxacin Allergy Severe Rash Verified 12/01/17 02:59 clavulanic acid Allergy Severe Rash Verified 12/01/17 02:59 levofloxacin Allergy Severe Rash Verified 12/01/17 02:59 tramadol Allergy Severe Rash Verified 08/07/18 09:14 valdecoxib Allergy Severe Rash Verified 08/07/18 09:14 cefadroxil Allergy Unknown Rash Verified 08/07/18 09:14 codeine Allergy Unknown Rash Verified 08/07/18 09:14 monosodium glutamate AdvReac Severe Nausea/Vomi Verified 08/07/18 09:14 ting Home Medications Medication Instructions Recorded Confirmed Type topiramate 150 mg PO DAILY 08/07/18 08/07/18 History Exam Vital signs: Vital Signs 08/07/18 10:25 08/07/18 11:50 08/07/18 16:00 Temperature 100.7 F H 100.2 F H Pulse Rate 97 H 104 H 88 Respiratory Rate 22 18 18 Blood Pressure 139/74 122/55 L 115/54 L Pulse Oximetry 98 95 98 08/07/18 20:00 08/08/18 00:00 08/08/18 04:00 Temperature 102.8 F H 99.6 F 100.5 F H Pulse Rate 101 H 86 92 H Respiratory Rate 20 20 20 Blood Pressure 130/67 126/55 L 159/69 H Pulse Oximetry 96 97 98 08/08/18 08:00 Temperature 99.2 F Pulse Rate 89 Respiratory Rate 20 Blood Pressure 141/52 H Pulse Oximetry 96 Intake & Output 08/07/18 08/08/18 08/08/18 18:59 06:59 18:59 Intake Total 1050 / 1050 2420 / 2420 Output Total 600 / 600 Balance 1050 / 1050 1820 / 1820 Weight 117.934 kg 136.5 kg Intake: IV 1050 / 1050 1700 / 1700 NS Inj 1,000 ML @ 70 mls/hr IV. 1000 / 1000 CONT .[id number] [facility] Rx#:[id number] Azactam Inj 2,000 GM In NS Inj 200 / 200 100 ML @ 200 mls/hr IV.SIG Q6H [facility] Rx#:[id number] Zosyn 3.375 GM Premix 3.375 gm 50 / 50 In 50 ml @ 100 mls/hr IV.SIG ONCE ONE Rx#:[id number] NS Inj 1,000 ML @ 1000 mls/hr 1000 / 1000 IV.SIG BOLUS [facility] Rx#:[id number] Vancomycin Inj 1,000 MG In NS 500 / 500 Inj 250 ML @ 250 mls/hr IV.SIG ONCE ONE Rx#:[id number] Oral 720 / 720 Output: Urine 600 / 600 Other: # Voids 4 Narrative: Physical examination GENERAL: Patient is an obese, well-developed female, awake and alert, not in respiratory distress. SKIN: Warm and dry. No generalized rash, no ecchymoses and no evidence of embolic lesions. HEAD: Atraumatic. Normocephalic. No temporal wasting, or tenderness. EYES: [place] conjunctiva. No petechia or hemorrhage. Pupils equal, round and reactive to light. Extraocular movements full and intact. No scleral icterus. No injection or drainage. EARS, NOSE AND THROAT: Nose without bleeding or purulent nasal discharge. No sinus tenderness. Mucous membranes pink and moist. No oral lesions noted. No exudate. No oral thrush. NECK: Trachea midline. Supple and not tender, no meningeal signs CARDIOVASCULAR: Regular rate and rhythm. No murmurs, rubs or gallops heard RESPIRATORY: Clear to auscultation. Breath sounds equal bilaterally. No rales , wheezing or rhonchi ABDOMEN: Soft, obese, non-tender, nondistended. Bowel sounds present and normoactive. No guarding. No rebound. No organomegaly. EXTREMITIES: No clubbing, cyanosis. LLE larger compared to RLE. has some brownish pigmentation both legs but more on LLE. There is erythema on the L leg with some lymphangitis, no open wound noted. No joint effusion, has good ROM. No calf tenderness. Well perfused and warm. Has some scars on foot from previous surgeries NEUROLOGICAL: Awake and alert. Cranial nerves grossly intact. Motor grossly within normal limits. PSYCHIATRIC: Normal affect, calm and cooperative. LINE: No evidence of infection Results - Labs CBC & Chem 7: 08/08/18 06:10 08/08/18 06:20 Labs: Laboratory Results - last 24 hr 08/07/18 08/07/18 08/07/18 09:25 09:46 20:17 WBC RBC Hgb Hct MCV MCH MCHC RDW Plt Count MPV Neut % (Auto) Lymph % (Auto) [place] % (Auto) Eos % (Auto) Baso % (Auto) Neut # (Auto) Lymph # (Auto) [place] # (Auto) Eos # (Auto) Baso # (Auto) WBC Differential Differential Comment Sodium Potassium Chloride Carbon Dioxide Anion Gap BUN Creatinine Estimated GFR Random Glucose Lactic Acid 0.8 Calcium Calcium Adj for Albumin Total Bilirubin 0.5 AST ALT Alkaline Phosphatase 85 Troponin I Less than 0.02 L Total Protein 7.4 Albumin Urine Color Yellow Urine Clarity Hazy H Urine pH 7.0 Ur Specific [place] 1.020 Urine Protein Negative Urine Glucose (UA) Negative Urine Ketones Negative Urine Occult Blood Negative Urine Nitrate Negative Urine Bilirubin Negative Urine Urobilinogen Less than 2 Ur Leukocyte Esterase Negative Urine RBC 1 Urine WBC Less than 1 Ur Squamous Epith Cells 4 Urine Mucus Few H Micro UA Comment Culture not ind Ur Microscopic Review Not Reportable Urine Culture Comments Culture not ind 08/08/18 08/08/18 06:10 06:20 WBC 16.2 H RBC 4.19 Hgb 11.8 Hct 35.4 MCV 84.5 MCH 28.3 MCHC 33.4 RDW 15.5 Plt Count 214 MPV 8.8 Neut % (Auto) 91.8 H Lymph % (Auto) 4.9 L [place] % (Auto) 2.9 Eos % (Auto) 0.0 Baso % (Auto) 0.4 Neut # (Auto) 14.9 H Lymph # (Auto) 0.8 L [place] # (Auto) 0.5 Eos # (Auto) 0.0 Baso # (Auto) 0.1 WBC Differential . Differential Comment Auto diff final Sodium 140 Potassium 3.3 L D Chloride 111 H Carbon Dioxide 17.3 L Anion Gap 12 BUN 16 Creatinine 1.07 H Estimated GFR 52 L Random Glucose 86 Lactic Acid Calcium 7.3 L* D Calcium Adj for Albumin 8.4 L Total Bilirubin 0.4 AST 18 ALT 21 Alkaline Phosphatase 64 Troponin I Total Protein 5.9 L D Albumin 2.6 L D Urine Color Urine Clarity Urine pH Ur Specific [place] Urine Protein Urine Glucose (UA) Urine Ketones Urine Occult Blood Urine Nitrate Urine Bilirubin Urine Urobilinogen Ur Leukocyte Esterase Urine RBC Urine WBC Ur Squamous Epith Cells Urine Mucus Micro UA Comment Ur Microscopic Review Urine Culture Comments - Imaging Impressions Chest CTA 08/07/18 10:43 CONCLUSION: 1. No evidence of pulmonary embolism. 2. The lungs are clear with no evidence of pneumonia. 3. Coronary artery calcifications are present. Assessment and Plan - Plan Impression Sepsis likely due to LLE cellulitis Recurrent LLE cellulitis - clinical presentation compatible with Strep infection BLE edema Recommendation Follow BC IV Unasyn Stop other Abx Monitor progress She will need followup with ID on D/C May need chronic suppression Abx HARLEEN stockings I will follow along with you Thank you for this consultation Explained plan to patient and
[2018-08-08] MEDS ORDERED: Vancomycin Inj 2,000 MG in Sodium Chlor 0.9% Inj 500 ML IV.SIG SCH (11:00)
[2018-08-08] MEDS: Ampicillin/Sulbactam Inj 3 GM in Sodium Chloride 0.9% Inj 100 ML IV.SIG SCH ×2 (13:59→18:08)
[2018-08-08] MEDS: Acetaminophen 325 MG Tablet PO PRN (21:23)
[2018-08-09] MEDS: Ampicillin/Sulbactam Inj 3 GM in Sodium Chloride 0.9% Inj 100 ML IV.SIG SCH ×4 (00:30→18:12)
[2018-08-09] MEDS: Sod Chloride 0.9% Inj 1,000 ML IV.CONT SCH ×3 (05:32→22:12)
[2018-08-09 07:57] LABS: Hematocrit 32.4 % (35.0-46.0); Hemoglobin 11.1 gm/dL (11.6-15.3); Mean Corpuscular HGB Conc 34.3 % (32.0-36.0); Mean Corpuscular Hemoglobin 29.1 pg (27.0-34.0); Mean Corpuscular Volume 84.9 fL (80.0-100.0); Mean Platelet Volume 8.8 fL (7.0-11.0); Platelet Count 174 th/mm3 (150-450); Red Blood Count 3.81 mil/mm3 (4.00-5.30); Red Cell Distribution Width 15.7 % (11.6-17.2); White Blood Count 5.8 th/mm3 (4.0-11.0)
[2018-08-09 08:24] LABS: Albumin 2.2 g/dL (3.4-5.0); Carbon Dioxide 21.4 meq/L (21.0-32.0); Potassium 3.4 meq/L (3.5-5.1); Total Protein 5.5 g/dL (6.4-8.2)
[2018-08-09] MEDS: Topiramate 25 MG Tablet PO SCH (09:19)
[2018-08-09] MEDS: Enoxaparin Inj 30 MG/0.3 ML Syringe SQ SCH (09:19)
[2018-08-09] MEDS: Lactobacillus Acidophilus/L. Spores Tablet PO SCH ×2 (09:19→19:59)
[2018-08-09] MEDS: Topiramate 100 MG Tablet PO SCH (09:19)
--- NOTE | 2018-08-09 11:35 | P.PNID ---
Subjective Remarks: Patient is a 62-year-old female, presented to the hospital with an acute onset of fever and chills and not feeling well. Patient has had prior sepsis from the left lower extremity cellulitis, and she was hospitalized back in November 2017. She eventually improved, and followed up with infectious disease specialist after that hospitalization. She was doing well, but she has chronic left lower extremity swelling as well as some discoloration. She was feeling well up until the day of admission when she woke up and she had some chills and fevers and just generalized malaise. She had noted increased swelling in her left lower extremity several days prior, and on the day of admission she had noted some pink discoloration. She has not had any sore throat or any respiratory complaint. No nausea or vomiting, , or other GI problems. She has not had any recent trauma. She gets some wounds but mostly in her upper extremity due to her birds. On presentation her WBC is elevated. Patient has been febrile up to 103. Infectious disease consultation has been requested to assist with evaluation and treatment. Patient has tolerated Zosyn and penicillin in the past. Notes reviewed Temps better WBC down to normal Feels better No size for HARLEEN stockings BC negative Antibiotics: Unasyn Clinda Past Medical History: Anxiety COPD (chronic obstructive pulmonary disease) Continuous tremor Diverticulitis H/O: hysterectomy Occasional tremors History of appendectomy History of tonsillectomy Hx of foot surgery Allergies/Adverse Reactions: Allergies azithromycin Allergy (Severe, Verified 08/07/18 09:14) Rash ciprofloxacin Allergy (Severe, Verified 12/01/17 02:59) Rash clavulanic acid Allergy (Severe, Verified 12/01/17 02:59) Rash levofloxacin Allergy (Severe, Verified 12/01/17 02:59) Rash tramadol Allergy (Severe, Verified 08/07/18 09:14) Rash valdecoxib Allergy (Severe, Verified 08/07/18 09:14) Rash cefadroxil Allergy (Unknown, Verified 08/07/18 09:14) Rash codeine Allergy (Unknown, Verified 08/07/18 09:14) Rash monosodium glutamate Adverse Reaction (Severe, Verified 08/07/18 09:14) Nausea/Vomiting Objective Vital Signs 08/08/18 12:00 08/08/18 12:20 08/08/18 16:00 Temperature 98.3 F 100.2 F H Pulse Rate 80 92 H Respiratory Rate 20 20 Blood Pressure 105/52 L 141/64 H Pulse Oximetry 99 96 99 08/08/18 20:00 08/09/18 00:00 08/09/18 08:00 Temperature 99.4 F 97.7 F 98.0 F Pulse Rate 88 73 75 Respiratory Rate 20 20 16 Blood Pressure 126/60 117/73 120/69 Pulse Oximetry 96 97 97 Intake & Output 08/08/18 08/09/18 08/09/18 18:59 06:59 18:59 Intake Total 1254 / 1254 1398 / 1398 1000 / 1000 Output Total 600 / 600 Balance 654 / 654 1398 / 1398 1000 / 1000 Weight 136.9 kg Intake: IV 654 / 654 1158 / 1158 1000 / 1000 NS Inj 1,000 ML @ 70 mls/hr IV. 250 / 250 750 / 750 1000 / 1000 CONT .[id number] KORIN Rx#:[id number] Unasyn Inj 3 GM In NS Inj 100 200 / 200 200 / 200 ML @ 200 mls/hr IV.SIG Q6H KORIN Rx#:[id number] Azactam Inj 2,000 GM In NS Inj 100 / 100 100 ML @ 200 mls/hr IV.SIG Q6H KORIN Rx#:[id number] Cleocin Inj 600 MG In NS Inj 104 / 104 208 / 208 100 ML @ 200 mls/hr IV.SIG Q8H KORIN Rx#:[id number] Oral 600 / 600 240 / 240 Output: Urine 600 / 600 Other: # Voids 4 2 # Bowel Movements 0 08/07/18 09:30 Blood - Peripheral Aerobic Blood Culture - Preliminary No growth in 2 days 08/07/18 09:30 Blood - Peripheral Anaerobic Blood Culture - Preliminary No growth in 2 days 08/07/18 09:25 Blood - Peripheral Aerobic Blood Culture - Preliminary No growth in 2 days 08/07/18 09:25 Blood - Peripheral Anaerobic Blood Culture - Preliminary No growth in 2 days 08/07/18 09:31 Nasal Wash Influenza Types A,B Antigen - Final Negative for FLU A and B antigen Infection due to influenza A or B cannot be ruled out since the antigen present in the sample may be below the detection limit of the test. Lab - Hematology Results 08/08/18 08/09/18 06:10 06:56 WBC 16.2 H 5.8 RBC 4.19 3.81 L Hgb 11.8 11.1 L Hct 35.4 32.4 L MCV 84.5 84.9 MCH 28.3 29.1 MCHC 33.4 34.3 RDW 15.5 15.7 Plt Count 214 174 MPV 8.8 8.8 Neut % (Auto) 91.8 H Lymph % (Auto) 4.9 L [place] % (Auto) 2.9 Eos % (Auto) 0.0 Baso % (Auto) 0.4 Neut # (Auto) 14.9 H Lymph # (Auto) 0.8 L [place] # (Auto) 0.5 Eos # (Auto) 0.0 Baso # (Auto) 0.1 WBC Differential . Differential Comment Auto diff final Lab - Chemistry Results 08/07/18 08/08/18 08/09/18 20:17 06:20 06:56 Sodium 140 142 Potassium 3.3 L D 3.4 L Chloride 111 H 114 H Carbon Dioxide 17.3 L 21.4 Anion Gap 12 7 BUN 16 14 Creatinine 1.07 H 0.98 Estimated GFR 52 L 57 L Random Glucose 86 85 Lactic Acid 0.8 Calcium 7.3 L* D 7.0 L* Calcium Adj for Albumin 8.4 L 8.4 L Total Bilirubin 0.4 0.2 AST 18 26 ALT 21 28 Alkaline Phosphatase 64 51 Total Protein 5.9 L D 5.5 L Albumin 2.6 L D 2.2 L Imaging: ITS Impressions Chest X-Ray 08/07/18 09:23 CONCLUSION: Minimal increase in interstitial changes. Chest CTA 08/07/18 10:43 CONCLUSION: 1. No evidence of pulmonary embolism. 2. The lungs are clear with no evidence of pneumonia. 3. Coronary artery calcifications are present. Physical Exam: GENERAL: awake and alert, not in respiratory distress. SKIN: Warm and dry. No generalized rash. HEAD: Atraumatic. Normocephalic. No temporal wasting, or tenderness. EYES: [place] conjunctiva. No petechia or hemorrhage. No scleral icterus. No injection or drainage. EARS, NOSE AND THROAT: Mucous membranes pink and moist. No oral lesions noted. No exudate. No oral thrush. NECK: Trachea midline. Supple and not tender, no meningeal signs CARDIOVASCULAR: Regular rate and rhythm. No murmurs, rubs or gallops heard RESPIRATORY: Clear to auscultation. Breath sounds equal bilaterally. No rales , wheezing or rhonchi ABDOMEN: Soft, obese, non-tender, nondistended. Bowel sounds present and normoactive. No guarding. No rebound. No organomegaly. EXTREMITIES: No clubbing, cyanosis. LLE larger compared to RLE. has some brownish pigmentation both legs but more on LLE. There is improving erythema on the L leg; lymphangitis has resolved, no open wound noted. No joint effusion, has good ROM. No calf tenderness. Has some scars on foot from previous surgeries NEUROLOGICAL: Grossly non-focal. PSYCHIATRIC: Normal affect, calm and cooperative. LINE: No evidence of infection Assessment and Plan - Plan Impression Sepsis likely due to LLE cellulitis, improving Recurrent LLE cellulitis - clinical presentation compatible with Strep infection BLE edema Recommendation Follow BC IV Unasyn Monitor progress If temps down, and BC negative, should be able to D/C home in next few days She will need followup with ID on D/C May need chronic suppression Abx Leg elevation - fo edema control Explained plan to patient
--- NOTE | 2018-08-09 13:03 | P.PNIM ---
Subjective Interval history: 62-year-old female admitted for recurrence of bilateral lower extremity cellulitis worse on the left lower extremity than the right. She reports that the redness has been drastically reduced by 2 days of IV vancomycin. She has wary of PICC lines. Physical Exam Vital signs: Last Vital Signs Temp 98.0 F 08/09/18 08:00 Pulse 75 08/09/18 08:00 Resp 16 08/09/18 08:00 BP 120/69 08/09/18 08:00 Pulse Ox 97 08/09/18 08:00 Intake & Output 08/07/18 08/08/18 08/09/18 08/10/18 06:59 06:59 06:59 06:59 Intake Total 3470 / 3470 2652 / 2652 1000 / 1000 Output Total 600 / 600 600 / 600 Balance 2870 / 2870 2051 / 2051 1000 / 1000 Weight 136.5 kg 136.9 kg Narrative: Physical examination GENERAL: Patient is an obese, well-developed female, awake and alert, not in respiratory distress. SKIN: Warm and dry. No generalized rash, no ecchymoses and no evidence of embolic lesions. HEAD: Atraumatic. Normocephalic. No temporal wasting, or tenderness. EYES: [place] conjunctiva. No petechia or hemorrhage. Pupils equal, round and reactive to light. Extraocular movements full and intact. No scleral icterus. No injection or drainage. EARS, NOSE AND THROAT: Nose without bleeding or purulent nasal discharge. No sinus tenderness. Mucous membranes pink and moist. No oral lesions noted. No exudate. No oral thrush. NECK: Trachea midline. Supple and not tender, no meningeal signs CARDIOVASCULAR: Regular rate and rhythm. No murmurs, rubs or gallops heard RESPIRATORY: Clear to auscultation. Breath sounds equal bilaterally. No rales , wheezing or rhonchi ABDOMEN: Soft, obese, non-tender, nondistended. Bowel sounds present and normoactive. No guarding. No rebound. No organomegaly. EXTREMITIES: No clubbing, cyanosis. LLE larger compared to RLE. has some brownish pigmentation both legs but more on LLE. There is erythema on the L leg with some lymphangitis, no open wound noted. No joint effusion, has good ROM. No calf tenderness. Well perfused and warm. Has some scars on foot from previous surgeries NEUROLOGICAL: Awake and alert. Cranial nerves grossly intact. Motor grossly within normal limits. PSYCHIATRIC: Normal affect, calm and cooperative. LINE: No evidence of infection Results Labs CBC & Chem 7: 08/09/18 06:56 08/09/18 06:56 Labs: Microbiology 08/07/18 09:30 Blood - Peripheral Aerobic Blood Culture - Preliminary No growth in 2 days 08/07/18 09:30 Blood - Peripheral Anaerobic Blood Culture - Preliminary No growth in 2 days 08/07/18 09:25 Blood - Peripheral Aerobic Blood Culture - Preliminary No growth in 2 days 08/07/18 09:25 Blood - Peripheral Anaerobic Blood Culture - Preliminary No growth in 2 days Assessment and Plan Plan Left lower extremity cellulitis with sepsis This is recurrent, patient felt very ill but did not have open wounds like her last hospitalization Evidence of sepsis included elevated WBC, tachycardia, elevated lactic acid level She does not appear septic today Patient reports drastic reduction in redness s/p IV Unasyn and vancomycin Appreciate infectious disease consult Acute renal insufficiency Responded well to gentle IV fluid hydration, creatinine nearing normal There is likely a chronic element to this Avoid all nephrotoxic drugs Chronic lower extremity edema Patient has poor circulation in bilateral lower extremities, she passed a Doppler study however Consider hypothyroidism, checking TSH in the morning I have encouraged her to get some socks to help compress the edema and improve circulation Essential tremor Chronic issue, continue outpatient meds DVT prophylaxis Lovenox
[2018-08-10] MEDS: Ampicillin/Sulbactam Inj 3 GM in Sodium Chloride 0.9% Inj 100 ML IV.SIG SCH ×4 (00:47→18:43)
[2018-08-10 09:06] LABS: Hematocrit 35.4 % (35.0-46.0); Hemoglobin 11.6 gm/dL (11.6-15.3); Mean Corpuscular HGB Conc 32.7 % (32.0-36.0); Mean Corpuscular Hemoglobin 28.3 pg (27.0-34.0); Mean Corpuscular Volume 86.5 fL (80.0-100.0); Mean Platelet Volume 8.6 fL (7.0-11.0); Platelet Count 195 th/mm3 (150-450); Red Blood Count 4.09 mil/mm3 (4.00-5.30); Red Cell Distribution Width 15.3 % (11.6-17.2); White Blood Count 4.3 th/mm3 (4.0-11.0)
[2018-08-10 09:38] LABS: Calcium 7.7 mg/dL (8.5-10.1); Carbon Dioxide 19.2 meq/L (21.0-32.0); Potassium 3.7 meq/L (3.5-5.1)
[2018-08-10 09:44] LABS: Thyroid Stimulating Hormone 4.8 uIU/mL (0.358-3.740)
[2018-08-10] MEDS: Topiramate 100 MG Tablet PO SCH (09:47)
[2018-08-10] MEDS: Topiramate 25 MG Tablet PO SCH (09:47)
[2018-08-10] MEDS: Lactobacillus Acidophilus/L. Spores Tablet PO SCH ×2 (09:48→20:32)
[2018-08-10] MEDS: Enoxaparin Inj 40 MG/0.4 ML Syringe SQ SCH (09:48)
--- NOTE | 2018-08-10 13:13 | P.PNID ---
Subjective Remarks: Patient is a 62-year-old female, presented to the hospital with an acute onset of fever and chills and not feeling well. Patient has had prior sepsis from the left lower extremity cellulitis, and she was hospitalized back in November 2017. She eventually improved, and followed up with infectious disease specialist after that hospitalization. She was doing well, but she has chronic left lower extremity swelling as well as some discoloration. She was feeling well up until the day of admission when she woke up and she had some chills and fevers and just generalized malaise. She had noted increased swelling in her left lower extremity several days prior, and on the day of admission she had noted some pink discoloration. She has not had any sore throat or any respiratory complaint. No nausea or vomiting, , or other GI problems. She has not had any recent trauma. She gets some wounds but mostly in her upper extremity due to her birds. On presentation her WBC is elevated. Patient has been febrile up to 103. Infectious disease consultation has been requested to assist with evaluation and treatment. Patient has tolerated Zosyn and penicillin in the past. Notes reviewed Temps better WBC down to normal Feels better but notes ?bumps in her leg No size for HARLEEN stockings BC negative has been ambulating Antibiotics: Unasyn Clinda Past Medical History: Anxiety COPD (chronic obstructive pulmonary disease) Continuous tremor Diverticulitis H/O: hysterectomy Occasional tremors History of appendectomy History of tonsillectomy Hx of foot surgery Allergies/Adverse Reactions: Allergies azithromycin Allergy (Severe, Verified 08/07/18 09:14) Rash ciprofloxacin Allergy (Severe, Verified 12/01/17 02:59) Rash clavulanic acid Allergy (Severe, Verified 12/01/17 02:59) Rash levofloxacin Allergy (Severe, Verified 12/01/17 02:59) Rash tramadol Allergy (Severe, Verified 08/07/18 09:14) Rash valdecoxib Allergy (Severe, Verified 08/07/18 09:14) Rash cefadroxil Allergy (Unknown, Verified 08/07/18 09:14) Rash codeine Allergy (Unknown, Verified 08/07/18 09:14) Rash monosodium glutamate Adverse Reaction (Severe, Verified 08/07/18 09:14) Nausea/Vomiting Objective Vital Signs 08/09/18 16:00 08/09/18 20:00 08/10/18 00:00 Temperature 97.4 F L 98.3 F 97.6 F Pulse Rate 76 85 81 Respiratory Rate 18 18 18 Blood Pressure 141/67 H 136/61 123/58 L Pulse Oximetry 100 99 94 L 08/10/18 08:00 Temperature 97.8 F Pulse Rate 72 Respiratory Rate 18 Blood Pressure 124/64 Pulse Oximetry 72 L Intake & Output 08/09/18 08/10/18 08/10/18 18:59 06:59 18:59 Intake Total 1924 / 1924 1408 / 1408 100 / 100 Balance 192 / 1924 1408 / 1408 100 / 100 Weight 138.5 kg Intake: IV 1204 / 1204 1408 / 1408 100 / 100 NS Inj 1,000 ML @ 70 mls/hr IV. 1000 / 1000 1000 / 1000 CONT .[id number] KORIN Rx#:[id number] Unasyn Inj 3 GM In NS Inj 100 100 / 100 200 / 200 100 / 100 ML @ 200 mls/hr IV.SIG Q6H KORIN Rx#:[id number] Cleocin Inj 600 MG In NS Inj 104 / 104 208 / 208 100 ML @ 200 mls/hr IV.SIG Q8H KORIN Rx#:[id number] Oral 720 / 720 Other: # Voids 3 3 Date of Last Bowel Movement 08/09/18 08/09/18 # Bowel Movements 1 08/07/18 09:30 Blood - Peripheral Aerobic Blood Culture - Preliminary No growth in 3 days 08/07/18 09:30 Blood - Peripheral Anaerobic Blood Culture - Preliminary No growth in 3 days 08/07/18 09:25 Blood - Peripheral Aerobic Blood Culture - Preliminary No growth in 3 days 08/07/18 09:25 Blood - Peripheral Anaerobic Blood Culture - Preliminary No growth in 3 days 08/07/18 09:31 Nasal Wash Influenza Types A,B Antigen - Final Negative for FLU A and B antigen Infection due to influenza A or B cannot be ruled out since the antigen present in the sample may be below the detection limit of the test. Lab - Hematology Results 08/09/18 08/10/18 06:56 08:54 WBC 5.8 4.3 RBC 3.81 L 4.09 Hgb 11.1 L 11.6 Hct 32.4 L 35.4 MCV 84.9 86.5 MCH 29.1 28.3 MCHC 34.3 32.7 RDW 15.7 15.3 Plt Count 174 195 MPV 8.8 8.6 Lab - Chemistry Results 08/09/18 08/10/18 06:56 08:54 Sodium 142 142 Potassium 3.4 L 3.7 Chloride 114 H 117 H Carbon Dioxide 21.4 19.2 L Anion Gap 7 6 BUN 14 11 Creatinine 0.98 0.95 Estimated GFR 57 L 59 L Random Glucose 85 93 Calcium 7.0 L* 7.7 L Calcium Adj for Albumin 8.4 L Total Bilirubin 0.2 AST 26 ALT 28 Alkaline Phosphatase 51 Total Protein 5.5 L Albumin 2.2 L TSH 4.800 H Imaging: ITS Impressions Chest X-Ray 08/07/18 09:23 CONCLUSION: Minimal increase in interstitial changes. Chest CTA 08/07/18 10:43 CONCLUSION: 1. No evidence of pulmonary embolism. 2. The lungs are clear with no evidence of pneumonia. 3. Coronary artery calcifications are present. Physical Exam: GENERAL: awake and alert, not in respiratory distress. Sitting up in chair SKIN: Warm and dry. No generalized rash. HEAD: Atraumatic. Normocephalic. No temporal wasting, or tenderness. EYES: [place] conjunctiva. No petechia or hemorrhage. No scleral icterus. No injection or drainage. EARS, NOSE AND THROAT: Mucous membranes pink and moist. No oral lesions noted. No exudate. No oral thrush. NECK: Trachea midline. Supple and not tender, no meningeal signs CARDIOVASCULAR: Regular rate and rhythm. No murmurs, rubs or gallops heard RESPIRATORY: Clear to auscultation. Breath sounds equal bilaterally. No rales , wheezing or rhonchi ABDOMEN: Soft, obese, non-tender, nondistended. Bowel sounds present and normoactive. No guarding. No rebound. No organomegaly. EXTREMITIES: No clubbing, cyanosis. LLE larger compared to RLE. has some brownish pigmentation both legs but more on LLE. There is improving erythema on the L leg - color is darker red; lymphangitis has resolved, no open wound noted. No joint effusion, has good ROM. No calf tenderness. Has some scars on foot from previous surgeries NEUROLOGICAL: Grossly non-focal. PSYCHIATRIC: Normal affect, calm and cooperative. LINE: No evidence of infection Assessment and Plan - Plan Impression Sepsis likely due to LLE cellulitis, resolved Recurrent LLE cellulitis - clinical presentation compatible with Strep infection BLE edema Recommendation Continue IV Unasyn Monitor progress SHADI wrap to help with edema control while ambulating If stable, D/C home on Amoxicillin 500 TID x [address] Deborah Meyers when she gets D/C Leg elevation - fo edema control Explained plan to patient D/W Dr Maldonado
--- NOTE | 2018-08-10 13:29 | P.PNIM ---
Subjective Interval history: 62-year-old female with recurrent left leg cellulitis, improving clinically, afebrile, but she complains about increased redness in that left leg and questions whether the antibiotics are truly working. My answer to her is that her white blood cells have trended markedly elevated to normal while on those current antibiotics more than likely the antibiotics are working well. Physical Exam Vital signs: Last Vital Signs Temp 97.8 F 08/10/18 08:00 Pulse 72 08/10/18 08:00 Resp 18 08/10/18 08:00 BP 124/64 08/10/18 08:00 Pulse Ox 72 L 08/10/18 08:00 Intake & Output 08/08/18 08/09/18 08/10/18 08/11/18 06:59 06:59 06:59 06:59 Intake Total 3470 / 3470 2652 / 2652 3332 / 3332 100 / 100 Output Total 600 / 600 600 / 600 Balance 2870 / 2870 205 / 2052 3332 / 3332 100 / 100 Weight 136.5 kg 136.9 kg 138.5 kg Narrative: GENERAL: AAOx3, no acute distress SKIN: Warm and dry. There can redness of cellulitis on left lower leg, with reduced size and reduce swelling HEAD: [place], normocephalic. EYES: No scleral icterus. No injection or drainage. ENT: Moist mucous membranes, patent nares, no erythema of oropharynx. NECK: Supple, trachea midline. No JVD or lymphadenopathy. Normal thyroid. CARDIOVASCULAR: Regular rate and rhythm. No murmurs, gallops, or rubs. RESPIRATORY: Breath sounds clear equal bilaterally. No crackles or wheezes. No accessory muscle use. GASTROINTESTINAL: Abdomen soft, non-tender, nondistended, normal active bowel sounds MUSCULOSKELETAL: No cyanosis, chronic nonpitting edema bilateral lower extremities, currently worse than left and right due to cellulitis NEURO: CN II-XII grossly intact, no focal deficits, no slurring of speech Results Labs CBC & Chem 7: 08/10/18 08:54 08/10/18 08:54 Labs: Microbiology 08/07/18 09:30 Blood - Peripheral Aerobic Blood Culture - Preliminary No growth in 3 days 08/07/18 09:30 Blood - Peripheral Anaerobic Blood Culture - Preliminary No growth in 3 days 08/07/18 09:25 Blood - Peripheral Aerobic Blood Culture - Preliminary No growth in 3 days 08/07/18 09:25 Blood - Peripheral Anaerobic Blood Culture - Preliminary No growth in 3 days Assessment and Plan Plan Left lower extremity cellulitis with sepsis This is recurrent, patient felt very ill but did not have open wounds like her last hospitalization Evidence of sepsis included elevated WBC, tachycardia, elevated lactic acid level, she is no longer septic Redness of his darkening since yesterday, but swelling is reduced as well as signs of cellulitis Overall the trend is a decrease in her white blood cells overall improvement in the clinical picture Bactroban topical cream added to alleviate patient's concerns, Nikita wrap application will reduce redness seems to be a circulatory more than cellulitic Continue Unasyn she received her last dose of clindamycin this morning She will likely be discharged on a beta-lactam for coverage of strep Appreciate infectious disease consult Acute renal insufficiency Responded well to gentle IV fluid hydration, creatinine nearing normal There is likely a chronic element to this Avoid all nephrotoxic drugs Chronic lower extremity edema Patient has poor circulation in bilateral lower extremities, she passed a Doppler study however Consider hypothyroidism, checking TSH in the morning He do not have a size of compression stocking that fits her Requested to place Nikita wrap over the left lower leg Essential tremor Chronic issue, continue outpatient meds DVT prophylaxis Lovenox Discharge planning Possible discharge tomorrow if the clinical picture continues to improve and blood cultures remain negative
[2018-08-10] MEDS: Sod Chloride 0.9% Inj 1,000 ML IV.CONT SCH (18:44)
[2018-08-10 21:20] VITALS: RESP 20
[2018-08-11] MEDS: Ampicillin/Sulbactam Inj 3 GM in Sodium Chloride 0.9% Inj 100 ML IV.SIG SCH ×4 (00:52→12:17)
[2018-08-11] MEDS: Sod Chloride 0.9% Inj 1,000 ML IV.CONT SCH (03:54)
[2018-08-11] MEDS: Topiramate 25 MG Tablet PO SCH (08:10)
[2018-08-11] MEDS: Enoxaparin Inj 40 MG/0.4 ML Syringe SQ SCH (08:10)
[2018-08-11] MEDS: Lactobacillus Acidophilus/L. Spores Tablet PO SCH (08:10)
[2018-08-11] MEDS: Topiramate 100 MG Tablet PO SCH (08:10)
[2018-08-11] MEDS ORDERED: Pharmacy Ordered Lab Info OTHER ONE (10:45)
[2018-08-11 12:44] VITALS: BP 134/59; PULSE 71; TEMP 98.1; O2SAT 99
--- NOTE | 2018-08-11 14:56 | P.DS ---
DS: Providers Date of admission: 08/07/18 12:38 Primary care physician: Kali Harrington DO Consults: 08/08/18 08:59 Consult to Infectious Diseases Routine Consulting Provider: Evi Norton Reason for Consultation: sepsis from cellulitis Notified:: Service Spoke with:: lima Date Notified:: 08/08/18 Time Notified:: 09:11 Ordering Provider: CARINE Brief History from admission: 62-year-old female with a past medical history of essential tremors, treated previously for left lower extremity cellulitis November 2017 presented to the ED today for evaluation of an acute onset of chills, shortness of breath overnight and a sensation of ill feeling. In the ED, patient was found to have a temp. She also reported swelling with presence of erythema on the left lower extremity. Denies any recent treatment for left lower extremity cellulitis. She denies any cough production. Abnormal lab includes leukocytosis, elevated BUN and creatinine. She has no other issues. DS: Summary 62-year-old female admitted for recurrent cellulitis of her left lower extremity. On previous admission she had skin breakdown and was given treatment for coverage of MSSA. She had no skin breakdown on this admission and responded well to IV Unasyn and clindamycin. Given no skin breakdown she is suspected again for MSSA and will be given coverage with amoxicillin 500 mg 3 times daily times 10 days per infectious disease. Her chronic edema of the right lower extremity needs to be considered, I recommended that she use compression stockings when ambulating in order to improve circulation to that leg. She is instructed to follow-up with Dr. Wan within the next 7 days. She is instructed to return to the ER immediately for IV antibiotics if any worsening, increased swelling, fevers occur. Time Spent with Patient Total time spent providing and/or coordinating discharge services: Less than 30 minutes Results Labs on day of discharge: Preliminary micro results at discharge 08/07/18 09:30 Aerobic Blood Culture - Preliminary Blood - Peripheral No growth in 4 days Anaerobic Blood Culture - Preliminary No growth in 4 days 08/07/18 09:25 Aerobic Blood Culture - Preliminary Blood - Peripheral No growth in 4 days Anaerobic Blood Culture - Preliminary No growth in 4 days Impressions ITS Impressions Chest X-Ray 08/07/18 09:23 CONCLUSION: Minimal increase in interstitial changes. Chest CTA 08/07/18 10:43 CONCLUSION: 1. No evidence of pulmonary embolism. 2. The lungs are clear with no evidence of pneumonia. 3. Coronary artery calcifications are present. Discharge Plan Discharge Disposition Patient Disposition: 01 Discharge Home Discharge Condition Condition: Stable Discharge Order Discharge Orders: Discharge Order (Routine); Ordered 08/11/18 Ordered By: Andres Maldonado Discharge Details Anticipated Discharge Date: 08/11/18 Physicians Team Primary Care Provider: Kali Harrington Attending Provider: Andres Maldonado Other Providers: Evi Norton Rxs /Orders / Referrals /Forms Prescriptions: New amoxicillin 500 mg capsule 500 mg PO TID 10 Days Qty: 30 RF: 0 Continue topiramate 150 mg Capsule,Sprinkle,Er 24hr 150 mg PO DAILY RF: 0 Referrals: Kali Harrington DO [Primary Care Provider] - See Instructions Discharge Instructions Patient Printed Instructions: Amoxicillin (By mouth), Cellulitis (DC), Sepsis ( GEN) Discharge Interventions Interventions: Discharge Planning - Case Management Last Done: 08/10/18 14:14 Status ED Status: Left Department
== END 2018-08-11 15:51 | disposition home or self-care (01) ==
LOC: NEPC 09:06 → NEDA 12:38 → N07 14:27
PROVIDERS: ADMIT Family Medicine; ATTEND Family Medicine